=== PATIENT | female | born 1980 | race Caucasian/White ===

== ENCOUNTER 2020-01-31 13:48 | Observation (INO) | payer SELFPAY ==
[2020-01-31] VITALS (15 sets, daily range): BP systolic 140–163; BP diastolic 76–107; PULSE 83–109; RESP 14–20; TEMP 36.3–37.1; O2SAT 92–100; BMI 43.2
--- NOTE | ~2020-01-31 | US_ITS ---
EXAMINATION: US OB <=14 wk fetus w TV EXAM DATE: 01/31/2020 15:02 INDICATION: Vaginal bleeding. Beta hCG 694. First trimester. TECHNIQUE: Pelvic obstetrical transabdominal and transvaginal sonogram was performed by a technologi . There are multiple grayscale and Doppler images available for interpretation. There are no guerrero ier studies of this gestation for comparison. FINDINGS: Uterus measures 11.3 x 7.2 x 5.8 cm, and is morphologically normal. There is thickened het erogeneous endometrium at 2.4 cm. No intrauterine gestation sac identified. There is no free pelvic fluid. Right adnexa: The ovary is not identified. There is no adnexal mass. Left adnexa: The ovary is not identified. There is no adnexal mass. IMPRESSION: Thickened heterogeneous endometrium without intrauterine identified. Please not e that gestation sac might not be detected with beta hCG this low. Follow up as indicated clinicall y. Reviewed, dictated and finalized at location B. IMPRESSION: Thickened heterogeneous endometrium without intrauterine identified. Please note that gestation sac might not be detected with beta hCG this low. Follow up as indicated clinically.
--- NOTE | 2020-01-31 14:10 | ED.PREGNANCY ---
HPI - General Chief complaint: OB/Uterine Contractions Stated complaint: Miscarrige Time Seen by Provider: 01/31/20 14:07 Source: patient and RN notes reviewed Mode of arrival: ambulatory Limitations: no limitations History of Present Illness HPI Narrative: Pt is a 39 y/o female who is currently and G5, P4, who presents to the ED with c/o vaginal bleeding and lower ABD pain starting 3 days ago. She notes that her LMP was in September of 2019, but states that due to her Hx of irregular periods, she wasn't concerned about possibly being . Pt notes that she suddenly developed lower ABD pain and vaginal bleeding 3 days ago. She states that she took a positive test later that day, which concerned her that she may be having a miscarriage. Pt notes that her bleeding has continued to worsen since it began, and states that she has went through 2 pads within the past 2 hours. She currently denies any nausea or vomiting. MD Complaint: abdominal pain and vaginal bleeding Onset (ago): day(s) (3) Location: abdomen (lower ABD) Associated symptoms: denies other symptoms Vaginal bleeding: heavy Related Data Allergies Allergy/AdvReac Type Severity Reaction Status Date / Time No Known Allergies Allergy Unknown Verified 01/31/20 13:54 Review of Systems Review of Systems: All systems reviewed & are unremarkable except as noted in HPI and below Constitutional: Constitutional: Reports fatigue Cardiovascular: Cardiovascular: Denies chest pain Respiratory: Respiratory: Reports dyspnea Gastrointestinal: Gastrointestinal: Reports abdominal pain (lower ABD pain), Denies nausea and Denies vomiting Genitourinary: Genitourinary: Reports abnormal vaginal bleeding FOR[facility]LY [facility], [facility] Past Medical History Medical History (Updated 01/31/20 @ 15:47 by Kya Mauricio MD) Anemia delivery delivered (~2010) Depression Diaphragmatic hernia without mention of obstruction or gangrene Esophageal reflux Gestational HTN Irregular menstrual cycle UTI (urinary tract infection), bacterial Surgical History Surgical History H/O abdominoplasty (~2014) Social History Social History Smoking status: Former smoker Tobacco type: cigarettes Second hand tobacco smoke exposure: No Alcohol intake: current Substance use type: marijuana Last use: July 2019 Gender identity (if verbalized by the patient): Female Spiritual care concerns: No Exam Narrative: Exam Narrative: GENERAL: Well-appearing, well-nourished, and in no acute distress. obese HEAD: Normocephalic, atraumatic EYES: PERRLA and EOMI, conjunctiva clear without discharge THROAT:Mucous membranes moist, NECK: Supple, without lymphadenopathy or mass RESPIRATORY: No respiratory distress, Airway patent, Respirations non-labored, Clear to auscultation without rales, rhonchi or wheeze HEART: Regular rate and rhythm. No murmur heard. Normal peripheral pulses. ABDOMEN: Soft, nontender, nondistended, normal active bowel sounds. No masses. No rebound or guarding, No organomegaly. EXTREMITIES: No edema, normal strength with full range of motion. SKIN: Warm, dry, pale NEURO: Alert and oriented x3. CN 2-12 grossly intact. No focal deficits. PSYCH: Normal mood and affect. : Speculum Exam - Vagina: vaginal bleeding (passing small clot and tissue from cervix, ) Other: open cervix Course Reevaluation(s) Reevaluation #1: I have discussed with patient plan to admit for blood transfusion and ultrasound results. Date: 01/31/20 Time: 15:46 Consultations Consultation #1: Discussed case with CHARGING BOARD OPERATOR, Dr. Rivas. Advised to admit her for observation and give her 1 unit of blood. Date: 01/31/20 Time: 15:39 Vital Signs Vital signs: Vital Signs Temperature 98.3 F 01/31/20 13:55 Pulse Rate 106 H 01/31/20 13:55 Respiratory Rate 17 01/31/20 13:55 Blood Pr
[2020-01-31 14:18] LABS: Basophils Absolute Auto 0.1 K/mm3 (0.0-0.1); Basophils Percent Auto 0.6 % (0.2-1.2); Eosinophils Absolute Auto 0.2 K/mm3 (0-0.3); Eosinophils Percent Auto 2.2 % (0-4.4); Hematocrit 25.6 % (37.0-47.0); Immature Granulocyte Absolute 0.05 K/mm3 (0.00-0.031); Immature Granulocyte Percent A 0.6 % (0-0.5); Lymphocytes Absolute Auto 3.53 K/mm3 (0.9-3.2); Lymphocytes Percent Auto 39.2 % (18.3-44.2); Mean Corpuscular HGB Conc 25.8 g/dl (32-36); Mean Corpuscular Hemoglobin 18.5 pg (26-34); Mean Corpuscular Volume 71.7 fl (80-100); Mean Platelet Volume 10.2 fl (7.4-10.4); Monocytes Absolute Auto 0.5 K/mm3 (0.1-0.6); Monocytes Percent Auto 5.8 % (2.6-8.5); Neutrophils Absolute Auto 4.7 K/mm3 (1.3-6.7); Neutrophils Percent Auto 51.6 % (45.5-73.1); Platelet Count Result 378 k/mm3 (150-375); Red Blood Count 3.57 M/mm3 (4.2-5.4); Red Cell Distribution Width 19.7 % (11.5-14.5)
[2020-01-31 14:25] LABS: Hemoglobin 6.6 g/dL (12.0-15.0)
[2020-01-31 14:27] LABS: Hypochromasia 2+ (NORMAL); Platelet Estimate Adequate (Adequate)
[2020-01-31 14:28] LABS: Ovalocytes 1+ (NORMAL); Stomatocytes 1+ (NORMAL)
[2020-01-31 16:19] LABS: Hematocrit 24.1 % (37.0-47.0)
[2020-01-31 16:21] LABS: Hemoglobin 6.4 g/dL (12.0-15.0)
--- NOTE | 2020-01-31 17:08 | PC.NURSE ---
This patient, Jackie Alford, was admitted to Medical Room 348-01. Patient/family oriented to hospital policies and general routines including ID bracelet, bed and alarms, visiting hours, pain management, procedures, bathroom and other care routines, personal items, smoking policy, room service/diet, and visiting hours. Valuables list has been completed. Information on how to activate the Rapid Response Team has been discussed. Patient/Family are encouraged to report perceived risks to care and to ask questions if they do not understand what they are told or what they should do.
[2020-01-31] MEDS: SODIUM CHLORIDE 0.9% IV 250 ML 30 ML IV CONT (18:30)
[2020-01-31 22:52] LABS: Hematocrit 26.6 % (37.0-47.0); Hemoglobin 7.1 g/dL (12.0-15.0)
[2020-02-01] VITALS (19 sets, daily range): BP systolic 124–162; BP diastolic 60–96; PULSE 71–96; RESP 10–18; TEMP 36.1–36.8; O2SAT 95–100
[2020-02-01] MEDS: SODIUM CHLORIDE 0.9% IV 250 ML 30 ML IV CONT (00:05)
[2020-02-01] MEDS: ACETAMINOPHEN 500 MG TABLET PO (04:12)
[2020-02-01] MEDS: ALPRAZOLAM 0.5 MG TABLET PO (04:12)
[2020-02-01 06:17] LABS: Hematocrit 26.8 % (37.0-47.0); Hemoglobin 7.6 g/dL (12.0-15.0); Mean Corpuscular HGB Conc 28.4 g/dl (32-36); Mean Corpuscular Hemoglobin 20.4 pg (26-34); Mean Platelet Volume 9.8 fl (7.4-10.4); Platelet Count Result 296 k/mm3 (150-375); Red Blood Count 3.72 M/mm3 (4.2-5.4); Red Cell Distribution Width 19.9 % (11.5-14.5); White Blood Count 6.8 K/mm3 (4.5-10.0)
--- NOTE | 2020-02-01 07:30 | PM.IMHP ---
H&P: HPI History of Present Illness Chief complaint: Miscarriage/anemia Narrative: Jackie Alford is a 39 year old female who was admitted through the ER with a hemoglobin of 6. She had a positive test with that was low but an ultrasound showed an abnormal . She has received blood and her hemoglobin is pending but she appears to be stable. She will undergo suction dilatation curettage. Risks and benefits were reviewed Review of Systems Review of Systems: All systems reviewed & are unremarkable except as noted in HPI and below PMFSH Past Medical History Medical History Anemia delivery delivered (~2010) Depression Diaphragmatic hernia without mention of obstruction or gangrene Esophageal reflux Gestational HTN Irregular menstrual cycle UTI (urinary tract infection), bacterial Surgical History Surgical History H/O abdominoplasty (~2014) Family History Family History Grandparent Acute myocardial infarction Father Diabetes mellitus Sibling Diabetes mellitus Grandparent Heart disease Mother Hypertension Father Hypertension Father Obesity Mother Obesity Social History Social History Smoking status: Former smoker Tobacco type: cigarettes Second hand tobacco smoke exposure: No Alcohol intake: current Drinks per week: 2 Substance use type: marijuana Last use: 6 months ago Gender identity (if verbalized by the patient): Female Spiritual care concerns: No Agree to blood products: Yes Meds Home Medications and Allergies Home Medications Medication Instructions Recorded Confirmed Type alprazolam 0.5 mg tablet 0.5 mg PO BID PRN #60 tablet 01/28/20 01/31/20 Rx diphenhydramine HCl [Benadryl] 50 mg PO HS PRN 01/31/20 01/31/20 History ibuprofen 400 mg PO Q6H PRN 01/31/20 01/31/20 History omeprazole 20 mg PO PRN 01/31/20 01/31/20 History ondansetron 4 mg PO Q6H PRN 01/31/20 01/31/20 History Allergies Allergy/AdvReac Type Severity Reaction Status Date / Time No Known Allergies Allergy Unknown Verified 01/31/20 13:54 Vital Signs Vital Signs - 24 hr 01/31/20 13:55 01/31/20 13:57 01/31/20 15:16 Temperature 98.3 F 98.8 F Pulse Rate 106 H 106 H 88 Respiratory Rate 17 20 Blood Pressure 151/76 H 151/95 H 146/102 H Pulse Oximetry 100 100 01/31/20 15:18 01/31/20 15:19 01/31/20 15:55 Temperature Pulse Rate 92 95 109 H Respiratory Rate 16 Blood Pressure 155/107 H 152/101 H 140/92 H Pulse Oximetry 92 01/31/20 16:50 01/31/20 17:10 01/31/20 17:29 Temperature 98.1 F 98.1 F Pulse Rate 83 92 92 Respiratory Rate 16 16 14 Blood Pressure 146/87 H 150/78 H 150/78 H Pulse Oximetry 100 100 100 01/31/20 17:45 01/31/20 18:45 01/31/20 19:45 Temperature 98.4 F 97.6 F 97.3 F L Pulse Rate 83 84 93 Respiratory Rate 16 16 16 Blood Pressure 141/81 H 142/82 H 163/82 H Pulse Oximetry 100 98 100 01/31/20 20:00 01/31/20 20:58 01/31/20 21:08 Temperature 97.5 F L 97.5 F L Pulse Rate 88 88 88 Respiratory Rate 16 16 16 Blood Pressure 147/93 H 147/93 H Pulse Oximetry 100 100 100 02/01/20 00:10 02/01/20 00:26 02/01/20 01:26 Temperature 97.5 F L 97.6 F 97.2 F L Pulse Rate 83 89 89 Respiratory Rate 16 16 16 Blood Pressure 150/76 H 146/76 H 146/76 H Pulse Oximetry 100 100 100 02/01/20 02:26 02/01/20 03:26 02/01/20 04:24 Temperature 97.4 F L 97 F L 97.1 F L Pulse Rate 90 85 76 Respiratory Rate 16 17 16 Blood Pressure 148/80 H 151/91 H 161/83 H Pulse Oximetry 99 97 100 02/01/20 06:29 Temperature 97 F L Pulse Rate 81 Respiratory Rate 16 Blood Pressure 133/60 Pulse Oximetry 99 Exam Const: General: no acute distress Eyes: General: appearance normal, both eyes and all related structures Nec
--- NOTE | 2020-02-01 07:55 | PC.NURSE ---
To OR via stretcher.
--- NOTE | 2020-02-01 08:08 | WPDANESEPPF ---
Anes - Initial Pre Proc Eval Procedure: Operation Date: 02/01/20 08:30 Proposed Procedures p Dilation and Curettage - Abdias Saha MD Date/Time: 02/01/20 08:08 Surgeon: Danial Rivas MD Pre Op Diagnosis: Miscarriage/anemia Patient Data Age: 39 Gender: F Height: 5 ft 10 in Weight: 136.6 kg Last Vital Signs Temp 36.1 C L 02/01/20 06:29 Pulse 81 02/01/20 06:29 Resp 16 02/01/20 06:29 BP 133/60 02/01/20 06:29 Pulse Ox 99 02/01/20 06:29 Allergies Allergy/AdvReac Type Severity Reaction Status Date / Time No Known Allergies Allergy Unknown Verified 01/31/20 13:54 Home Medications Medication Instructions Recorded Confirmed Type alprazolam 0.5 mg tablet 0.5 mg PO BID PRN #60 tablet 01/28/20 01/31/20 Rx diphenhydramine HCl [Benadryl] 50 mg PO HS PRN 01/31/20 01/31/20 History ibuprofen 400 mg PO Q6H PRN 01/31/20 01/31/20 History omeprazole 20 mg PO PRN 01/31/20 01/31/20 History ondansetron 4 mg PO Q6H PRN 01/31/20 01/31/20 History Laboratory Tests 01/31/20 01/31/20 01/31/20 14:06 14:09 14:09 WBC 9.0 K/mm3 K/mm3 (4.5-10.0) RBC 3.57 M/mm3 L M/mm3 (4.2-5.4) Hgb 6.6 g/dL L* g/dL (12.0-15.0) Hct 25.6 % L % (37.0-47.0) MCV 71.7 fl L fl (80-100) MCH 18.5 pg L pg (26-34) MCHC 25.8 g/dl L g/dl (32-36) RDW 19.7 % H % (11.5-14.5) Plt Count 378 k/mm3 H k/mm3 (150-375) MPV 10.2 fl fl (7.4-10.4) Immature Gran % (Auto) 0.6 % H % (0-0.5) Neut % (Auto) 51.6 % % (45.5-73.1) Lymph % (Auto) 39.2 % % (18.3-44.2) [place] % (Auto) 5.8 % % (2.6-8.5) Eos % (Auto) 2.2 % % (0-4.4) Baso % (Auto) 0.6 % % (0.2-1.2) Lymph # (Auto) 3.53 K/mm3 H K/mm3 (0.9-3.2) [place] # (Auto) 0.5 K/mm3 K/mm3 (0.1-0.6) Eos # (Auto) 0.2 K/mm3 K/mm3 (0-0.3) Baso # (Auto) 0.1 K/mm3 K/mm3 (0.0-0.1) Abs Immat Gran (auto) 0.05 K/mm3 H K/mm3 (0.00-0.031) Absolute Neuts (auto) 4.7 K/mm3 K/mm3 (1.3-6.7) Absolute Nucleated RBC 0.0 K/mm3 K/mm3 (0.0-0.012) Nucleated RBC % 0.0 % % (0.0-0.2) Platelet Estimate Adequate (Adequate) Hypochromasia 2+ (NORMAL) Ovalocytes 1+ (NORMAL) Stomatocytes 1+ (NORMAL) Beta HCG, Quant 694.17 mIU/ML mIU/ML Blood Type O Positive Antibody Screen Negative Crossmatch See Detail 01/31/20 01/31/20 01/31/20 14:09 16:14 22:47 WBC RBC Hgb 6.4 g/dL L* g/dL 7.1 g/dL L g/dL (12.0-15.0) (12.0-15.0) Hct 24.1 % L % 26.6 % L % (37.0-47.0) (37.0-47.0) MCV MCH MCHC RDW Plt Count MPV Immature Gran % (Auto) Neut % (Auto) Lymph % (Auto) [place] % (Auto) Eos % (Auto) Baso % (Auto) Lymph # (Auto) [place] # (Auto) Eos # (Auto) Baso # (Auto) Abs Immat Gran (auto) Absolute Neuts (auto) Absolute Nucleated RBC Nucleated RBC % Platelet Estimate Hypochromasia Ovalocytes Stomatocytes Beta HCG, Quant Blood Type O Positive Antibody Screen Crossmatch 02/01/20 06:08 WBC 6.8 K/mm3 K/mm3 (4.5-10.0) RBC 3.72 M/mm3 L M/mm3 (4.2-5.4) Hgb 7.6 g/dL L g/dL (12.0-15.0) Hct 26.8 % L % (37.0-47.0) MCV 72.0 fl L fl (80-100) MCH 20.4 pg L D pg (26-34) MCHC 28.4 g/dl L g/dl (32-36) RDW 19.9 % H % (11.5-14.5) Plt Count 296 k/mm3 k/mm3 (150-375) MPV 9.8 fl fl (7.4-10.4) Immature Gran % (Auto) Neut % (Auto) Lymph %
[2020-02-01] MEDS: LACTATED RINGERS 1,000 ML 30 ML IV CONT (08:33)
--- NOTE | 2020-02-01 08:36 | P.OP_ITS ---
Procedure Note - Detailed Date of procedure: 02/01/20 Pre-op diagnosis: Miscarriage/anemia Surgeon: Abdias Saha MD Postop diagnosis: 1st trimester AB/anemia Procedure: Suction dilatation curettage EBL: 25cc Anesthesia: IV sedation and local Findings: Tissue consistent with products of conception uterus that sounded to 10cm. Complications: None Description of procedure: Patient was prepped and draped in the normal sterile fashion placed in the dorsal lithotomy position. Under excellent IV sedation weighted speculum was placed in posterior fornix of vagina. Anterior lip of the cervix grasped with a single-tooth tenaculum. 2.5cc of 1% xylocaine anesthesia placed at 2, 4, 6, 8:00 a.m. of the cervix. The uterus sounded to 10cm. Serial dilatation with fragmented dilators performed followed by passage of the 10. Suction curette. The uterus was scraped over the entire 360? until a good gra ting sound was heard. When no further tissue could be removed, instruments removed. All sponge, needle, instrument counts were correct. There were no immediate complications. Patient went to recovery in satisfactory condition
--- NOTE | 2020-02-01 08:43 | PM.DS ---
DS: Diagnosis Admitting Diagnosis Admitting Diagnosis: sAB/anemia DS: Summary Time Spent with Patient Time attestation: Total time spent providing and/or coordinating discharge services: Exam Const: General: no acute distress Eyes: General: appearance normal, both eyes and all related structures Neck: Neck: supple and no JVD Thyroid: thyroid normal Resp: Effort & Inspection: normal respiratory effort Auscultation: clear to auscultation bilaterally Cardio: Rate: regular rate Rhythm: regular rhythm GI: Inspection: non-distended GI Palp: Yes Soft to palpation, No Tenderness to palpation present (GI) and No Guarding due to palpation present (GI) Auscultation: normal bowel sounds : General: Yes bladder normal to palpation External Female Exam: normal external appearance Speculum Exam - Vagina: normal vaginal discharge and No vaginal bleeding Speculum Exam - Cervix: nontender Bimanual exam- vagina & uterus: bladder normal to palpation and No Cervical tenderness present OB/external & speculum: No vaginal bleeding Skin: General skin exam: no rashes or lesions noted Extrem: General: normal to inspection and no edema Psych: Mental Status: mental status grossly normal Affect: normal affect DS: Data Data Completed and Pending Pending studies at discharge: Pending at discharge 01/31/20 17:09 Surgical [PTH] Routine 02/01/20 08:30 Surgical [PTH] Routine Labs on day of discharge: Labs from last 24 hours 02/01/20 01/31/20 01/31/20 06:08 22:47 16:14 WBC 6.8 RBC 3.72 L Hgb 7.6 L 7.1 L 6.4 L* Hct 26.8 L 26.6 L 24.1 L MCV 72.0 L MCH 20.4 L D MCHC 28.4 L RDW 19.9 H Plt Count 296 MPV 9.8 Immature Gran % (Auto) Neut % (Auto) Lymph % (Auto) [place] % (Auto) Eos % (Auto) Baso % (Auto) Lymph # (Auto) [place] # (Auto) Eos # (Auto) Baso # (Auto) Abs Immat Gran (auto) Absolute Neuts (auto) Absolute Nucleated RBC Nucleated RBC % Platelet Estimate Hypochromasia Ovalocytes Stomatocytes Beta HCG, Quant Blood Type Antibody Screen Crossmatch 04/06/20 04/06/20 04/06/20 14:09 14:09 14:09 WBC 9.0 RBC 3.57 L Hgb 6.6 L* Hct 25.6 L MCV 71.7 L MCH 18.5 L MCHC 25.8 L RDW 19.7 H Plt Count 378 H MPV 10.2 Immature Gran % (Auto) 0.6 H Neut % (Auto) 51.6 Lymph % (Auto) 39.2 [place] % (Auto) 5.8 Eos % (Auto) 2.2 Baso % (Auto) 0.6 Lymph # (Auto) 3.53 H [place] # (Auto) 0.5 Eos # (Auto) 0.2 Baso # (Auto) 0.1 Abs Immat Gran (auto) 0.05 H Absolute Neuts (auto) 4.7 Absolute Nucleated RBC 0.0 Nucleated RBC % 0.0 Platelet Estimate Adequate Hypochromasia 2+ Ovalocytes 1+ Stomatocytes 1+ Beta HCG, Quant 694.17 Blood Type O Positive Antibody Screen Crossmatch 01/31/20 14:06 WBC RBC Hgb Hct MCV MCH MCHC RDW Plt Count MPV Immature Gran % (Auto) Neut % (Auto) Lymph % (Auto) [place] % (Auto) Eos % (Auto) Baso % (Auto) Lymph # (Auto) [place] # (Auto) Eos # (Auto) Baso # (Auto) Abs Immat Gran (auto) Absolute Neuts (auto) Absolute Nucleated RBC Nucleated RBC % Platelet Estimate Hypochromasia Ovalocytes Stomatocytes Beta HCG, Quant Blood Type O Positive Antibody Screen Negative Crossmatch See Detail Discharge Plan Discharge Attending physician on discharge: Abdias Saha Discharging Clinician: Abdias Saha Patient Disposition: Home, Self-Care Activity: may shower, no straining, may drive after 2 weeks and pelvic rest Diet: heart healthy Wound Care Instructions: follow printed instructions Patient Instructions: Miscarriage (DC), Pain Management (DC), Pain Management (GEN), Antibiotic Form Stand Alone Forms: General Discharge Information Follow-up/Referrals: Abdias Saha MD [Physician] - Discharge Medications: Continued d
--- NOTE | 2020-02-01 09:45 | PC.NURSE ---
Returned from OR via stretcher.
[2020-02-01 10:18] LABS: Basophils Percent Auto 0.7 % (0.2-1.2); Eosinophils Absolute Auto 0.2 K/mm3 (0-0.3); Eosinophils Percent Auto 2.5 % (0-4.4); Hematocrit 28.8 % (37.0-47.0); Immature Granulocyte Absolute 0.01 K/mm3 (0.00-0.031); Immature Granulocyte Percent A 0.2 % (0-0.5); Lymphocytes Absolute Auto 2.38 K/mm3 (0.9-3.2); Lymphocytes Percent Auto 39.2 % (18.3-44.2); Mean Corpuscular HGB Conc 27.8 g/dl (32-36); Mean Corpuscular Hemoglobin 20.5 pg (26-34); Mean Corpuscular Volume 73.7 fl (80-100); Mean Platelet Volume 9.9 fl (7.4-10.4); Monocytes Absolute Auto 0.4 K/mm3 (0.1-0.6); Monocytes Percent Auto 7.1 % (2.6-8.5); Neutrophils Absolute Auto 3.1 K/mm3 (1.3-6.7); Neutrophils Percent Auto 50.3 % (45.5-73.1); Platelet Count Result 345 k/mm3 (150-375); Red Blood Count 3.91 M/mm3 (4.2-5.4); Red Cell Distribution Width 19.9 % (11.5-14.5); White Blood Count 6.1 K/mm3 (4.5-10.0)
[2020-02-01 10:32] LABS: Anisocytosis 1+ (NORMAL); Hypochromasia 1+ (NORMAL); Platelet Estimate Adequate (Adequate); Prothrombin Time 13.2 Seconds (11.1-14.7)
[2020-02-01 10:33] LABS: Partial Thromboplastin Time 25.1 SECONDS (22.3-36.8)
[2020-02-01] MEDS: ACETAMINOPHEN 325 MG TABLET 650 MG PO (10:33)
[2020-02-01 10:34] LABS: Fibrinogen 315 mg/dl (215-510)
[2020-02-01 16:56] LABS: Hemoglobin 7.7 g/dL (12.0-15.0)
[2020-02-01] MEDS: POLYSACCHARIDE IRON COMPLEX 150 MG CAPSULE PO (17:00)
[2020-02-02] VITALS (9 sets, daily range): BP systolic 128–154; BP diastolic 73–90; PULSE 72–90; RESP 12–18; TEMP 36.1–36.6; O2SAT 96–100
[2020-02-02] MEDS: ACETAMINOPHEN 325 MG TABLET 650 MG PO (00:12)
[2020-02-02] MEDS: ZOLPIDEM TARTRATE 5 MG TABLET PO (00:12)
[2020-02-02 05:40] LABS: Hematocrit 24.1 % (37.0-47.0)
[2020-02-02 05:58] LABS: Hemoglobin 6.7 g/dL (12.0-15.0)
[2020-02-02] MEDS: POLYSACCHARIDE IRON COMPLEX 150 MG CAPSULE PO ×2 (08:30→16:41)
[2020-02-02] MEDS: SODIUM CHLORIDE 0.9% IV 250 ML 30 ML IV CONT (08:32)
--- NOTE | 2020-02-02 09:47 | WPDANESPN ---
Anes - Prog Note Post-Op Date/Time: 02/02/20 09:47 Cardiovascular status: normal Respiratory status: normal Airway patency: baseline Mental status: baseline Post-Op hydration status: normal Vital Signs: Last Vital Signs Temp 36.1 C L 02/02/20 09:40 Pulse 80 02/02/20 09:40 Resp 16 02/02/20 09:40 BP 145/76 H 02/02/20 09:40 Pulse Ox 96 02/02/20 09:40 I/O: Intake & Output 02/01/20 02/02/20 02/02/20 23:59 07:59 15:59 Intake Total 600 450 0 Output Total 900 1300 Balance -300 -850 0 Laboratory Tests 02/02/20 05:13 01/31/20 02/01/20 02/01/20 14:06 10:11 10:11 WBC 6.1 RBC 3.91 L Hgb 8.0 L Hct 28.8 L MCV 73.7 L MCH 20.5 L MCHC 27.8 L RDW 19.9 H Plt Count 345 MPV 9.9 Immature Gran % (Auto) 0.2 Neut % (Auto) 50.3 Lymph % (Auto) 39.2 [place] % (Auto) 7.1 Eos % (Auto) 2.5 Baso % (Auto) 0.7 Lymph # (Auto) 2.38 [place] # (Auto) 0.4 Eos # (Auto) 0.2 Baso # (Auto) 0.0 Abs Immat Gran (auto) 0.01 Absolute Neuts (auto) 3.1 Absolute Nucleated RBC 0.0 Nucleated RBC % 0.0 Platelet Estimate Adequate Hypochromasia 1+ Anisocytosis 1+ PT 13.2 INR 1.0 APTT 25.1 Fibrinogen 315 D-Dimer 1.00 H Blood Type O Positive Antibody Screen Negative Crossmatch See Detail 02/01/20 02/02/20 16:14 05:13 WBC RBC Hgb 7.7 L 6.7 L* Hct 28.0 L 24.1 L MCV MCH MCHC RDW Plt Count MPV Immature Gran % (Auto) Neut % (Auto) Lymph % (Auto) [place] % (Auto) Eos % (Auto) Baso % (Auto) Lymph # (Auto) [place] # (Auto) Eos # (Auto) Baso # (Auto) Abs Immat Gran (auto) Absolute Neuts (auto) Absolute Nucleated RBC Nucleated RBC % Platelet Estimate Hypochromasia Anisocytosis PT INR APTT Fibrinogen D-Dimer Blood Type Antibody Screen Crossmatch Post-procedural complaints: none Patient Feedback: Patient satisfied with anesthetic care.
--- NOTE | 2020-02-02 12:27 | P.DS_ITS ---
DS: Summary Hospital Course Reason for hospitalization: * Hospital Course: 39 F who presented to the ED with heavy vaginal bleeding secondary to miscarriage. Pt was found to have a critical hbg requiring transfusion.She underwent suction D&C on hospital day #1. Her bleeding was well controlled after D&C. Hemoglobin was again found to be critical requiring another unit of RBC. Vital signs remained stable and patient asymptomatic on postop day 1. Status at Discharge Functional status at discharge: independent ambulation Overall status at discharge: patient is back to baseline Time Spent with Patient Time attestation: Total time spent providing and/or coordinating discharge services: Time spent: Less than 30 minutes Exam Const: General: no acute distress Resp: Auscultation: clear to auscultation bilaterally Cardio: Rate: regular rate Rhythm: regular rhythm GI: Inspection: non-distended GI Palp: Yes Soft to palpation and No Tenderness to palpation present (GI) Skin: General skin exam: normal color and no rashes or lesions noted Extrem: General: normal to inspection DS: Data Data Completed and Pending Completed studies during hospitalization: Pending at discharge 01/31/20 17:09 Surgical [PTH] Routine 02/01/20 08:30 Surgical [PTH] Routine Labs on day of discharge: Labs from last 24 hours 02/02/20 02/01/20 01/31/20 05:13 16:14 14:06 Hgb 6.7 L* 7.7 L Hct 24.1 L 28.0 L Blood Type O Positive Antibody Screen Negative Crossmatch See Detail Discharge Plan Discharge Attending physician on discharge: Abdias Saha Discharging Clinician: Abdias Saha Patient Disposition: Home, Self-Care Activity: may shower, no straining, may drive after 2 weeks and pelvic rest Diet: heart healthy Wound Care Instructions: follow printed instructions Patient Instructions: Antibiotic Form, Miscarriage (DC), Pain Management (DC), Pain Management (GEN) Stand Alone Forms: General Discharge Information Follow-up/Referrals: Abdias Saha MD [Physician] - Discharge Medications: New ferrous sulfate [Feosol] 325 mg (65 mg iron) tablet 325 mg PO BID Qty: 60 RF: 0 Continued diphenhydramine HCl [Benadryl] 25 mg Capsule 50 mg PO HS PRN (Reason: Sleep) RF: 0 ibuprofen 400 mg Tablet 400 mg PO Q6H PRN (Reason: Pain) RF: 0 ondansetron 4 mg Tablet,Disintegrating 4 mg PO Q6H PRN (Reason: Nausea) RF: 0 omeprazole 20 mg Tablet,Delayed Release (Dr/Ec) 20 mg PO PRN RF: 0 alprazolam 0.5 mg tablet 0.5 mg PO BID PRN (Reason: anxiety, sleep) Qty: 60 RF: 0 Date of admission: 01/31/20 15:49 Primary Care Provider: UNKNOWN,DOCTOR Admitting Provider: Danial Rivas Attending physician on admission: Danial Rivas Condition: Stable
[2020-02-02 16:30] LABS: Hematocrit 29.2 % (37.0-47.0); Hemoglobin 8.3 g/dL (12.0-15.0)
== END 2020-02-02 17:50 | disposition home or self-care (01) ==
LOC: ANHED 15:52 → ANH3MED 18:58
PROVIDERS: Admitting Provider Student in an Organized Health Care Education/Training Program; Emergency Provider General Practice; Visit Provider Obstetrics & Gynecology
PROC: (CPT 59812; principal; 2020-02-01 08:30)
DX: O03.9 Complete or unspecified spontaneous abortion without complication (principal); D64.9 Anemia, unspecified; Z79.899 Other long term (current) drug therapy; Z87.891 Personal history of nicotine dependence
CPT/HCPCS: 59812; 36415; 36430; 76801; 76817; 84702; 85014; 85018; 85025; 85027; 85380; 85384; 85610; 85730; 86850; 86900; 86901; 86923; 88305; 96360; 96361; 99285; A9270; G0378; G0379; J2250; J2704; J3010; J7050; J7120; P9016

== ENCOUNTER 2020-08-02 09:42 | Emergency (ER) | payer SELFPAY ==
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
--- NOTE | 2020-08-02 10:24 | PC.NURSE ---
Pt took off her own C collar.
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
[2020-08-02] MEDS: CYCLOBENZAPRINE HCL 10 MG TABLET PO (11:55)
[2020-08-02] MEDS: ACETAMINOPHEN 325 MG TABLET 650 MG (11:59)
--- NOTE | 2020-08-02 12:02 | PC.NURSE ---
this RN at bedside to medicate patient. states she cannot tolerate NSAIDS due to hx of multiple GIB. MD aware. tylenol given. flexeril given. all explained to patient and . MD is preparing discharge.
[2020-08-02 12:06] VITALS: BP 149/97; PULSE 71; RESP 15; O2SAT 98
[2020-08-02 12:35] VITALS: BP 123/79; PULSE 87; RESP 17; O2SAT 98
== END 2020-08-02 12:57 | disposition home or self-care (01) ==
PROVIDERS: Emergency Provider General Practice; PCP Family Medicine
DX: S40.012A Contusion of left shoulder, initial encounter (principal); S80.02XA Contusion of left knee, initial encounter; V47.5XXA Car driver injured in collision with fixed or stationary object in traffic accident, initial encounter; Z87.891 Personal history of nicotine dependence; K21.9 Gastro-esophageal reflux disease without esophagitis
CPT/HCPCS: 70450; 71046; 73030; 73564; 99284; A9270

== ENCOUNTER 2021-10-25 19:03 | Observation (INO) | payer BC, SELFPAY ==
[2021-10-25 20:15] VITALS: BP 128/75; PULSE 85; RESP 21; TEMP 37; O2SAT 99
--- NOTE | 2021-10-25 20:30 | PC.NURSE ---
patient placed in paper clothes, personal items removed and placed in secure area. pt at bedside. patient took patient's purse, wallet, credit cards, medication and nichols to his car.
[2021-10-25 20:34] LABS: Basophils Absolute Auto 0.02 K/mm3 (0.00-0.10); Basophils Percent Auto 0.4 % (0.0-1.0); Eosinophils Absolute Auto 0.12 K/mm3 (0.02-0.50); Eosinophils Percent Auto 2.2 % (1.0-6.0); Hematocrit 23.1 % (35.0-49.0); Immature Granulocyte Absolute 0.02 K/mm3 (0.00-0.00); Immature Granulocyte Percent A 0.4 % (0.0-0.0); Lymphocytes Absolute Auto 1.91 K/mm3 (1.10-4.50); Lymphocytes Percent Auto 35.6 % (18.0-42.0); Mean Corpuscular HGB Conc 25.1 g/dL (32.0-36.0); Mean Corpuscular Hemoglobin 18.6 pg (27.0-31.0); Mean Platelet Volume 9.8 fl (9.2-11.8); Monocytes Absolute Auto 0.39 K/mm3 (0.10-0.90); Monocytes Percent Auto 7.3 % (2.0-11.0); Neutrophils Absolute Auto 2.9 K/mm3 (1.7-7.2); Neutrophils Percent Auto 54.1 % (50.0-70.0); Platelet Count Result 342 K/mm3 (150-420); Red Blood Count 3.12 M/mm3 (4.20-5.40); Red Cell Distribution Width 19.3 % (11.6-14.4); White Blood Count 5.4 K/mm3 (4.8-10.8)
--- NOTE | 2021-10-25 20:35 | PC.NURSE ---
patient belongings release form signed by patient and witnessed by this staff member.
[2021-10-25 20:43] LABS: Hemoglobin 5.8 g/dL (12.0-15.0)
[2021-10-25 20:56] LABS: Add Urine Microscopic? YES; Appearance Urine Sl Cloudy (Clear); Bilirubin Urine Negative (Negative); Blood Urine 3+ (Negative); Color Urine Yellow (Yellow); Glucose Urine UA Negative (Negative); Ketones Urine Negative (Negative); Leukocyte Esterase Ur Negative (Negative); Nitrate Urine Negative (Negative); Protein Urine Negative (Negative); Specific Grav Ur 1.025 (1.010-1.020); Urobilinogen Urine 0.2 mg/dL (0.2-1.0)
[2021-10-25 21:00] LABS: Alanine Aminotransferase 12 U/L (14-59); Albumin Level 3.3 g/dL (3.4-5.0); Alkaline Phosphatase 60 U/L (46-116); Anion Gap 9 mmol/L (8-16); Aspartate Amino Transferase 10 U/L (15-37); Bilirubin,Total 0.1 mg/dL (0.00-1.00); Blood Urea Nitrogen 6 mg/dL (7-18); Calcium 8.4 mg/dL (8.5-10.1); Carbon Dioxide 28 mmol/L (21-32); Chloride 103 mmol/L (98-108); Estimated CRCL calculation 100 ml/min; Estimated Glomerular Filt Rate > 60; Glucose 95 mg/dL (70-99); Osmolality Calculated 287 mOsm/kg (285-295); Potassium 3.4 mmol/L (3.5-5.1); Salicylate 1.5 mg/dL (2.8-20.0); Sodium 140 mmol/L (136-145); Thyroid Stimulating Hormone 2.02 uIU/mL (0.36-3.74)
[2021-10-25 21:01] LABS: Bacteria Urine Trace /hpf; RBC Urine 51-75 /hpf (0-2); Squamous Epithelial Cell Urine Few /hpf (Few); WBC Urine 0-3 /hpf (0-3)
[2021-10-25 21:02] LABS: Amphetamine Screen Urine Negative (Negative); Barbiturate Screen Urine Negative (Negative); Benzodiazepines Screen Urine Positive (Negative); Cannabinoid Screen Urine Positive (Negative); Cocaine Screen Urine Negative (Negative); Methadone Screen Urine Negative (Negative); Opiate Screen Urine Positive (Negative); Phencyclidine Screen Urine Negative (Negative)
[2021-10-25 21:02] LABS: Acetaminophen < 2 ug/mL (10-30); Ethanol < 3 mg/dL (0-6)
[2021-10-25 21:04] LABS: Pregnancy On Board Control Positive; Urine Pregnancy Test Negative
[2021-10-25 21:13] LABS: SARS-CoV-2 RNA PCR Negative (Negative)
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
[2021-10-25] MEDS: SODIUM CHLORIDE 0.9% IV 250 ML 30 ML IV CONT (23:01)
[2021-10-25 23:10] VITALS: BP 130/70; PULSE 66; RESP 18; TEMP 36.7; O2SAT 100
[2021-10-25 23:28] VITALS: BP 128/95; PULSE 69; RESP 16; TEMP 36.8; O2SAT 100
[2021-10-25 23:51] VITALS: BP 128/95; PULSE 69; RESP 16; TEMP 36.8; O2SAT 100
[2021-10-26] VITALS (12 sets, daily range): BP systolic 123–146; BP diastolic 59–82; PULSE 64–79; RESP 18; TEMP 36.7–38; O2SAT 92–100; BMI 40.8
--- NOTE | 2021-10-26 | ADMGEN ---
This patient, Jackie Alford, was admitted to 2nd Floor Room 206-1. Patient/family oriented to hospital policies and general routines including ID bracelet, bed and alarms, visiting hours, pain management, procedures, bathroom and other care routines, personal items, smoking policy, room service/diet, and visiting hours. Information on how to activate the Rapid Response Team has been discussed. Patient/Family are encouraged to report perceived risks to care and to ask questions if they do not understand what they are told or what they should do.
[2021-10-26] MEDS: LORazepam (*CRX) 0.5 MG TABLET PO (01:11)
[2021-10-26] MEDS: traZODone HCL 50 MG TABLET 100 MG PO (01:11)
[2021-10-26 02:52] LABS: Hematocrit 24.1 % (35.0-49.0)
[2021-10-26 02:54] LABS: Hemoglobin 6.3 g/dL (12.0-15.0)
--- NOTE | 2021-10-26 02:56 | PC.NURSE ---
notified that patient's post infusion Hgb result was 6.3. stated to infuse the second unit.
--- NOTE | 2021-10-26 04:50 | PC.NURSE ---
Spoke to Dr. Singh regarding pt's temp of 100.4; New orders received and noted
[2021-10-26] MEDS: ACETAMINOPHEN 325 MG TABLET 650 MG PO (05:10)
[2021-10-26 07:17] LABS: Basophils Absolute Auto 0.03 K/mm3 (0.00-0.10); Basophils Percent Auto 0.6 % (0.0-1.0); Eosinophils Absolute Auto 0.08 K/mm3 (0.02-0.50); Eosinophils Percent Auto 1.5 % (1.0-6.0); Hematocrit 26.9 % (35.0-49.0); Hemoglobin 7.5 g/dL (12.0-15.0); Immature Granulocyte Absolute 0.01 K/mm3 (0.00-0.00); Immature Granulocyte Percent A 0.2 % (0.0-0.0); Lymphocytes Absolute Auto 1.85 K/mm3 (1.10-4.50); Lymphocytes Percent Auto 34.1 % (18.0-42.0); Mean Corpuscular HGB Conc 27.9 g/dL (32.0-36.0); Mean Corpuscular Hemoglobin 21.2 pg (27.0-31.0); Mean Platelet Volume 9.8 fl (9.2-11.8); Monocytes Absolute Auto 0.33 K/mm3 (0.10-0.90); Monocytes Percent Auto 6.1 % (2.0-11.0); Neutrophils Absolute Auto 3.1 K/mm3 (1.7-7.2); Neutrophils Percent Auto 57.5 % (50.0-70.0); Platelet Count Result 326 K/mm3 (150-420); Red Blood Count 3.54 M/mm3 (4.20-5.40); Red Cell Distribution Width 20.5 % (11.6-14.4); White Blood Count 5.4 K/mm3 (4.8-10.8)
[2021-10-26 07:33] LABS: Alanine Aminotransferase 13 U/L (14-59); Albumin Level 3.2 g/dL (3.4-5.0); Alkaline Phosphatase 61 U/L (46-116); Anion Gap 9 mmol/L (8-16); Aspartate Amino Transferase 11 U/L (15-37); Bilirubin,Total 0.3 mg/dL (0.00-1.00); Blood Urea Nitrogen 5 mg/dL (7-18); Calcium 8.2 mg/dL (8.5-10.1); Carbon Dioxide 27 mmol/L (21-32); Chloride 103 mmol/L (98-108); Estimated CRCL calculation 90 ml/min; Estimated Glomerular Filt Rate 58; Glucose 129 mg/dL (70-99); Osmolality Calculated 287 mOsm/kg (285-295); Potassium 3.8 mmol/L (3.5-5.1); Sodium 139 mmol/L (136-145); Total Protein 6.6 g/dL (6.4-8.2)
--- NOTE | 2021-10-26 09:02 | PC.NURSE ---
Ruth Ann kinsey contacted for evaluation of patient
[2021-10-26] MEDS: ESCITALOPRAM OXALATE 10 MG TABLET 20 MG PO (10:16)
--- NOTE | 2021-10-26 11:48 | PC.NURSE ---
singh kinsey here to evaluate patient
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
[2021-10-26] MEDS: HYDROcodone/acetaminophen (*CRX) 7.5-325 MG TABLET 1 TAB PO (12:59)
--- NOTE | 2021-10-26 13:20 | PC.NURSE ---
Patient being discharged home with follow up through [facility]. IV site discontinued, tip intact, dressing applied to site. All discharge instructions and education reviewed with patient, patient states understanding. Patient accompanied to front door, patient ambulatory. Left via private vehicle with .
== END 2021-10-26 13:20 | disposition home health service (06) ==
LOC: CHSED 22:57 → CHS2ND 22:59
PROVIDERS: Admitting Provider Emergency Medicine; Emergency Provider Emergency Medicine; PCP Family Medicine; Visit Provider Emergency Medicine
DX: R45.851 Suicidal ideations (principal); F43.21 Adjustment disorder with depressed mood; D64.9 Anemia, unspecified; K44.9 Diaphragmatic hernia without obstruction or gangrene; K21.9 Gastro-esophageal reflux disease without esophagitis; G47.00 Insomnia, unspecified; F32.A Depression, unspecified; F41.1 Generalized anxiety disorder; Z20.822 Contact with and (suspected) exposure to COVID-19; Z79.899 Other long term (current) drug therapy
CPT/HCPCS: 36415; 36430; 80053; 80307; 81001; 81025; 84443; 85014; 85018; 85025; 86850; 86900; 86901; 86920; 96360; 96361; 99285; A9270; C9803; G0378; J7050; P9016; U0003; U0005

== ENCOUNTER 2022-10-07 13:01 | Outpatient (CLI) | payer BC, SELFPAY | END 2022-10-07 13:02 | disposition home or self-care (01) | LOC: CHSLAB 13:04 | PROVIDERS: PCP Nurse Practitioner Family; Visit Provider Nurse Practitioner Family | DX: Z32.01 Encounter for pregnancy test, result positive (principal) | CPT/HCPCS: 36415; 84702 ==

== ENCOUNTER 2022-10-09 08:03 | Outpatient (CLI) | payer BC, SELFPAY ==
--- NOTE | ~2022-10-09 | US_ITS ---
Pelvic ultrasound. Clinical History: First trimester , pelvic pain Technique: Realtime transabdominal and transvaginal scanning of the pelvis was performed. Color flow Doppler and Doppler spectral analysis were performed. Findings: The uterus is anteverted. The endometrial stripe has a thickness of routine mm. There is a possible very early intrauterine gestational sac, with estimated gestational age of 5 weeks 0 days b ased on average sac diameter of 3 mm. No pole or yolk sac appreciated at this time. The right ovary measures 3.6 x 2.5 x 2.8 cm. No significant right ovarian or adnexal mass is seen. The left ovary measures 3.3 x 2.1 x 3.4 cm. No significant left ovarian or adnexal mass is seen. There is no evidence of free fluid in the cul de sac. Impression: Suspected very early intrauterine gestational sac, with the stated gestational age of 5 weeks 0 days based on average sac diameter. No visible pole or yolk sac, which would be commensurate with th e early gestational age. Pseudogestational sac and nonvisualized ectopic or spontaneous abo rtion are not completely excluded. Continued follow up with serial beta hCG, and repeat ultrasound as warranted, is advised. Reviewed, dictated and finalized at location [] [facility] Impression: Suspected very early intrauterine gestational sac, with the stated gestational age of 5 weeks 0 days based on average sac diameter. No visible pole or y olk sac, which would be commensurate with the early gestational age. Pseudogest ational sac and nonvisualized ectopic or spontaneous are not completely excluded. Continued follow up with serial beta hCG, and repeat ultr asound as warranted, is advised.
== END 2022-10-09 08:04 | disposition home or self-care (01) ==
PROVIDERS: PCP Nurse Practitioner Family; Visit Provider Nurse Practitioner Family
DX: R10.2 Pelvic and perineal pain (principal)
CPT/HCPCS: 76817

== ENCOUNTER 2022-10-10 08:26 | Outpatient (CLI) | payer BC, SELFPAY | END 2022-10-10 08:27 | disposition home or self-care (01) | LOC: CHSLAB 08:28 | PROVIDERS: PCP Nurse Practitioner Family; Visit Provider Student in an Organized Health Care Education/Training Program | DX: N94.89 Other specified conditions associated with female genital organs and menstrual cycle (principal) | CPT/HCPCS: 36415; 84702 ==

== ENCOUNTER 2022-11-17 07:05 | Emergency (ER) | payer OTHER, SELFPAY ==
[2022-11-17 07:22] VITALS: BP 159/90; PULSE 78; RESP 20; TEMP 37; O2SAT 100
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
[2022-11-17] MEDS: TETANUS,DIPHTHERIA,AC PERTUSSIS ADULT 0.5 ML (ADACEL) IM (07:45)
[2022-11-17 08:13] VITALS: BP 173/79; PULSE 76; RESP 20; TEMP 36.9; O2SAT 99
[2022-11-17 10:39] LABS: HIV 1 P24 AG Negative (Negative); HIV 1/2 AB Negative (Negative)
[2022-11-19 19:07] LABS: Hepatitis B Surface Antibody Nonreactive (Nonreactive); Hepatitis C Signal to Cutoff 0.01 ratio (<1.00); Hepatitis C Virus Antibody Nonreactive (Nonreactive)
== END 2022-11-17 08:18 | disposition home or self-care (01) ==
PROVIDERS: Emergency Provider Emergency Medicine; PCP Nurse Practitioner Family
DX: O26.891 Other specified pregnancy related conditions, first trimester (principal); S61.230A Puncture wound without foreign body of right index finger without damage to nail, initial encounter; O13.1 Gestational [pregnancy-induced] hypertension without significant proteinuria, first trimester; Z23 Encounter for immunization; Z3A.10 10 weeks gestation of pregnancy; Z87.891 Personal history of nicotine dependence; Y92.129 Unspecified place in nursing home as the place of occurrence of the external cause; Y99.0 Civilian activity done for income or pay; W46.0XXA Contact with hypodermic needle, initial encounter
CPT/HCPCS: 36415; 86703; 86706; 86803; 90471; 90715; 99283

== ENCOUNTER 2023-01-28 21:08 | Emergency (ER) | payer BC, SELFPAY ==
--- NOTE | ~2023-01-28 | XR_ITS ---
EXAMINATION: XR chest 2V Exam Date/Time: 01/28/2023 22:15 CDT HISTORY: CP, SOB X TODAY. Comparison: 08/02/2020, 09/01/2016, CT abdomen and pelvis 12/19/2014. RESULT: Lines, tubes, and devices: None. Lungs and pleura: Slightly low lung volumes. No focal consolidation, effusion, or pneumothorax. 1.3 cm stable left lower lung granuloma or hamartoma. Cardiomediastinal silhouette: Stable. Hiatal hernia. Other: No acute osseous or upper abdominal finding. IMPRESSION: No acute cardiopulmonary process. Reviewed, dictated and finalized at location K.
--- NOTE | ~2023-01-28 | US_ITS ---
EXAMINATION: US venous doppler [facility] DATE: 01/28/2023 23:14 INDICATION: Bilateral lower limb swelling TECHNIQUE: Martin scale images without and with compression and Doppler images of the bilateral lower e xtremity veins were obtained. COMPARISON: None FINDINGS: The right common femoral vein, profunda femoral vein, femoral vein, popliteal vein, peroneal trunk, p osterior tibial veins, and greater saphenous vein are patent. The left common femoral vein, profunda femoral vein, femoral vein, popliteal vein, peroneal trunk, po sterior tibial veins, and greater saphenous vein are patent. IMPRESSION: 1. Patent bilateral lower extremity veins. No evidence of deep venous thrombosis. Reviewed, dictated and finalized at location F. IMPRESSION: 1. Patent bilateral lower extremity veins. No evidence of deep venous thrombosi s.
--- NOTE | 2023-01-28 21:10 | ECG_ITS ---
Measurements Intervals [place] Rate: 101 P: 31 [place]: 117 QRS: 8 QRSD: 109 T: 31 QT: 362 QTc: 470 Interpretive Statements SINUS TACHYCARDIA WITH SHORT [place] INTERVAL NONSPECIFIC T-WAVE ABNORMALITY ABNORMAL ECG NO PREVIOUS ECG AVAILABLE FOR COMPARISON Electronically Signed On 01-29-2023 13:47:24 CDT by Souleymane Madera M.D.
[2023-01-28 21:14] VITALS: BP 187/83; PULSE 110; RESP 24; TEMP 37.1; O2SAT 98
[2023-01-28 21:17] VITALS: BP 167/91
[2023-01-28 21:46] LABS: Hematocrit 22.9 % (37.0-47.0); Mean Corpuscular HGB Conc 26.6 g/dl (32-36); Mean Corpuscular Hemoglobin 19.3 pg (26-34); Mean Corpuscular Volume 72.5 fl (80-100); Mean Platelet Volume 10.3 fl (7.4-10.4); Platelet Count Result 226 k/mm3 (150-375); Red Blood Count 3.16 M/mm3 (4.2-5.4); Red Cell Distribution Width 18.6 % (11.5-14.5); White Blood Count 11.9 K/mm3 (4.5-10.0)
--- NOTE | 2023-01-28 21:48 | ED.GENADULT ---
HPI - General Adult General Chief complaint: Chest Pain Stated complaint: Chest Pain SOB Time Seen by Provider: 01/28/23 21:21 History of Present Illness HPI narrative: This is a 42-year-old female at 20 weeks with a history of preeclampsia presenting with chest pain difficulty breathing and elevated blood pressures. Patient says at 7:00 p.m. while she was eating dinner she started having aching burning pain in her chest that is nonradiating, 6/10 intensity comes and goes. She has never experienced pain like this before. Patient is short of breath and is worse with laying down. pain is worse with movement. She denies fever chills productive cough, lower extremity edema history of blood clots or pulmonary embolism. Patient does have a history of preeclampsia that occurred when she was much younger. Patient has had care with Dr. Harrison for and has not had elevated blood pressures this . Related Data Home Medications Medication Instructions Recorded Confirmed citalopram 20 mg tablet (Celexa) 20 mg PO DAILY 12/20/22 01/17/23 Allergies Allergy/AdvReac Type Severity Reaction Status Date / Time NSAIDS (Non-Steroidal AdvReac Severe Ulcers Verified 01/28/23 21:09 Anti-Inflamma PMFSH Past Medical History Medical History Advanced maternal age (AMA) in Anemia delivery delivered (~2010) Depression Diaphragmatic hernia without mention of obstruction or gangrene Esophageal reflux Gestational HTN Irregular menstrual cycle Suppression of menses Traumatic subdural hematoma UTI (urinary tract infection), bacterial Surgical History Surgical History H/O abdominoplasty (~2014) Family History Family History Grandparent Acute myocardial infarction Father Diabetes mellitus Sibling Diabetes mellitus Grandparent Heart disease Mother Hypertension Father Hypertension Father Obesity Mother Obesity Social History Social History Smoking packs per day: 1.5 Smoking cigarettes per day: 30.0 Years smoked: 6 Smoking pack-years: 9.00 Smoking status: Former smoker Tobacco type: cigarettes Second hand tobacco smoke exposure: No Alcohol intake: unknown Substance use: current Substance use type: marijuana Last use: 6 months ago Lack of Transportation: No Lack of Food: Never True Current Housing: I Have Housing Concerned About Future Housing: No Difficulty Paying Gas/Electric Bills: No Difficulty Paying for Meds: No Currently Unemployed: No Education: Associate Degree Living arrangements: with family 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 Head: atraumatic. EYES: EOMI, NOSE: Atraumatic NECK: Trachea midline RESPIRATORY: Increased rate of breathing, 98% on room air, clear to auscultation CARDIOVASCULAR: RRR, no peripheral edema ABDOMINAL: no abdominal pain guarding or rebound MUSCULOSKELETAl: No obvious deformities NEURO: Alert. Moving 4/4 extremities SKIN:: Warm, dry. Normal color PSYCHIATRIC: Normal affect Course Vital Signs Vital signs: Vital Signs Temperature 98.7 F 01/28/23 21:14 Pulse Rate 110 H 01/28/23 21:14 Respiratory Rate 24 H 01/28/23 21:14 Blood Pressure 187/83 H 01/28/23 21:14 Pulse Oximetry 98 01/28/23 21:14 Oxygen Delivery Room Air 01/28/23 21:14 Temperature 98.7 F 01/28/23 21:14 Pulse Rate 80 01/28/23 22:31 Respiratory Rate 18 01/28/23 22:31 Bloo
[2023-01-28 21:58] LABS: Alanine Aminotransferase 13 U/L (6-35); Albumin Level 3.8 g/dL (3.5-5.1); Alkaline Phosphatase 85 U/L (38-126); Anion Gap 7 mmol/L (8-16); Aspartate Amino Transferase 16 U/L (14-36); Bilirubin,Total 0.4 mg/dL (0.2-1.3); Blood Urea Nitrogen 6 mg/dL (7-17); Calcium 8.6 mg/dL (8.4-10.2); Carbon Dioxide 22 mmol/L (22-30); Chloride 106 mmol/L (98-107); Estimated CRCL calculation 167 ml/min; Estimated Glomerular Filt Rate > 60; Glucose 139 mg/dL (65-110); Lipase 122 U/L (23-300); Magnesium 1.8 mg/dL (1.6-2.3); Potassium 3.5 mmol/L (3.4-5.0); Sodium 135 mmol/L (137-145); Uric Acid 4.8 mg/dL (2.5-7.5)
[2023-01-28 22:00] LABS: INR 1.1; Prothrombin Time 13.8 Seconds (11.1-14.7)
[2023-01-28 22:01] LABS: Partial Thromboplastin Time 23.3 SECONDS (22.3-36.8)
[2023-01-28 22:05] LABS: Lactate Dehydrogenase 133 U/L (120-246)
[2023-01-28] MEDS: LABETALOL HCL INJ 100 MG/20 ML VIAL 20 MG IV PUSH (22:05)
[2023-01-28] MEDS: ACETAMINOPHEN 500 MG TABLET 1000 MG PO (22:08)
[2023-01-28 22:09] VITALS: BP 168/88; PULSE 80; RESP 18; O2SAT 98
[2023-01-28 22:10] LABS: D Dimer 0.68 ug/mL (<0.48); Troponin I < 0.012 ng/mL (0.000-0.034)
[2023-01-28 22:14] LABS: Hemoglobin 6.1 g/dL (12.0-15.0)
[2023-01-28 22:23] LABS: NT Pro B Type Natriuretic Pept 31 pg/mL (19.9-100)
[2023-01-28 22:31] VITALS: BP 140/72; PULSE 80; RESP 18; O2SAT 100
[2023-01-28 22:32] LABS: Anisocytosis 3+ (NORMAL); Band Neutrophils Percent 4 % (0-6); Basophils Absolute Manual 0.11 K/mm3 (0.0-0.1); Basophils Percent Manual 1 % (0-1); Eosinophils Absolute Manual 0.11 K/mm3 (0.02-0.5); Eosinophils Percent Manual 1 % (0-4); Large Platelets Present; Macrocytosis 1+ (NORMAL); Microcytosis 3+ (NORMAL); Neutrophils Absolute Manual 9.75 K/mm3 (1.7-7.2); Neutrophils Percent Manual 78 % (46-73); Ovalocytes 1+ (NORMAL); Platelet Estimate Adequate (Adequate); Poikilocytosis 2+ (NORMAL); Schistocytes None Seen (NORMAL); Tear Drop Cells 1+ (NORMAL); Total Cells Counted 100
[2023-01-28 22:33] LABS: Hypochromasia 3+ (NORMAL); Smudge Cells PRESENT; Stomatocytes 1+ (NORMAL)
[2023-01-28 23:12] VITALS: BP 138/67; PULSE 90; RESP 18; O2SAT 97
[2023-01-29 00:29] LABS: Appearance Urine Clear (Clear); Bacteria Urine Rare /hpf; Bilirubin Urine Negative (Negative); Blood Urine Negative (Negative); Color Urine Yellow (Yellow); Glucose Urine UA Trace mg/dL (Negative); Ketones Urine Trace mg/dL (Negative); Leukocyte Esterase Ur 1+ LEU/UL (Negative); Nitrate Urine Negative (Negative); Non Pathogenic Casts 0-2; Protein Urine Trace mg/dL (Negative); RBC Urine 0-2 /hpf (0-2); Specific Grav Ur 1.026 (1.001-1.035); Squamous Epithelial Cell Urine Few /hpf (Few)
[2023-01-29 00:35] LABS: Add Urine Microscopic? YES
[2023-01-29 00:48] LABS: Troponin I < 0.012 ng/mL (0.000-0.034)
[2023-01-29 01:05] VITALS: BP 144/70; PULSE 83; RESP 18; O2SAT 98
[2023-01-29 01:56] VITALS: BP 157/69; PULSE 80; RESP 19; TEMP 36.7; O2SAT 100
[2023-01-29 02:16] VITALS: BP 150/72; PULSE 80; RESP 14; TEMP 36.7; O2SAT 100
[2023-01-29 02:58] VITALS: BP 153/81; PULSE 79; RESP 19; TEMP 36.7; O2SAT 100
[2023-01-29] MEDS: SODIUM CHLORIDE 0.9% IV 250 ML 30 ML IV CONT (03:03)
[2023-01-29 03:13] VITALS: BP 153/81; PULSE 80; RESP 18; TEMP 36.6; O2SAT 100
[2023-01-29 03:29] VITALS: BP 159/95; PULSE 79; RESP 17; O2SAT 100
== END 2023-01-29 03:53 | disposition short-term general hospital (02) ==
PROVIDERS: Emergency Provider Emergency Medicine; PCP Nurse Practitioner Family
DX: O14.92 Unspecified pre-eclampsia, second trimester (principal); O99.012 Anemia complicating pregnancy, second trimester; D64.9 Anemia, unspecified; O99.891 Other specified diseases and conditions complicating pregnancy; R07.9 Chest pain, unspecified; R79.1 Abnormal coagulation profile; O09.522 Supervision of elderly multigravida, second trimester; O99.342 Other mental disorders complicating pregnancy, second trimester; F32.A Depression, unspecified; Z3A.20 20 weeks gestation of pregnancy; Z87.440 Personal history of urinary (tract) infections
CPT/HCPCS: 36415; 36430; 71046; 80053; 81001; 83615; 83690; 83735; 83880; 84484; 84550; 85025; 85380; 85610; 85730; 86850; 86900; 86901; 86923; 87086; 87088; 93005; 93970; 96374; 99285; A9270; J7050; P9016

== ENCOUNTER 2023-02-26 12:14 | Outpatient (CLI) | payer BC, SELFPAY ==
[2023-02-26 12:34] LABS: Basophils Absolute Auto 0.03 K/mm3 (0.00-0.10); Basophils Percent Auto 0.4 % (0.0-1.0); Eosinophils Absolute Auto 0.12 K/mm3 (0.02-0.50); Eosinophils Percent Auto 1.4 % (1.0-6.0); Hemoglobin 9.5 g/dL (12.0-15.0); Immature Granulocyte Absolute 0.03 K/mm3 (0.00-0.00); Immature Granulocyte Percent A 0.4 % (0.0-0.0); Lymphocytes Percent Auto 14.4 % (18.0-42.0); Mean Corpuscular HGB Conc 30.6 g/dL (32.0-36.0); Mean Corpuscular Hemoglobin 25.5 pg (27.0-31.0); Mean Corpuscular Volume 83.1 fL (78.0-102.0); Mean Platelet Volume 10.9 fl (9.2-11.8); Monocytes Absolute Auto 0.41 K/mm3 (0.10-0.90); Monocytes Percent Auto 4.9 % (2.0-11.0); Neutrophils Absolute Auto 6.6 K/mm3 (1.7-7.2); Neutrophils Percent Auto 78.5 % (50.0-70.0); Platelet Count Result 157 K/mm3 (150-420); Red Blood Count 3.73 M/mm3 (4.20-5.40); Red Cell Distribution Width 25.5 % (11.6-14.4); White Blood Count 8.3 K/mm3 (4.8-10.8)
== END 2023-02-26 12:15 | disposition home or self-care (01) ==
LOC: CHSLAB 12:17
PROVIDERS: PCP Nurse Practitioner Family; Visit Provider Obstetrics & Gynecology
DX: D64.9 Anemia, unspecified (principal)
CPT/HCPCS: 36415; 85025

== ENCOUNTER 2023-03-19 18:48 | Observation (INO) | payer BC, SELFPAY ==
[2023-03-19 19:16] VITALS: BP 144/77; PULSE 82
[2023-03-19 19:31] VITALS: BP 150/81; PULSE 82
[2023-03-19 19:46] VITALS: BP 147/74; PULSE 72
[2023-03-19 20:14] VITALS: BMI 41.7
--- NOTE | 2023-03-19 20:14 | OBADM ---
This patient, Jackie Alford, admitted to the OB room [facility] for observation. Patient/family oriented to hospital policies and general routines including ID bracelet, bed and alarms, visiting hours, pain management, procedures, bathroom and other care routines, personal items, smoking policy, room service/diet, and visiting hours. Patient/Family are encouraged to report perceived risks to care and to ask questions if they do not understand what they are told or what they should do.
--- NOTE | 2023-03-20 07:24 | PM.OBTRLD ---
OB - Triage/Final Diagnosis Visit Information Date of evaluation: 03/19/23 Reason for evaluation: decreased movement Comments/Additional reasons for admission: I have assessed the risk for this patient, Jackie Alford, and determined that she would benefit from observation care. Evaluation Vital signs: Vital Signs - 24 hr 03/19/23 19:16 03/19/23 19:31 03/19/23 19:46 Pulse Rate 82 82 72 Blood Pressure 144/77 H 150/81 H 147/74 H
== END 2023-03-19 20:54 | disposition home or self-care (01) ==
PROVIDERS: Admitting Provider Obstetrics & Gynecology; PCP Nurse Practitioner Family; Visit Provider Obstetrics & Gynecology
DX: O36.8120 Decreased fetal movements, second trimester, not applicable or unspecified (principal); Z3A.27 27 weeks gestation of pregnancy
CPT/HCPCS: G0378; G0379

== ENCOUNTER 2023-04-07 06:59 | Outpatient (CLI) | payer BC, SELFPAY ==
[2023-04-07 07:13] LABS: Basophils Absolute Auto 0.04 K/mm3 (0.00-0.10); Basophils Percent Auto 0.3 % (0.0-1.0); Eosinophils Absolute Auto 0.07 K/mm3 (0.02-0.50); Eosinophils Percent Auto 0.6 % (1.0-6.0); Hematocrit 32.4 % (35.0-49.0); Hemoglobin 9.9 g/dL (12.0-15.0); Immature Granulocyte Absolute 0.05 K/mm3 (0.00-0.00); Immature Granulocyte Percent A 0.4 % (0.0-0.0); Lymphocytes Absolute Auto 2.27 K/mm3 (1.10-4.50); Lymphocytes Percent Auto 18.9 % (18.0-42.0); Mean Corpuscular HGB Conc 30.6 g/dL (32.0-36.0); Mean Corpuscular Hemoglobin 26.1 pg (27.0-31.0); Mean Corpuscular Volume 85.3 fL (78.0-102.0); Mean Platelet Volume 11.1 fl (9.2-11.8); Monocytes Absolute Auto 0.66 K/mm3 (0.10-0.90); Monocytes Percent Auto 5.5 % (2.0-11.0); Neutrophils Absolute Auto 8.9 K/mm3 (1.7-7.2); Neutrophils Percent Auto 74.3 % (50.0-70.0); Platelet Count Result 173 K/mm3 (150-420); Red Cell Distribution Width 17.2 % (11.6-14.4)
[2023-04-07 07:55] LABS: HIV 1 P24 AG Negative (Negative); HIV 1/2 AB Negative (Negative)
== END 2023-04-07 07:00 | disposition home or self-care (01) ==
LOC: CHSLAB 07:01
PROVIDERS: PCP Nurse Practitioner Family; Visit Provider Obstetrics & Gynecology
DX: Z34.90 Encounter for supervision of normal pregnancy, unspecified, unspecified trimester (principal)
CPT/HCPCS: 36415; 85025; 86703

== ENCOUNTER 2023-04-09 18:03 | Outpatient (CLI) | payer BC, SELFPAY ==
[2023-04-09 18:55] LABS: Creatinine Urine 275.58 mg/dL (40-278); Total Protein Urine Random 27.5 mg/dL (0.0-11.9)
[2023-04-09 18:57] LABS: Basophils Absolute Auto 0.02 K/mm3 (0.00-0.10); Basophils Percent Auto 0.2 % (0.0-1.0); Eosinophils Absolute Auto 0.09 K/mm3 (0.02-0.50); Eosinophils Percent Auto 0.8 % (1.0-6.0); Hematocrit 32.4 % (35.0-49.0); Hemoglobin 9.7 g/dL (12.0-15.0); Immature Granulocyte Absolute 0.03 K/mm3 (0.00-0.00); Immature Granulocyte Percent A 0.3 % (0.0-0.0); Immature Platelet Fraction Pct 8.9 % (1.0-7.0); Lymphocytes Absolute Auto 2.13 K/mm3 (1.10-4.50); Mean Corpuscular HGB Conc 29.9 g/dL (32.0-36.0); Mean Corpuscular Hemoglobin 25.1 pg (27.0-31.0); Mean Corpuscular Volume 83.9 fL (78.0-102.0); Mean Platelet Volume 12.4 fl (9.2-11.8); Monocytes Percent Auto 5.4 % (2.0-11.0); Neutrophils Absolute Auto 8.3 K/mm3 (1.7-7.2); Neutrophils Percent Auto 74.3 % (50.0-70.0); Platelet Count Result 160 K/mm3 (150-420); Red Blood Count 3.86 M/mm3 (4.20-5.40); White Blood Count 11.2 K/mm3 (4.8-10.8)
[2023-04-09 19:10] LABS: Alanine Aminotransferase 8 U/L (14-59); Albumin Level 2.4 g/dL (3.4-5.0); Alkaline Phosphatase 116 U/L (46-116); Anion Gap 12 mmol/L (8-16); Aspartate Amino Transferase < 10 U/L (15-37); Bilirubin,Total 0.2 mg/dL (0.00-1.00); Blood Urea Nitrogen 6 mg/dL (7-18); Calcium 8.5 mg/dL (8.5-10.1); Carbon Dioxide 24 mmol/L (21-32); Chloride 102 mmol/L (98-108); Estimated Glomerular Filt Rate > 60; Ferritin 6 ng/mL (8-252); Glucose 118 mg/dL (70-99); Iron 22 ug/dL (50-170); Osmolality Calculated 284 mOsm/kg (285-295); Potassium 3.7 mmol/L (3.5-5.1); Sodium 138 mmol/L (136-145); Thyroid Stimulating Hormone 2.19 uIU/mL (0.36-3.74); Total Protein 6.6 g/dL (6.4-8.2)
== END 2023-04-09 18:04 | disposition home or self-care (01) ==
LOC: CHSLAB 18:07
PROVIDERS: PCP Nurse Practitioner Family
DX: Z36.89 Encounter for other specified antenatal screening (principal); Z87.59 Personal history of other complications of pregnancy, childbirth and the puerperium; Z87.19 Personal history of other diseases of the digestive system; Z3A.30 30 weeks gestation of pregnancy
CPT/HCPCS: 36415; 80053; 82570; 82728; 83540; 84156; 84443; 84466; 85025; 85055

== ENCOUNTER 2023-05-13 13:12 | Emergency (ER) | payer BC, SELFPAY ==
[2023-05-13 13:13] VITALS: BP 155/92; PULSE 93; RESP 22; TEMP 36.3; O2SAT 99
[2023-05-13 13:26] VITALS: BP 159/111; PULSE 91; RESP 16; O2SAT 100
--- NOTE | 2023-05-13 13:44 | ED.BACK ---
HPI - Back Pain/Injury General Chief Complaint: Back Pain/Injury Stated Complaint: back pain, 35 weeks Time Seen by Provider: 05/13/23 13:18 History of Present Illness HPI Narrative: Patient is a 42-year-old female at 35 weeks gestation presenting with back pain. Patient states that for the last 2 days she has had right lower back pain that radiates into her right hip. States that the pain is exacerbated with walking and certain movements. States that she has had several episodes of shooting pain down her pelvis and leg. Denies numbness or weakness but states that her leg has buckled secondary to pain. No bladder or bowel incontinence. No groin anesthesia. No fevers. States that she is taken Tylenol with minimal relief. Denies further complaints. Patient is followed by MFM at [facility] due to high risk related to preeclampsia. Related Data Home Medications Medication Instructions Recorded Confirmed iron 150 mg-vit C 60 mg-folate 1 1 tablet PO DAILY 02/14/23 04/22/23 [id number] tablet (Niferex (Sumalate-Quatrefolic)) nifedipine 30 mg tablet,extended 60 mg PO DAILY 03/26/23 04/22/23 release 24 hr (Procardia XL) Allergies Allergy/AdvReac Type Severity Reaction Status Date / Time NSAIDS (Non-Steroidal AdvReac Severe Ulcers Verified 04/22/23 15:20 Anti-Inflamma Review of Systems Review of Systems: All systems reviewed & are unremarkable except as noted in HPI and below PMFSH Past Medical History Medical History Advanced maternal age (AMA) in Anemia delivery delivered (~2010) Depression Diaphragmatic hernia without mention of obstruction or gangrene Esophageal reflux Gestational HTN Iron deficiency (01/29/23) transfusion packed red blood Irregular menstrual cycle Suppression of menses Traumatic subdural hematoma UTI (urinary tract infection), bacterial Surgical History Surgical History H/O abdominoplasty (~2014) Family History Family History Grandparent Acute myocardial infarction Father Diabetes mellitus Sibling Diabetes mellitus Grandparent Heart disease Mother Hypertension Father Hypertension Father Obesity Mother Obesity Social History Social History Smoking packs per day: 1.5 Smoking cigarettes per day: 30.0 Years smoked: 6 Smoking pack-years: 9.00 Smoking status: Former smoker Tobacco type: cigarettes Second hand tobacco smoke exposure: No Alcohol intake: unknown Substance use: current Substance use type: marijuana Last use: 6 months ago Lack of Transportation: No Lack of Food: Never True Current Housing: I Have Housing Concerned About Future Housing: No Difficulty Paying Gas/Electric Bills: No Difficulty Paying for Meds: No Currently Unemployed: No Education: Associate Degree Difficulty w/ Childcare or Family Care: No Living arrangements: with family 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 EYES: PERRLA and EOMI. ENT: mucous membranes moist. NECK: Supple. CHEST: No respiratory distress. HEART: Regular rate and rhythm ABDOMEN: Soft, nontender, nondistended EXTREMITIES: Normal range of motion. No edema. BACK: right sided tenderness of lower lumbar spine extending into R buttock. SKIN: Warm, dry, no rash. NEURO: No focal deficits. Alert and orient
[2023-05-13 13:55] VITALS: BP 145/95
--- NOTE | 2023-05-13 13:57 | PC.NURSE ---
NST done on pt in ER. Reactive tracing with baseline of 150. Pt states that she felt 2 contractions that were seen on monitor, but they were not uncomfortable. BP 145/95. Pt complaining of constant back pain that worsens with standing and moving. ER doctor planning to [facility] to discuss plan of care.
[2023-05-13] MEDS: LIDOCAINE 5% PATCH 1 PATCH TRANSDERM (14:01)
[2023-05-13 14:04] VITALS: BP 149/90; PULSE 85; RESP 15; O2SAT 97
[2023-05-13] MEDS: predniSONE 20 MG TABLET PO (14:17)
[2023-05-13 14:40] VITALS: BP 148/90
[2023-05-13 15:34] VITALS: BP 144/88; PULSE 84; RESP 19; O2SAT 98
== END 2023-05-13 15:35 | disposition home or self-care (01) ==
PROVIDERS: Emergency Provider Emergency Medicine; PCP Family Medicine
DX: O99.891 Other specified diseases and conditions complicating pregnancy (principal); M54.16 Radiculopathy, lumbar region; O09.523 Supervision of elderly multigravida, third trimester; O99.013 Anemia complicating pregnancy, third trimester; D50.9 Iron deficiency anemia, unspecified; O99.613 Diseases of the digestive system complicating pregnancy, third trimester; K21.9 Gastro-esophageal reflux disease without esophagitis; Z87.440 Personal history of urinary (tract) infections; Z87.891 Personal history of nicotine dependence; Z3A.35 35 weeks gestation of pregnancy
CPT/HCPCS: 99283; A9270; J7512

== ENCOUNTER 2023-11-24 09:37 | Outpatient (CLI) | payer BC, SELFPAY ==
--- NOTE | ~2023-11-24 | MMUS_ITS ---
EXAMINATION: MM diagnostic dany BI w leonid, US breast LT limited HISTORY: Palpable left breast lump TECHNIQUE: Additional 3-D tomosynthesis images of the breasts were performed and synthetic 2-D images were generated. CAD analysis was submitted and interpreted. High resolution Limited left breast ultr asound was performed. COMPARISON: None BREAST PARENCHYMAL COMPOSITION: Breast composed of scattered areas of fibroglandular density FINDINGS: MAMMOGRAPHIC FINDINGS: The breasts are unremarkable without discrete mass, suspicious architectural distortion or cluster of abnormal calcifications. ULTRASOUND: Limited left breast ultrasound: Normal heterogeneous soft tissue in the left infraclavicular and axil luz regions without discrete mass. IMPRESSION: 1. No evidence for malignancy in either breast. 2. Routine yearly screening mammogram and regular clinical breast examination are recommended. BI-RADS Category 1: Negative Reviewed, dictated and finalized at location A. [employer] IMPRESSION: 1. No evidence for malignancy in either breast. 2. Routine yearly screening mammogram and regular clinical breast examination a re recommended. BI-RADS Category 1: Negative
[2023-11-24 09:56] LABS: Basophils Absolute Auto 0.04 K/mm3 (0.00-0.10); Basophils Percent Auto 0.5 % (0.0-1.0); Eosinophils Absolute Auto 0.13 K/mm3 (0.02-0.50); Eosinophils Percent Auto 1.7 % (1.0-6.0); Hematocrit 33.9 % (35.0-49.0); Hemoglobin 9.8 g/dL (12.0-15.0); Immature Granulocyte Absolute 0.02 K/mm3 (0.00-0.00); Immature Granulocyte Percent A 0.3 % (0.0-0.0); Lymphocytes Absolute Auto 2.19 K/mm3 (1.10-4.50); Lymphocytes Percent Auto 28.5 % (18.0-42.0); Mean Corpuscular HGB Conc 28.9 g/dL (32.0-36.0); Mean Corpuscular Hemoglobin 23.7 pg (27.0-31.0); Mean Corpuscular Volume 82.1 fL (78.0-102.0); Monocytes Absolute Auto 0.41 K/mm3 (0.10-0.90); Monocytes Percent Auto 5.3 % (2.0-11.0); Neutrophils Absolute Auto 4.9 K/mm3 (1.7-7.2); Neutrophils Percent Auto 63.7 % (50.0-70.0); Platelet Count Result 170 K/mm3 (150-420); Red Blood Count 4.13 M/mm3 (4.20-5.40); Red Cell Distribution Width 14.7 % (11.6-14.4); White Blood Count 7.7 K/mm3 (4.8-10.8)
[2023-11-24 10:31] LABS: Alanine Aminotransferase 23 U/L (14-59); Albumin Level 3.5 g/dL (3.4-5.0); Alkaline Phosphatase 92 U/L (46-116); Anion Gap 10 mmol/L (8-16); Aspartate Amino Transferase < 10 U/L (15-37); Bilirubin,Total 0.3 mg/dL (0.00-1.00); Blood Urea Nitrogen 9 mg/dL (7-18); Calcium 8.3 mg/dL (8.5-10.1); Carbon Dioxide 29 mmol/L (21-32); Chloride 102 mmol/L (98-108); Estimated Glomerular Filt Rate > 60; Ferritin 5 ng/mL (8-252); Glucose 145 mg/dL (70-99); Iron 56 ug/dL (50-170); Osmolality Calculated 293 mOsm/kg (285-295); Percent Iron Saturation 12 % (12-57); Potassium 3.5 mmol/L (3.5-5.1); Sodium 141 mmol/L (136-145); Total Protein 7.4 g/dL (6.4-8.2)
[2023-11-26 12:04] LABS: Vitamin D 25 Hydroxy 13 ng/mL (30-100)
== END 2023-11-24 09:38 | disposition home or self-care (01) ==
LOC: CHSIMG 09:38
PROVIDERS: PCP Nurse Practitioner Family; Visit Provider Nurse Practitioner Family
DX: D64.9 Anemia, unspecified (principal); Z79.899 Other long term (current) drug therapy; N63.21 Unspecified lump in the left breast, upper outer quadrant
CPT/HCPCS: 36415; 76642; 77062; 77066; 80053; 82306; 82728; 83540; 83550; 85025; G0279

== ENCOUNTER 2024-06-03 07:29 | Emergency (ER) | payer OTHER, SELFPAY ==
[2024-06-03 07:32] VITALS: BP 169/98; PULSE 101; RESP 20; TEMP 36.4; O2SAT 100
--- NOTE | 2024-06-03 07:40 | ED.GENADULT ---
HPI - General Adult General Chief complaint: Unspecified Stated complaint: needle stick at work History of Present Illness HPI narrative: Pt reached into drawer at work last night and was stuck in the right index finger with an insulin needle that was in the drawer. Pt does not know if it was used or not and does not know wha patient it was used on if any. 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 Pt said it bled a bit and then she cleaned it. Pt has no other complaints. Related Data Home Medications Medication Instructions Recorded Confirmed iron 150 mg-vit C 60 mg-folate 1 1 tablet PO DAILY 02/14/23 11/20/23 [id number] tablet (Niferex (Sumalate-Quatrefolic)) Allergies Allergy/AdvReac Type Severity Reaction Status Date / Time NSAIDS (Non-Steroidal AdvReac Severe Ulcers Verified 11/20/23 09:19 Anti-Inflamma Review of Systems Review of Systems: All systems reviewed & are unremarkable except as noted in HPI and below PMFSH Past Medical History Medical History Advanced maternal age (AMA) in Anemia delivery delivered (~2010) Depression Diaphragmatic hernia without mention of obstruction or gangrene Esophageal reflux Gestational HTN Iron deficiency (01/29/23) transfusion packed red blood Irregular menstrual cycle Suppression of menses Traumatic subdural hematoma UTI (urinary tract infection), bacterial Surgical History Surgical History H/O abdominoplasty (~2014) Family History Family History Grandparent Acute myocardial infarction Father Diabetes mellitus Sibling Diabetes mellitus Grandparent Heart disease Mother Hypertension Father Hypertension Father Obesity Mother Obesity Social History Social History Smoking packs per day: 1.5 Smoking cigarettes per day: 30.0 Years smoked: 6 Smoking pack-years: 9.00 Smoking status: Former smoker Tobacco type: cigarettes Second hand tobacco smoke exposure: No Alcohol intake: unknown Substance use: current Substance use type: marijuana Last use: 6 months ago Lack of Transportation: No Lack of Food: Never True Current Housing: I Have Housing Concerned About Future Housing: No Difficulty Paying Gas/Electric Bills: No Difficulty Paying for Meds: No Currently Unemployed: No Education: Associate Degree Difficulty w/ Childcare or Family Care: No Living arrangements: with family 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 Gender identity (if verbalized by the patient): Female Sexual Orientation (if Verbalized by the Patient): Straight or Heterosexual Spiritual care concerns: No Agree to blood products: Yes Exam Const: General: cooperative, healthy appearing and no acute distress Neck: Neck: normal visual inspection Resp: Effort & Inspection: normal respiratory effort and able to speak in complete sentences Auscultation: clear to auscultation bilaterally Cardio: Rate: regular rate Rhythm: regular rhythm Skin: General skin exam: normal color and no rashes or lesions noted Lesions: no lesions Rashes: no rashes Trauma: no lacerations or abrasions Neuro: General: patient oriented x3 Speech: normal speech Extrem: General: normal to inspection and full ROM Psych: Appearance: grossly normal Mental Status: mental status grossly normal Speech and movement: Normal speech and movement present Affect: normal affect Attitude: cooperative Thought process: Normal thought process present Thought content: Yes Normal thought content present Insight: Good insight present (Psych) Judgement: Good judgement present (Psych) Course Vital Signs Vital signs: Vital S
[2024-06-03 08:44] LABS: HIV 1 P24 AG Negative (Negative); HIV 1/2 AB Negative (Negative)
[2024-06-03 08:54] VITALS: BP 150/95; PULSE 92; RESP 20; TEMP 36.4; O2SAT 100
[2024-06-05 07:33] LABS: Hepatitis B Surface Antibody NON-REACTIVE (NON-REACTIVE)
[2024-06-05 08:03] LABS: Hepatitis C Virus Antibody NON-REACTIVE (NON-REACTIVE)
== END 2024-06-03 08:54 | disposition home or self-care (01) ==
PROVIDERS: Emergency Provider Emergency Medicine; PCP Nurse Practitioner Family
DX: S61.431A Puncture wound without foreign body of right hand, initial encounter (principal); Z87.891 Personal history of nicotine dependence; W46.0XXA Contact with hypodermic needle, initial encounter
CPT/HCPCS: 36415; 86706; 86803; 87806; 99283

== ENCOUNTER 2024-06-04 06:54 | Outpatient (CLI) | payer OTHER, SELFPAY ==
[2024-06-04 07:09] LABS: Basophils Absolute Auto 0.04 K/mm3 (0.00-0.10); Basophils Percent Auto 0.5 % (0.0-1.0); Eosinophils Percent Auto 1.1 % (1.0-6.0); Hematocrit 27.2 % (35.0-49.0); Hemoglobin 7.4 g/dL (12.0-15.0); Immature Granulocyte Absolute 0.02 K/mm3 (0.00-0.00); Immature Granulocyte Percent A 0.2 % (0.0-0.0); Lymphocytes Absolute Auto 2.35 K/mm3 (1.10-4.50); Lymphocytes Percent Auto 26.6 % (18.0-42.0); Mean Corpuscular HGB Conc 27.2 g/dL (32-36); Mean Corpuscular Hemoglobin 19.6 pg (27.0-31.0); Mean Corpuscular Volume 72.1 fL (78.0-102.0); Mean Platelet Volume 10.1 fl (9.2-11.8); Monocytes Percent Auto 5.7 % (2.0-11.0); Neutrophils Absolute Auto 5.81 K/mm3 (1.70-7.20); Neutrophils Percent Auto 65.9 % (50.0-70.0); Platelet Count Result 253 K/mm3 (150-420); Red Blood Count 3.77 M/mm3 (4.20-5.40); Red Cell Distribution Width 18.3 % (11.6-14.4); White Blood Count 8.8 K/mm3 (4.8-10.8)
[2024-06-04 08:04] LABS: Alanine Aminotransferase 17 U/L (14-59); Albumin Level 3.9 g/dL (3.4-5.0); Alkaline Phosphatase 94 U/L (46-116); Anion Gap 11 mmol/L (4-12); Aspartate Amino Transferase 12 U/L (15-37); Bilirubin,Total 0.4 mg/dL (0.00-1.00); Blood Urea Nitrogen 8 mg/dL (7-18); Calcium 8.8 mg/dL (8.5-10.1); Carbon Dioxide 27 mmol/L (21-32); Chloride 102 mmol/L (98-108); Estimated Glomerular Filt Rate > 60; Ferritin 3 ng/mL (8-252); Folic Acid 10.3 ng/mL (8.6->20); Glucose 106 mg/dL (70-99); Iron 17 ug/dL (50-170); Osmolality Calculated 288 mOsm/kg (285-295); Percent Iron Saturation 3 % (12-57); Potassium 4.1 mmol/L (3.5-5.1); Sodium 140 mmol/L (136-145); Total Protein 7.7 g/dL (6.4-8.2)
[2024-06-04 08:09] LABS: Thyroid Stimulating Hormone Reflex 2.87 u/IU/mL (0.36-3.74)
[2024-06-04 08:42] LABS: Vitamin B12 187 pg/mL (193-986)
== END 2024-06-04 06:55 | disposition home or self-care (01) ==
PROVIDERS: PCP Family Medicine; Visit Provider Family Medicine
DX: E53.8 Deficiency of other specified B group vitamins (principal); E03.9 Hypothyroidism, unspecified; D50.9 Iron deficiency anemia, unspecified
CPT/HCPCS: 36415; 80053; 82607; 82728; 82746; 83540; 83550; 84443; 85025

== ENCOUNTER 2024-07-05 16:38 | Outpatient (NON) | payer OTHER, SELFPAY | END 2024-07-05 16:39 | disposition home or self-care (01) | LOC: CHSLAB 16:39 | PROVIDERS: Visit Provider Family Medicine | DX: R21 Rash and other nonspecific skin eruption (principal) | CPT/HCPCS: 88321 ==

== ENCOUNTER 2024-07-11 06:42 | Emergency (ER) | payer OTHER, SELFPAY ==
--- NOTE | ~2024-07-11 | XR_ITS ---
EXAMINATION: XR forearm RT 2V, XR wrist RT min 3V DATE: 07/11/2024 07:14 INDICATION: Right wrist and forearm pain post fall TECHNIQUE: 1. Dorsal palmar, lateral and oblique views of the right wrist were obtained. 2. AP an lateral views of the right forearm were obtained. COMPARISON: none FINDINGS: Bone alignment is normal. No fracture. Mild osteoarthritis at the first carpometacarpal joint. Soft t issues are unremarkable. No right elbow joint effusion. IMPRESSION: 1. Mild osteoarthritis at the right first carpometacarpal joint. No acute osseous abnormality at the right wrist or forearm. Reviewed, dictated and finalized at location A. IMPRESSION: 1. Mild osteoarthritis at the right first carpometacarpal joint. No acute osseo us abnormality at the right wrist or forearm.
[2024-07-11 06:45] VITALS: BP 163/95; PULSE 76; RESP 18; TEMP 36; O2SAT 100
--- NOTE | 2024-07-11 07:01 | ED.GENADULT ---
HPI - General Adult General Chief complaint: Extremity Injury, Upper Stated complaint: upper extremity injury Time Seen by Provider: 07/11/24 07:01 Source: patient Mode of arrival: ambulatory Limitations: no limitations History of Present Illness HPI narrative: 43-year-old white female fell on the back of a pickup truck last night complains of pain and swelling in her right wrist and distal forearm associated with a 6/10 pain. Worse when she moves it. No previous injury. She also had a minor abrasion of the palm of the right hand and her right calf Without injury. Denies any other pain or loss of consciousness weakness paresthesias numbness nausea vomiting diarrhea. She has a history of gastric ulcer and had anemia a month ago and says she has been a little short of breath but not right now. Denies any other swelling lumps or bumps. She saw Dr. Canas for a rash on her left arm was treated for scabies which has improved. Denies any bleeding or bruising or any other complaints. Related Data Allergies Allergy/AdvReac Type Severity Reaction Status Date / Time NSAIDS (Non-Steroidal AdvReac Severe Ulcers Verified 07/11/24 06:47 Anti-Inflamma Review of Systems Review of Systems: All systems reviewed & are unremarkable except as noted in HPI and below PMFSH Past Medical History Medical History Advanced maternal age (AMA) in Anemia delivery delivered (~2010) Depression Diaphragmatic hernia without mention of obstruction or gangrene Esophageal reflux Gestational HTN Iron deficiency (01/29/23) transfusion packed red blood Irregular menstrual cycle Suppression of menses Traumatic subdural hematoma UTI (urinary tract infection), bacterial Surgical History Surgical History H/O abdominoplasty (~2014) Family History Family History Grandparent Acute myocardial infarction Father Diabetes mellitus Sibling Diabetes mellitus Grandparent Heart disease Mother Hypertension Father Hypertension Father Obesity Mother Obesity Social History Social History Smoking packs per day: 1.5 Smoking cigarettes per day: 30.0 Years smoked: 6 Smoking pack-years: 9.00 Smoking status: Former smoker Tobacco type: cigarettes Second hand tobacco smoke exposure: No Alcohol intake: unknown Substance use: current Substance use type: marijuana Last use: 6 months ago Lack of Transportation: No Lack of Food: Never True Current Housing: I Have Housing Concerned About Future Housing: No Difficulty Paying Gas/Electric Bills: No Difficulty Paying for Meds: No Currently Unemployed: No Education: Associate Degree Difficulty w/ Childcare or Family Care: No Living arrangements: with family 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 Head normocephalic, atraumatic.? Eyes conjunctiva pink sclera nonicteric.? Extraocular movements are intact.? Ears externally normal.? Oropharynx is clear with moist mucous membranes without exudates.? Neck is supple nontender no lymphadenopathy.? Back is nontender.? Lungs are clear.? Heart is regular rate and rhythm without murmurs gallops or rubs.? Chest wall nontender. Abdomen is soft and nontender .? Extremities no cyanosis clubbing.? Right distal forearm and wrist and hand mild swelling. With tenderness the right wrist on the ulnar side. No snuffbox tenderness. Wrist has full range of motion. Hand is mildly
--- NOTE | 2024-07-11 07:08 | PC.NURSE ---
ERP at bedside for inital assessment
[2024-07-11] MEDS: traMADol HCL (*CRX) 50 MG TABLET PO (07:09)
[2024-07-11 07:51] VITALS: BP 163/95; PULSE 76; RESP 18; TEMP 36; O2SAT 100
== END 2024-07-11 07:51 | disposition home or self-care (01) ==
PROVIDERS: Emergency Provider Emergency Medicine; PCP Family Medicine
DX: S63.501A Unspecified sprain of right wrist, initial encounter (principal); Z87.891 Personal history of nicotine dependence; W19.XXXA Unspecified fall, initial encounter
CPT/HCPCS: 29125; 73090; 73110; 99284; A9270

== ENCOUNTER 2024-07-29 15:37 | Outpatient (CLI) | payer OTHER, SELFPAY ==
[2024-07-29 15:49] LABS: Basophils Absolute Auto 0.03 K/mm3 (0.00-0.10); Basophils Percent Auto 0.4 % (0.0-1.0); Eosinophils Absolute Auto 0.13 K/mm3 (0.02-0.50); Eosinophils Percent Auto 1.7 % (1.0-6.0); Hematocrit 25.8 % (35.0-49.0); Immature Granulocyte Absolute 0.03 K/mm3 (0.00-0.00); Immature Granulocyte Percent A 0.4 % (0.0-0.0); Lymphocytes Absolute Auto 1.73 K/mm3 (1.10-4.50); Lymphocytes Percent Auto 23.1 % (18.0-42.0); Mean Corpuscular HGB Conc 26.4 g/dL (32-36); Mean Corpuscular Hemoglobin 19.1 pg (27.0-31.0); Mean Corpuscular Volume 72.5 fL (78.0-102.0); Mean Platelet Volume 9.6 fl (9.2-11.8); Monocytes Absolute Auto 0.43 K/mm3 (0.10-0.90); Monocytes Percent Auto 5.7 % (2.0-11.0); Neutrophils Absolute Auto 5.15 K/mm3 (1.70-7.20); Neutrophils Percent Auto 68.7 % (50.0-70.0); Platelet Count Result 196 K/mm3 (150-420); Red Blood Count 3.56 M/mm3 (4.20-5.40); Red Cell Distribution Width 18.4 % (11.6-14.4); White Blood Count 7.5 K/mm3 (4.8-10.8)
[2024-07-29 15:57] LABS: Hemoglobin 6.8 g/dL (12.0-15.0)
== END 2024-07-29 15:38 | disposition home or self-care (01) ==
LOC: CHSLAB 15:40
PROVIDERS: PCP Family Medicine; Visit Provider Nurse Practitioner Family
DX: R53.83 Other fatigue (principal)
CPT/HCPCS: 36415; 85025

== ENCOUNTER 2024-07-29 19:17 | Emergency (ER) | payer OTHER, SELFPAY ==
[2024-07-29 19:21] VITALS: BP 157/92; PULSE 124; RESP 24; TEMP 36.8; O2SAT 100
--- NOTE | 2024-07-29 19:45 | ED.RECABL ---
HPI - Recheck/Abnormal Lab/Rx General Chief Complaint: Recheck/Abnormal Lab/Rx Stated Complaint: abnormal lab values Time Seen by Provider: 07/29/24 19:27 Source: patient Mode of arrival: ambulatory Limitations: no limitations History of Present Illness HPI narrative: patient sent to hospital by primary with a decreased H&H and is being currently worked up by her primary in here today for a blood transfusion. Otherwise there is no chest pain mild shortness of breath there is no nausea vomiting no abdominal pain no rectal bleeding no vaginal bleeding no hematuria. Related Data Allergies Allergy/AdvReac Type Severity Reaction Status Date / Time NSAIDS (Non-Steroidal AdvReac Severe Ulcers Verified 07/29/24 19:24 Anti-Inflamma Review of Systems Review of Systems: All systems reviewed & are unremarkable except as noted in HPI and below PMFSH Past Medical History Medical History Advanced maternal age (AMA) in Anemia delivery delivered (~2010) Depression Diaphragmatic hernia without mention of obstruction or gangrene Esophageal reflux Gestational HTN Iron deficiency (01/29/23) transfusion packed red blood Irregular menstrual cycle Suppression of menses Traumatic subdural hematoma UTI (urinary tract infection), bacterial Surgical History Surgical History H/O abdominoplasty (~2014) Family History Family History Grandparent Acute myocardial infarction Father Diabetes mellitus Sibling Diabetes mellitus Grandparent Heart disease Mother Hypertension Father Hypertension Father Obesity Mother Obesity Social History Social History Smoking packs per day: 1.5 Smoking cigarettes per day: 30.0 Years smoked: 6 Smoking pack-years: 9.00 Smoking status: Former smoker Tobacco type: cigarettes Second hand tobacco smoke exposure: No Alcohol intake: unknown Substance use: current Substance use type: marijuana Last use: 6 months ago Lack of Transportation: No Lack of Food: Never True Current Housing: I Have Housing Concerned About Future Housing: No Difficulty Paying Gas/Electric Bills: No Difficulty Paying for Meds: No Currently Unemployed: No Education: Associate Degree Difficulty w/ Childcare or Family Care: No Living arrangements: with family 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 Gender identity (if verbalized by the patient): Female Sexual Orientation (if Verbalized by the Patient): Straight or Heterosexual Spiritual care concerns: No Agree to blood products: Yes Exam Const: General: healthy appearing, no acute distress and alert Nutritional Appearance: well nourished Orientation/consciousness: patient oriented x3 Limitations: no limitations Eyes: Conjunctivae: conjunctivae normal Neck: Neck: normal visual inspection Chest: Chest palpation & inspection: normal inspection of the chest Resp: Effort & Inspection: normal respiratory effort Auscultation: clear to auscultation bilaterally Cardio: Rate: regular rate Rhythm: regular rhythm Skin: General skin exam: normal color Rashes: no rashes Course Course Emergency Course: Here today with abnormal labs with decreased H&H and will type and cross and transfuse 2units. Patient is positive for antibody and packed red cells not available at this time and would have to be current he had to our facility for transfusion. The patient after reassessment vitals are stable feels more comfortable and would rather go home and have outpatient transfusion. Vital Signs Vital signs: Vital Signs Temperature 36.8 C 07/29/24 19:21 Pulse Rate 124 H 07/29/24 19:21 Respiratory Rate 24 H 07/29/24 19:21 B
--- NOTE | 2024-07-29 20:36 | PC.NURSE ---
Spoke with patient extensively about transfer for antibody testing for blood transfusion, signed consent form, is agreeable for transfer.
--- NOTE | 2024-07-29 21:30 | PC.NURSE ---
ERP and this RN spoke extensively with patient about other possible ways to get her the transfusion. Per ERP, patient is stable at this time and can follow up outpatient if she wishes to do so. Recommended to come back to ED if symptoms worsen. Patient agreeable and is understanding of information and education provided by RAPHAEL and this RN. Patient requesting to go home tonight and will follow up with transfusion outpatient. ERP aware, see orders.
[2024-07-29 21:37] VITALS: BP 150/74; PULSE 86; RESP 20; O2SAT 99
== END 2024-07-29 21:37 | disposition home or self-care (01) ==
PROVIDERS: Emergency Provider Emergency Medicine; PCP Family Medicine
DX: D64.9 Anemia, unspecified (principal); Z87.891 Personal history of nicotine dependence
CPT/HCPCS: 36415; 86850; 86870; 86880; 86900; 86901; 86902; 86905; 86906; 99281

== ENCOUNTER 2024-08-03 14:41 | Emergency (ER) | payer OTHER, SELFPAY ==
[2024-08-03] VITALS (59 sets, daily range): BP systolic 115–165; BP diastolic 63–100; PULSE 66–84; RESP 15–27; TEMP 36.4–36.7; O2SAT 99–100
[2024-08-03 15:02] LABS: Hematocrit 24.7 % (35.0-49.0)
[2024-08-03 15:04] LABS: Hemoglobin 6.6 g/dL (12.0-15.0)
[2024-08-03 15:12] LABS: Occult Blood Positive (Negative)
--- NOTE | 2024-08-03 15:20 | PC.NURSE ---
BLOOD CONSENT OBTAINED. PT REPORTS SHE USED TO SEE DR. CRUZ FOR GI, HOWEVER HER INSURANCE CHANGED AND SHE HAS NOT SEEN A GI SPECIALIST SINCE. PT REPORTS IF SHE NEEDS TRANSFER, SHE WOULD PREFER TO GO TO [facility]. WILL CONTINUE TO MONITOR.
--- NOTE | 2024-08-03 15:39 | ED.RECABL ---
HPI - Recheck/Abnormal Lab/Rx General Chief Complaint: Recheck/Abnormal Lab/Rx Stated Complaint: blood transfusion Time Seen by Provider: 08/03/24 14:45 Source: patient Mode of arrival: ambulatory Limitations: no limitations History of Present Illness HPI narrative: Patient is a 43-year-old female with a significant past medical history that presents today for anemia. Patient has recently seen here 4 days ago in the ER had hemoglobin of 6.8 was a needle blood. They did do the crossmatch but was extremely busy that night and she had at that time was asymptomatic and Sent to do that for that outpatient. apparently then her insurance would not pay the blood transfusion. She would like to have the chin she will be due now and decided to come in today. She is symptomatic in since she is lightheaded very pale and fatigued. She has come back to get lotion fusion now as well after rechecking H and H but he apparently do still have on file her cross match. she says she also has had black tarry stools and this was not there previously. Go to her occult stool was positive. So she will also need GI as well. complaint: abnormal lab Initial visit (ago): week(s) Returns today for: called because of abnormal lab/test and other Description of abnormal result: Abnormal hemoglobin at goal 6 times last check, now 6.6 today Symptoms since prior visit: no new symptoms Associated symptoms: shortness of breath Related Data Home Medications Medication Instructions Recorded Confirmed ferrous sulfate 325 mg (65 mg 325 mg PO DAILY 08/03/24 08/03/24 iron) tablet polysaccharide iron complex 150 mg 150 mg PO DAILY 08/03/24 08/03/24 iron capsule Allergies Allergy/AdvReac Type Severity Reaction Status Date / Time NSAIDS (Non-Steroidal AdvReac Severe Ulcers Verified 08/03/24 14:50 Anti-Inflamma Review of Systems Review of Systems: All systems reviewed & are unremarkable except as noted in HPI and below Constitutional: Constitutional: Reports as per HPI Eyes: Eyes: Reports as per HPI ENT: Reports system reviewed and no additional complaints, except as documented Cardiovascular: Cardiovascular: Reports as per HPI Respiratory: Respiratory: Reports as per HPI Gastrointestinal: Gastrointestinal: Reports as per HPI Genitourinary: Genitourinary: Reports no additional female genitourinary complaints Musculoskeletal: Musculoskeletal: Reports no additional musculoskeletal complaints Integumentary/Breasts: Skin/Breast: Reports system reviewed and no additional complaints, except as docu Neurologic: Reports as per HPI and Reports weakness Psychiatric: Psychiatric: Reports as per HPI Endocrine: Endocrine: Reports no additional endocrine complaints Hematologic/Lymphatic: Hematologic/Lymphatic: Reports no additional hematologic/lymphatic complaints Allergic/Immunologic: Allergic/Immunologic: Reports no additional allergic/immunologic complaints PMFSH Past Medical History Medical History Advanced maternal age (AMA) in Anemia delivery delivered (~2010) Depression Diaphragmatic hernia without mention of obstruction or gangrene Esophageal reflux Gestational HTN Iron deficiency (01/29/23) transfusion packed red blood Irregular menstrual cycle Suppression of menses Traumatic subdural hematoma UTI (urinary tract infection), bacterial Surgical History Surgical History H/O abdominoplasty (~2014) Family History Family History Grandparent Acute myocardial infarction Father Diabetes mellitus Sibling Diabetes mellitus Grandparent Heart disease Mother Hypertension Father Hypertension Father Obesity Mother Obesity Social History Social History Smoking packs per day:
[2024-08-03] MEDS: SODIUM CHLORIDE 0.9% IV 250 ML 30 ML IV CONT (15:42)
--- NOTE | 2024-08-03 16:10 | PC.NURSE ---
PT HAS 1ST UNIT OF BLOOD TRANSFUSING AT THIS TIME. NAD NOTED. PT VSS PER MONITOR. PT DENIES ANY NEEDS OR COMPLAINTS. CONTINUE TO AWAIT RETURN CALL FROM SEAMAN AT THIS TIME. WILL CONTINUE TO MONITOR.
--- NOTE | 2024-08-03 17:00 | PC.NURSE ---
PT IS TALKING WITH ON PHONE AT THIS TIME, VSS PER MONITOR. BLOOD CONTINUES TO TRANSFUSE WITHOUT DIFFICULTY. PT HAS BEEN ACCEPTED TO [facility], ROOM 343. TO AWAIT INITIATION OF 2ND UNIT OF BLOOD PRIOR TO TRANSFER, PT IS AWARE OF PLAN OF CARE. WILL CONTINUE TO MONITOR.
--- NOTE | 2024-08-03 18:04 | PC.NURSE ---
1st unit has completed infusing, is now at bedside. pt is awaiting lab redraw prior to 2nd unit beginning. pt denies any needs or complaints. will continue to monitor.
[2024-08-03 18:25] LABS: Hematocrit 27.8 % (35.0-49.0); Hemoglobin 7.6 g/dL (12.0-15.0)
--- NOTE | 2024-08-03 18:25 | PC.NURSE ---
pt is awaiting repeat cbc results at this time. will continue to monitor.
--- NOTE | 2024-08-03 18:44 | PC.NURSE ---
PT IS TALKING ON CELL PHONE WITHOUT DISTRESS. PT IS NO LONGER SOB WHEN TALKING, COLOR HAS IMPROVED. PT REPORTS SHE IS FEELING BETTER. 2ND UNIT OF BLOOD IS TRANSFUSING AT THIS TIME WITHOUT DISTRESS. WILL CONTINUE TO MONITOR.
--- NOTE | 2024-08-03 19:03 | PC.NURSE ---
EMS RETURNS CALL REPORTING APPROX 15 MIN ARRIVAL TIME.
== END 2024-08-03 20:55 | disposition short-term general hospital (02) ==
PROVIDERS: Nurse Practitioner Family; Emergency Provider Family Medicine; PCP Family Medicine
DX: D50.9 Iron deficiency anemia, unspecified (principal); R19.5 Other fecal abnormalities; K21.9 Gastro-esophageal reflux disease without esophagitis; Z87.891 Personal history of nicotine dependence; F12.90 Cannabis use, unspecified, uncomplicated
CPT/HCPCS: 36415; 36430; 82272; 85014; 85018; 86850; 86880; 86900; 86901; 86902; 86920; 96360; 96361; 99285; J7050; P9016

== ENCOUNTER 2024-08-03 21:51 | Observation (INO) | payer OTHER, SELFPAY ==
[2024-08-03 21:53] VITALS: BP 152/78; PULSE 76; RESP 20; TEMP 37; O2SAT 100
--- NOTE | 2024-08-03 21:55 | PM.IMHP ---
H&P: HPI History of Present Illness Date/Time: 08/03/24 21:55 Chief Complaint: Symptomatic anemia, melena. Narrative: This is a pleasant 43-year-old female with history of iron deficiency anemia, vitamin B12 deficiency, gastroesophageal reflux disease, and peptic ulcers attributed to NSAID use who is being directly admitted to the medical floor from the emergency department at the [facility] for further evaluation after she was found to have profound anemia and Hemoccult-positive stools. The patient provides the following history. She gives a several week history of increasing fatigue and dyspnea on exertion and was found to have a precipitous drop in her hemoglobin. She wished to avoid hospitalization and she is being followed closely by her primary care provider. Today she had an outpatient transfusion scheduled however her insurance would not pay for it and she was sent to the ED. She told the ER physician that she had dark stools today and her stool was Hemoccult positive on rectal examination. Her hemoglobin and hematocrit were 6.6 and 24.7% respectively and because of this she is being transferred to [place] for GI consultation. At the time my evaluation she feels better after receiving 2 units of packed red blood cells. She does report that she is starting to get a bit nauseated and has had some bloating and belching which is a new development today. She denies NSAID use. No significant alcohol or caffeine use. She also denies syncope, near syncope, sweats, hematemesis, and chest pain. Review of Systems Review of Systems: 12 systems were reviewed and are negative except for as per HPI. [facility] Past Medical History Medical History (Updated 08/03/24 @ 23:39 by Nikia Fang PA-C) Anemia Depression Diaphragmatic hernia without mention of obstruction or gangrene Esophageal reflux Gestational HTN Iron deficiency (01/29/23) transfusion packed red blood Peptic ulcer Traumatic subdural hematoma Surgical History Surgical History (Updated 08/03/24 @ 23:38 by Nikia Fang PA-C) History of abdominoplasty History of delivery Family History Family History Grandparent Acute myocardial infarction Father Diabetes mellitus Sibling Diabetes mellitus Grandparent Heart disease Mother Hypertension Father Hypertension Father Obesity Mother Obesity Social History Social History (Updated 08/03/24 @ 23:47 by Nikia Fang PA-C) Social History: Surrogate medical decision maker: Christopher Alford, spouse. Code status: Full code. Smoking packs per day: 1.5 Smoking cigarettes per day: 30.0 Years smoked: 6 Smoking pack-years: 9.00 Smoking status: Former smoker Tobacco type: cigarettes Second hand tobacco smoke exposure: No Alcohol intake: never Substance use: current Substance use type: marijuana Last use: 6 months ago Do You Feel Safe in your Home?: Yes Lack of Transportation: No Lack of Food: Never True Current Housing: I Have Housing Concerned About Future Housing: No Difficulty Paying Gas/Electric Bills: No Difficulty Paying for Meds: No Currently Unemployed: No Education: Associate Degree Difficulty w/ Childcare or Family Care: No Living arrangements: with family Additional living arrangements comments: Lives with spouse. She has 5 children. 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
--- NOTE | 2024-08-03 22:12 | ADMGEN ---
This patient, Jackie Alford, was admitted to Medical Room 343-01. Patient/family oriented to hospital policies and general routines including ID bracelet, bed and alarms, visiting hours, pain management, procedures, bathroom and other care routines, personal items, smoking policy, room service/diet, and visiting hours. Information on how to activate the Rapid Response Team has been discussed. Patient/Family are encouraged to report perceived risks to care and to ask questions if they do not understand what they are told or what they should do.
[2024-08-03 22:15] VITALS: BP 159/98; PULSE 76; RESP 20; TEMP 37; O2SAT 100
[2024-08-03 22:24] VITALS: BMI 42.7
[2024-08-03 22:47] LABS: Hemoglobin 8.9 g/dL (12.0-15.0); Mean Corpuscular HGB Conc 27.8 g/dl (32-36); Mean Corpuscular Hemoglobin 21.1 pg (26-34); Mean Corpuscular Volume 75.8 fl (80-100); Mean Platelet Volume 10.8 fl (7.4-10.4); Platelet Count Result 266 k/mm3 (150-375); Red Blood Count 4.22 M/mm3 (4.2-5.4); Red Cell Distribution Width 19.7 % (11.5-14.5); White Blood Count 10.7 K/mm3 (4.5-10.0)
[2024-08-03 22:59] LABS: Anion Gap 10 mmol/L (4-12); Blood Urea Nitrogen 10 mg/dL (7-17); Calcium 8.6 mg/dL (8.4-10.2); Carbon Dioxide 25 mmol/L (22-30); Chloride 102 mmol/L (98-107); Estimated CRCL calculation 117 ml/min; Estimated Glomerular Filt Rate > 60; Glucose 98 mg/dL (65-110); Potassium 3.8 mmol/L (3.4-5.0); Sodium 137 mmol/L (137-145)
[2024-08-03] MEDS: PANTOPRAZOLE SODIUM IV 40 MG VIAL IV PUSH (23:08)
[2024-08-03] MEDS: ONDANSETRON INJ 4 MG/2 ML VIAL IV PUSH (23:08)
[2024-08-03] MEDS: ACETAMINOPHEN 325 MG TABLET 650 MG PO (23:11)
[2024-08-03 23:32] LABS: Transferrin 399 mg/dL (206-381)
[2024-08-03 23:40] LABS: Iron 57 ug/dL (37-170)
[2024-08-03 23:49] LABS: Percent Iron Saturation 11 % (20-50)
[2024-08-04 00:16] LABS: Ferritin 4.48 ng/mL (6.24-137)
[2024-08-04 04:32] LABS: Folic Acid 3.3 ng/mL (2.76->20)
[2024-08-04 05:57] LABS: Hematocrit 30.5 % (37.0-47.0); Hemoglobin 8.5 g/dL (12.0-15.0); Mean Corpuscular HGB Conc 27.9 g/dl (32-36); Mean Corpuscular Hemoglobin 21.2 pg (26-34); Mean Corpuscular Volume 76.1 fl (80-100); Platelet Count Result 253 k/mm3 (150-375); Red Blood Count 4.01 M/mm3 (4.2-5.4); Red Cell Distribution Width 19.3 % (11.5-14.5); White Blood Count 10.6 K/mm3 (4.5-10.0)
[2024-08-04 06:00] VITALS: BP 171/95; PULSE 66; RESP 20; TEMP 36.8; O2SAT 100
[2024-08-04 06:11] LABS: Anion Gap 10 mmol/L (4-12); Blood Urea Nitrogen 9 mg/dL (7-17); Calcium 8.7 mg/dL (8.4-10.2); Carbon Dioxide 25 mmol/L (22-30); Chloride 101 mmol/L (98-107); Estimated CRCL calculation 117 ml/min; Estimated Glomerular Filt Rate > 60; Glucose 114 mg/dL (65-110); Magnesium 1.9 mg/dL (1.6-2.3); Potassium 3.9 mmol/L (3.4-5.0); Sodium 136 mmol/L (137-145)
[2024-08-04] MEDS: hydrALAZINE HCL 20 MG/ML VIAL 10 MG IV PUSH (06:19)
[2024-08-04] MEDS: PANTOPRAZOLE SODIUM IV 40 MG VIAL IV PUSH ×2 (08:37→20:11)
--- NOTE | 2024-08-04 11:07 | WPDGICN ---
Assessment and Plan Assessment and plan (1) Melena: Code(s): K92.1 - Melena Status: Acute (2) Iron deficiency anemia: Code(s): D50.9 - Iron deficiency anemia, unspecified Status: Acute (3) Fecal occult blood test positive: Code(s): R19.5 - Other fecal abnormalities Status: Inactive (4) Dysphagia: Code(s): R13.10 - Dysphagia, unspecified Status: Acute Plan PLAN: 1. Anemia/GI bleeding/Positive hemoccult/dysphagia: Patient has a history of recurrent anemia and recent episode of melena. Hemoglobin dropped to 6.6 g/dL from previous level 7.4 on 06/04/2024, improved to 8.5 g/dL after 2 units PRBC transfusion. Iron studies show severe iron deficiency with ferritin 4.48, iron sat 11%, TIBC of 539. Last EGD in 2014 showed gastric ulcer believed to 2/2 to Nsaid use. Never had colonoscopy. No further episodes of black stools today. Pulse of 66 and BP 171/95 this morning. - EGD to be performed tomorrow, She is reluctant to have colonoscopy, Discuss outpatient colonoscopy if not performed during this admission - clear liquid diet today, advance diet as tolerated - NPO after midnight for EGD tomorrow. - continue Pantoprazole 40 mg BID IV Push - monitor hgb/hct - Monitor for further episodes of melena or hematemesis - Consider hematology referral if anemia persists despite iron supplementation and B12 and addressing any GI sources of blood loss - Dysphagia: Patient reports occasional difficulty swallowing solid foods for the past few years. - Evaluate during EGD. This report may have been done utilizing a voice recognition system. Attempts have been made to correct errors. However, there may be uncorrected grammatical, spelling, and recognition errors present. GI Consult Note Consult date/time: 08/04/24 11:07 HPI: Jackie Alford is a 43 year old female with a past medical surgical history of iron deficiency anemia, vitamin B12 deficiency, gastroesophageal reflux disease, and peptic ulcers attributed to NSAID use. She presents to the office today for evaluation of symptomatic anemia and hemoccult positive stools. She was admitted to [facility] for profound anemia. Jackie has a longstanding history of anemia with hemoglobin/hematocrit ranging 7-9 g/dL. Over the past several weeks, she reports increasing fatigue and dyspnea on exertion. Her hemoglobin dropped from 7.4 g/dL on 06/04/2024 to 6.6 g/dL on 08/03/2024. She received 2 units of packed red blood cells, after which her hemoglobin increased to 8.5 g/dL. She reports a history of GI bleeding in 2014 following abdominoplasty, attributed to NSAID use, which caused a significant gastric ulcer. Since then, she has experienced intermittent episodes of dark stools and shortness of breath. During her a little over a year ago, she experienced another significant bleed, presenting with chest pain and tachycardia. Her hemoglobin at that time was 4.8 g/dL, requiring 3 units of blood transfusion and IV iron infusion. Over the past several weeks she reports history of increasing fatigue and dyspnea on exertion. Repeat hemoglobin on July 29, 2024 down to 6.6 , previously at 7.4 on 06/04/2024. Jackie noticed black, tarry stools yesterday, having two episodes before coming to the hospital. Prior to this, she hadn't noticed any black stools prior to this. She has been taking protonix 40 mg daily for the past couple of years with occasional breakthrough symptoms. she denies any significant nausea or vomiting. She reports occasional dysphagia with meat, bread, and sometimes rice getting stuck for the past few years. Once, she had to induce vomiting to dislodge stuck food. She reports 2-3 bowel movements most days that are sometimes loose but no diarrhea or constipation. She denies any bright red blood per rectum. She denies current use of NSAIDs or significant alcohol consumption. She has a medical marijuana card but uses gummies.
--- NOTE | 2024-08-04 12:17 | P.PNIM_ITS ---
Progress Note: A&P Assessment and Plan (1) Symptomatic anemia: Code(s): D64.9 - Anemia, unspecified Status: Acute Assessment and Plan: * Patient received 2 units of PRBC's on 08/03/24. * TodayHemoglobin 8.5 and Hematocrit 30.5. * Monitor stools and any emesis. * Monitor blood counts. (2) Melena: Code(s): K92.1 - Melena Status: Acute Assessment and Plan: * NPO after midnight for EGD. Patient is wanting to do colonoscopy as an outpatient. * Pantoprazole 40 mg IVPB BID. * GI following. (3) Fecal occult blood test positive: Code(s): R19.5 - Other fecal abnormalities Status: Inactive Assessment and Plan: * NPO after midnight for EGD. Patient is wanting to do colonoscopy as an outpatient. * Pantoprazole 40 mg IVPB BID. * GI following. (4) Iron deficiency anemia: Code(s): D50.9 - Iron deficiency anemia, unspecified Status: Acute Assessment and Plan: * 08/03/24: Iron 57, TIBC 539, % saturation 11, Transferrin 399, & Ferritin 4.48. * Venofer 200 mg IVPB x 1 * Iron polysaccharide 150 mg PO BID. Subjective Date/time seen: 08/04/24 12:17 Interval history: Patient reports that she has a headache that is a 2 , constant, and dull. Patient reports that she had nausea with vomiting yesterday, denies at present. Patient reports dyspnea on exertion. Review of Systems Review of Systems: All systems reviewed & are unremarkable except as noted in HPI and below Exam Const: General: comfortable and no acute distress Neck: Neck: supple Resp: Effort & Inspection: normal respiratory effort Auscultation: clear to auscultation bilaterally Cardio: Rate: regular rate Rhythm: regular rhythm GI: GI Palp: Yes Soft to palpation Auscultation: normal bowel sounds Skin: General skin exam: no rashes or lesions noted Neuro: Speech: normal speech Extrem: General: normal to inspection Psych: Mental Status: mental status grossly normal Affect: normal affect Objective Data Vital Signs Vital Signs: Vital Signs - 24 hr 08/03/24 21:53 08/03/24 22:15 08/04/24 01:02 Temperature 98.6 F 98.6 F Pulse Rate 76 76 Respiratory Rate 20 20 Blood Pressure 152/78 H 159/98 H Pulse Oximetry 100 100 Oxygen Delivery Room Air 08/04/24 06:00 Temperature 98.2 F Pulse Rate 66 Respiratory Rate 20 Blood Pressure 171/95 H Pulse Oximetry 100 Oxygen Delivery Intake/Output Intake/Output: Intake & Output 08/01/24 08/02/24 08/03/24 08/04/24 23:59 23:59 23:59 23:59 Intake Total 480 Balance 480 Meds/Results Medications: Active Medications Generic Name Dose Route Start Last Admin Trade Name Freq PRN Reason Stop Dose Admin Acetaminophen 650 mg 08/03/24 21:51 08/03/24 23:11 Acetaminophen 325 Mg Tablet PO 650 mg Q4H PRN Administration Mild Pain (1-3) or Fever Cyanocobalamin 1,000 mcg 08/04/24 09:00 Cyanocobalamin 1,000 Mcg Tablet PO DAILY [facility] Ferrous Sulfate 325 mg 08/04/24 09:00 Ferrous Sulfate [address] PO
--- NOTE | 2024-08-04 12:17 | PM.IMPN ---
Progress Note: A&P Assessment and Plan (1) Symptomatic anemia: Code(s): D64.9 - Anemia, unspecified Status: Acute Assessment and Plan: Patient received 2 units of PRBC's on 08/03/24. TodayHemoglobin 8.5 and Hematocrit 30.5. Monitor stools and any emesis. Monitor blood counts. (2) Melena: Code(s): K92.1 - Melena Status: Acute Assessment and Plan: NPO after midnight for EGD. Patient is wanting to do colonoscopy as an outpatient. Pantoprazole 40 mg IVPB BID. GI following. (3) Fecal occult blood test positive: Code(s): R19.5 - Other fecal abnormalities Status: Inactive Assessment and Plan: NPO after midnight for EGD. Patient is wanting to do colonoscopy as an outpatient. Pantoprazole 40 mg IVPB BID. GI following. (4) Iron deficiency anemia: Code(s): D50.9 - Iron deficiency anemia, unspecified Status: Acute Assessment and Plan: 08/03/24: Iron 57, TIBC 539, % saturation 11, Transferrin 399, & Ferritin 4.48. Venofer 200 mg IVPB x 1 Iron polysaccharide 150 mg PO BID. Subjective Date/time seen: 08/04/24 12:17 Interval history: Patient reports that she has a headache that is a 2 , constant, and dull. Patient reports that she had nausea with vomiting yesterday, denies at present. Patient reports dyspnea on exertion. Review of Systems Review of Systems: All systems reviewed & are unremarkable except as noted in HPI and below Exam Const: General: comfortable and no acute distress Neck: Neck: supple Resp: Effort & Inspection: normal respiratory effort Auscultation: clear to auscultation bilaterally Cardio: Rate: regular rate Rhythm: regular rhythm GI: GI Palp: Yes Soft to palpation Auscultation: normal bowel sounds Skin: General skin exam: no rashes or lesions noted Neuro: Speech: normal speech Extrem: General: normal to inspection Psych: Mental Status: mental status grossly normal Affect: normal affect Objective Data Vital Signs Vital Signs: Vital Signs - 24 hr 08/03/24 21:53 08/03/24 22:15 08/04/24 01:02 Temperature 98.6 F 98.6 F Pulse Rate 76 76 Respiratory Rate 20 20 Blood Pressure 152/78 H 159/98 H Pulse Oximetry 100 100 Oxygen Delivery Room Air 08/04/24 06:00 Temperature 98.2 F Pulse Rate 66 Respiratory Rate 20 Blood Pressure 171/95 H Pulse Oximetry 100 Oxygen Delivery Intake/Output Intake/Output: Intake & Output 08/01/24 08/02/24 08/03/24 08/04/24 23:59 23:59 23:59 23:59 Intake Total 480 Balance 480 Meds/Results Medications: Active Medications Generic Name Dose Route Start Last Admin Trade Name Freq PRN Reason Stop Dose Admin Acetaminophen 650 mg 08/03/24 21:51 08/03/24 23:11 Acetaminophen 325 Mg Tablet PO 650 mg Q4H PRN Administration Mild Pain (1-3) or Fever Cyanocobalamin 1,000 mcg 08/04/24 09:00 Cyanocobalamin 1,000 Mcg Tablet PO DAILY [facility] Ferrous Sulfate 325 mg 08/04/24 09:00 Ferrous Sulfate [address] PO 09/03/24 08:59 DAILY [facility] Miscellaneous Information 0 each 08/03/24 00:01 Ferrous Sulfate Duplicate With Niferex 150 D/C One? XX 09/02/24 00:00 CLARIFY [facility] Ondansetron HCl 4 mg 08/03/24 22:50 08/03/24 23:08 Ondansetron Inj 4 Mg/2 Ml Vial IV PUSH 4 mg Q6H PRN Administration Nausea And Vomiting Pantoprazole Sodium 40 mg 08/03/24 22:00 08/04/24 08:37 Pantoprazole Sodium Iv 40 Mg Vial IV PUSH 40 mg Q12HR ASHLI Administration Polysaccharide Iron Complex 150 mg 08/04/24 09:00 Polysaccharide Iron Complex 150 Mg Capsule PO DAILY [facility] Labs Labs: Laboratory Results - last 24 hr 08/03/24 08/04/24 22:42 05:23 WBC 10.7 H 10.6 H RBC 4.22 4.01 L Hgb 8.9 L 8.5 L Hct 32.0 L 30.5 L MCV 75.8 L 76.1 L MCH 21.1 L 21.2 L MCHC 27.8 L 27.9 L RDW 19.7 H 19.3 H Plt Count 266 253 MPV 10.8 H 11.0 H Sodium 137 136 L Potassium
[2024-08-04] MEDS: CYANOCOBALAMIN 1,000 MCG TABLET 1000 MCG PO (13:33)
[2024-08-04] MEDS: POLYSACCHARIDE IRON COMPLEX 150 MG CAPSULE PO ×2 (13:33→16:37)
[2024-08-04 13:57] VITALS: BP 157/74; PULSE 83; RESP 19; TEMP 36.7; O2SAT 98
[2024-08-04] MEDS: IRON SUCROSE COMPLEX 200 MG in SODIUM CHLORIDE 0.9% IV 50 ML 220 MG IVPB (16:37)
[2024-08-04 21:12] VITALS: BP 145/72; PULSE 77; RESP 18; TEMP 36.9; O2SAT 99
[2024-08-05 05:56] LABS: Basophils Percent Auto 0.5 % (0.2-1.2); Eosinophils Absolute Auto 0.1 K/mm3 (0-0.3); Eosinophils Percent Auto 1.2 % (0-4.4); Hemoglobin 8.3 g/dL (12.0-15.0); Immature Granulocyte Absolute 0.03 K/mm3 (0.00-0.031); Immature Granulocyte Percent A 0.4 % (0-0.5); Immature Platelet Fraction Pct 7.4 % (0.9-11.2); Lymphocytes Absolute Auto 2.22 K/mm3 (0.9-3.2); Lymphocytes Percent Auto 26.4 % (18.3-44.2); Mean Corpuscular HGB Conc 27.7 g/dl (32-36); Mean Corpuscular Hemoglobin 21.2 pg (26-34); Mean Corpuscular Volume 76.7 fl (80-100); Mean Platelet Volume 11.6 fl (7.4-10.4); Monocytes Absolute Auto 0.6 K/mm3 (0.1-0.6); Monocytes Percent Auto 6.8 % (2.6-8.5); Neutrophils Absolute Auto 5.5 K/mm3 (1.3-6.7); Neutrophils Percent Auto 64.7 % (45.5-73.1); Platelet Count Result 218 k/mm3 (150-375); Red Blood Count 3.91 M/mm3 (4.2-5.4); Red Cell Distribution Width 20.1 % (11.5-14.5); White Blood Count 8.4 K/mm3 (4.5-10.0)
[2024-08-05 05:59] VITALS: BP 139/73; PULSE 66; RESP 20; TEMP 36.8; O2SAT 97
[2024-08-05 06:06] LABS: Alanine Aminotransferase 10 U/L (6-35); Albumin Level 3.7 g/dL (3.5-5.1); Alkaline Phosphatase 72 U/L (38-126); Anion Gap 5 mmol/L (4-12); Aspartate Amino Transferase 17 U/L (14-36); Bilirubin,Total 0.5 mg/dL (0.2-1.3); Blood Urea Nitrogen 6 mg/dL (7-17); Calcium 8.6 mg/dL (8.4-10.2); Carbon Dioxide 28 mmol/L (22-30); Chloride 104 mmol/L (98-107); Estimated CRCL calculation 132 ml/min; Estimated Glomerular Filt Rate > 60; Glucose 118 mg/dL (65-110); Potassium 4.1 mmol/L (3.4-5.0); Sodium 137 mmol/L (137-145)
[2024-08-05 06:57] LABS: Anisocytosis 1+; Hypochromasia 1+; Platelet Estimate Adequate (Adequate); Schistocytes None Seen
[2024-08-05 06:58] LABS: Ovalocytes 1+
[2024-08-05] MEDS: PANTOPRAZOLE SODIUM IV 40 MG VIAL IV PUSH (09:48)
--- NOTE | 2024-08-05 10:20 | PC.NURSE ---
Patient off of unit to GI lab
[2024-08-05 10:30] VITALS: BP 152/80; PULSE 68; RESP 18; TEMP 36.1; O2SAT 97
[2024-08-05 10:31] VITALS: BMI 41.2
[2024-08-05] MEDS: LACTATED RINGERS 1,000 ML 150 ML IV CONT (10:36)
--- NOTE | 2024-08-05 11:08 | WPDANESEPPF ---
Anes - Initial Pre Proc Eval Procedure: Operation Date: 08/05/24 10:30 Proposed Procedures p Esophagogastroduodenoscopy - Vamsi Orta MD Date/Time: 08/05/24 11:08 Surgeon: Dave Grigsby MD Pre Op Diagnosis: Anemia, hemoccult positive stool Patient Data Age: 43 Gender: F Height: 1.78 m Weight: 130.4 kg Last Vital Signs Temp 97.0 F L 08/05/24 10:30 Pulse 68 08/05/24 10:30 Resp 18 08/05/24 10:30 BP 152/80 H 08/05/24 10:30 Pulse Ox 97 08/05/24 10:30 O2 Del Method Room Air 08/05/24 10:30 Allergies Allergy/AdvReac Type Severity Reaction Status Date / Time NSAIDS (Non-Steroidal AdvReac Severe Ulcers Verified 08/05/24 10:26 Anti-Inflamma Home Medications Medication Instructions Recorded Confirmed Type cholecalciferol (vitamin D3) 1,250 1,250 mcg PO WEEKLY #12 caps 11/27/23 08/05/24 Rx mcg (50,000 unit) capsule cyanocobalamin (vitamin B-12) 1,000 mcg PO DAILY #90 tabs 06/08/24 08/05/24 Rx 1,000 mcg tablet ferrous sulfate 325 mg (65 mg 325 mg PO DAILY 08/03/24 08/05/24 History iron) tablet pantoprazole 20 mg tablet,delayed 40 mg PO DAILY 08/03/24 08/05/24 History release polysaccharide iron complex 150 mg 150 mg PO DAILY 08/03/24 08/05/24 History iron capsule Laboratory Tests 08/05/24 05:28 WBC 8.4 K/mm3 (4.5-10.0) RBC 3.91 L M/mm3 (4.2-5.4) Hgb 8.3 L g/dL (12.0-15.0) Hct 30.0 L % (37.0-47.0) MCV 76.7 L fl (80-100) MCH 21.2 L pg (26-34) MCHC 27.7 L g/dl (32-36) RDW 20.1 H % (11.5-14.5) Plt Count 218 k/mm3 (150-375) MPV 11.6 H fl (7.4-10.4) Immature Gran % (Auto) 0.4 % (0-0.5) Neut % (Auto) 64.7 % (45.5-73.1) Lymph % (Auto) 26.4 % (18.3-44.2) Sully % (Auto) 6.8 % (2.6-8.5) Eos % (Auto) 1.2 % (0-4.4) Baso % (Auto) 0.5 % (0.2-1.2) Lymph # (Auto) 2.22 K/mm3 (0.9-3.2) Sully # (Auto) 0.6 K/mm3 (0.1-0.6) Eos # (Auto) 0.1 K/mm3 (0-0.3) Baso # (Auto) 0.0 K/mm3 (0.0-0.1) Abs Immat Gran (auto) 0.03 K/mm3 (0.00-0.031) Absolute Neuts (auto) 5.5 K/mm3 (1.3-6.7) Absolute Nucleated RBC 0.000 K/mm3 (0.0-0.012) Nucleated RBC % 0.0 % (0.0-0.2) Platelet Estimate Adequate (Adequate) % Immature Plt Fraction 7.4 % (0.9-11.2) Hypochromasia 1+ Anisocytosis 1+ Ovalocytes 1+ Schistocytes None seen Sodium 137 mmol/L (137-145) Potassium 4.1 mmol/L (3.4-5.0) Chloride 104 mmol/L (98-107) Carbon Dioxide 28 mmol/L (22-30) Anion Gap 5 mmol/L (4-12) BUN 6 L mg/dL (7-17) Creatinine 0.70 mg/dL (0.7-1.0) Estim Creat Clear Calc 132 ml/min Estimated GFR > 60 (59 - ) Glucose 118 H mg/dL (65-110) Calcium 8.6 mg/dL (8.4-10.2) Total Bilirubin 0.5 mg/dL (0.2-1.3) AST 17 U/L (14-36) ALT 10 U/L (6-35) Alkaline Phosphatase 72 U/L (38-126) Total Protein 7.0 g/dL (6.3-8.2) Albumin 3.7 g/dL (3.5-5.1) Patient hx anesthesia problems: none Family hx anesthesia problems: none Results Review: All pre-operative results and documents have been reviewed as part of the pre-operative evaluation. [facility], [facility] Past Medical History Medical History (Updated 08/04/24 @ 11:10 by MARTINA Perez) Anemia Depression Diaphragmatic hernia without mention of obstruction or gangrene Dysphagia Esophageal reflux Gestational HTN Iron deficiency (01/29/23) transfusion packed red blood Iron deficiency anemia Peptic ulcer Traumatic subdural hematoma Surgical History Surgical History (Updated 08/03/24 @ 23:38 by Nikia Fang PA-C) History of abdominoplasty History of delivery Family History Family History Grandparent Acute myocardial infarction Father Diabetes mellitus Sibling Diabetes mellitus Grandparent Heart disease Mother Hy
[2024-08-05] MEDS: SIMETHICONE ORAL SUSPENSION 20 MG/0.3 ML 30 ML BOTTLE 0.6 ML PO (11:51)
[2024-08-05 12:00] VITALS: BP 129/75; PULSE 76; RESP 23; O2SAT 99
[2024-08-05 12:10] VITALS: BP 127/77; PULSE 75; RESP 19; O2SAT 99
[2024-08-05 12:20] VITALS: BP 129/79; PULSE 68; RESP 16; O2SAT 99
--- NOTE | 2024-08-05 12:51 | SUR.PHASEII ---
Per Dr. Otra, ok for pt to have colonoscopy as outpatient if unable to do it as inpatient because of lack of childcare.
--- NOTE | 2024-08-05 13:01 | PM.DS ---
DS: Admitting Diagnosis Discharge Date 08/05/24 Admitting Diagnosis Came for a blood transfusion. Lightheaded and fatigued. DS: Discharge Diagnosis Discharge Diagnosis (1) Symptomatic anemia: Code(s): D64.9 - Anemia, unspecified Status: Acute (2) Melena: Code(s): K92.1 - Melena Status: Acute (3) Hiatal hernia: Code(s): K44.9 - Diaphragmatic hernia without obstruction or gangrene Status: Acute (4) Gastritis: Code(s): K29.70 - Gastritis, unspecified, without bleeding Status: Acute (5) Iron deficiency anemia: Code(s): D50.9 - Iron deficiency anemia, unspecified Status: Acute DS: Summary Hospital Course Hospital Course: Patient received 2 units of PRBC's on 08/03/24. Hemoglobin 8.3 and Hematocrit 30.0 today. EGD today showed hiatal hernia and gastritis. Patient to schedule an outpatient Colonoscopy for next week. 08/03/24: Iron 57, TIBC 539, % saturation 11, Transferrin 399, & Ferritin 4.48. Venofer 200 mg IVPB x 1 given yesterday Iron polysaccharide 150 mg PO BID. Status at Discharge Functional status at discharge: independent ambulation Overall status at discharge: patient is progressing back to baseline Time Spent with Patient Time attestation: Total time spent providing and/or coordinating discharge services: Time spent: Greater than 30 minutes Exam Const: General: comfortable and no acute distress Neck: Neck: supple Resp: Effort & Inspection: normal respiratory effort Auscultation: clear to auscultation bilaterally Cardio: Rate: regular rate Rhythm: regular rhythm GI: GI Palp: Yes Soft to palpation Auscultation: normal bowel sounds Skin: General skin exam: no rashes or lesions noted Extrem: General: normal to inspection Psych: Affect: normal affect DS: Data Data Completed and Pending Pending studies at discharge: Pending at discharge 08/05/24 11:56 Surgical [PTH] Routine Labs on day of discharge: Labs from last 24 hours 08/05/24 05:28 WBC 8.4 RBC 3.91 L Hgb 8.3 L Hct 30.0 L MCV 76.7 L MCH 21.2 L MCHC 27.7 L RDW 20.1 H Plt Count 218 MPV 11.6 H Immature Gran % (Auto) 0.4 Neut % (Auto) 64.7 Lymph % (Auto) 26.4 [place] % (Auto) 6.8 Eos % (Auto) 1.2 Baso % (Auto) 0.5 Lymph # (Auto) 2.22 [place] # (Auto) 0.6 Eos # (Auto) 0.1 Baso # (Auto) 0.0 Abs Immat Gran (auto) 0.03 Absolute Neuts (auto) 5.5 Absolute Nucleated RBC 0.000 Nucleated RBC % 0.0 Platelet Estimate Adequate % Immature Plt Fraction 7.4 Hypochromasia 1+ Anisocytosis 1+ Ovalocytes 1+ Schistocytes None seen Sodium 137 Potassium 4.1 Chloride 104 Carbon Dioxide 28 Anion Gap 5 BUN 6 L Creatinine 0.70 Estim Creat Clear Calc 132 Estimated GFR > 60 Glucose 118 H Calcium 8.6 Total Bilirubin 0.5 AST 17 ALT 10 Alkaline Phosphatase 72 Total Protein 7.0 Albumin 3.7 Discharge Plan Discharge Attending physician on discharge: Dave Grigsby Consulting providers: Kenroy Johnson; Vamsi Orta Discharging Clinician: Rachana Hernandez Anticipated Discharge Date/Time: 08/05/24 14:00 Patient Disposition: Home, Self-Care Activity: may shower Diet: regular Discharge Instructions: - AVOID CAFFEINE, SPICY FOODS, CHOCOLATE, MINTS, ALCOHOL, NICOTINE, RICH FOODS AND RED SAUCES AT THESE INCREASE ACID REFLUX. DO NOT EAT OR DRINK ANYTHING FOR 2 HOURS PRIOR TO RECLINING. -Schedule Colonoscopy Patient Instructions: Antibiotic Form, Hiatal Hernia (DC), Gastritis (DC), Anemia (DC), Upper Endoscopy (DC), Melena (GEN) Stand Alone Forms: General Discharge Information Follow-up/Referrals: Phil Canas DO [Primary Care Provider] - 1 Week Vamsi Orta MD [Physician] - 1 Week Discharge Medications: New Niferex (Sumalate-Quatrefolic) 150 mg iron- 60 mg-1 mg tablet 1 tablet PO BID Qty: 60 0RF Continued pantoprazole 20 mg tablet,delayed release (
--- NOTE | 2024-08-05 13:27 | PC.NURSE ---
RN spoke with GEORGE Chaidez who spoke with Dr Orta. Patient will have colonoscopy outpatient.
== END 2024-08-05 14:50 | disposition home or self-care (01) ==
PROVIDERS: Internal Medicine Gastroenterology; Nurse Practitioner Family; Physician Assistant; Admitting Provider General Practice; PCP Family Medicine; Visit Provider General Practice
PROC: 0DJ08ZZ Inspection of Upper Intestinal Tract, Via Natural or Artificial Opening Endoscopic (ICD-10-PCS; CPT 43235; principal; 2024-08-05 10:30)
DX: D50.9 Iron deficiency anemia, unspecified (principal); K29.30 Chronic superficial gastritis without bleeding; K44.9 Diaphragmatic hernia without obstruction or gangrene; K92.1 Melena; K21.9 Gastro-esophageal reflux disease without esophagitis; R13.10 Dysphagia, unspecified; E53.8 Deficiency of other specified B group vitamins; E66.01 Morbid (severe) obesity due to excess calories; Z68.41 Body mass index [BMI] 40.0-44.9, adult; Z87.11 Personal history of peptic ulcer disease; Z87.891 Personal history of nicotine dependence; F12.90 Cannabis use, unspecified, uncomplicated
CPT/HCPCS: 43239; 36415; 80048; 80053; 82607; 82728; 82746; 83540; 83550; 83735; 84466; 85025; 85027; 85055; 88305; A9270; G0378; G0379; J0360; J1756; J2003; J2405; J2470; J2704; J7120

== ENCOUNTER 2024-11-13 09:06 | Emergency (ER) | payer OTHER, SELFPAY ==
[2024-11-13] VITALS (15 sets, daily range): BP systolic 97–178; BP diastolic 58–101; PULSE 72–110; RESP 14–26; TEMP 36.6; O2SAT 96–100
--- NOTE | ~2024-11-13 | XR_ITS ---
EXAMINATION: XR chest 2V DATE: 11/13/2024 09:22 INDICATION: Chest pain. Shortness of breath. TECHNIQUE: Frontal and lateral views of the chest were obtained. COMPARISON: Chest 2 views 01/28/2023, CT abdomen and pelvis 12/19/2014 FINDINGS: A calcified nodule in left lower lung zone is consistent with old granulomatous disease. No pleural effusion or pneumothorax. The heart size is normal. There is a moderate-sized hiatal hernia. IMPRESSION: 1. Moderate-sized hiatal hernia. Reviewed, dictated and finalized at location A. 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
--- NOTE | 2024-11-13 09:09 | ECG_ITS ---
Test Date: 2024-11-13 09:12:28 Measurements Intervals [place] Rate: 97 P: 54 VT: 123 QRS: 16 QRSD: 104 T: 44 QT: 378 QTc: 481 Interpretive Statements SINUS RHYTHM NONSPECIFIC ST & T-WAVE ABNORMALITY No previous ECG available for comparison Electronically Signed On 11-13-2024 10:48:03 MACHINE STAKER by Mark Rodríguez M.D.
[2024-11-13 10:01] LABS: Basophils Absolute Auto 0.1 K/mm3 (0.0-0.1); Basophils Percent Auto 0.7 % (0.2-1.2); Eosinophils Absolute Auto 0.2 K/mm3 (0-0.3); Eosinophils Percent Auto 1.7 % (0-4.4); Hematocrit 26.4 % (37.0-47.0); Immature Granulocyte Absolute 0.03 K/mm3 (0.00-0.031); Immature Granulocyte Percent A 0.3 % (0-0.5); Lymphocytes Absolute Auto 2.12 K/mm3 (0.9-3.2); Lymphocytes Percent Auto 23.5 % (18.3-44.2); Mean Corpuscular HGB Conc 26.5 g/dl (32-36); Mean Corpuscular Hemoglobin 19.8 pg (26-34); Mean Corpuscular Volume 74.8 fl (80-100); Monocytes Absolute Auto 0.5 K/mm3 (0.1-0.6); Monocytes Percent Auto 5.1 % (2.6-8.5); Neutrophils Absolute Auto 6.2 K/mm3 (1.3-6.7); Neutrophils Percent Auto 68.7 % (45.5-73.1); Platelet Count Result 272 k/mm3 (150-375); Red Blood Count 3.53 M/mm3 (4.2-5.4); Red Cell Distribution Width 17.6 % (11.5-14.5)
[2024-11-13 10:14] LABS: Alanine Aminotransferase 12 U/L (6-35); Albumin Level 4.4 g/dL (3.5-5.1); Alkaline Phosphatase 73 U/L (38-126); Anion Gap 11 mmol/L (4-12); Aspartate Amino Transferase 21 U/L (14-36); Bilirubin,Total 0.5 mg/dL (0.2-1.3); Blood Urea Nitrogen 9 mg/dL (7-17); Calcium 8.8 mg/dL (8.4-10.2); Carbon Dioxide 22 mmol/L (22-30); Chloride 104 mmol/L (98-107); Estimated CRCL calculation 137 ml/min; Estimated Glomerular Filt Rate > 60; Glucose 143 mg/dL (65-110); Lipase 141 U/L (23-300); Potassium 3.9 mmol/L (3.4-5.0); Sodium 137 mmol/L (137-145)
[2024-11-13] MEDS: PANTOPRAZOLE SODIUM IV 40 MG VIAL 80 MG IV PUSH (10:14)
[2024-11-13 10:17] LABS: Prothrombin Time 13.8 Seconds (11.1-14.7)
[2024-11-13 10:18] LABS: Partial Thromboplastin Time 23.7 Seconds (22.3-36.8)
[2024-11-13 10:25] LABS: Anisocytosis 1+; Hypochromasia 1+; Microcytosis 1+ (NORMAL); Ovalocytes 1+; Platelet Estimate Adequate (Adequate); Schistocytes None Seen
[2024-11-13 10:31] LABS: D Dimer 0.31 ug/mL (<0.48)
[2024-11-13 10:33] LABS: Troponin I < 0.012 ng/mL (0.000-0.034)
--- NOTE | 2024-11-13 12:10 | ECG_ITS ---
Test Date: 2024-11-13 12:31:16 Measurements Intervals [place] Rate: 87 P: 8 MS: 125 QRS: 3 QRSD: 100 T: 30 QT: 379 QTc: 458 Interpretive Statements SINUS RHYTHM NONSPECIFIC T-WAVE ABNORMALITY Compared to ECG 11/13/2024 09:12:28 No significant changes Electronically Signed On 11-14-2024 09:56:44 STAFF PHYSICAL THERAPY ASSISTANT by Mark Rodríguez M.D.
[2024-11-13 12:51] LABS: Troponin I < 0.012 ng/mL (0.000-0.034)
--- NOTE | 2024-11-13 18:49 | PC.NURSE ---
pt requesting to be discharged stating she will get the blood transfusion OP due to wait time.
--- NOTE | 2024-11-13 18:54 | ED_ITS ---
HPI - SOB/Dyspnea General Chief Complaint: Shortness of Breath/Dyspnea Stated Complaint: SOB, chest pain, dark stools Time Seen by Provider: 11/13/24 09:53 Source: patient Mode of arrival: ambulatory Limitations: no limitations History of Present Illness HPI Narrative: This is a 43F with history of gastric ulcer followed by GI with a scheduled EGD in 4 days who presents to the emergency department complaining of GI bleed, now resolved, fatigue dyspnea on exertion and chest pain. She states in the past 3 days she has had melanotic stools without steven blood. Her last abnormal stool was yesterday. They have not recurred and she denies bleeding elsewhere. She denies use of blood thinners and has no other complaints at this time. Related Data Home Medications ?Medication ?Instructions ?Recorded ?Confirmed ?Last Taken ?Type pantoprazole 20 mg tablet,delayed 40 mg PO DAILY 08/03/24 11/04/24 08/05/24 History release Allergies Allergy/AdvReac Type Severity Reaction Status Date / Time NSAIDS (Non-Steroidal AdvReac Severe Ulcers Verified 11/13/24 09:59 Anti-Inflamma Review of Systems 2 Review of Systems: All systems reviewed & are unremarkable except as noted in HPI and below PMFSH Past Medical History Medical History Dysphagia Iron deficiency anemia Peptic ulcer Iron deficiency (01/29/23) transfusion packed red blood Traumatic subdural hematoma Anemia Depression Gestational HTN Diaphragmatic hernia without mention of obstruction or gangrene Esophageal reflux Surgical History Surgical History History of abdominoplasty History of delivery Family History Family History Grandparent Acute myocardial infarction Father Diabetes mellitus Sibling Diabetes mellitus Grandparent Heart disease Mother Hypertension Father Hypertension Father Obesity Mother Obesity Social History Social History Social History: Surrogate medical decision maker: Christopher Alford, spouse. Code status: Full code. Smoking packs per day: 1.5 Smoking cigarettes per day: 30.0 Years smoked: 6 Smoking pack-years: 9.00 Smoking status: Never smoker Tobacco type: cigarettes Second hand tobacco smoke exposure: No Alcohol intake: never Substance use: current Substance use type: marijuana Other substance usage details: edibles Last use: 6 months ago Do You Feel Safe in your Home?: Yes Lack of Transportation: No Lack of Food: Never True Current Housing: I Have Housing Concerned About Future Housing: No Difficulty Paying Gas/Electric Bills: No Difficulty Paying for Meds: No Currently Unemployed: No Education: Associate Degree Difficulty w/ Childcare or Family Care: No Living arrangements: with family Additional living arrangements comments: Lives with spouse. She has 5 children. 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 HEAD: Normocephalic, atraumatic. EYES: PERRLA and EOMI. Pale conjunctiva CHEST: Clear to auscultation. No respiratory distress. No wheezes rales or rhonchi HEART: Regular rate and rhythm. No murmur heard. Normal peripheral pulses. ABDOMEN: Soft, nontender, nondistended, normal active bowel sounds. EXTREMITIES: Normal range of motion. No edema. SKIN: Warm, dry, no rash. NEURO: Alert and oriented x3. No focal deficit. Moving all 4 limbs spontaneously PSYCH: Normal mood and affect. Course Course Emergency Course: 10:22 - Hgb 7, down from 8.3 in July 2024. Chemistries within normal limits, including a normal lipase. Troponin within normal limits. Chest xray demonstrates a Moderate-sized hiatal hernia. I suspect the patient's symptoms are due to symptomatic anemia. Will transfuse and repeat H&H to confirm appropriate response. 18:57 - After a significant wait due to complexity of cross matching blood, the patient wishes to go. The absence of active GI bleed and a benign abdominal exam, discharge the patient. I advised her to follow up early next week to arrange transfusion. She voices understanding that this may delay her scheduled EGD next week. I discussed the findings and recommendations with the patient. Discussed return and emergency precautions including signs/symptoms of acute abdomen and GI bleed. The patient voiced understanding and agreement with the plan. All questions answered to her satisfaction. Vital Signs Vital signs: Vital Signs Temperature 97.9 F 11/13/24 09:12 Pulse Rate 96 11/13/24 09:12 Respiratory Rate 26 H 11/13/24 09:12 Blood Pressure 178/100 H 11/13/24 09:12 Pulse Oximetry 100 11/13/24 09:12 Oxygen Delivery Room Air 11/13/24 09:12 Temperature 97.9 F 11/13/24 09:12 Pulse Rate 72 11/13/24 16:31 Respiratory Rate 14 11/13/24 16:31 Blood Pressure 132/94 H 11/13/24 16:31 Pulse Oximetry 100 11/13/24 16:31 Oxygen Delivery Room Air 11/13/24 09:56 MDM - SOB/Dyspnea MDM Narrative Medical decision making narrative: Plan: labs, EKG, troponin, dimer, imaging, reassess Differential Diagnosis Differential diagnosis: Likely congestive heart failure, community acquired pneumonia, pulmonary embolism and other (ACS, symptomatic anemia, metabolic abnormality, other) Lab Data 11/13/24 09:55 11/13/24 09:55 Labs: Lab Results 11/13/24 11/13/24 11/13/24 Range/Units 09:55 09:59 12:20 WBC 9.0 (4.5-10.0) K/mm3 RBC 3.53 L (4.2-5.4) M/mm3 Hgb 7.0 L (12.0-15.0) g/dL Hct 26.4 L (37.0-47.0) % MCV 74.8 L (80-100) fl MCH 19.8 L (26-34) pg MCHC 26.5 L (32-36) g/dl RDW 17.6 H (11.5-14.5) % Plt Count 272 (150-375) k/mm3 MPV 11.0 H (7.4-10.4) fl Immature Gran % (Auto) 0.3 (0-0.5) % Neut % (Auto) 68.7 (45.5-73.1) % Lymph % (Auto) 23.5 (18.3-44.2) % [place] % (Auto) 5.1 (2.6-8.5) % Eos % (Auto) 1.7 (0-4.4) % Baso % (Auto) 0.7 (0.2-1.2) % Lymph # (Auto) 2.12 (0.9-3.2) K/mm3 [place] # (Auto) 0.5 (0.1-0.6) K/mm3 Eos # (Auto) 0.2 (0-0.3) K/mm3 Baso # (Auto) 0.1 (0.0-0.1) K/mm3 Abs Immat Gran (auto) 0.03 (0.00-0.031) K/mm3 Absolute Neuts (auto) 6.2 (1.3-6.7) K/mm3 Absolute Nucleated RBC 0.000 (0.0-0.012) K/mm3 Nucleated RBC % 0.0 (0.0-0.2) % Platelet Estimate Adequate (Adequate) Hypochromasia 1+ Anisocytosis 1+ Microcytosis 1+ (NORMAL) Ovalocytes 1+ Schistocytes None seen PT 13.8 (11.1-14.7) Seconds INR 1.0 APTT 23.7 (22.3-36.8) Seconds D-Dimer 0.31 (<0.48) ug/mL Sodium 137 (137-145) mmol/L Potassium 3.9 (3.4-5.0) mmol/L Chloride 104 (98-107) mmol/L Carbon Dioxide 22 (22-30) mmol/L Anion Gap 11 (4-12) mmol/L BUN 9 (7-17) mg/dL Creatinine 0.64 L (0.7-1.0) mg/dL Estim Creat Clear Calc 137 ml/min Estimated GFR > 60 (59 - ) Glucose 143 H (65-110) mg/dL Calcium 8.8 (8.4-10.2) mg/dL Total Bilirubin 0.5 (0.2-1.3) mg/dL AST 21 (14-36) U/L ALT 12 (6-35) U/L Alkaline Phosphatase 73 (38-126) U/L Troponin I < 0.012 < 0.012 (0.000-0.034) ng/mL Total Protein 8.0 (6.3-8.2) g/dL Albumin 4.4 (3.5-5.1) g/dL Lipase 141 (23-300) U/L Blood Type O Positive Antibody Screen Positive Antibody Identification Anti-[place] Antigen Identification [place] Antigen - NEGATIVE MARK, IgG Interpret Negative MARK, Poly Interpret TNP MARK, Complement Interp Negative Enhanced Crossmatch See Detail ECG Data EKG #1: Attestation: I personally reviewed and interpreted this ECG as follows: ECG completion date: 11/13/24 ECG completion time: 09:12 Prior ECG tracings: not available for review Interpretation: Sinus rhythm, rate 97, no ST segment elevations or T-wave inversions concerning for ischemia, normal intervals with QTc of 481. EKG #2: Attestation: I personally reviewed and interpreted this ECG as follows: ECG completion date: 11/13/24 ECG completion time: 12:31 Prior ECG tracings: available for review Interpretation: Sinus rhythm, rate , no ST segment elevations or T-wave inversions concerning for ischemia, normal intervals with QTc of 458. Discharge Plan Discharge Clinical Impression: Symptomatic anemia, GI bleed, Gastric ulcer Patient Disposition: Home, Self-Care Condition: Stable Instructions: Antibiotic Form, Peptic Ulcer (ED), Anemia (ED) Additional Instructions: You were seen in the emergency department. Your hemoglobin is decreased to 7. I suspect this is the cause of your symptoms. Your labs are otherwise normal. I recommend blood transfusion and follow-up with your GI doctor as scheduled. If you develop chest pain, loss of consciousness, recurrent bleeding, or if you have other emergent concerns for life, limb, or eyesight, return to the emergency department. Patient Language: Filipino Prescriptions: No Action pantoprazole 20 mg tablet,delayed release (DR/EC) 40 mg PO DAILY Niferex (Sumalate-Quatrefolic) 150 mg iron- 60 mg-1 mg tablet 1 tablet PO BID Qty: 60 0RF cholecalciferol (vitamin D3) 1,250 mcg (50,000 unit) capsule 1,250 mcg PO WEEKLY Qty: 12 0RF Rx Instructions: takes on Wed cyanocobalamin (vitamin B-12) 1,000 mcg tablet 1,000 mcg PO DAILY Qty: 90 0RF Follow-up/Referrals: Phil Canas DO [Primary Care Provider] - 3 Days Patrick,MD Brent [Non-Staff] - 11/17/24 Time of Disposition: 18:56
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
--- OUTSIDE RECORDS SUMMARY | 2024-11-18 08:41 | XMS_ITS | Clinical Summary ---
Author Organization [facility] [employer] Address [address] [place] [address] Care Team Providers Care Punch Machine Hand Name Role Phone Phil Canas DO Primary Care Provider [phone] [facility] [employer],non-owned Affiliates and Associated Physician Practices is amultiple site organization consisting of ambulatory clinics and hospital sitesin [place], [place], [place] and [place]. This disclosure is being madepursuant to the Care Everywhere program and may not contain all information available regarding this patient. Last updated 18.[facility] [employer] Allergies Active Allergy Reactions Criticality Noted Date [...] Date Recorded PHQ2 TOTAL SCORE 0 05/16/2023 [facility] Occupat ional [facility] - Occupational Stress Questionnaire Answer Date Recorded [...] place to sleep or slept in a skilled nursing (including now)? No 05/16/2023 Margie Depression Scale Answer Date Recorded Margie Depression Scale Total 10 05/27/2023 The thought [...] Mass Index 45.32 05/18/2023 10:45 AM CDT Plan of Treatment Health Maintenance Due Date Last Done Comments LIPID TESTING 1979 MAMMOGRAM 1979 HIV SCREENING 1994 HEPATITIS C SCREENING 12/17/1997 DTAP/TDAP/TD VACCINES (1 - Tdap) 1998 HEPATITIS B VACCINE (1 of 3 - 19+ 3-dose series) 1998 COVID-19 VACCINE ( season) 2024 06/20/2021, 05/22/2021 INFLUENZA VACCINE (#1) 2024 DEPRESSION SCREENING 10/27/2024 05/26/2023, 05/26/2023, 05/16/2023, Additional history exists SCREENING FOR DIABETES 05/16/2026 , 01/30/2023, 01/29/2023 PAP with HPV 05/08/2028 05/08/2023 ZOSTER VACCINE (1 of 2) 2029 HIB VACCINE Aged Out No longer eligi ble based on patient's age to complete this topic HPV VACCINE Aged Out No longer eligi ble based on patient's age to complete this topic MENINGOCOCCAL (Group B) VACCINE Aged Out No longer eligible based on patient's age to complete this topic MENINGOCOCCAL VACCINE Aged Out No vannessa kelly eligible based on patient's age to complete this topic PNEUMOCOCCAL VACCINE Aged Out No long er eligible based on patient's age to complete this topic Procedures Procedure Name Priority Date/Time Associated Diagnosis Comments COMPREHENSIVE METABOLIC PANEL STAT 05/16/2023 4:09 PM CDT Elevated blood pressure reading without diagnosis of hypertension PAP IG LB+HPV APTIMA Routine 05/08/2023 10:19 AM CDT History of abnormal cervical Pap smear from Last 3 Months or Most Recently Relevant to Health Maintenance Results * (ABNORMAL) COMPREHENSIVE METABOLIC PANEL (05/16/2023 4:09 PM CDT) Glucose 77 70 - 105 mg/dL 05/16/2023 4:36 PM CDT [facility] Sodium 135(L) 136 - 145 mmol/L 05/16/2023 4:36 PM CDT [facility] Potassium 3.9 3.5 - 5.1 mmol/L 05/16/2023 4:36 PM CDT [facility] Chloride 105 98 - 107 mmol/L 05/16/2023 4:36 PM CDT [facility] CO2 22 22 - 29 mmol/L 05/16/2023 4:36 PM CDT [facility] Calcium 9.0 8.4 - 10.4 mg/dL 05/16/2023 4:36 PM CDT [facility] Anion Gap 8 6 - 16 mmol/L 05/16/2023 4:36 PM CDT [facility] BUN 8 5.3 - 18.7 mg/dL 05/16/2023 4:36 PM CDT [facility] Creatinine 0.73 0.57 - 1.11 mg/dL 05/16/2023 4:36 PM CDT [facility] Alkaline Phosphatase 126 40 - 150 U/L 05/16/2023 4:36 PM CDT [facility] ALT <6 0 - 55 U/L 05/16/2023 4:36 PM CDT [facility] AST 8 5 - 34 U/L 05/16/2023 4:36 PM CDT [facility] Protein Total 6.7 6.4 - 8.3 gm/dL 05/16/2023 4:36 PM CDT [facility] Albumin 2.2(L) 3.4 - 5.0 gm/dL 05/16/2023 4:36 PM CDT [facility] Bilirubin Total 0.2 0.2 - 1.2 mg/dL 05/16/2023 4:36 PM CDT [facility] eGFR by CKD-EPI >90 >=90 mL/min/1.7 3 m2 05/16/2023 4:36 PM CDT [facility] Blood BLOOD SPECIMEN / Unknown Venipuncture / Unknown 05/16/2023 4:09 PM CDT 05/16/2023 4:14 PM CDT Malik Maria MD LAB - CHEMISTRY DARLENE GONZALEZ [facility] [address] [place] [address] * PAP IG LB+HPV APTIMA (05/08/2023 10:19 AM CDT) Diagnosis Comment 05/11/2023 3:07 PM CDT [facility] ([facility]) Comment:NEGATIVE FOR INTRAEP ITHELIAL LESION OR MALIGNANCY. Specimen Adequacy Comment 023 3:07 PM CDT [facility] ([facility]) Comment: Satisfactory for evaluation. ??Endocervical and/or squamous metaplastic cells (endocervical component) are present. Areas of partially obscuring blood are present. Performed by Comment 05/11/2023 3:07 PM CDT [facility] ([facility]) Comment:Ashley Ochoa Cytot echnologist (ASCP) Comment . 05/11/2023 3:07 PM CDT [facility] ([facility]) Note Comment 05/11/2023 3:07 PM CDT [facility] ([facility]) Comment: The Pap smear is a screening test designed to aid in the detection of premalignant and malignant conditions of the uterine cervix. ??It is not a diagnostic procedure and should not be used as the sole means of detecting cervical cancer. ??Both false-positive and false-negative reports do occur. IGLBP CPT Code Automation Comment 05/11/2023 3:07 PM CDT [facility] ([facility]) Comment: This liquid based ThinPrep(R) pap test was screened with the use of an image guided system. Human papillomavirus Aptima Negative Negative 05/11/2023 3:07 PM CDT [facility] ([facility]) Comment: This nucleic acid amplification test detects fourteen high-risk HPV types (16,18,31,33,35,39,45,51,52,56,58,59,66,68) without differentiation. Pathology/Cytolo gy PART OF UTERINE CERVIX / Unknown Collection / Unknown 05/08/2023 10:19 AM CDT 05/08/2023 11:29 AM CDT Narrative [facility] ([facility]) - 05/11/2023 3:07 PM CDT Performed at: ??01 - [facility] ??[id number] Farmhand: Marguerite Yap MD, Phone: ??[phone] Performed at: ??02 - [facility] [address] ??[id number] [employer]: Marguerite Yap MD, Phone: ??[phone] Specimen Comment: No. of containers..01 ThinPrep Vial Belle Jeffery MD LAB - PATHOLOG Y/CYTOLOGY ORDERABLES Performing Organization Address City/State/[facility] Co de Phone Number [facility] ([facility]) [address] [place] [address] from Last 3 Months or Most Recently Relevant to Health Maintenance Advance Directives * Full Code (Latest Code Status on File) Date Activated Date Inactivated Comments 05/19/2023 9:54 PM 05/24/2023 1:45 PM * Full Code Date Activated Date Inactivated Comments 05/16/2023 5:26 PM 05/19/2023 9:54 PM * Full Code Date Activated Date Inactivated Comments 01/29/2023 4:35 AM 01/30/2023 5:01 PM Care Teams Punch Machine Hand Relationship Specialty Start Date End Date Phil Canas DO [address] [place] [id number] PCP - General Family Medicine 04/28/23
--- OUTSIDE RECORDS SUMMARY | 2024-11-18 08:41 | XMS_ITS | Patient Health Summary ---
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 This disclosure is being madepursuant to the Care Everywhere program and may not contain all information available regarding this patient. Last updated 18.[facility] Allergies * Nsaids(Other) -High Criticality Medications * Be aware that medications may not be up to date on this document. Alwaysverify current medications with the patient. * citalopram (CeleXA) 20 MG tablet Take 1 (one) tablet by mouth once daily * traZODone (Desyrel) 100 MG tablet Take 2 (two) tablets by mouth at bedtime * LORazepam (Ativan) 0.5 MG tablet Take 1 (one) tablet by mouth every 8 hours as needed for Anxiety * ondansetron (Zofran) 8 MG tablet Take 1 (one) tablet by mouth every 6 hours as needed for Nausea/Vomiting * pantoprazole (Protonix) 40 MG packet Take 1 (one) packet by mouth once daily * Vit-Fe Fumarate-FA ( vitamin) 28-0.8 MG tablet Take 1 (one) tablet by mouth once daily * acetaminophen (Tylenol) 500 MG tablet Take 1 (one) tablet by mouth every 4 hours as needed for Fever or Pain Maximum allowable Acetaminophen amount = 4 Grams (4000 mg) / 24 hours. * magnesium oxide (Mag-Ox) 400 MG tablet Take 1 (one) tablet by mouth once daily * calcium carbonate-vitamin D 600-400 MG-UNIT tablet Take by mouth 2 times daily with morning and evening meal * iron polysaccharides (Niferex 150) 150 MG capsule(Started 01/30/2023) Take 1 (one) capsule by mouth once daily 2 refills by 01/30/2024 * ferrous sulfate 325 (65 FE) MG tablet Take 1 (one) tablet by mouth once daily Reasons: Iron Deficiency * cyclobenzaprine (Flexeril) 10 MG tablet(Started 05/13/2023) Take 1 (one) tablet by mouth as needed * predniSONE (Deltasone) 20 MG tablet(Started 05/13/2023) Take 1 (one) tablet by mouth once daily for 4 days * NIFEdipine CR osmotic 24hr (Procardia-XL) 90 MG tablet(Started 05/23/2023) Take 1 (one) tablet by mouth once daily Reasons: High Blood Pressure Disorder 1 refill by 05/22/2024 * labetalol (Normodyne; Trandate) 200 MG tablet(Started 05/24/2023) Take 2 (two) tablets by mouth every 8 hours Active Problems Problem Noted Date Diagnosed Date Previous delivery, antepartum condition or complication 05/08/2023 Depression affecting 05/08/2023 Grief at loss of child 05/08/2023 Advanced maternal age in multigravida 05/08/2023 Chronic hypertension affecting 023 Anemia affecting in third trimester Elevated blood pressure read ing without diagnosis of hypertension 01/29/2023 History of pre-eclampsia 01/29/2023 History of GI bleed 01/29/2023 History of abnormal cervical Pap smear 3 Social History Tobacco Use Types Packs/Day Years [...] Date Recorded PHQ2 TOTAL SCORE 0 05/16/2023 [facility] [place] of Occupat ional Health - Occupational Stress Questionnaire Answer Date Recorded [...] place to sleep or slept in a chcf (including now)? No 05/16/2023 [place] Depression Scale Answer Date Recorded [place] Depression Scale Total 10 05/27/2023 The thought [...] Mass Index 45.32 05/18/2023 10:45 AM CDT Procedures * CBC W/O DIFFERENTIAL(Performed 05/24/2023) * PREPARE RBC LEUKOREDUCED UNIT(Performed 05/23/2023) * CBC W AUTO DIFFERENTIAL(Performed 05/22/2023) * PATHOLOGY TISSUE EXAM (STL)(Performed 05/21/2023) Performed for History of pre-eclampsia * BLOOD GASES CORD OTTO (ISTAT)(Performed 05/21/2023) * BLOOD GASES CORD ART (ISTAT)(Performed 05/21/2023) * NEURAXIAL BLOCK(Performed 05/20/2023) * TYPE + SCREEN PANEL(Performed 05/19/2023) * CBC W AUTO DIFFERENTIAL(Performed 05/19/2023) * NONSTRESS TEST(Performed 05/19/2023) Performed for Elevated blood pressure reading without diagnosis of hypertension * CULTURE STREP B(Performed 05/19/2023) * NONSTRESS TEST(Performed 05/18/2023) Performed for Elevated blood pressure reading without diagnosis of hypertension * NONSTRESS TEST(Performed 05/18/2023) Performed for Elevated blood pressure reading without diagnosis of hypertension * CREATININE BLOOD(Performed 05/17/2023) * NONSTRESS TEST(Performed 05/17/2023) Performed for Elevated blood pressure reading without diagnosis of hypertension * CREATININE CLEARANCE URINE TIMED + BLOOD(Performed 05/17/2023) Performed for Chronic hypertension affecting (HCC) * PROTEIN CREATININE RATIO URINE TIMED PNL(Performed 05/17/2023) Performed for Chronic hypertension affecting (HCC) * PROTEIN URINE TIMED QUANTITATIVE(Performed 05/17/2023) Performed for Elevated blood pressure reading without diagnosis of hypertension * TYPE + SCREEN PANEL(Performed 05/16/2023) Performed for Elevated blood pressure reading without diagnosis of hypertension * SYPHILIS ANTIBODY CASCADING REFLEX(Performed 05/16/2023) Performed for Chronic hypertension affecting (HCC) * RUBELLA ANTIBODY IGG(Performed 05/16/2023) Performed for Chronic hypertension affecting (HCC) * HOLTER MONITOR(Performed 05/16/2023) Performed for Tachycardia * PROTEIN CREATININE RATIO URINE RANDOM PNL(Performed 05/16/2023) Performed for Elevated blood pressure reading without diagnosis of hypertension * COMPREHENSIVE METABOLIC PANEL(Performed 05/16/2023) Performed for Elevated blood pressure reading without diagnosis of hypertension * CBC W AUTO DIFFERENTIAL(Performed 05/16/2023) Performed for Elevated blood pressure reading without diagnosis of hypertension * BIOPHYSICAL PROFILE W NST(Performed 05/16/2023) Performed for Elevated blood pressure reading without diagnosis of hypertension, History of pre-eclampsia, Encounter for ultrasound to assess growth (HCC), History of , Obesity affecting in third trimester (HCC), BMI 40.0- 44.9, adult (HCC), Antepartum multigravida of advanced maternal age (HCC), History of delivery affecting (HCC), History of abnormal cervical Pap smear * PAP IG LB+HPV APTIMA(Performed 05/08/2023) Performed for History of abnormal cervical Pap smear * URINALYSIS - POCT (IP) BEAKER INTERFACE(Performed 05/08/2023) * BIOPHYSICAL PROFILE W NST(Performed 05/08/2023) Performed for Elevated blood pressure reading without diagnosis of hypertension, History of pre-eclampsia, Encounter for ultrasound to assess growth (HCC), History of , Obesity affecting in third trimester (HCC), BMI 40.0- 44.9, adult (HCC), Antepartum multigravida of advanced maternal age (HCC), History of delivery affecting (HCC), History of abnormal cervical Pap smear * BIOPHYSICAL PROFILE W NST(Performed 05/02/2023) Performed for Elevated blood pressure reading without diagnosis of hypertension, History of pre-eclampsia, Encounter for ultrasound to assess growth (HCC), History of , Obesity affecting in third trimester (HCC), BMI 40.0- 44.9, adult (HCC), Antepartum multigravida of advanced maternal age (HCC), History of delivery affecting (HCC), History of abnormal cervical Pap smear * ECHO COMPLETE(Performed 04/28/2023) Performed for Chronic hypertension, Intermittent palpitations, Tachycardia * EKG 12-LEAD(Performed 04/24/2023) Performed for Intermittent palpitations * BIOPHYSICAL PROFILE W NST(Performed 04/23/2023) Performed for Elevated blood pressure reading without diagnosis of hypertension, History of pre-eclampsia, Encounter for ultrasound to assess growth (HCC), History of , Obesity affecting in third trimester ([facility]), BMI 40.0- 44.9, adult ([facility]), Antepartum multigravida of advanced maternal age (HCC), History of delivery affecting ([facility]), History of abnormal cervical Pap smear * SONOGRAM - COMPLETE(Performed 04/09/2023) Performed for Encounter for anatomic survey ([facility]), 30 weeks gestation of ([facility]), Elevated blood pressure reading without diagnosis of hypertension, History of pre-eclampsia * SONOGRAM - COMPLETE(Performed 03/12/2023) Performed for History of , Anemia, unspecified type, Chronic hypertension affecting ([facility]), Antepartum multigravida of advanced maternal age ([facility]), Encounter for follow-up ultrasound of anatomy ([facility]), Encounter for ultrasound to assess growth ([facility]) * SONOGRAM - COMPLETE(Performed 02/07/2023) Performed for Encounter for anatomic survey ([facility]), Class 3 obesity ([facility]), Encounter for screening for cervical length ([facility]), AMA (advanced maternal age) multigravida 35+, second trimester ([facility]) * FERRITIN(Performed 01/30/2023) Performed for History of GI bleed * CBC W/O DIFFERENTIAL(Performed 01/30/2023) Performed for History of GI bleed * PROTEIN URINE TIMED QUANTITATIVE(Performed 01/30/2023) Performed for Elevated blood pressure reading without diagnosis of hypertension * RUBELLA ANTIBODY IGG(Performed 01/30/2023) Performed for Elevated blood pressure reading without diagnosis of hypertension * SYPHILIS ANTIBODY CASCADING REFLEX(Performed 01/30/2023) Performed for Elevated blood pressure reading without diagnosis of hypertension * CBC W AUTO DIFFERENTIAL(Performed 01/30/2023) Performed for Antepartum anemia ([facility]) * COMPREHENSIVE METABOLIC PANEL(Performed 01/30/2023) Performed for Antepartum anemia ([facility]) * PREPARE RBC LEUKOREDUCED UNIT(Performed 01/29/2023) * CBC W AUTO DIFFERENTIAL(Performed 01/29/2023) Performed for Elevated blood pressure reading without diagnosis of hypertension * OCCULT BLOOD FECES(Performed 01/29/2023) Performed for History of GI bleed * SONOGRAM - COMPLETE(Performed 01/29/2023) * BLOOD TYPE VERIFICATION(Performed 01/29/2023) * PROTEIN CREATININE RATIO URINE RANDOM PNL(Performed 01/29/2023) Performed for Elevated blood pressure reading without diagnosis of hypertension * URINALYSIS REFLEX MICROSCOPIC REFLEX CULTURE(Performed 01/29/2023) Performed for Elevated blood pressure reading without diagnosis of hypertension * TYPE + SCREEN PANEL(Performed 01/29/2023) * COMPREHENSIVE METABOLIC PANEL(Performed 01/29/2023) Performed for Elevated blood pressure reading without diagnosis of hypertension * CBC W AUTO DIFFERENTIAL(Performed 01/29/2023) Performed for Elevated blood pressure reading without diagnosis of hypertension * SONOGRAM - COMPLETE(Performed 01/08/2023) Performed for Antepartum multigravida of advanced maternal age ([facility]), Class 3 obesity ([facility]) * SONOGRAM - COMPLETE(Performed 12/11/2022) Performed for Antepartum multigravida of advanced maternal age ([facility]), BMI 40.0- 44.9, adult ([facility]), History of gestational hypertension, History of delivery affecting ([facility]), 13 weeksgestation of ([facility]) Results * (ABNORMAL) CBC W/O DIFFERENTIAL (05/24/2023 10:30 AM CDT) Only the most recent of2 resultswithin the time period is included. [facility] WBC 9.7 4.4 - 10.7 x10E9/L 05/24/2023 10:58 AM CDT [facility] RBC 3.48(L) 3.80 - 5.20 x10E12/L 05/24/2023 10:58 AM CDT [facility] Hemoglobin 8.4(L) 12.0 - 15.6 gm/dL 05/24/2023 10:58 AM CDT [facility] Hematocrit 29.7(L) 35.9 - 45.5 % 05/24/2023 10:58 AM CDT [facility] MCV 85.3 80.7 - 98.3 fl 05/24/2023 10:58 AM CDT [facility] MCH 24.1(L) 26.7 - 34.0 pg 05/24/2023 10:58 AM CDT [facility] MCHC 28.3(L) 30.8 - 35.9 gm/dL 05/24/2023 10:58 AM CDT [facility] Platelet Count 147(L) 153 - 416 x10E9/L 05/24/2023 10:58 AM CDT [facility] RDW-CV 20.6(H) 12.1 - 14.9 % 05/24/2023 10:58 AM CDT [facility] MPV 10.4 9.4 - 12.9 fl 05/24/2023 10:58 AM CDT [facility] Blood BLOOD SPECIMEN / Unknown Lab Venipuncture / Unknown 05/24/2023 10:30 AM CDT 05/24/2023 10:50 AM CDT Malik Maria MD LAB - HEMATOLOGY ORD ERABLES Performing Organization Address City/[facility] Co de Phone Number [facility] [address] [place], [place] [id number] * PREPARE (CROSSMATCH) RBC UNIT(S), 2 Units (05/23/2023 1:41 AM CDT) Only the most recent of2 resultswithin the time period is included. Unit Description AS1 LR PRBC [facility] Unit ABO O [facility] Unit Rh POS [facility] Product Number R43 [facility] Unit Donor # [id number] [facility] BLO[facility] Unit Status released [facility] OD BANK LAB Product Code [id number] [facility] Blood Type Barcode 5100 [facility] Expiration Date [id number] [facility] Unit Description AS1 LR PRBC [facility] Unit ABO O [facility] Unit Rh POS [facility] Product Number R02 [facility] Unit Donor # [id number] [facility] BLOOD [facility] Unit Status released [facility] OD [facility]ANK [facility] Product Code [id number] [facility] Blood Type Barcode 5100 [facility] Expiration Date [id number] [facility] Blood Bank BLOOD SPECIMEN / Unknown 05/19/2023 11:02 AM CDT Malik Maria MD LAB - BLOOD BANK ORD ERABLES [facility] [address] [place] [address], [facility] [phone] * (ABNORMAL) CBC W AUTO DIFFERENTIAL (05/22/2023 6:07 AM CDT) Only the most recent of6 resultswithin the time period is included. WBC 11.8(H) 4.4 - 10.7 x10E9/L 05/22/2023 6:39 AM CDT [facility] WBC Corrected 05/22/2023 6:39 AM CDT [facility] RBC 3.15(L) 3.80 - 5.20 x10E12/L 05/22/2023 6:39 AM CDT [facility] Hemoglobin 7.6(L) 12.0 - 15.6 gm/dL 05/22/2023 6:39 AM CDT [facility] Hematocrit 26.6(L) 35.9 - 45.5 % 05/22/2023 6:39 AM CDT [facility] MCV 84.4 80.7 - 98.3 fl 05/22/2023 6:39 AM CDT [facility] MCH 24.1(L) 26.7 - 34.0 pg 05/22/2023 6:39 AM CDT [facility] MCHC 28.6(L) 30.8 - 35.9 gm/dL 05/22/2023 6:39 AM CDT [facility] Platelet Count 110(L) 153 - 416 x10E9/L 05/22/2023 6:39 AM CDT [facility] RDW-CV 18.7(H) 12.1 - 14.9 % 05/22/2023 6:39 AM CDT [facility] MPV 10.4 9.4 - 12.9 fl 05/22/2023 6:39 AM CDT [facility] Neutrophils % 75.2(H) 44.0 - 73.0 % 05/22/2023 6:39 AM CDT [facility] Lymphocytes % 18.0(L) 20.0 - 43.0 % 05/22/2023 6:39 AM CDT [facility] Monocytes % 5.8 5.0 - 13.0 % 05/22/2023 6:39 AM CDT [facility] Eosinophils % 0.4 0.0 - 6.0 % 05/22/2023 6:39 AM CDT [facility] Basophils % 0.3 0.0 - 2.0 % 05/22/2023 6:39 AM CDT [facility] Immature Granulocytes 0.3 0 - 1 % 05/22/2023 6:39 AM CDT [facility] Neutrophil Absolute 8.88(H) 2.01 - 7.14 x10E9/L 05/22/2023 6:39 AM CDT [facility] Lymphocytes Absolute 2.13 1.07 - 3.94 x10E9/L 05/22/2023 6:39 AM CDT [facility] Monocytes Absolute 0.69 0.26 - 1.07 x10E9/L 05/22/2023 6:39 AM CDT [facility] Eosinophils Absolute 0.05 0 - 0.47 x10E9/L 05/22/2023 6:39 AM CDT [facility] Basophils Absolute 0.03 0 - 0.08 x10E9/L 05/22/2023 6:39 AM CDT [facility] Immature Granulocytes Absolute 0.04 0.00 - 0.06 x10E9/L 05/22/2023 6:39 AM CDT [facility] nRBC Auto 0 /100 WBC 05/22/2023 6:39 AM CDT [facility] Blood BLOOD SPECIMEN / Unknown Lab Venipuncture / Unknown 05/22/2023 6:07 AM CDT 05/22/2023 6:30 AM CDT Malik Maria MD LAB - HEMATOLOGY ORD ERABLES Performing Organization Address City/State/[facility] Co de Phone Number [facility] [address] [place], [place] [phone] * PATHOLOGY TISSUE EXAM (STL) (05/21/2023 5:07 PM CDT) Case Report Surgical Pathology Report ? Case: [id number] ? Authorizing Provider: ??Amalia Shearer MD ? Collected: ? 05/21/2023 05:07 PM ? Ordering Location: ? [facility] LDR ? Received: ?05/22/2023 08:05 AM ? Pathologist: ? Bette Garcia MD ? Specimen: ?Placenta 3rd Trimester ? 05/23/2023 10:19 AM [facility] Final Diagnosis Placenta, vaginal delivery - Slightly immature placenta with accelerated villous maturation and mild villous dysmorphology - Minimal acute subchorionitis (maternal inflammatory response stage 1, grade 1) - Occasional circulating nucleated red blood cells - membranes with no histopathologic abnormality - Three-vessel umbilical cord with no histopathologic abnormality 05/23/2023 10:19 AM [facility] Clinical History The patient is a 42-year-old woman at 36 weeks, 1 day gestation. Procedure: vaginal delivery. 05/23/2023 10:19 AM [facility] Gross Description The requisition and specimen(s) are identified with patient's name, Jackie Sousa. Received in formalin, specimen A, placenta , is a placental disc with attached umbilical cord. The umbilical cord inserts 3.0 cm from margin, measuring 21 cm in length and 0.8 to 1.2 cm in diameter. The umbilical cord is white-alaniz, normal coiling and trivascular. The membrane is inserted marginally, alaniz to brown-alaniz, and moderate opaque with patchy calcification. After trimming, the placental disc weights 437 grams, and measuring 15 x 15 cm and up to 2.2 cm in thickness. The surface is blue to alaniz with normal vasculature. The maternal surface is brown-alaniz with intact cotyledons. Sectioning shows beefy red, spongy parenchyma without discrete lesions. Import/Export Clerk sections submitted as follows: A1 - umbilical cord and membranes, A2-4 placenta. WM 05/23/2023 10:19 AM T [facility] Microscopic Description Microscopic examination substantiates the above diagnosis. 05/23/2023 10:19 AM T [facility] Pathologist Location at [facility] 05/23/2023 10:19 AM T [facility] Disclaimer All histochemical and/or immunohistochemical results are interpreted with controls that demonstrate appropriate staining reactions before reporting results. Note on use of immunocytochemistry reagents: This test was developed and its performance characteristic determined by [facility], Department of Laboratory Medicine. It has not been cleared or approved by the U.S. Food and Drug Administration (FDA). The FDA has determined that such clearance or approval is not necessary. The test is used for clinical purpose. It should not be regarded as investigational or for research. This laboratory is certified to perform high complexity testing. The performance characteristics of the IHC/FLO assays have been validated on formalin-fixed paraffin embedded tissues only. The assays have not been validated on decalcified tissues. Results should be interpreted with caution. 05/23/2023 10:19 AM CDT [facility] Embedded Images 05/23/2023 10:19 AM CDT [facility] Pathology/Cytolo gy ENTIRE PLACENTA / Unknown Collection / Unknown 05/21/2023 5:07 PM CDT 05/22/2023 8:05 AM CDT Amalia Shearer MD LAB - PATHOLOGY/CYTO LOGY ORDERABLES [facility] [address] [place] [address] * (ABNORMAL) BLOOD GASES CORD OTTO (ISTAT) (05/21/2023 5:00 PM CDT) pH Cord Venous POCT 7.26(L) 7.28 - 7.40 pH 05/21/2023 5:42 PM CDT [facility] pCO2 Cord Venous POCT 54.1(H) 35 - 45 mm hg 05/21/2023 5:42 PM CDT [facility] pO2 Cord Venous POCT 22 22 - 33 mm hg 05/21/2023 5:42 PM CDT [facility] HCO3 Cord Arterial POCT 24.5(H) 22 - 24 mmol/L 05/21/2023 5:42 PM CDT [facility] BE Cord Venous POCT Calc -4 -6.4 - 1.6 mmol/L 05/21/2023 5:42 PM CDT [facility] TCO2 Cord Venous POCT 26 22 - 30 mmol/L 05/21/2023 5:42 PM CDT [facility] O2 Saturation % Cord Venous Calc POCT 28 % 05/21/2023 5:42 PM CDT [facility] Site CORD ART 05/21/2023 5:42 PM CDT [facility] Sample iSTAT CORD OTTO 05/21/2023 5:42 PM CDT [facility] Blood CORD BLOOD SPECIMEN / Unknown 05/21/2023 5:00 PM CDT 05/21/2023 5:42 PM CDT Malik Maria MD LAB - POINT OF CARE ORDERABLES Performing Organization Address City/State/[facility] Co de Phone Number [facility] [address] [place], [place] [id number] * (ABNORMAL) BLOOD GASES CORD ART (ISTAT) (05/21/2023 4:55 PM CDT) pH Cord Arterial POCT 7.19(L) 7.20 - 7.34 pH 05/21/2023 5:42 PM CDT [facility] pCO2 Cord Arterial POCT 74.1(HH) 45 - 55 mm hg 05/21/2023 5:42 PM CDT [facility] pO2 Cord Arterial POCT 16 12 - 25 mm hg 05/21/2023 5:42 PM CDT [facility] HCO3 Cord Arterial POCT 28.0(H) 22 - 24 mmol/L 05/21/2023 5:42 PM CDT [facility] BE Cord Arterial POCT -3(L) -2.9 - 8.3 mmol/L 05/21/2023 5:42 PM CDT [facility] TCO2 Cord Arterial POCT 30 mmol/L 05/21/2023 5:42 PM CDT [facility] O2 Saturation Cord Art % Calc POCT 15 % 05/21/2023 5:42 PM CDT [facility] Site CORD ART 05/21/2023 5:42 PM CDT [facility] Sample iSTAT CORD ART 05/21/2023 5:42 PM CDT [facility] Blood CORD BLOOD SPECIMEN / Unknown 05/21/2023 4:55 PM CDT 05/21/2023 5:42 PM CDT Malik Maria MD LAB - POINT OF CARE ORDERABLES Performing Organization Address City/State/[facility] Co de Phone Number [facility] [address] [place] [address] * EPIDURAL BLOCK PERF (05/20/2023 9:04 AM CDT) Narrative Dominique Huston APRN-CRNA - 05/20/2023 9:04 AM CDT Dominique Huston APRN-CRNA ? 05/20/2023 ??9:16 AM Neuraxial Block Note ?? Pre-Procedure: ?? Procedure Name: ??Neuraxial Block Patient Location: ??OB Indications: ??labor analgesia Pre-Anesthetic Checklist: ??Patient identified, IV Checked, Risks and benefits discussed, Surgical consent verified, Monitors and equipment, Site examined, Pre-op evaluation done, Time-out performed, Informed consent obtained, Questions answered/anesthesia questions answered and Allergies reviewed Anticoagulation/ Anti-thrombosis status confirmed? ??Yes Monitors: ??BP and continuous pluse ox Patient Condition: ??awake Patient Sedated? ??No Procedure: ?? Block Type: ??Epidural Prep: ??Betadine Sterile Field: ??mask, cap/hat, sterile established and sterile gloves Approach: ??midline Skin was localized? ??Yes Skin localized with: lidocaine (XYLOCAINE MPF) 1 % injection - Infiltration 3 mL - 05/20/2023 9:04:00 AM Epidural Block: ?? Is this procedure for postop pain? ??No Needle Type: ??Tuohy Needle gauge: ??18 G Needle length: ??90 mm Placement Site: ??L3-L4 Number of Attempts: ??1 Loss of Resistance: ??9 ?? air Catheter length at skin (cm): ??14 CSF Aspirated from catheter: ??No Blood Aspirated: ??No Test Dose: ??lidocaine 1.5% with 1-200,000 epinephrine ?? 5 ??mL at ?? 05/20/2023 9:07 AM Test Dose Response: ??No Epidural Infusion Medications: ? Ropivacaine: ??0.2% with Fentanyl 2mcg/mL in NS , ??at 14 mL/hr Degree of difficulty: ??moderate Procedure Tolerance: ??tolerated well Sensory Level: ??T7 Motor Blockade: ??Yes Position post procedure: ??left uterine displacement Vital Signs: ??Vital signs moniitored and stable throughout. ??See nursing vitals flowsheet for details. Start Time: ??05/20/2023 9:04 AM End Time: ??05/20/2023 9:07 AM Total Time: ??3 Staff: ?? Anesthesia Provider: ??Dominique Huston APRN-LICENSED INVESTMENT SALES ASSISTANT ?? - ?? performed the procedure Fernando Mcmahon MD GENERAL ANESTHESIA O RDERABLES * TYPE + SCREEN PANEL (05/19/2023 10:47 AM CDT) Only the most recent of3 resultswithin the time period is included. ABO Rh O POS 05/19/2023 12:01 PM CDT [facility] Comment:History checked. Antibody Screen NEG 12:01 PM CDT [facility] Blood Bank BLOOD SPECIMEN / Unknown Venipuncture / Unknown 05/19/2023 10:47 AM CDT 05/19/2023 11:02 AM CDT Malik Maria MD LAB - BLOOD BANK ORD ERABLES [facility] [address] [place], [place] [id number] [place] [address] * NONSTRESS TEST (05/19/2023 10:23 AM CDT) Narrative Amalia Shearer MD - 05/19/2023 10:23 AM CDT Prachi Norman MD ? 05/19/2023 ??1:47 PM Name: ??Jackie Sousa Date of : ??1980 Today's Date: ??05/19/2023 35w6d Start 0945 Stop 1023 ?NST RESULTS (VILLAREAL) OBJECTIVE FINDINGS Temp: 98 ??F (36.7 ??C), Pulse: 69, Resp: 20, BP: 145/86 NST Indication(s): Chronic hypertension, Pre-eclampsia Uterine Irritability: No Contractions: Not present OBJECTIVE FINDINGS Movement: Present Monitoring Mode: External Baseline: 145 BPM Variability: Moderate Decelerations: Variable Accelerations: Yes OTHER INFORMATION Jasmin Templeton RN Non-Stress Test [facility] Patient Name: Jackie Sousa LMP: Patient's last menstrual period was 09/09/2022. Gestational Age: 35w6d as of 05/19/2023 Estimated Date of Delivery: 06/17/23 Indications: Hypertension in NST date: 05/19/2023 NST duration: >20 mins Interpretation: Baseline: ??145 beats/minute moderate variability Reactive Contractions: ??none Decelerations: ??Variable Impression and Plan: FWB reassuring, continue monitoring as scheduled. Prachi Norman MD 05/19/2023 1:47 PM Malik Maria MD OB GYNE ORDERABLES * (ABNORMAL) CULTURE STREP B (05/19/2023 9:48 AM CDT) Culture Strep B Growth of Streptococcus agalactiae (Group B)(AA) MT 05/23/2023 2:[address] [facility] Microbiology MISCELLANEOUS SAMPLES / Unknown Collection / Unknown 05/19/2023 9:48 AM CDT 05/19/2023 9:[address] [facility] - 05/23/2023 2:01 PM CDT Susceptibility testing of penicillin, other beta-lactam antibiotics, and vancomycin is not necessary for beta-hemolytic streptococci groups A,B,C and G because resistant strains have not been recognized. Malik Maria MD LAB - MICROBIOLOGY O RDERABLES [facility] [address] [place] [address], [facility] [phone] * NONSTRESS TEST (05/18/2023 6:28 PM CDT) Narrative Malik Maria MD - 05/18/2023 6:28 PM CDT Prachi Norman MD ? 05/19/2023 ??1:47 PM Name: ??Jackie Sousa Date of : ??1980 Today's Date: ??05/18/2023 Start: 1734 Stop: 182 35w5d ?NST RESULTS (VILLAREAL) OBJECTIVE FINDINGS Temp: 98.8 ??F (37.1 ??C), ??, Resp: 20, BP: 154/88 NST Indication(s): Chronic hypertension, Pre-eclampsia, Other (Comment) Uterine Irritability: No Contractions: Not present OBJECTIVE FINDINGS Movement: Present Monitoring Mode: External Baseline: 155 BPM Variability: Moderate Decelerations: None Accelerations: Yes OTHER INFORMATION Inpatient Interventions: None Allyson Terrazas RN Non-Stress Test [facility] Patient Name: Jackie Sousa LMP: Patient's last menstrual period was 09/09/2022. Gestational Age: 35w6d as of 05/19/2023 Estimated Date of Delivery: 06/17/23 Indications: Hypertension in NST date: 05/19/2023 NST duration: >20 mins Interpretation: Baseline: ??155 beats/minute moderate variability Reactive Contractions: ??none Decelerations: ??none Impression and Plan: FWB reassuring, continue monitoring as scheduled. Prachi Norman MD 05/19/2023 1:46 PM Malik Maria MD OB GYNE ORDERABLES * NONSTRESS TEST (05/18/2023 9:47 AM CDT) Narrative Malik Maria MD - 05/18/2023 9:47 AM CDT Prachi Norman MD ? 05/19/2023 ??1:46 PM Name: ??Jackie Sousa Date of : ??1980 Today's Date: ??05/18/2023 Start: 0900 Stop: 0940 35w5d ?NST RESULTS (VILLAREAL) OBJECTIVE FINDINGS Temp: 98 ??F (36.7 ??C), ??, Resp: 18, BP: 155/94 NST Indication(s): Chronic hypertension, Pre-eclampsia, Other (Comment) ( tachycardia) Uterine Irritability: No Contractions: Not present OBJECTIVE FINDINGS Movement: Present Monitoring Mode: External Baseline: 160 BPM Variability: Moderate Decelerations: None Accelerations: Yes OTHER INFORMATION Inpatient Interventions: None Allyson Terrazas RN Non-Stress Test [facility] Patient Name: Jackie Sousa LMP: Patient's last menstrual period was 09/09/2022. Gestational Age: 35w6d as of 05/19/2023 Estimated Date of Delivery: 06/17/23 Indications: Hypertension in NST date: 05/19/2023 NST duration: >20 mins Interpretation: Baseline: ??160 beats/minute moderate variability Reactive Contractions: ??none Decelerations: ??none Impression and Plan: FWB reassuring, continue monitoring as scheduled. Prachi Norman MD 05/19/2023 1:46 PM Malik Maria MD OB GYNE ORDERABLES * CREATININE BLOOD (05/17/2023 7:49 PM CDT) Creatinine 0.79 0.57 - 1.11 mg/dL 05/17/2023 8:13 PM CDT [facility] eGFR by CKD-EPI >90 >=90 mL/min/1.7 3 m2 05/17/2023 8:13 PM CDT [facility] Blood BLOOD SPECIMEN / Unknown Lab Venipuncture / Unknown 05/17/2023 7:49 PM CDT 05/17/2023 7:57 PM CDT Malik Maria MD LAB - CHEMISTRY DARLENE GONZALEZ [facility] [address] [place] [address] * NONSTRESS TEST (05/17/2023 6:55 PM CDT) Narrative Malik Maria MD - 05/17/2023 6:55 PM CDT Prachi Norman MD ? 05/19/2023 ??1:45 PM Name: ??Jackie Sousa Date of : ??1980 Today's Date: ??05/17/2023 Start: 1820 Stop: 1851 35w4d ?NST RESULTS (VILLAREAL) OBJECTIVE FINDINGS Temp: 97.6 ??F (36.4 ??C), ??, Resp: 20, BP: 155/94 NST Indication(s): Chronic hypertension Uterine Irritability: Yes Contractions: Not present OBJECTIVE FINDINGS Movement: Present Monitoring Mode: External Baseline: 155 BPM Variability: Moderate Decelerations: None Accelerations: Yes OTHER INFORMATION Inpatient Interventions: None Allyson Terrazas RN Non-Stress Test [facility] Patient Name: Jackie Sousa LMP: Patient's last menstrual period was 09/09/2022. Gestational Age: 35w6d as of 05/19/2023 Estimated Date of Delivery: 06/17/23 Indications: Hypertension in NST date: 05/19/2023 NST duration: >20 mins Interpretation: Baseline: ??155 beats/minute moderate variability Reactive Contractions: ??none Decelerations: ??none Impression and Plan: FWB reassuring, continue monitoring as scheduled. Prachi Norman MD 05/19/2023 1:45 PM Malik Maria MD OB GYNE ORDERABLES * (ABNORMAL) PROTEIN CREATININE RATIO URINE TIMED PNL (05/17/2023 6:19 PM CDT) Volume 24 Hour Urine 2,200 mL 05/17/2023 7:29 PM CDT [facility] Collection Time Hours 24 hrs 05/17/2023 7:29 PM CDT [facility] Protein Urine 16.5(H) <11.9 mg/dL 05/17/2023 7:29 PM CDT [facility] Creatinine Urine 77.29 mg/dL 05/17/2023 7:29 PM CDT [facility] Protein/Creatin ine Ratio Urine 0.21 05/17/2023 7:29 PM CDT [facility] Urine TIMED URINE SPECIMEN / Unknown Timed Urine Volume Measurement / Unknown 05/17/2023 6:19 PM CDT 05/17/2023 6:59 PM CDT Malik Maria MD LAB - URINE CHEMISTR Y ORDERABLES Performing Organization Address [facility] Co de Phone Number [facility] [address] [place] [address] * (ABNORMAL) PROTEIN URINE TIMED QUANTITATIVE (05/17/2023 6:19 PM CDT) Only the most recent of2 resultswithin the time period is included. Volume 24 Hour Urine 2,200 mL 05/17/2023 7:29 PM CDT [facility] Collection Time Hours 24 hrs 05/17/2023 7:29 PM CDT [facility] Protein 24 Hour Urine 363(H) <300 mg/24hr 05/17/2023 7:29 PM CDT [facility] Protein Urine 16.5(H) <11.9 mg/dL 05/17/2023 7:29 PM CDT [facility] Urine TIMED URINE SPECIMEN / Unknown Timed Urine Volume Measurement / Unknown 05/17/2023 6:19 PM CDT 05/17/2023 6:59 PM CDT Malik Maria MD LAB - URINE CHEMISTR Y ORDERABLES Performing Organization Address [facility] Co de Phone Number [facility] [address] [place] [address] * (ABNORMAL) CREATININE CLEARANCE URINE TIMED + BLOOD (05/17/2023 6:19 PM CDT) Volume 24 Hour Urine 2,200 mL 05/17/2023 8:33 PM CDT [facility] Collection Time Hours 24 hrs 05/17/2023 8:33 PM CDT [facility] Height Inches 69 inches 05/17/2023 8:33 PM CDT [facility] Weight in Pounds 300 pounds 05/17/2023 8:33 PM CDT [facility] Surface Area 2.46 05/17/2023 8:33 PM CDT [facility] Creatinine 0.79 0.57 - 1.11 mg/dL 05/17/2023 8:33 PM CDT [facility] Creatinine Urine 77.29 mg/dL 05/17/2023 8:33 PM CDT [facility] Creatinine 24 Hour Urine 1,700(H) 710 - 1,650 mg/24hr 05/17/2023 8:33 PM CDT [facility] Creatinine Clearance 105 66 - 165 mL/min/1.7 3m2 05/17/2023 8:33 PM CDT [facility] Comment: Urine TIMED URINE SPECIMEN / Unknown Timed Urine Volume Measurement / Unknown 05/17/2023 6:19 PM CDT 05/17/2023 6:59 PM CDT Malik Maria MD LAB - URINE CHEMISTR Y ORDERABLES Performing Organization Address [facility] de Phone Number [facility] [address] [place] [phone] * SYPHILIS ANTIBODY CASCADING REFLEX (05/16/2023 5:48 PM CDT) Only the most recent of2 resultswithin the time period is included. Treponema pallidum Antibody Non Reactive Non Reactive 05/16/2023 6:44 PM CDT [facility] Comment: No Laboratory evidence of syphilis infection. ?? Note: ??Circulating antibodies may be low or undetectable in early infection. ??If recent exposure is suspected, re-draw sample in 2-4 weeks and repeat testing. Blood BLOOD SPECIMEN / Unknown Venipuncture / Unknown 05/16/2023 5:48 PM CDT 05/16/2023 6:07 PM CDT Malik Maria MD LAB - SEROLOGY ORDER BONNIE Performing Organization Address [facility] de Phone Number [facility] [address] [place] [phone] * RUBELLA ANTIBODY IGG (05/16/2023 5:48 PM CDT) Only the most recent of2 resultswithin the time period is included. Rubella Antibody 1.86 Immune >0.99 index 05/20/2023 9:22 AM CDT [facility] ([facility]) Comment: ?Non-immune ? <0.90 ?Equivocal ??0.90 - 0.99 ?Immune ? >0.99 Blood BLOOD SPECIMEN / Unknown Venipuncture / Unknown 05/16/2023 5:48 PM CDT 05/16/2023 6:07 PM CDT Narrative [facility] ([facility]) - 05/20/2023 9:22 AM CDT Performed at: ??01 - [facility] [address] [place], [place] ??[id number] Technical Operations Manager: Hema Enamorado PhD, Phone: ??[phone] Malik Maria MD LAB - SEROLOGY ORDER BONNIE Performing Organization Address City/State/[facility] Co de Phone Number [facility] ([facility]) [address] [place] [address] * MONITOR - HOLTER (05/16/2023 4:24 PM CDT) Narrative Malik Maria MD - 05/16/2023 4:24 PM CDT Tawny Pérez MD ? 05/19/2023 ??1:24 PM Name: ??Jackie Sousa Date of : ??1980 Today's Date: ??05/16/2023 35w3d ?NST RESULTS (VILLAREAL) OBJECTIVE FINDINGS Temp: 98.2 ??F (36.8 ??C), ??, Resp: 20, BP: 148/79 NST Indication(s): ??([facility] visit`) Uterine Irritability: No Contractions: Not present OBJECTIVE FINDINGS Movement: Present Monitoring Mode: External Baseline: 135 BPM Variability: Moderate Decelerations: None Accelerations: Yes OTHER INFORMATION Inpatient Interventions: None Meggan Donnelly RN Non-Stress Test [facility] Patient Name: Jackie Sousa LMP: Patient's last menstrual period was 09/09/2022. Gestational Age: 35w6d as of 05/19/2023 Estimated Date of Delivery: 06/17/23 NST date: 05/16/2023 NST duration: >20 mins Interpretation: Baseline: ??130 beats/minute moderate variability Reactive Contractions: ??none Decelerations: ??none Impression and Plan: FWB reassuring, continue monitoring as scheduled. Tawny Pérez MD 05/19/2023 1:23 PM Gita Amanda DO CARDIAC SERVICES OR DERABLES * PROTEIN CREATININE RATIO URINE RANDOM PNL (05/16/2023 4:10 PM CDT) Only the most recent of2 resultswithin the time period is included. Protein Urine 10.2 <11.9 mg/dL 05/16/2023 4:32 PM CDT [facility] Creatinine Urine 37.86 mg/dL 05/16/2023 4:32 PM CDT [facility] Protein/Creatin ine Ratio Urine 0.27 05/16/2023 4:32 PM CDT [facility] Urine URINE SPECIMEN OBTAINED BY CLEAN CATCH PROCEDURE / Unknown Collection / Unknown 05/16/2023 4:10 PM CDT 05/16/2023 4:14 PM CDT Malik Maria MD LAB - URINE CHEMISTR Y ORDERABLES [facility] [address] [place] [address] * (ABNORMAL) COMPREHENSIVE METABOLIC PANEL (05/16/2023 4:09 PM CDT) Only the most recent of3 resultswithin the time period is included. Glucose 77 70 - 105 mg/dL 05/16/2023 4:36 PM CDT [facility] Sodium 135(L) 136 - 145 mmol/L 05/16/2023 4:36 PM CDT [facility] Potassium 3.9 3.5 - 5.1 mmol/L 05/16/2023 4:36 PM CDT [facility] Chloride 105 98 - 107 mmol/L 05/16/2023 4:36 PM CDT [facility] CO2 22 22 - 29 mmol/L 05/16/2023 4:36 PM CDT [facility] Calcium 9.0 8.4 - 10.4 mg/dL 05/16/2023 4:36 PM CDT [facility] Anion Gap 8 6 - 16 mmol/L 05/16/2023 4:36 PM CDT [facility] BUN 8 5.3 - 18.7 mg/dL 05/16/2023 4:36 PM CDT [facility] Creatinine 0.73 0.57 - 1.11 mg/dL 05/16/2023 4:36 PM CDT [facility] Alkaline Phosphatase 126 40 - 150 U/L 05/16/2023 4:36 PM CDT [facility] ALT <6 0 - 55 U/L 05/16/2023 4:36 PM CDT [facility] AST 8 5 - 34 U/L 05/16/2023 4:36 PM CDT [facility] Protein Total 6.7 6.4 - 8.3 gm/dL 05/16/2023 4:36 PM CDT [facility] Albumin 2.2(L) 3.4 - 5.0 gm/dL 05/16/2023 4:36 PM CDT [facility] Bilirubin Total 0.2 0.2 - 1.2 mg/dL 05/16/2023 4:36 PM CDT [facility] eGFR by CKD-EPI >90 >=90 mL/min/1.7 3 m2 05/16/2023 4:36 PM T [facility] Blood BLOOD SPECIMEN / Unknown Venipuncture / Unknown 05/16/2023 4:09 PM CDT 05/16/2023 4:14 PM CDT Malik Maria MD LAB - CHEMISTRY DARLENE GONZALEZ [facility] [address] [place] [address] * BIOPHYSICAL PROFILE W NST (05/16/2023 9:17 AM CDT) Only the most recent of4 resultswithin the time period is included. Anatomical Region Laterality Modality Other 05/16/2023 9:17 AM CDT Narrative 05/16/2023 11:30 AM CDT ? [facility] ?PHONE: ??FAX: Pat. Name: ?JACKIE SOUSA. No: ?[id number] Study Date: ?? 05/16/2023 ??9:17am , Age: ? 1980, 42 Pregnancies: ?? 6, Para 4013 Height: ? 69 in Weight: ? 267 lb LMP: ?09/08/2022 GA by LMP: ?35w5d GA by Base: ?? 35w3d ?? JAMEE: 06/17/2023 GA Selected: ??35w3d (From Baselin) JAMEE: ?06/17/2023 Referring MD: Danial Rivas MD Research Epidemiologist: ??Destini Hightower, ROD, LOVE CPT4: ? [id number] BMI: ?39.42 Hist/Ind: ? PUD & severe anemia requiring transfusion, CHTN on nifedipine, AMA 43 c reportedly low-risk cf-DNA, Prior C/S X1, Class III Obesity, Anxiety & depression Heart Rate: 157 bpm Amniotic Fluid Index: 17.6cm (07.8-24.9) Q1: 2.2cm ??Q2: 4.7cm ??Q3: 4.4cm ??Q4: 6.3cm ?? Biophysical Profile: 06/05 Breathin ?? Tone: 2 ?? NST: 0 Movement: ??2 ?? AFV: ??2 EVAL, PLACENTA Presentation: breech Placenta: anterior Heart Rate: 157 bpm Amniotic Fluid Volume: normal CLINICAL SUMMARY A single fetus is seen in breech presentation. ??The amniotic fluid volume is within normal limits. ?? cardiac activity and movements were demonstrated. The FHR baseline was initially 160-170 bpm then changed to 150 bpm during today's nonreactive NST. ??The FHR variability was moderate. ?? IMPRESSION: Single, live, intrauterine at 35w3d Fetus in breech presentation Amniotic fluid volume is within normal limits ?? Biophysical profile: 06/05 RECOMMEND: Patient was sent to [facility]/triage for prolonged monitoring. Thank you for allowing us the opportunity to care for your patient. ?? Rubina Colindres MD <Electronic Signature> ??05/16/2023 11:30am Ulices Coronado MD [facility] ORDERABLES * PAP IG LB+HPV APTIMA (05/08/2023 10:19 AM CDT) Diagnosis Comment 05/11/2023 3:07 PM CDT [facility] ([facility]) Comment:NEGATIVE FOR INTRAEP ITHELIAL LESION OR MALIGNANCY. Specimen Adequacy Comment 023 3:07 PM CDT [facility] ([facility]) Comment: Satisfactory for evaluation. ??Endocervical and/or squamous metaplastic cells (endocervical component) are present. Areas of partially obscuring blood are present. Performed by Comment 05/11/2023 3:07 PM CDT [facility] ([facility]) Comment:Ashley Ochoa, Cytot echnologist (ASCP) Comment . 05/11/2023 3:07 PM CDT [facility] ([facility]) Note Comment 05/11/2023 3:07 PM CDT [facility] ([facility]) Comment: The Pap smear is a screening test designed to aid in the detection of premalignant and malignant conditions of the uterine cervix. ??It is not a diagnostic procedure and should not be used as the sole means of detecting cervical cancer. ??Both false-positive and false-negative reports do occur. IGLBP CPT Code Automation Comment 05/11/2023 3:07 PM CDT [facility] ([facility]) Comment: This liquid based ThinPrep(R) pap test was screened with the use of an image guided system. Human papillomavirus Aptima Negative Negative 05/11/2023 3:07 PM CDT [facility] ([facility]) Comment: This nucleic acid amplification test detects fourteen high-risk HPV types (16,18,31,33,35,39,45,51,52,56,58,59,66,68) without differentiation. Pathology/Cytolo gy PART OF UTERINE CERVIX / Unknown Collection / Unknown 05/08/2023 10:19 AM CDT 05/08/2023 11:29 AM CDT Narrative [facility] ([facility]) - 05/11/2023 3:07 PM CDT Performed at: ??01 - [facility] [address] ??[id number] Technical Operations Manager: Marguerite Yap MD, Phone: ??[phone] Performed at: ??02 - [facility] [address] ??[id number] Technical Operations Manager: Marguerite Yap MD, Phone: ??[phone] Specimen Comment: No. of containers..01 ThinPrep Vial Belle Jeffery MD LAB - PATHOLOG Y/CYTOLOGY ORDERABLES [facility] ([facility]) [address] [place] [address] * (ABNORMAL) URINALYSIS - POCT (IP) BEAKER INTERFACE (05/08/2023 8:56 AM CDT) Color UA POCT Dark Yellow Straw, Yellow, Dark Yellow, Light Yellow 05/08/2023 8:58 AM CDT [facility] Clarity UA POCT Clear Clear 8:58 AM CDT [facility] Specific Amenia UA POCT 1.025 1.005 - 1.030 05/08/2023 8:58 AM CDT [facility] pH UA POCT 5.5 5.0 - 8.0 pH 05/08/2023 8:58 AM CDT [facility] Protein UA POCT Trace(A) Negative 8:58 AM CDT [facility] Blood UA POCT Negative Negative 05/08/2023 8:58 AM CDT [facility] Leukocyte UA POCT Negative Negative 05/08/2023 8:58 AM CDT [facility] Nitrite UA POCT Negative Negative 8:58 AM CDT [facility] Glucose UA POCT Negative Negative 8:58 AM CDT [facility] Ketone UA POCT Negative Negative 05/08/2023 8:58 AM CDT [facility] Bilirubin UA POCT Negative Negative 05/08/2023 8:58 AM CDT [facility] Urobilinogen UA POCT 0.2 0.1 - 1.0 EU/dL 05/08/2023 8:58 AM CDT [facility] Urine URINE / Unknown 05/08/2023 8 :56 AM CDT 05/08/2023 8:57 AM CDT Mau Letnz MD LAB - POINT OF CARE ORDERABLES Performing Organization Address City/State/[facility] Co de Phone Number [facility] [address] [place] [address] * ECHO COMPLETE (04/28/2023 2:59 PM CDT) BSA [id number] m2 SSM CV FUJ I PACS LVOT stroke vol 61.27 cm3 SSM CV FUJI PACS LV stroke vol 2D teich 64.023 ml SSM CV FUJI PACS LVIDd 4.68 3.8 - 5.2 cm SSM CV FUJI PACS LVIDs 3.08 2.2 - 3.5 cm SSM CV FUJI PACS IVSd 2D 1.31 0.6 - 0.9 cm SSM CV FUJI PACS LVPWd 1.30 cm SSM CV FUJ I PACS Fractional Shortening 2D 34 28 - 44 % SSM CV FUJI PACS LV ESV 2D 37.322 14 - 42 mL SSM CV FUJI PACS LV EDV 2D 101.345 46 - 106 mL SSM CV FUJI PACS LVOT diam 2.1 cm SSM CV FUJ I PACS LVOT area 3.46 cm2 SSM CV FUJ I PACS LV RWT 0.556 SSM CV FUJ I PACS MV E pk terrence 74.9 cm/s SSM CV F UJI PACS MV avg E/e' ratio 7.39 SS M CV FUJI PACS MV A pk terrence 84.8 cm/s SSM CV F UJI PACS MV E A ratio 0.88 SSM CV FUJI PACS MV E' lateral terrence 14 cm/s SS M CV FUJI PACS MV DT 144 ms SSM CV FUJ I PACS MV E' septal terrence 7.94 cm/s SSM CV FUJI PACS MV E/e' septal 9.433 SSM C V FUJI PACS MV E/e' lateral 5.35 SSM CV FUJI PACS LA vol BP 97.1 mL SSM CV FUJ I PACS LVOT pk terrence 1.15 m/s SSM CV F UJI PACS LVOT mn terrence 0.69 m/s SSM CV F UJI PACS LVOT mn grad 2.0 mmHg SSM CV FUJI PACS LA vol index 37.0 16 - 34 mL/m2 SSM CV FUJI PACS LA ESV A2C MOD Index 45 ml/m2 SSM CV FUJI PACS LA ESV A4C MOD Index 31 ml/m2 SSM CV FUJI PACS LA size 2.9 2.7 - 3.8 cm SSM CV FUJI PACS LA vol BP A-L 105.934 mL SSM CV FUJI PACS TV S' terrence 18.3 SSM CV FUJ I PACS TAPSE 3.15 1.7 cm SSM CV FUJ I PACS AV mn grad 6 mmHg SSM CV FU JI PACS AV pk grad 11 mmHg SSM CV FU JI PACS AV mn terrence 1.05 m/s SSM CV FUJ I PACS AV pk terrence 1.65 m/s SSM CV FUJ I PACS AV VTI 25.3 cm SSM CV FUJ I PACS LVOT pk grad 5 mmHg SSM CV FUJI PACS LVOT VTI 17.7 cm SSM CV FUJ I PACS AV area planimetry 2.42 cm2 SSM CV FUJI PACS AV area index 0.9 cm2/m2 SSM CV FUJI PACS AV area cont VTI 2.4 cm2 SSM CV FUJI PACS AV area pk terrence 2.4 cm2 SSM C V FUJI PACS AV Doppler terrence index pk terrence 0.70 SSM CV FUJI PACS Dimensionless Index 0.7 SSM CV FUJI PACS MV PHT 42 ms SSM CV FUJ I PACS MV area PHT 5.24 cm2 SSM CV F UJI PACS PV pk terrence 141 cm/s SSM CV FUJ I PACS PV pk grad 8 mmHg SSM CV FU JI PACS PV AT 148.0 ms SSM CV FUJ I PACS Sinus of Valsalva 3.10 cm SS M CV FUJI PACS LA AREA (2C) 30.7 SSM CV FUJI PACS LA AREA (4C) 25.9 SSM CV FUJI PACS LVIDs index 1.18 1.3 - 2.1 cm/m2 SSM CV FUJI PACS LV LVIDd index 1.80 2.3 - 3.1 cm/m2 SSM CV FUJI PACS LA ESV INDEX (BP) 40.1 ml/m2 SS M CV FUJI PACS LV est EF 60 % SSM CV FUJ I PACS Anatomical Region Laterality Modality Ultrasound Addenda Addendum by Martinez Rdz MD on 04/28/2023 3:35 PM CDT ?Very technically difficult study. ?Normal left ventricular systolic function with a visually estimated EF of 60 %. Grade I diastolic dysfunction with normal left atrial pressure. ?? Mild left ventricular concentric hypertrophy. ?Right ventricle size is normal. Normal systolic function. ?Unable to estimate the pulmonary artery systolic pressure due to lack of tricuspid regurgitation. ?No significant valvular abnormalities. Left Ventricle Left ventricle size is normal. Increased wall thickness. Mildly increased ventricular mass. Findings consistent with concentric hypertrophy. Normal systolic function with a visually estimated EF of 60 %. Normal wall motion. Grade I diastolic dysfunction with normal left atrial pressure. Right Ventricle Right ventricle size is normal. Normal systolic function. Left Atrium Left atrium is mildly dilated. Left atrium volume index is 37.0 mL/m2. Right Atrium Right atrium size is normal. IVC/SVC IVC diameter is less than or equal to 21 mm and decreases greater than 50% during inspiration; therefore the estimated right atrial pressure is normal (~3 mmHg). Mitral Valve Not well visualized. Valve structure is normal. No restricted motion. No regurgitation. No stenosis. Tricuspid Valve Not well visualized. Valve structure is normal. No restricted motion. No regurgitation. Unable to estimate the pulmonary artery systolic pressure due to lack of tricuspid regurgitation. No stenosis. Aortic Valve Not well visualized. Valve structure is trileaflet. No restricted motion. No regurgitation. No stenosis. Pulmonic Valve Not well visualized, but appears grossly normal. No restricted motion. No regurgitation. No stenosis. Main pulmonary artery size is normal. Ascending Aorta Normal sized sinus of Valsalva (aortic root) and ascending aorta. Pericardium No pericardial effusion. Study Details Study quality was poor. A complete 2D, color Doppler, spectral Doppler and M- mode echocardiogram was performed. The apical, parasternal, subcostal and suprasternal views were obtained. Technical difficulties due to poor acoustic windows. Prior Study No prior study available for comparison. Narrative Procedure Note Martinez Rdz MD - 04/28/2023 ? ? Very technically difficult study. ? ? Normal left ventricular systolic function with a visually estimated EFof 60 %. Normal diastolic function. ? ? Right ventricle size is normal. Normal systolic function. ? ? Unable to estimate the pulmonary artery systolic pressure due to lackof tricuspid regurgitation. ? ? No significant valvular abnormalities. Gita Amanda DO ECHO CUPID * EKG 12-LEAD (04/24/2023 11:02 AM CDT) Ventricular Rate 116 BPM [facility] Atrial Rate 116 BPM [facility] P-R Interval 128 ms [facility] QRS Duration ms 82 ms [facility] Q-T Interval ms 334 ms [facility] QTC Calculation (Bezet) 464 ms [facility] Calculated P [place] 41 degrees [facility] Calculated R [place] 24 degrees [facility] Calculated T [place] 126 degrees [facility] Interpretation EKG SINUS TACHYCARDIA NONSPECIFIC ST AND T WAVE ABNORMALITY ABNORMAL ECG Confirmed by DO AMANDA STEPHANIE ([id number]) on 04/25/2023 12:10:59 PM [facility] 04/24/2023 11:0 2 AM CDT 04/25/2023 12:10 PM CDT Gita Amanda DO ECG ORDERABLES [facility] * SONOGRAM - COMPLETE (04/09/2023 8:32 AM CDT) Only the most recent of6 resultswithin the time period is included. Anatomical Region Laterality Modality Other 04/09/2023 8:32 AM CDT Narrative 04/09/2023 9:59 AM CDT ? [facility] ? [facility] ?PHONE: ??FAX: Pat. Name: ?JACKIE SOUSA. No: ?[id number] Study Date: ?? 04/09/2023 ??8:32am , Age: ? 1980, 42 Pregnancies: ?? 6, Para 4013 Height: ? 69 in Weight: ? 267 lb LMP: ?Unknown GA by Base: ?? 30w1d ?? JAMEE: 06/17/2023 GA by US: ? 30w3d ?? JAMEE: 06/15/2023 GA Selected: ??30w1d (From [facility]) JAMEE: ?06/17/2023 Referring MD: Danial Rivas MD Research Epidemiologist: ??Alejandrina Grande RDMS CPT4: ? 83091 BMI: ?39.42 Hist/Ind: ? PUD & severe anemia requiring transfusion, CHTN on nifedipine, AMA 43 c reportedly low-risk cf-DNA, Prior C/S X1, Class III Obesity, Anxiety & depression MEASUREMENTS & AGE ? GROWTH EVALUATION Measurement ??GA ? Range ? Srce %for GA Ratios ----- ---- ------- BPD ??7.5 cm 29w6d (99w0n-64n5w) Hadl BPD 30% FL/BPD 0.74 (0.71 - 0.87) HC ??29.0 cm 32w0d (67r7o-42h4r) Hadl HC ??66% FL/AC ??0.20 (0.20 - 0.24) AC ??27.6 cm 31w5d (27u2g-68y1f) Hadl AC ??85% HC/AC ??1.05 (0.97 - 1.16) FL ?? 5.6 cm 29w2d (00i2x-89j0g) Hadl FL ??14% CI ? 0.70 (0.70 - 0.86* HL ?? 5.0 cm 29w3d (35o7x-10a4b) Nilay HL ??37% GA for sonogram 30w3d (98e2m-06f8f) ?? Weight Estimate: based on (HC,AC,FL) [place] ?Weight: 1670 gm (1423-1917gm) Had ? : 3lbs, 10oz ? Normal: 1586 gm (1190- 1983gm) Had ? Wt% ? 66% for 30w1d Heart Rate: 146 bpm Amniotic Fluid Index: 13.4cm (09.0-23.5) Q1: 5.0cm ??Q2: 4.3cm ??Q3: 0.0cm ??Q4: 4.1cm ?? EVAL, PLACENTA Presentation: cephalic Placenta: anterior Heart Rate: 146 bpm Amniotic Fluid Volume: normal CLINICAL SUMMARY A single fetus is seen in cephalic presentation. ??The measurements today are consistent with appropriate growth. ??The JAMEE is based on a prior ultrasound examination (confirmed). ??The amniotic fluid volume is within normal limits. ?? IMPRESSION: Single, live, intrauterine at 30w1d ?? Appropriate size and interval growth Amniotic fluid volume: within normal limits ?? No major malformations were seen within the limitations of ultrasound RECOMMEND: Begin weekly testing in 2 weeks (more frequent or sooner as indicated) Reassess growth in 4 weeks Thank you for allowing us the opportunity to care for your patient. ?? Shahzad Justice MD <Electronic Signature> ??04/09/2023 09:57am Ulices Coronado MD [facility] ORDERABLES * FERRITIN (01/30/2023 9:54 AM CDT) [facility] Ferritin 6 5 - 204 ng/mL 01/30/2023 11:06 AM CDT [facility] Blood BLOOD SPECIMEN / Unknown Venipuncture / Unknown 01/30/2023 9:54 AM CDT 01/30/2023 10:03 AM CDT Amalia Shearer MD LAB - CHEMISTRY DARLENE GONZALEZ Performing Organization Address [facility] Co de Phone Number [facility] [address] [place] [address] * TRANSFUSE RED BLOOD CELL LEUKOREDUCED UNIT(S) (01/29/2023 3:20 PM CDT) Amalia Shearer MD NURSING - BLOOD PROD TRANSFUSION * (ABNORMAL) OCCULT BLOOD FECES (01/29/2023 10:12 AM CDT) Occult Blood Positive(A ) Negative 01/29/2023 10:37 AM CDT [facility] Stool STOOL SPECIMEN / Unknown Collection / Unknown 01/29/2023 10:12 AM CDT 01/29/2023 10:27 AM CDT Amalia Shearer MD LAB - BODY FLUID ORD ELSYBLES Performing Organization Address [facility] Co de Phone Number [facility] [address] [place] [address] * BLOOD TYPE VERIFICATION (01/29/2023 6:39 AM CDT) ABO Rh O POS 01/29/2023 8:0 7 AM CDT [facility] Blood Bank BLOOD SPECIMEN / Unknown Lab Venipuncture / Unknown 01/29/2023 6:39 AM CDT 01/29/2023 7:25 AM CDT Amalia Shearer MD LAB - BLOOD BANK ORD ERABLES Performing Organization Address [facility] Co de Phone Number [facility] [address] [place] [id number] [place] [address] * URINALYSIS REFLEX MICROSCOPIC REFLEX CULTURE (01/29/2023 6:09 AM CDT) Color UA Yellow Straw, Yellow 01/29/2023 6:57 AM CDT [facility] Clarity UA Clear Clear 01/29/2023 6:57 AM CDT [facility] Glucose UA Negative Negative 01/29/2023 6:57 AM CDT [facility] Bilirubin UA Negative Negative 01/29/2023 6:57 AM CDT [facility] Ketone UA Negative Negative 01/29/2023 6:57 AM CDT [facility] Specific Amenia UA 1.023 1.005 - 1.030 01/29/2023 6:57 AM CDT [facility] Blood UA Negative Negative 01/29/2023 6:57 AM CDT [facility] pH UA 6.0 5.0 - 8.0 pH 01/29/2023 6:57 AM CDT [facility] Protein UA Negative Negative 01/29/2023 6:57 AM CDT [facility] Urobilinogen UA Negative Negative mg/dL 01/29/2023 6:57 AM CDT [facility] Nitrite UA Negative Negative 01/29/2023 6:57 AM CDT [facility] Leukocyte UA Negative Negative 01/29/2023 6:57 AM CDT [facility] Urine Microscopy Urine microscopy not indicated 01/29/2023 6:57 AM CDT [facility] Reflex Status Culture not indicated 01/29/2023 6:57 AM CDT [facility] Urine URINE SPECIMEN OBTAINED BY CLEAN CATCH PROCEDURE / Unknown Collection / Unknown 01/29/2023 6:09 AM CDT 01/29/2023 6:13 AM CDT Narrative [facility] - 01/29/2023 6:57 AM CDT Amalia Shearer MD LAB - URINALYSIS ORD ERABLES Performing Organization Address [facility] Co de Phone Number [facility] [address] [place] [address] Care Teams Taping Machine Operator Relationship Specialty Start Date End Date Phil Canas DO [address] [place] [id number] PCP - General Family Medicine 04/28/23
== END 2024-11-13 19:18 | disposition home or self-care (01) ==
PROVIDERS: Emergency Medicine; Emergency Provider Preventive Medicine Aerospace Medicine; PCP Family Medicine
DX: D64.9 Anemia, unspecified (principal); K25.9 Gastric ulcer, unspecified as acute or chronic, without hemorrhage or perforation; K92.2 Gastrointestinal hemorrhage, unspecified; D50.9 Iron deficiency anemia, unspecified; K21.9 Gastro-esophageal reflux disease without esophagitis; F17.210 Nicotine dependence, cigarettes, uncomplicated; K44.9 Diaphragmatic hernia without obstruction or gangrene
CPT/HCPCS: 36415; 71046; 80053; 83690; 84484; 85025; 85380; 85610; 85730; 86850; 86870; 86880; 86900; 86901; 86902; 86922; 86971; 93005; 96361; 96374; 99284; J2470

== ENCOUNTER 2024-11-16 08:22 | Inpatient (IN) | payer OTHER, SELFPAY ==
[2024-11-16] VITALS (12 sets, daily range): BP systolic 101–147; BP diastolic 45–87; PULSE 67–96; RESP 15–100; TEMP 36.4–36.7; O2SAT 95–100; BMI 42.3
--- NOTE | 2024-11-16 08:35 | ECG_ITS ---
Test Date: 2024-11-16 08:37:04 Measurements Intervals [place] Rate: 78 P: -7 ME: 122 QRS: 9 QRSD: 104 T: 31 QT: 367 QTc: 420 Interpretive Statements SINUS RHYTHM NONSPECIFIC T-WAVE ABNORMALITY Compared to ECG 11/13/2024 12:31:16 No significant changes Electronically Signed On 11-16-2024 10:49:07 BAIT TIER by Mark Álvarez M.D.
[2024-11-16 09:09] LABS: Basophils Percent Auto 0.6 % (0.2-1.2); Eosinophils Absolute Auto 0.1 K/mm3 (0-0.3); Eosinophils Percent Auto 1.5 % (0-4.4); Hematocrit 26.2 % (37.0-47.0); Immature Granulocyte Absolute 0.02 K/mm3 (0.00-0.031); Immature Granulocyte Percent A 0.3 % (0-0.5); Lymphocytes Absolute Auto 1.68 K/mm3 (0.9-3.2); Lymphocytes Percent Auto 25.9 % (18.3-44.2); Mean Corpuscular HGB Conc 26.7 g/dl (32-36); Mean Corpuscular Hemoglobin 20.1 pg (26-34); Mean Corpuscular Volume 75.3 fl (80-100); Mean Platelet Volume 11.1 fl (7.4-10.4); Monocytes Absolute Auto 0.3 K/mm3 (0.1-0.6); Monocytes Percent Auto 4.9 % (2.6-8.5); Neutrophils Absolute Auto 4.3 K/mm3 (1.3-6.7); Neutrophils Percent Auto 66.8 % (45.5-73.1); Platelet Count Result 285 k/mm3 (150-375); Red Blood Count 3.48 M/mm3 (4.2-5.4); Red Cell Distribution Width 17.6 % (11.5-14.5); White Blood Count 6.5 K/mm3 (4.5-10.0)
[2024-11-16] MEDS: FAMOTIDINE 20 MG/2 ML VIAL IV PUSH (09:16)
[2024-11-16] MEDS: PANTOPRAZOLE SODIUM IV 40 MG VIAL 80 MG IV PUSH (09:16)
[2024-11-16 09:24] LABS: Alanine Aminotransferase 13 U/L (6-35); Albumin Level 4.3 g/dL (3.5-5.1); Alkaline Phosphatase 71 U/L (38-126); Anion Gap 12 mmol/L (4-12); Aspartate Amino Transferase 17 U/L (14-36); Bilirubin,Total 0.6 mg/dL (0.2-1.3); Blood Urea Nitrogen 9 mg/dL (7-17); Carbon Dioxide 24 mmol/L (22-30); Chloride 101 mmol/L (98-107); Estimated CRCL calculation 137 ml/min; Estimated Glomerular Filt Rate > 60; Glucose 185 mg/dL (65-110); Potassium 4.1 mmol/L (3.4-5.0); Sodium 137 mmol/L (137-145)
[2024-11-16 09:25] LABS: Prothrombin Time 13.8 Seconds (11.1-14.7)
[2024-11-16 09:26] LABS: Partial Thromboplastin Time 22.7 Seconds (22.3-36.8)
[2024-11-16 09:29] LABS: Anisocytosis 1+; Hypochromasia 1+; Ovalocytes 1+; Platelet Estimate Adequate (Adequate); Schistocytes None Seen
--- NOTE | 2024-11-16 10:01 | ED.GENADULT ---
HPI - General Adult General Chief complaint: GI Bleed Stated complaint: I have a GI bleed and I'm SOB Time Seen by Provider: 11/16/24 08:27 History of Present Illness HPI narrative: 43 old female presents emergency department for evaluation for anemia and worsening black tarry stool. Patient does have a prior history of GI bleed. Patient was evaluated emergency department few days ago that had follow-up with primary care physician and had worsening anemia. Patient does follow-up with Dr. Nguyen. Related Data Home Medications ?Medication ?Instructions ?Recorded ?Confirmed ?Last Taken ?Type pantoprazole 20 mg tablet,delayed 40 mg PO DAILY 08/03/24 11/16/24 08/05/24 History release Allergies Allergy/AdvReac Type Severity Reaction Status Date / Time NSAIDS (Non-Steroidal AdvReac Severe Ulcers Verified 11/16/24 08:23 Anti-Inflamma Review of Systems Review of Systems: All systems reviewed & are unremarkable except as noted in HPI and below PMFSH Past Medical History Medical History Dysphagia Iron deficiency anemia Peptic ulcer Iron deficiency (01/29/23) transfusion packed red blood Traumatic subdural hematoma Anemia Depression Gestational HTN Diaphragmatic hernia without mention of obstruction or gangrene Esophageal reflux Surgical History Surgical History History of abdominoplasty History of delivery Family History Family History Grandparent Acute myocardial infarction Father Diabetes mellitus Sibling Diabetes mellitus Grandparent Heart disease Mother Hypertension Father Hypertension Father Obesity Mother Obesity Social History Social History Social History: Surrogate medical decision maker: Christopher Prashanth, spouse. Code status: Full code. Smoking packs per day: 1.5 Smoking cigarettes per day: 30.0 Years smoked: 6 Smoking pack-years: 9.00 Smoking status: Never smoker Tobacco type: cigarettes Second hand tobacco smoke exposure: No Alcohol intake: never Substance use: current Substance use type: marijuana Other substance usage details: edibles Last use: 6 months ago Do You Feel Safe in your Home?: Yes Lack of Transportation: No Lack of Food: Never True Current Housing: I Have Housing Concerned About Future Housing: No Difficulty Paying Gas/Electric Bills: No Difficulty Paying for Meds: No Currently Unemployed: No Education: Associate Degree Difficulty w/ Childcare or Family Care: No Living arrangements: with family Additional living arrangements comments: Lives with spouse. She has 5 children. 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 HEAD: normocephalic, atraumatic. EYES: PERRLA/EOMI, conjunctivae clear. NOSE: Normal no drainage EARS:TMS clear with good light reflex. THROAT: Pharynx clear, no exudate. NECK: Supple. No adenopathy, no masses. RESPIRATORY: Airway patent, respirations nonlabored. Clear to auscultation bilaterally, no rales, rhonchi, wheezing. CARDIOVASCULAR: Regular rate and rhythm without murmurs rubs or gallops. ABDOMINAL: Soft, nontender, nondistended, normal bowel sounds MUSCULOSKELETAL: Moves all extremities. Strength/ROM intact, No edema, No calf tenderness. NEURO: Alert. Cranial nerves II through XII intact. Good gait. Good coordination SKIN: Warm, dry. Normal Color Rectal exam: No stool on the digital rectal exam, Hemoccult negative Course Vital Signs Vital signs: Vital Signs Temperature 97.7 F 11/16/24 08:30 Pulse Rate 80 11/16/24 08:30 Respiratory Rate 19 11/16/24 08:30 Blood Pressure 144/87 H 11/16/24 08:30 Pulse Oximetry 100 11/16/24 08:30 Oxygen Delivery Room Air 11/16/24 08:30 Temperature 97.8 F 11/16/24 17:18 Pulse Rate 74 11/16/24 17:18 Respiratory Rate 16 11/16/24 17:18 Blood Pressure 104/54 L 11/16/24 17:18 Pulse Oximetry 96 11/16/24 17:18 Oxygen Delivery Room Air 11/16/24 08:30 Medical Decision Making [facility] Narrative Medical decision making narrative: 43 old female presents emergency department for evaluation for dark tarry stool he for the past few days including this morning. While patient was Hemoccult negative the did a rectal exam patient does have a significant anemia. Since patient is complaining of active bleeding and does have outpatient hemoglobin of 6.4 and a hemoglobin here of 7.0 was decided to order a single unit of packed red blood cells for the patient. Patient was started on Protonix and famotidine. I discussed the case with GI and patient was accepted for consult. Discussed case with hospitalist and patient was admitted. Patient was updated results of workup and plan for admission. All questions concerns were addressed. Differential Diagnosis Differential Diagnosis: Colitis, diverticulitis, upper GI bleed, hemorrhage, anemia Vital Signs Vital Signs: Vital Signs Temperature 97.7 F 11/16/24 08:30 Pulse Rate 80 11/16/24 08:30 Respiratory Rate 19 11/16/24 08:30 Blood Pressure 144/87 H 11/16/24 08:30 Pulse Oximetry 100 11/16/24 08:30 Oxygen Delivery Room Air 11/16/24 08:30 Temperature 97.8 F 11/16/24 17:18 Pulse Rate 74 11/16/24 17:18 Respiratory Rate 16 11/16/24 17:18 Blood Pressure 104/54 L 11/16/24 17:18 Pulse Oximetry 96 11/16/24 17:18 Oxygen Delivery Room Air 11/16/24 08:30 Lab Data Lab results reviewed: Yes I reviewed the patient's lab results. 11/16/24 08:54 11/16/24 08:54 Labs: Lab Results 11/16/24 Range/Units 08:54 WBC 6.5 (4.5-10.0) K/mm3 RBC 3.48 L (4.2-5.4) M/mm3 Hgb 7.0 L (12.0-15.0) g/dL Hct 26.2 L (37.0-47.0) % MCV 75.3 L (80-100) fl MCH 20.1 L (26-34) pg MCHC 26.7 L (32-36) g/dl RDW 17.6 H (11.5-14.5) % Plt Count 285 (150-375) k/mm3 MPV 11.1 H (7.4-10.4) fl Immature Gran % (Auto) 0.3 (0-0.5) % Neut % (Auto) 66.8 (45.5-73.1) % Lymph % (Auto) 25.9 (18.3-44.2) % [place] % (Auto) 4.9 (2.6-8.5) % Eos % (Auto) 1.5 (0-4.4) % Baso % (Auto) 0.6 (0.2-1.2) % Lymph # (Auto) 1.68 (0.9-3.2) K/mm3 [place] # (Auto) 0.3 (0.1-0.6) K/mm3 Eos # (Auto) 0.1 (0-0.3) K/mm3 Baso # (Auto) 0.0 (0.0-0.1) K/mm3 Abs Immat Gran (auto) 0.02 (0.00-0.031) K/mm3 Absolute Neuts (auto) 4.3 (1.3-6.7) K/mm3 Absolute Nucleated RBC 0.000 (0.0-0.012) K/mm3 Nucleated RBC % 0.0 (0.0-0.2) % Platelet Estimate Adequate (Adequate) Hypochromasia 1+ Anisocytosis 1+ Ovalocytes 1+ Schistocytes None seen Absolute Retic 0.10 (0.02-0.10) 10^6/uL Percent Retic 2.73 (0.7-4.3) % Immature Retic Fraction 29.4 H (3.0-15.9) % Retic Hgb Content 16.0 L (28.2-36.6) pg PT 13.8 (11.1-14.7) Seconds INR 1.0 APTT 22.7 (22.3-36.8) Seconds Sodium 137 (137-145) mmol/L Potassium 4.1 (3.4-5.0) mmol/L Chloride 101 (98-107) mmol/L Carbon Dioxide 24 (22-30) mmol/L Anion Gap 12 (4-12) mmol/L BUN 9 (7-17) mg/dL Creatinine 0.67 L (0.7-1.0) mg/dL Estim Creat Clear Calc 137 ml/min Estimated GFR > 60 (59 - ) Glucose 185 H (65-110) mg/dL Calcium 9.0 (8.4-10.2) mg/dL Iron 41 (37-170) ug/dL TIBC 504 H (261-462) ug/dL % Saturation 8 L (20-50) % Ferritin 3.83 L (6.24-137) ng/mL Total Bilirubin 0.6 (0.2-1.3) mg/dL AST 17 (14-36) U/L ALT 13 (6-35) U/L Alkaline Phosphatase 71 (38-126) U/L Total Protein 8.0 (6.3-8.2) g/dL Albumin 4.3 (3.5-5.1) g/dL Blood Type O Positive Antibody Screen Positive Antibody Identification Anti-[place] Antigen Identification Not Reportable MARK, IgG Interpret Neg MARK, Poly Interpret Not Performed MARK, Complement Interp Negative Enhanced Crossmatch See Detail Discharge Plan Discharge Clinical Impression: Acute upper GI bleed, Anemia Patient Disposition: Still a Patient Condition: Stable
--- NOTE | 2024-11-16 11:29 | P.HP_ITS ---
H&P: HPI History of Present Illness Date/Time: 11/16/24 11:29 Chief Complaint: Black stools Narrative: 43 old female with history of GI bleeding, a deficient anemia present ED with a chief complaint of black stool and anemia. Patient noticed black stools recently. Patient follow-up with PCP. And patient was found have anemia hemoglobin 6.4. Therefore patient was sent to ED for evaluation treatment. Upon arrival in the ED, patient was hemodynamically stable, afebrile, pulse ox 100% on room air, CBC showed anemia hemoglobin 7.0 chemistry unremarkable. In the ED, patient received 1 pack RBC. ER physician also consulted GI. We admit patient for further evaluation and management Review of Systems Review of Systems: ROS negative except above PMFSH Past Medical History Medical History Dysphagia Iron deficiency anemia Peptic ulcer Iron deficiency (01/29/23) transfusion packed red blood Traumatic subdural hematoma Anemia Depression Gestational HTN Diaphragmatic hernia without mention of obstruction or gangrene Esophageal reflux Surgical History Surgical History History of abdominoplasty History of delivery Family History Family History Grandparent Acute myocardial infarction Father Diabetes mellitus Sibling Diabetes mellitus Grandparent Heart disease Mother Hypertension Father Hypertension Father Obesity Mother Obesity Social History Social History Social History: Surrogate medical decision maker: Christopher Alford, spouse. Code status: Full code. Smoking packs per day: 1.5 Smoking cigarettes per day: 30.0 Years smoked: 6 Smoking pack-years: 9.00 Smoking status: Never smoker Tobacco type: cigarettes Second hand tobacco smoke exposure: No Alcohol intake: never Substance use: current Substance use type: marijuana Other substance usage details: edibles Last use: 6 months ago Do You Feel Safe in your Home?: Yes Lack of Transportation: No Lack of Food: Never True Current Housing: I Have Housing Concerned About Future Housing: No Difficulty Paying Gas/Electric Bills: No Difficulty Paying for Meds: No Currently Unemployed: No Education: Associate Degree Difficulty w/ Childcare or Family Care: No Living arrangements: with family Additional living arrangements comments: Lives with spouse. She has 5 children. 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: No Agree to blood products: Yes Meds Home Medications and Allergies Home Medications ?Medication ?Instructions ?Recorded ?Confirmed ?Type cholecalciferol (vitamin D3) 1,250 1,250 mcg PO WEEKLY #12 caps 11/27/23 11/04/24 Rx mcg (50,000 unit) capsule cyanocobalamin (vitamin B-12) 1,000 mcg PO DAILY #90 tabs 06/08/24 11/04/24 Rx 1,000 mcg tablet pantoprazole 20 mg tablet,delayed 40 mg PO DAILY 08/03/24 11/04/24 History release iron 150 mg-vit C 60 mg-folate 1 1 tablet PO BID #60 tabs 08/05/24 11/04/24 Rx [id number]-ezmozzh tablet (Niferex (Sumalate-Quatrefolic)) Allergies Allergy/AdvReac Type Severity Reaction Status Date / Time NSAIDS (Non-Steroidal AdvReac Severe Ulcers Verified 11/16/24 08:23 Anti-Inflamma Vital Signs Vital Signs - 24 hr 11/16/24 08:30 11/16/24 09:35 11/16/24 09:38 Temperature 97.7 F Pulse Rate 80 93 96 Respiratory Rate 19 17 17 Blood Pressure 144/87 H 145/82 H Pulse Oximetry 100 95 100 Oxygen Delivery Room Air 11/16/24 09:46 Temperature Pulse Rate 92 Respiratory Rate 16 Blood Pressure Pulse Oximetry 98 Oxygen Delivery Exam Narrative: GENERAL: Pleasant, in no acute distress. Well-nourished. - EYES: EOMI. Anicteric. Pale - HENT: Moist mucous membranes. - LUNGS: Clear to auscultation bilateral ly, no wheezing, rhonchi, or rales. - CARDIOVASCULAR: Regular rate and rhyth m. No murmur. No JVD. - ABDOMEN: Soft, non-tender and non-dist ended. No palpable masses. - EXTREMITIES: No edema. Peripheral puls es 2+. Non-tender. - NEUROLOGIC: No focal neurological defi cits. CN II-XII grossly intact. - PSYCHIATRIC: Awake, Alert and oriented x 3. Appropriate mood and affect. - SKIN: No rashes or lesions. Warm. - LYMPH: No cervical lymphadenopathy. H&P: Results Labs Labs: Short CBC 11/16/24 Range/Units 08:54 WBC 6.5 (4.5-10.0) K/mm3 Hgb 7.0 L (12.0-15.0) g/dL Hct 26.2 L (37.0-47.0) % Plt Count 285 (150-375) k/mm3 BMP 11/16/24 08:54 Sodium 137 Potassium 4.1 Chloride 101 Carbon Dioxide 24 BUN 9 Creatinine 0.67 L Glucose 185 H Calcium 9.0 Liver Function 11/16/24 Range/Units 08:54 Total Bilirubin 0.6 (0.2-1.3) mg/dL AST 17 (14-36) U/L ALT 13 (6-35) U/L Alkaline Phosphatase 71 (38-126) U/L Albumin 4.3 (3.5-5.1) g/dL Assessment and Plan Assessment and plan (1) Severe anemia: Code(s): D64.9 - Anemia, unspecified Status: Acute (2) Acute on chronic blood loss anemia: Code(s): D62 - Acute posthemorrhagic anemia Status: Acute (3) Acute GI bleeding: Code(s): K92.2 - Gastrointestinal hemorrhage, unspecified Status: Acute (4) PTSD (post-traumatic stress disorder): Code(s): F43.10 - Post-traumatic stress disorder, unspecified Status: Acute (5) Obesity, morbid, BMI 40.0-49.9: Code(s): E66.01 - Morbid (severe) obesity due to excess calories Status: Acute Plan Acute GI bleeding Patient has black stools recently Patient also has history of GB Patient is on Protonix 40 mg daily p.o. Will start Protonix 40 mg b.i.d. IV Keep patient NPO, start light Ringer IV Consult GI, Acute come blood-loss anemia Patient has history of iron deficient anemia, on iron p.o. Patient found have severe anemia, hemoglobin 6.4 today, 7.0 today Possible due to GI bleeding Received 1 pack RBC in the ED Follow-up ferritin, iron panel Follow-up hemoglobin and hematocrit q.6 hours, transfuse p.r.n. if hemoglobin drops below 7 Hold oral home medication during p.o. Patient may stay more than 2 midnights in the hospital Hospitalist MIPS Advance Care Plan I have confirmed that the patient's Advanced Care Plan is present, code status is documented, or surrogate decision maker is listed in patient medical record.: Yes Medication Reconciliation The patient is not eligible for med reconciliation; the patient is in a emergent medical situation where delaying treatment would jeopardize the patients health.: Yes
[2024-11-16 11:50] LABS: Immature Reticulocyte Fraction 29.4 % (3.0-15.9); Reticulocyte Percent 2.73 % (0.7-4.3)
[2024-11-16 12:54] LABS: Iron 41 ug/dL (37-170)
[2024-11-16 12:58] LABS: Percent Iron Saturation 8 % (20-50)
--- NOTE | 2024-11-16 12:59 | ADMGEN ---
This patient, Jackie Alford, was admitted to 3 [facility] Surg Room 324-01. Patient/family oriented to hospital policies and general routines including ID bracelet, bed and alarms, visiting hours, pain management, procedures, bathroom and other care routines, personal items, smoking policy, room service/diet, and visiting hours. Information on how to activate the Rapid Response Team has been discussed. Patient/Family are encouraged to report perceived risks to care and to ask questions if they do not understand what they are told or what they should do.
[2024-11-16 13:23] LABS: Ferritin 3.83 ng/mL (6.24-137)
[2024-11-16] MEDS: SODIUM CHLORIDE 0.9% IV 250 ML 30 ML IV CONT (13:53)
[2024-11-16] MEDS: TUBING, BLOOD PLUM PUMP TUBING 1 EACH XX (13:54)
--- NOTE | 2024-11-16 15:29 | P.CONGI_ITS ---
Assessment and Plan Assessment and plan (1) Hiatal hernia: Code(s): K44.9 - Diaphragmatic hernia without obstruction or gangrene Status: Acute (2) Acute GI bleeding: Code(s): K92.2 - Gastrointestinal hemorrhage, unspecified Status: Acute (3) Iron deficiency anemia: Code(s): D50.9 - Iron deficiency anemia, unspecified Status: Acute Assessment and Plan: The patient presents with iron-deficiency anemia, likely secondary to a large hiatal hernia with Luis ulcers. Although a recent EGD did not reveal active peptic ulcer disease, it remains a possible contributing factor. Given the patient's hemoglobin of 7.0 g/dL, a blood transfusion is indicated and will be administered. Intravenous pantoprazole will be continued. The scheduled colonoscopy will proceed as scheduled , with the addition of an EGD to further investigate the source of bleeding. Once the colonoscopy is completed, a surgical consultation will be obtained to discuss the surgical repair of the large hiatal hernia. This is strongly recommended, particularly given the presence of Luis ulcers as a potential source of acute and chronic bleeding. GI Consult Note Consult date/time: 11/16/24 15:29 HPI: Jackie Alford is a 43-year-old female admitted with a history of melena. The patient has a longstanding history of peptic ulcer disease, with her first bleeding episode occurring approximately 10 years ago. She reports experiencing continuous episodes of black, tarry stools four to five days prior to admission. These episodes were self-limiting, and the patient did not develop hemodynamic compromise or near syncope. Of note, the patient underwent an EGD on 08/05/[address] Nguyen, which revealed an 8 cm hiatal hernia with Luis ulcers. Due to microcytic anemia, the patient is scheduled for a colonoscopy tomorrow. A rectal examination performed by the Emergency Room physician revealed no stool in the rectal vault. PMF Past Medical History Medical History Dysphagia Iron deficiency anemia Peptic ulcer Iron deficiency (01/29/23) transfusion packed red blood Traumatic subdural hematoma Anemia Depression Gestational HTN Diaphragmatic hernia without mention of obstruction or gangrene Esophageal reflux Surgical History Surgical History History of abdominoplasty History of delivery Family History Family History Grandparent Acute myocardial infarction Father Diabetes mellitus Sibling Diabetes mellitus Grandparent Heart disease Mother Hypertension Father Hypertension Father Obesity Mother Obesity Social History Social History Social History: Surrogate medical decision maker: Christopher Alford, spouse. Code status: Full code. Smoking packs per day: 1.5 Smoking cigarettes per day: 30.0 Years smoked: 6 Smoking pack-years: 9.00 Smoking status: Never smoker Tobacco type: cigarettes Second hand tobacco smoke exposure: No Alcohol intake: never Substance use: current Substance use type: marijuana Other substance usage details: edibles Last use: 6 months ago Do You Feel Safe in your Home?: Yes Lack of Transportation: No Lack of Food: Never True Current Housing: I Have Housing Concerned About Future Housing: No Difficulty Paying Gas/Electric Bills: No Difficulty Paying for Meds: No Currently Unemployed: No Education: Associate Degree Difficulty w/ Childcare or Family Care: No Living arrangements: with family Additional living arrangements comments: Lives with spouse. She has 5 children. 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: No Agree to blood products: Yes Meds Home Medications and Allergies Home Medications ?Medication ?Instructions ?Recorded ?Confirmed ?Type cholecalciferol (vitamin D3) 1,250 1,250 mcg PO WEEKLY #12 caps 11/27/23 11/16/24 Rx mcg (50,000 unit) capsule cyanocobalamin (vitamin B-12) 1,000 mcg PO DAILY #90 tabs 06/08/24 11/16/24 Rx 1,000 mcg tablet pantoprazole 20 mg tablet,delayed 40 mg PO DAILY 08/03/24 11/16/24 History release iron 150 mg-vit C 60 mg-folate 1 1 tablet PO BID #60 tabs 08/05/24 11/16/24 Rx [id number]-duoityyg-xsadlie tablet (Niferex (Sumalate-Quatrefolic)) Allergies Allergy/AdvReac Type Severity Reaction Status Date / Time NSAIDS (Non-Steroidal AdvReac Severe Ulcers Verified 11/16/24 08:23 Anti-Inflamma Vital Signs Vital Signs - 24 hr 11/16/24 08:30 11/16/24 09:35 11/16/24 09:38 Temperature 97.7 F Pulse Rate 80 93 96 Respiratory Rate 19 17 17 Blood Pressure 144/87 H 145/82 H Pulse Oximetry 100 95 100 Oxygen Delivery Room Air 11/16/24 09:46 11/16/24 13:00 11/16/24 13:56 Temperature 97.5 F L 98.0 F Pulse Rate 92 90 73 Respiratory Rate 16 100 H 15 Blood Pressure 147/84 H 106/48 L Pulse Oximetry 98 100 100 Oxygen Delivery 11/16/24 14:00 11/16/24 14:18 Temperature 97.8 F 97.9 F Pulse Rate 78 67 Respiratory Rate 18 18 Blood Pressure 147/84 H 101/45 L Pulse Oximetry 100 95 Oxygen Delivery Exam 2 Narrative: GENERAL: Pleasant, in no acute distress. Well-nourished. - EYES: EOMI. Anicteric. Pale - HENT: Moist mucous membranes. - LUNGS: Clear to auscultation bilateral ly, no wheezing, rhonchi, or rales. - CARDIOVASCULAR: Regular rate and rhyth m. No murmur. No JVD. - ABDOMEN: Soft, non-tender and non-dist ended. No palpable masses. - EXTREMITIES: No edema. Peripheral puls es 2+. Non-tender. - NEUROLOGIC: No focal neurological defi cits. CN II-XII grossly intact. - PSYCHIATRIC: Awake, Alert and oriented x 3. Appropriate mood and affect. - SKIN: No rashes or lesions. Warm. - LYMPH: No cervical lymphadenopathy. Results Labs 11/16/24 08:54 11/16/24 08:54 Labs: Short CBC 11/16/24 Range/Units 08:54 WBC 6.5 (4.5-10.0) K/mm3 Hgb 7.0 L (12.0-15.0) g/dL Hct 26.2 L (37.0-47.0) % Plt Count 285 (150-375) k/mm3 BMP 11/16/24 08:54 Sodium 137 Potassium 4.1 Chloride 101 Carbon Dioxide 24 BUN 9 Creatinine 0.67 L Glucose 185 H Calcium 9.0 Liver Function 11/16/24 Range/Units 08:54 Total Bilirubin 0.6 (0.2-1.3) mg/dL AST 17 (14-36) U/L ALT 13 (6-35) U/L Alkaline Phosphatase 71 (38-126) U/L Albumin 4.3 (3.5-5.1) g/dL
[2024-11-16] MEDS: BISACODYL 5 MG TABLET EC 20 MG PO (17:51)
[2024-11-16] MEDS: PANTOPRAZOLE SODIUM IV 40 MG VIAL IV PUSH (17:51)
[2024-11-16] MEDS: SODIUM CHLORIDE 0.9% IV 1,000 ML 125 ML IV CONT (17:52)
[2024-11-16 18:37] LABS: Hematocrit 26.3 % (37.0-47.0); Hemoglobin 7.2 g/dL (12.0-15.0)
[2024-11-16] MEDS: polyethylene glycoL 3350 238 GM BOTTLE 119 GM PO (20:38)
[2024-11-17] VITALS (11 sets, daily range): BP systolic 75–125; BP diastolic 28–72; PULSE 57–80; RESP 12–19; TEMP 36.2–36.8; O2SAT 94–100
[2024-11-17 00:07] LABS: Hematocrit 25.5 % (37.0-47.0)
[2024-11-17] MEDS: SODIUM CHLORIDE 0.9% IV 1,000 ML 125 ML IV CONT (01:14)
[2024-11-17] MEDS: polyethylene glycoL 3350 238 GM BOTTLE 119 GM PO (01:14)
[2024-11-17 06:32] LABS: Hematocrit 27.3 % (37.0-47.0); Hemoglobin 7.3 g/dL (12.0-15.0)
[2024-11-17] MEDS: PANTOPRAZOLE SODIUM IV 40 MG VIAL IV PUSH (07:52)
--- NOTE | 2024-11-17 08:44 | WPDANESEPPF ---
Anes - Initial Pre Proc Eval Procedure: Operation Date: 11/17/24 15:00 Proposed Procedures p Esophagogastroduodenoscopy & Colonoscopy - Kenroy Johnson MD Date/Time: 11/17/24 08:44 Surgeon: Gustavo Cristina MD Pre Op Diagnosis: Upper GI Bleed Patient Data Age: 43 Gender: F Height: 1.78 m Weight: 133.7 kg Last Vital Signs Temp 36.7 C 11/17/24 05:40 Pulse 80 11/17/24 05:40 Resp 16 11/17/24 05:40 BP 121/72 11/17/24 05:40 Pulse Ox 94 11/17/24 08:00 O2 Del Method Room Air 11/17/24 08:00 Allergies Allergy/AdvReac Type Severity Reaction Status Date / Time NSAIDS (Non-Steroidal AdvReac Severe Ulcers Verified 11/17/24 08:44 Anti-Inflamma Home Medications ?Medication ?Instructions ?Recorded ?Confirmed ?Type cholecalciferol (vitamin D3) 1,250 1,250 mcg PO WEEKLY #12 caps 11/27/23 11/16/24 Rx mcg (50,000 unit) capsule cyanocobalamin (vitamin B-12) 1,000 mcg PO DAILY #90 tabs 06/08/24 11/16/24 Rx 1,000 mcg tablet pantoprazole 20 mg tablet,delayed 40 mg PO DAILY 08/03/24 11/16/24 History release iron 150 mg-vit C 60 mg-folate 1 1 tablet PO BID #60 tabs 08/05/24 11/16/24 Rx [id number]-csikfbbt-uqvsntt tablet (Niferex (Sumalate-Quatrefolic)) Laboratory Tests 11/16/24 11/16/24 11/16/24 08:54 18:31 23:51 WBC 6.5 K/mm3 (4.5-10.0) RBC 3.48 L M/mm3 (4.2-5.4) Hgb 7.0 L g/dL 7.2 L g/dL 7.0 L g/dL (12.0-15.0) (12.0-15.0) (12.0-15.0) Hct 26.2 L % 26.3 L % 25.5 L % (37.0-47.0) (37.0-47.0) (37.0-47.0) MCV 75.3 L fl (80-100) MCH 20.1 L pg (26-34) MCHC 26.7 L g/dl (32-36) RDW 17.6 H % (11.5-14.5) Plt Count 285 k/mm3 (150-375) MPV 11.1 H fl (7.4-10.4) Immature Gran % (Auto) 0.3 % (0-0.5) Neut % (Auto) 66.8 % (45.5-73.1) Lymph % (Auto) 25.9 % (18.3-44.2) [place] % (Auto) 4.9 % (2.6-8.5) Eos % (Auto) 1.5 % (0-4.4) Baso % (Auto) 0.6 % (0.2-1.2) Lymph # (Auto) 1.68 K/mm3 (0.9-3.2) [place] # (Auto) 0.3 K/mm3 (0.1-0.6) Eos # (Auto) 0.1 K/mm3 (0-0.3) Baso # (Auto) 0.0 K/mm3 (0.0-0.1) Abs Immat Gran (auto) 0.02 K/mm3 (0.00-0.031) Absolute Neuts (auto) 4.3 K/mm3 (1.3-6.7) Absolute Nucleated RBC 0.000 K/mm3 (0.0-0.012) Nucleated RBC % 0.0 % (0.0-0.2) Platelet Estimate Adequate (Adequate) Hypochromasia 1+ Anisocytosis 1+ Ovalocytes 1+ Schistocytes None seen Absolute Retic 0.10 10^6/uL (0.02-0.10) Percent Retic 2.73 % (0.7-4.3) Immature Retic Fraction 29.4 H % (3.0-15.9) Retic Hgb Content 16.0 L pg (28.2-36.6) PT 13.8 Seconds (11.1-14.7) INR 1.0 APTT 22.7 Seconds (22.3-36.8) Sodium 137 mmol/L (137-145) Potassium 4.1 mmol/L (3.4-5.0) Chloride 101 mmol/L (98-107) Carbon Dioxide 24 mmol/L (22-30) Anion Gap 12 mmol/L (4-12) BUN 9 mg/dL (7-17) Creatinine 0.67 L mg/dL (0.7-1.0) Estim Creat Clear Calc 137 ml/min Estimated GFR > 60 (59 - ) Glucose 185 H mg/dL (65-110) Calcium 9.0 mg/dL (8.4-10.2) Iron 41 ug/dL (37-170) TIBC 504 H ug/dL (261-462) % Saturation 8 L % (20-50) Ferritin 3.83 L ng/mL (6.24-137) Total Bilirubin 0.6 mg/dL (0.2-1.3) AST 17 U/L (14-36) ALT 13 U/L (6-35) Alkaline Phosphatase 71 U/L (38-126) Total Protein 8.0 g/dL (6.3-8.2) Albumin 4.3 g/dL (3.5-5.1) Blood Type O Positive Antibody Screen Positive Antibody Identification Anti-Julia Antigen Identification Not Reportable MARK, IgG Interpret Neg MARK, Poly Interpret Not Performed MARK, Complement Interp Negative Enhanced Crossmatch See Detail 11/17/24 06:11 WBC RBC Hgb 7.3 L g/dL (12.0-15.0) Hct 27.3 L % (37.0-47.0) MCV MCH MCHC RDW Plt Count MPV Immature Gran % (Auto) Neut % (Auto) Lymph % (Auto) [place] % (Auto) Eos % (Auto) Baso % (Auto) Lymph # (Auto) [place] # (Auto) Eos # (Auto) Baso # (Auto) Abs Immat Gran (auto) Absolute Neuts (auto) Absolute Nucleated RBC Nucleated RBC % Platelet Estimate Hypochromasia Anisocytosis Ovalocytes Schistocytes Absolute Retic Percent Retic Immature Retic Fraction Retic Hgb Content PT INR APTT Sodium Potassium Chloride Carbon Dioxide Anion Gap BUN Creatinine Estim Creat Clear Calc Estimated GFR Glucose Calcium Iron TIBC % Saturation Ferritin Total Bilirubin AST ALT Alkaline Phosphatase Total Protein Albumin Blood Type Antibody Screen Antibody Identification Antigen Identification MARK, IgG Interpret MARK, Poly Interpret MARK, Complement Interp Enhanced Crossmatch HCG: negative Patient hx anesthesia problems: none Family hx anesthesia problems: none Results Review: All pre-operative results and documents have been reviewed as part of the pre-operative evaluation. [facility] Past Medical History Medical History Dysphagia Iron deficiency anemia Peptic ulcer Iron deficiency (01/29/23) transfusion packed red blood Traumatic subdural hematoma Anemia Depression Gestational HTN Diaphragmatic hernia without mention of obstruction or gangrene Esophageal reflux Surgical History Surgical History History of abdominoplasty History of delivery Family History Family History Grandparent Acute myocardial infarction Father Diabetes mellitus Sibling Diabetes mellitus Grandparent Heart disease Mother Hypertension Father Hypertension Father Obesity Mother Obesity Social History Social History Social History: Surrogate medical decision maker: Christopher Alford, spouse. Code status: Full code. Smoking packs per day: 1.5 Smoking cigarettes per day: 30.0 Years smoked: 6 Smoking pack-years: 9.00 Smoking status: Never smoker Tobacco type: cigarettes Second hand tobacco smoke exposure: No Alcohol intake: never Substance use: current Substance use type: marijuana Other substance usage details: edibles Last use: 6 months ago Do You Feel Safe in your Home?: Yes Lack of Transportation: No Lack of Food: Never True Current Housing: I Have Housing Concerned About Future Housing: No Difficulty Paying Gas/Electric Bills: No Difficulty Paying for Meds: No Currently Unemployed: No Education: Associate Degree Difficulty w/ Childcare or Family Care: No Living arrangements: with family Additional living arrangements comments: Lives with spouse. She has 5 children. 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 Informed Consent: The patient's anesthetic plan and its attendant risks and benefits were discussed with the patient/family/POA. Questions were solicited and answers provided to the satisfaction of the patient/family/POA.
[2024-11-17 08:48] LABS: BEDSIDEPREGUCG Negative (Negative)
[2024-11-17] MEDS: LACTATED RINGERS 1,000 ML 150 ML IV CONT (08:55)
--- NOTE | 2024-11-17 09:06 | S_PTH ---
PATIENT: Jackie Alford LOC: [id number] U#:[id number] AGE/SX: 43/F ROOM: 324 RE11/17/[address]: Gustavo CristinaMD : 1980 BED: 01 DIS: 11/17/2024 SPEC #: [id number] RECD: 11/17/24 11:37 STATUS: ART REQ #: [id number] JAYDA: 11/17/24 09:[address]: Kenroy Johnson DEPT: [facility] Surgical RECD BY: Kiya Navarro ENTERED: 11/17/24 11:38 SP TYPE: Surgical OTHR DR: DO Vamsi Kelley MD Changqing ZhaoMD Tissues: A - Gastric Biopsy B - Small Bowel Bx Procedures: Hematoxylin and Eosin Stain Gross and Microscopic Level 4
--- NOTE | 2024-11-17 09:26 | SUR.OPER ---
EGD ended 858 colonoscopy stared 902
--- NOTE | 2024-11-17 10:12 | PM.IMPN ---
Progress Note: A&P Assessment and Plan (1) Severe anemia: Code(s): D64.9 - Anemia, unspecified Status: Acute (2) Acute on chronic blood loss anemia: Code(s): D62 - Acute posthemorrhagic anemia Status: Acute (3) Acute GI bleeding: Code(s): K92.2 - Gastrointestinal hemorrhage, unspecified Status: Acute (4) PTSD (post-traumatic stress disorder): Code(s): F43.10 - Post-traumatic stress disorder, unspecified Status: Acute (5) Obesity, morbid, BMI 40.0-49.9: Code(s): E66.01 - Morbid (severe) obesity due to excess calories Status: Acute Plan Acute GI bleeding Patient has black stools recently Patient also has history of GB Patient is on Protonix 40 mg daily p.o. Will start Protonix 40 mg b.i.d. IV Keep patient NPO, start light Ringer IV Consult GI Patient underwent EGD and colonoscopy , patient was found have hiatal hernia, no gastritis, small size internal hemorrhoid 11/17 Hiatal hernia Consult general surgeon for hiatal hernia repair Acute come blood-loss anemia Patient has history of iron deficient anemia, on iron p.o. Patient found have severe anemia, hemoglobin 6.4 today, 7.0 today Possible due to GI bleeding Received 1 pack RBC in the ED Follow-up ferritin, iron panel Follow-up hemoglobin and hematocrit q.6 hours, transfuse p.r.n. if hemoglobin drops below 7 Ferritin 3.83, iron 41, iron saturation 8, suggest iron deficient anemia Start Venofer IV 200 mg daily Hold oral home medication during p.o. Patient may stay more than 2 midnights in the hospital Subjective Date/time seen: 11/17/24 10:12 Interval history: Patient underwent EGD and colonoscopy today, patient was found have hiatal hernia, no gastritis, small size internal hemorrhoid Hemoglobin stable. Patient has iron deficient. Hemoglobin 7.1, blood pressure stable but on lower side Exam Narrative: GENERAL: Pleasant, in no acute distress. Well-nourished. - EYES: EOMI. Anicteric. Pale - HENT: Moist mucous membranes. - LUNGS: Clear to auscultation bilaterally, no wheezing, rhonchi, or rales. - CARDIOVASCULAR: Regular rate and rhythm. No murmur. No JVD. - ABDOMEN: Soft, non-tender and non-distended. No palpable masses. - EXTREMITIES: No edema. Peripheral pulses 2+. Non-tender. - NEUROLOGIC: No focal neurological deficits. CN II-XII grossly intact. - PSYCHIATRIC: Awake, Alert and oriented x 3. Appropriate mood and affect. - SKIN: No rashes or lesions. Warm. - LYMPH: No cervical lymphadenopathy. Objective Data Vital Signs Vital Signs: Vital Signs - 24 hr 11/16/24 12:30 11/16/24 13:00 11/16/24 13:56 Temperature 97.5 F L 98.0 F Pulse Rate 90 73 Respiratory Rate 100 H 15 Blood Pressure 147/84 H 106/48 L Pulse Oximetry 100 100 Oxygen Delivery Room Air 11/16/24 14:00 11/16/24 14:18 11/16/24 15:18 Temperature 97.8 F 97.9 F 97.9 F Pulse Rate 78 67 76 Respiratory Rate 18 18 20 Blood Pressure 147/84 H 101/45 L 102/78 Pulse Oximetry 100 95 100 Oxygen Delivery 11/16/24 16:18 11/16/24 17:18 11/16/24 20:00 Temperature 97.6 F 97.8 F Pulse Rate 72 74 Respiratory Rate 20 16 Blood Pressure 117/68 104/54 L Pulse Oximetry 99 96 Oxygen Delivery Room Air 11/16/24 20:44 11/17/24 05:40 11/17/24 08:00 Temperature 97.9 F 98.0 F Pulse Rate 72 80 Respiratory Rate 16 16 Blood Pressure 136/78 121/72 Pulse Oximetry 98 94 94 Oxygen Delivery Room Air 11/17/24 08:45 11/17/24 09:15 11/17/24 09:25 Temperature 97.1 F L Pulse Rate 69 57 L 57 L Respiratory Rate 19 14 16 Blood Pressure 125/63 78/28 L 75/30 L Pulse Oximetry 99 100 96 Oxygen Delivery Room Air Room Air Room Air 11/17/24 09:30 11/17/24 09:35 11/17/24 09:45 Temperature Pulse Rate 58 L 59 L 66 Respiratory Rate 15 12 19 Blood Pressure 105/53 L 89/39 L 106/40 L Pulse Oximetry 99 97 97 Oxygen Delivery Room Air Room Air Room Air 11/17/24 09:50 11/17/24 09:53 Temperature Pulse Rate 61 67 Respiratory Rate 14 15 Blood Pressure 92/39 L 107/55 L Pulse Oximetry 95 97 Oxygen Delivery Room Air Room Air Intake/Output Intake/Output: Intake & Output 11/14/24 11/15/24 11/16/24 11/17/24 23:59 23:59 23:59 23:59 Intake Total 350 1620.8 Balance 350 1620.8 Meds/Results Medications: Active Medications Generic Name Dose Route Start Last Admin Trade Name Freq PRN Reason Stop Dose Admin Sodium Chloride 1,000 mls @ 125 mls/hr 11/16/24 10:30 11/17/24 01:15 Normal Saline Iv IV CONT Not Given .Q8H ASHLI Lactated Ringer's 1,000 mls @ 150 mls/hr 11/17/24 08:45 11/17/24 09:56 Lr - Lactated Ringers Iv IV CONT Infused .Q6H40M ASHLI Infusion Ondansetron HCl 4 mg 11/16/24 10:26 Ondansetron Inj 4 Mg/2 Ml Vial IV PUSH Q4H PRN Nausea Pantoprazole Sodium 40 mg 11/17/24 21:00 Pantoprazole 40 Mg Tablet PO Q12HR [facility] Labs Labs: Laboratory Results - last 24 hr 11/16/24 11/16/24 11/16/24 08:54 18:31 23:51 Hgb 7.2 L 7.0 L Hct 26.3 L 25.5 L Absolute Retic 0.10 Percent Retic 2.73 Immature Retic Fraction 29.4 H Retic Hgb Content 16.0 L Iron 41 TIBC 504 H % Saturation 8 L Ferritin 3.83 L POC Urine HCG, Qual Blood Type O Positive Antibody Screen Positive Antibody Identification Anti-Julia Antigen Identification Not Reportable MARK, IgG Interpret Neg MARK, Poly Interpret Not Performed MARK, Complement Interp Negative Enhanced Crossmatch See Detail 11/17/24 11/17/24 06:11 08:45 Hgb 7.3 L Hct 27.3 L Absolute Retic Percent Retic Immature Retic Fraction Retic Hgb Content Iron TIBC % Saturation Ferritin POC Urine HCG, Qual Negative Blood Type Antibody Screen Antibody Identification Antigen Identification MARK, IgG Interpret MARK, Poly Interpret MARK, Complement Interp Enhanced Crossmatch
[2024-11-17 10:38] LABS: Anion Gap 9 mmol/L (4-12); Blood Urea Nitrogen 10 mg/dL (7-17); Calcium 8.5 mg/dL (8.4-10.2); Carbon Dioxide 27 mmol/L (22-30); Chloride 104 mmol/L (98-107); Estimated CRCL calculation 117 ml/min; Estimated Glomerular Filt Rate > 60; Glucose 122 mg/dL (65-110); Potassium 4.1 mmol/L (3.4-5.0); Sodium 140 mmol/L (137-145)
[2024-11-17] MEDS: IRON SUCROSE COMPLEX 200 MG in SODIUM CHLORIDE 0.9% IV 100 ML 220 MG IVPB (11:03)
[2024-11-17 12:02] LABS: Basophils Percent Auto 0.6 % (0.2-1.2); Eosinophils Absolute Auto 0.1 K/mm3 (0-0.3); Eosinophils Percent Auto 1.6 % (0-4.4); Hemoglobin 7.1 g/dL (12.0-15.0); Immature Granulocyte Absolute 0.01 K/mm3 (0.00-0.031); Immature Granulocyte Percent A 0.2 % (0-0.5); Lymphocytes Absolute Auto 1.84 K/mm3 (0.9-3.2); Lymphocytes Percent Auto 29.2 % (18.3-44.2); Mean Corpuscular HGB Conc 26.3 g/dl (32-36); Mean Corpuscular Hemoglobin 20.7 pg (26-34); Mean Corpuscular Volume 78.7 fl (80-100); Mean Platelet Volume 10.7 fl (7.4-10.4); Monocytes Absolute Auto 0.4 K/mm3 (0.1-0.6); Neutrophils Absolute Auto 3.9 K/mm3 (1.3-6.7); Neutrophils Percent Auto 62.4 % (45.5-73.1); Platelet Count Result 257 k/mm3 (150-375); Red Blood Count 3.43 M/mm3 (4.2-5.4); Red Cell Distribution Width 17.5 % (11.5-14.5); White Blood Count 6.3 K/mm3 (4.5-10.0)
[2024-11-17 12:34] LABS: Anisocytosis 1+; Hypochromasia 1+; Ovalocytes 1+; Platelet Estimate Adequate (Adequate); Schistocytes None Seen
--- NOTE | 2024-11-17 14:10 | P.CONGS_ITS ---
Assessment and Plan Assessment and plan (1) Hiatal hernia: Code(s): K44.9 - Diaphragmatic hernia without obstruction or gangrene Status: Acute Assessment and Plan: This is the reason for our consultation. She has known about her hiatal hernia for 26 years. This is chronic with no acute findings of a volvulus or indication for urgent surgical intervention. She reports symptoms of heartburn, reflux, and regurgitation for many years, and over the past 2-3 years she has also had issues with dysphagia. EGD today showed Luis lesions within a large hiatal hernia that was about 7 cm in size. No active bleeding. She is currently tolerating a diet and planning to be discharged today. There is not urgent, although surgical repair is something to consider and she can be seen as an outpatient. I gave her the information to our office for her to follow-up with Dr. Acuña or Dr. Adrian to discuss surgical options electively as they perform hiatal hernia repairs. Will sign off at this time. (2) Acute GI bleeding: Code(s): K92.2 - Gastrointestinal hemorrhage, unspecified Status: Acute Assessment and Plan: Resolved. EGD showed Luis lesions within a large hiatal hernia, no active bleeding. Colonoscopy showed diverticulosis and internal hemorrhoids without active bleeding. (3) Iron deficiency anemia: Code(s): D50.9 - Iron deficiency anemia, unspecified Status: Acute (4) Obesity, morbid, BMI 40.0-49.9: Code(s): E66.01 - Morbid (severe) obesity due to excess calories Status: Acute Assessment and Plan: BMI 43. Recommended dietary and lifestyle modifications to promote weight loss, especially if considering hiatal hernia repair. Plan I have discussed the patient's case and plan of care with Dr. Gomes. History of Present Illness Consult details Consult date: 11/17/24 Reason for consult: other (Hiatal hernia) Requesting physician: Gustavo Cristina MD Narrative: This is a 43-year-old woman who was admitted with melena and has a longstanding history of peptic ulcer disease, with her first episode being around 10 years ago. We have been asked to see the patient in surgical consultation for hiatal hernia. She has reportedly known of this hernia for about 26 years. She reports having symptoms of heartburn, reflux, and regurgitation for over 20 years. She has adapted her diet to minimize the symptoms. Over the past 2-3 years, she has additionally notice some dysphagia. She had an EGD in July due to anemia and was found to have Luis lesions with the hiatal hernia. She again presented to the ED over the weekend with complaints of GI bleeding, fatigue, dyspnea on exertion, and chest pain. Her hemoglobin was 7 and she was recommended to follow-up with GI. She had outpatient labs a few days later that showed hemoglobin of 6.4. She was admitted for blood transfusion and GI was consulted. They did an EGD and colonoscopy today. She had findings of Luis lesions within a large hiatal hernia, with the hernia measuring around 7 cm in size. No active bleeding. Colonoscopy showed internal hemorrhoids and diverticulosis without active bleeding. She has been treated with iron and transfused with 1 unit of packed red blood cells. Her hemoglobin has remained around 7-7.3. She is now seen on the medical floor. Review of Systems 2 Review of Systems: All systems reviewed & are unremarkable except as noted in HPI and below PMFSH Past Medical History Medical History (Updated 11/17/24 @ 09:19 by Kenroy Johnson MD) Chronic Luis lesion Dysphagia Iron deficiency anemia Peptic ulcer Iron deficiency (01/29/23) transfusion packed red blood Traumatic subdural hematoma Anemia Depression Gestational HTN Diaphragmatic hernia without mention of obstruction or gangrene Esophageal reflux Surgical History Surgical History History of abdominoplasty History of delivery Family History Family History Grandparent Acute myocardial infarction Father Diabetes mellitus Sibling Diabetes mellitus Grandparent Heart disease Mother Hypertension Father Hypertension Father Obesity Mother Obesity Social History Social History Social History: Surrogate medical decision maker: Christopher Prashanth, spouse. Code status: Full code. Smoking packs per day: 1.5 Smoking cigarettes per day: 30.0 Years smoked: 6 Smoking pack-years: 9.00 Smoking status: Never smoker Tobacco type: cigarettes Second hand tobacco smoke exposure: No Alcohol intake: never Substance use: current Substance use type: marijuana Other substance usage details: edibles Last use: 6 months ago Do You Feel Safe in your Home?: Yes Lack of Transportation: No Lack of Food: Never True Current Housing: I Have Housing Concerned About Future Housing: No Difficulty Paying Gas/Electric Bills: No Difficulty Paying for Meds: No Currently Unemployed: No Education: Associate Degree Difficulty w/ Childcare or Family Care: No Living arrangements: with family Additional living arrangements comments: Lives with spouse. She has 5 children. 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: No Agree to blood products: Yes Meds Home Medications and Allergies Home Medications ?Medication ?Instructions ?Recorded ?Confirmed ?Type cholecalciferol (vitamin D3) 1,250 1,250 mcg PO WEEKLY #12 caps 11/27/23 11/16/24 Rx mcg (50,000 unit) capsule cyanocobalamin (vitamin B-12) 1,000 mcg PO DAILY #90 tabs 06/08/24 11/16/24 Rx 1,000 mcg tablet iron 150 mg-vit C 60 mg-folate 1 1 tablet PO BID #60 tabs 08/05/24 11/16/24 Rx [id number] tablet (Niferex (Sumalate-Quatrefolic)) ferrous sulfate 325 mg (65 mg 325 mg PO DAILY #30 tabs 11/17/24 Rx iron) tablet pantoprazole 20 mg tablet,delayed 40 mg (2 x 20 mg) PO DAILY #30 tabs 11/17/24 11/16/24 Rx release Allergies Allergy/AdvReac Type Severity Reaction Status Date / Time NSAIDS (Non-Steroidal AdvReac Severe Ulcers Verified 11/17/24 08:44 Anti-Inflamma Vital Signs Vital Signs - 24 hr 11/16/24 14:18 11/16/24 15:18 11/16/24 16:18 Temperature 97.9 F 97.9 F 97.6 F Pulse Rate 67 76 72 Respiratory Rate 18 20 20 Blood Pressure 101/45 L 102/78 117/68 Pulse Oximetry 95 100 99 Oxygen Delivery 11/16/24 17:18 11/16/24 20:00 11/16/24 20:44 Temperature 97.8 F 97.9 F Pulse Rate 74 72 Respiratory Rate 16 16 Blood Pressure 104/54 L 136/78 Pulse Oximetry 96 98 Oxygen Delivery Room Air 11/17/24 05:40 11/17/24 08:00 11/17/24 08:45 Temperature 98.0 F 97.1 F L Pulse Rate 80 69 Respiratory Rate 16 19 Blood Pressure 121/72 125/63 Pulse Oximetry 94 94 99 Oxygen Delivery Room Air Room Air 11/17/24 09:15 11/17/24 09:25 11/17/24 09:30 Temperature Pulse Rate 57 L 57 L 58 L Respiratory Rate 14 16 15 Blood Pressure 78/28 L 75/30 L 105/53 L Pulse Oximetry 100 96 99 Oxygen Delivery Room Air Room Air Room Air 11/17/24 09:35 11/17/24 09:45 11/17/24 09:50 Temperature Pulse Rate 59 L 66 61 Respiratory Rate 12 19 14 Blood Pressure 89/39 L 106/40 L 92/39 L Pulse Oximetry 97 97 95 Oxygen Delivery Room Air Room Air Room Air 11/17/24 09:53 Temperature Pulse Rate 67 Respiratory Rate 15 Blood Pressure 107/55 L Pulse Oximetry 97 Oxygen Delivery Room Air Exam 2 Const: General: comfortable and no acute distress Nutritional Appearance: o bese Orientation/consciousness: patient oriented x3 HENMT: Head: normocephalic and atraumatic Ears: hearing grossly normal bilaterally Eyes: General: appearance normal, both eyes and all related structures P upils: Equal, round and reactive pupils present Neck: Neck: normal visual inspection and full ROM Resp: Effort & Inspection: no respiratory distress Auscultation: clear to auscultation bilaterally Cardio: Rate: regular rate Rhythm: regular rhythm Peripheral pulses: P eripheral pulses 2+ throughout GI: Inspection: non-distended and scar (circular periumbilical scar & horizontal lower abd scar from abdominoplasty) GI Palp: Yes Soft to palpation, No Tenderness to palpation present (GI), No Guarding due to palpation present (GI) and No Rebound tenderness present Auscultation: normal bowel sounds Skin: General skin exam: normal color Neuro: General: moves all extremities and no focal motor deficits Speech: n ormal speech Motor exam (neuro): 5/5 motor strength present throughout Extrem: General: normal to inspection and no edema Psych: Mental Status: mental status grossly normal Attitude: cooperative Insight: Good insight present (Psych) Judgement: Good judgement present (Psych) Results Labs 11/17/24 11:10 11/17/24 06:11 Labs: Abnormal lab results 11/16/24 11/16/24 11/16/24 Range/Units 08:54 18:31 23:51 RBC (4.2-5.4) M/mm3 Hgb 7.2 L 7.0 L (12.0-15.0) g/dL Hct 26.3 L 25.5 L (37.0-47.0) % MCV (80-100) fl MCH (26-34) pg MCHC (32-36) g/dl RDW (11.5-14.5) % MPV (7.4-10.4) fl Glucose (65-110) mg/dL Enhanced Crossmatch See Detail 11/17/24 11/17/24 Range/Units 06:11 11:10 RBC 3.43 L (4.2-5.4) M/mm3 Hgb 7.3 L 7.1 L (12.0-15.0) g/dL Hct 27.3 L 27.0 L (37.0-47.0) % MCV 78.7 L (80-100) fl MCH 20.7 L (26-34) pg MCHC 26.3 L (32-36) g/dl RDW 17.5 H (11.5-14.5) % MPV 10.7 H (7.4-10.4) fl Glucose 122 H (65-110) mg/dL Enhanced Crossmatch Diabetes panel 11/17/24 Range/Units 06:11 Sodium 140 (137-145) mmol/L Potassium 4.1 (3.4-5.0) mmol/L Chloride 104 (98-107) mmol/L Carbon Dioxide 27 (22-30) mmol/L BUN 10 (7-17) mg/dL Creatinine 0.80 (0.7-1.0) mg/dL Glucose 122 H (65-110) mg/dL Calcium 8.5 (8.4-10.2) mg/dL Calcium panel 11/17/24 Range/Units 06:11 Calcium 8.5 (8.4-10.2) mg/dL Pituitary panel 11/17/24 Range/Units 06:11 Sodium 140 (137-145) mmol/L Potassium 4.1 (3.4-5.0) mmol/L Chloride 104 (98-107) mmol/L Carbon Dioxide 27 (22-30) mmol/L BUN 10 (7-17) mg/dL Creatinine 0.80 (0.7-1.0) mg/dL Glucose 122 H (65-110) mg/dL Calcium 8.5 (8.4-10.2) mg/dL Adrenal panel 11/17/24 Range/Units 06:11 Sodium 140 (137-145) mmol/L Potassium 4.1 (3.4-5.0) mmol/L Chloride 104 (98-107) mmol/L Carbon Dioxide 27 (22-30) mmol/L BUN 10 (7-17) mg/dL Creatinine 0.80 (0.7-1.0) mg/dL Glucose 122 H (65-110) mg/dL Calcium 8.5 (8.4-10.2) mg/dL All other labs normal.
--- NOTE | 2024-11-17 14:39 | P.DS_ITS ---
DS: Admitting Diagnosis Discharge Date 11/17/24 Admitting Diagnosis (1) Severe anemia: Code(s): D64.9 - Anemia, unspecified Status: Acute (2) Acute on chronic blood loss anemia: Code(s): D62 - Acute posthemorrhagic anemia Status: Acute (3) Acute GI bleeding: Code(s): K92.2 - Gastrointestinal hemorrhage, unspecified Status: Acute (4) PTSD (post-traumatic stress disorder): Code(s): F43.10 - Post-traumatic stress disorder, unspecified Status: Acute (5) Obesity, morbid, BMI 40.0-49.9: Code(s): E66.01 - Morbid (severe) obesity due to excess calories Status: Acute DS: Discharge Diagnosis Discharge Diagnosis (1) Severe anemia: Code(s): D64.9 - Anemia, unspecified Status: Acute (2) Acute on chronic blood loss anemia: Code(s): D62 - Acute posthemorrhagic anemia Status: Acute (3) Acute GI bleeding: Code(s): K92.2 - Gastrointestinal hemorrhage, unspecified Status: Acute (4) PTSD (post-traumatic stress disorder): Code(s): F43.10 - Post-traumatic stress disorder, unspecified Status: Acute (5) Obesity, morbid, BMI 40.0-49.9: Code(s): E66.01 - Morbid (severe) obesity due to excess calories Status: Acute DS: Summary Hospital Course Hospital Course: 43 old female with history of GI bleeding, a deficient anemia present ED with a chief complaint of black stool and anemia. Patient noticed black stools recently. Patient follow-up with PCP. And patient was found have anemia hemoglobin 6.4. Therefore patient was sent to ED for evaluation treatment. Upon arrival in the ED, patient was hemodynamically stable, afebrile, pulse ox 100% on room air, CBC showed anemia hemoglobin 7.0 chemistry unremarkable. In the ED, patient received 1 pack RBC. ER physician also consulted GI. We admit patient for further evaluation and management Acute GI bleeding Patient has black stools recently Patient also has history of GB Patient is on Protonix 40 mg daily p.o. Will start Protonix 40 mg b.i.d. IV Keep patient NPO, start light Ringer IV Consult GI Patient underwent EGD and colonoscopy , patient was found have hiatal hernia, no gastritis, small size internal hemorrhoid 11/17 Hiatal hernia Consult general surgeon for hiatal hernia repair Appreciate general surgery consultation, general surgeon will follow up patient in the office Acute come blood-loss anemia Patient has history of iron deficient anemia, on iron p.o. Patient found have severe anemia, hemoglobin 6.4 today, 7.0 today Possible due to GI bleeding Received 1 pack RBC in the ED Follow-up ferritin, iron panel Follow-up hemoglobin and hematocrit q.6 hours, transfuse p.r.n. if hemoglobin drops below 7 Ferritin 3.83, iron 41, iron saturation 8, suggest iron deficient anemia Provided Venofer IV 200 mg daily Provide ferrous sulfate 325 mg daily p.o. GI and surgeon agree to discharge patient today Time Spent with Patient Time attestation: Total time spent providing and/or coordinating discharge services: Exam Narrative: GENERAL: Pleasant, in no acute distress. Well-nourished. - EYES: EOMI. Anicteric. Pale - HENT: Moist mucous membranes. - LUNGS: Clear to auscultation bilateral ly, no wheezing, rhonchi, or rales. - CARDIOVASCULAR: Regular rate and rhyth m. No murmur. No JVD. - ABDOMEN: Soft, non-tender and non-dist ended. No palpable masses. - EXTREMITIES: No edema. Peripheral puls es 2+. Non-tender. - NEUROLOGIC: No focal neurological defi cits. CN II-XII grossly intact. - PSYCHIATRIC: Awake, Alert and oriented x 3. Appropriate mood and affect. - SKIN: No rashes or lesions. Warm. - LYMPH: No cervical lymphadenopathy. DS: Data Data Completed and Pending Pending studies at discharge: Pending at discharge 11/17/24 09:06 Surgical [PTH] Routine Labs on day of discharge: Labs from last 24 hours 11/17/24 11/17/24 11/17/24 11:10 08:45 06:11 WBC 6.3 RBC 3.43 L Hgb 7.1 L 7.3 L Hct 27.0 L 27.3 L MCV 78.7 L MCH 20.7 L MCHC 26.3 L RDW 17.5 H Plt Count 257 MPV 10.7 H Immature Gran % (Auto) 0.2 Neut % (Auto) 62.4 Lymph % (Auto) 29.2 [place] % (Auto) 6.0 Eos % (Auto) 1.6 Baso % (Auto) 0.6 Lymph # (Auto) 1.84 [place] # (Auto) 0.4 Eos # (Auto) 0.1 Baso # (Auto) 0.0 Abs Immat Gran (auto) 0.01 Absolute Neuts (auto) 3.9 Absolute Nucleated RBC 0.000 Nucleated RBC % 0.0 Platelet Estimate Adequate Hypochromasia 1+ Anisocytosis 1+ Ovalocytes 1+ Schistocytes None seen Sodium 140 Potassium 4.1 Chloride 104 Carbon Dioxide 27 Anion Gap 9 BUN 10 Creatinine 0.80 Estim Creat Clear Calc 117 Estimated GFR > 60 Glucose 122 H Calcium 8.5 POC Urine HCG, Qual Negative Enhanced Crossmatch 11/16/24 11/16/24 11/16/24 23:51 18:31 08:54 WBC RBC Hgb 7.0 L 7.2 L Hct 25.5 L 26.3 L MCV MCH MCHC RDW Plt Count MPV Immature Gran % (Auto) Neut % (Auto) Lymph % (Auto) [place] % (Auto) Eos % (Auto) Baso % (Auto) Lymph # (Auto) [place] # (Auto) Eos # (Auto) Baso # (Auto) Abs Immat Gran (auto) Absolute Neuts (auto) Absolute Nucleated RBC Nucleated RBC % Platelet Estimate Hypochromasia Anisocytosis Ovalocytes Schistocytes Sodium Potassium Chloride Carbon Dioxide Anion Gap BUN Creatinine Estim Creat Clear Calc Estimated GFR Glucose Calcium POC Urine HCG, Qual Enhanced Crossmatch See Detail Discharge Plan Discharge Attending physician on discharge: Gustavo Cristina Consulting providers: Hunter Gomes Discharging Clinician: Gustavo Cristina Anticipated Discharge Date/Time: 11/17/24 14:39 Patient Disposition: Home, Self-Care Activity: as tolerated Diet: as tolerated and low fiber Patient Instructions: Antibiotic Form Patient Language: [place] Stand Alone Forms: General Discharge Information, Work/School Release IP Follow-up/Referrals: Phil Canas DO [Primary Care Provider] - (See PCP in 1 week) Vamsi Orta MD [Physician] - (See GI at scheduled appointment) Hunter Gomes MD [Physician] - (See general surgeon at scheduled appointment) Discharge Medications: New ferrous sulfate 325 mg (65 mg iron) tablet 325 mg PO DAILY Qty: 30 1RF Continued Niferex (Sumalate-Quatrefolic) 150 mg iron- 60 mg-1 mg tablet 1 tablet PO BID Qty: 60 0RF cholecalciferol (vitamin D3) 1,250 mcg (50,000 unit) capsule 1,250 mcg PO WEEKLY Qty: 12 0RF Rx Instructions: takes on Fri cyanocobalamin (vitamin B-12) 1,000 mcg tablet 1,000 mcg PO DAILY Qty: 90 0RF pantoprazole 20 mg tablet,delayed release (DR/EC) 40 mg PO DAILY Qty: 30 0RF Date of admission: 11/17/24 13:40 Primary Care Provider: Phil Canas Admitting Provider: Gustavo Cristina Attending physician on admission: Gustavo Cristina Condition: Stable
== END 2024-11-17 16:24 | disposition home or self-care (01) | DRG 812 ==
LOC: ANHED 08:49 → ANH3MEDSUR 11:34
PROVIDERS: Internal Medicine Gastroenterology; Nurse Anesthetist, Certified Registered; Admitting Provider Hospitalist; Emergency Provider Emergency Medicine; PCP Family Medicine; Visit Provider Hospitalist
PROC: 0DJ08ZZ Inspection of Upper Intestinal Tract, Via Natural or Artificial Opening Endoscopic (ICD-10-PCS; CPT 45378; principal; 2024-11-17 15:00)
DX: D50.9 Iron deficiency anemia, unspecified (principal); K92.2 Gastrointestinal hemorrhage, unspecified; D62 Acute posthemorrhagic anemia; K44.9 Diaphragmatic hernia without obstruction or gangrene; K31.89 Other diseases of stomach and duodenum; K64.8 Other hemorrhoids; F43.10 Post-traumatic stress disorder, unspecified; E66.01 Morbid (severe) obesity due to excess calories; Z87.11 Personal history of peptic ulcer disease
CPT/HCPCS: 36415; 36430; 80048; 80053; 82728; 83540; 83550; 85014; 85018; 85025; 85046; 85610; 85730; 86850; 86880; 86900; 86901; 86902; 86922; 88305; 93005; 96361; 96374; 96375; 96376; 99285; A9270; G0378; J1756; J2470; J7030; J7050; J7120; P9016

== ENCOUNTER 2024-12-19 17:25 | Emergency (ER) | payer OTHER, SELFPAY ==
--- NOTE | ~2024-12-19 | XR_ITS ---
HISTORY: KNEE BENT BACKWARDS/PAIN COMPARISON: None TECHNIQUE: 4 views of the right knee were performed. FINDINGS: No acute or subacute fracture. Medial tibiofemoral joint space narrowing is identified. Large, dense suprapatellar joint effusion is identified. The infrapatellar joint space is distended and irregular but clear. IMPRESSION: Large suprapatellar joint effusion without acute fracture. Reviewed, dictated and finalized at location A. N PROFESSIONAL
[2024-12-19 17:25] VITALS: BP 167/88; PULSE 89; RESP 20; TEMP 36.8; O2SAT 100
--- OUTSIDE RECORDS SUMMARY | 2024-12-19 17:26 | XMS_ITS | Clinical Summary ---
Author Organization [facility] Address [address] [place] [address] Care Team Providers Care Internal Control Specialist Name Role Phone Phil Canas DO Primary Care Provider [phone] Source Comments [facility],non-owned Affiliates and Associated Physician Practices is amultiple site organization consisting of ambulatory clinics and hospital sitesin [place], [place], [place] and [place]. This disclosure is being madepursuant to the Care Everywhere program and may not contain all information available regarding this patient. Last updated 18.[facility] Allergies Active Allergy Reactions Criticality Noted Date [...] Date Recorded PHQ2 TOTAL SCORE 0 05/16/2023 [facility] - Occupational Stress Questionnaire Answer Date Recorded [...] place to sleep or slept in a custodial (including now)? No 05/16/2023 [place] Depression Scale Answer Date Recorded [place] Depression Scale Total 10 05/27/2023 The thought [...] 81 05/26/2023 10:00 AM CDT Temperature 36.3 C (97.4 F) 05/24/2023 9:54 AM CDT Respiratory Rate 16 05/26/2023 10:0 0 AM [...] - 107 mmol/L 05/16/2023 4:36 PM CDT [facility] CO2 22 22 - 29 mmol/L 05/16/2023 4:36 PM CDT [facility] Calcium 9.0 8.4 - 10.4 mg/dL 05/16/2023 4:36 PM CDT [facility] Anion Gap 8 6 - 16 mmol/L 05/16/2023 4:36 PM CDT [facility] BUN 8 5.3 - 18.7 mg/dL 05/16/2023 4:36 PM CDT [facility] Creatinine 0.73 0.57 - 1.11 mg/dL 05/16/2023 4:36 PM CDT [facility] Alkaline Phosphatase 126 40 - 150 U/L 05/16/2023 4:36 PM CDT [facility] ALT <6 0 - 55 U/L 05/16/2023 4:36 PM CDT [facility] AST 8 5 - 34 U/L 05/16/2023 4:36 PM CDT [facility] Protein Total 6.7 6.4 - 8.3 gm/dL 05/16/2023 4:36 PM CDT [facility] Albumin 2.2(L) 3.4 - 5.0 gm/dL 05/16/2023 4:36 PM CDT [facility] Bilirubin Total 0.2 0.2 - 1.2 mg/dL 05/16/2023 4:36 PM CDT [facility] eGFR by CKD-EPI >90 >=90 mL/min/1.7 3 m2 05/16/2023 4:36 PM CDT [facility] Blood BLOOD SPECIMEN / Unknown Venipuncture / Unknown 05/16/2023 4:09 PM CDT 05/16/2023 4:14 PM CDT Malik Maria MD LAB - CHEMISTRY DARLENE GONZALEZ [facility] [address] [place], [place] [id number] * PAP IG LB+HPV APTIMA (05/08/2023 10:19 AM CDT) Diagnosis Comment 05/11/2023 3:07 PM CDT [facility] ([facility]) Comment:NEGATIVE FOR INTRAEP ITHELIAL LESION OR MALIGNANCY. Specimen Adequacy Comment 023 3:07 PM CDT [facility] ([facility]) Comment: Satisfactory for evaluation. Endocervical and/or squamous metaplastic cells (endocervical component) are present. Areas of partially obscuring blood are present. Performed by Comment 05/11/2023 3:07 PM CDT [facility] ([facility]) Comment:Ashley Ochoa, Cytot echnologist (ASCP) Comment . 05/11/2023 3:07 PM CDT [facility] ([facility]) Note Comment 05/11/2023 3:07 PM CDT [facility] ([facility]) Comment: The Pap smear is a screening test designed to aid in the detection of premalignant and malignant conditions of the uterine cervix. It is not a diagnostic procedure and should not be used as the sole means of detecting cervical cancer. Both false-positive and false-negative reports do occur. IGLBP CPT Code Automation Comment 05/11/2023 3:07 PM CDT [facility] ([facility]) Comment: This liquid based ThinPrep(R) pap test was screened with the use of an image guided system. Human papillomavirus Aptima Negative Negative 05/11/2023 3:07 PM CDT [facility] ([facility]) Comment: This nucleic acid amplification test detects fourteen high-risk HPV types (16,18,31,33,35,39,45,51,52,56,58,59,66,68) without differentiation. Pathology/Cytolo gy PART OF UTERINE CERVIX / Unknown Collection / Unknown 05/08/2023 10:19 AM CDT 05/08/2023 11:29 AM CDT Narrative [facility] ([facility]) - 05/11/2023 3:07 PM CDT Performed at: 01 - [address] [id number] [place] Drier: Marguerite Yap MD, Phone: [phone] Performed at: 02 - [address] [id number] [place] Drier: Marguerite Yap MD, Phone: [phone] Specimen Comment: No. of containers..01 ThinPrep Vial Belle Jeffery MD LAB - PATHOLOG Y/CYTOLOGY ORDERABLES [facility] ([facility]) [address] [place] [address] from Last 3 Months or Most Recently Relevant to Health Maintenance Advance Directives * Full Code (Latest Code Status on File) Date Activated Date Inactivated Comments 05/19/2023 9:54 PM 05/24/2023 1:45 PM * Full Code Date Activated Date Inactivated Comments 05/16/2023 5:26 PM 05/19/2023 9:54 PM * Full Code Date Activated Date Inactivated Comments 01/29/2023 4:35 AM 01/30/2023 5:01 PM Care Teams Internal Control Specialist Relationship Specialty Start Date End Date Phil Canas DO [address] [place] [id number] PCP - General Family Medicine 04/28/23
--- NOTE | 2024-12-19 17:27 | ED.LOWEXIN ---
HPI - Extremity Injury (Lower) General Chief Complaint: Extremity Injury, Lower Stated Complaint: knee injury Time Seen by Provider: 12/19/24 17:26 Source: patient Mode of arrival: ambulatory Limitations: no limitations History of Present Illness HPI Narrative: patient is a 43-year-old female with right knee injury after jumping on a trampoline and landing into a ball pit. She heard a cracking sound a few times. complaint: knee injury ( Right) Onset (ago): hour(s) ( 2) Injury: Right: knee Type of Injury: blunt ( jumping) Place: other ( park for trampoline) Severity: severe Severity scale (1-10): 8 Relieving factors: nothing Exacerbating factors: weight bearing, movement and palpation Context: fall and jumping Associated symptoms: snap/pop sensation and able to partially bear weight Other symptoms: none Treatments prior to arrival: cold therapy Related Data Allergies Allergy/AdvReac Type Severity Reaction Status Date / Time NSAIDS (Non-Steroidal AdvReac Severe Ulcers Verified 12/19/24 17:34 Anti-Inflamma Review of Systems Review of Systems: All systems reviewed & are unremarkable except as noted in HPI and below Constitutional: Constitutional: Reports no additional constitutional complaints Eyes: Eyes: Reports no additional eye complaints ENT: Reports system reviewed and no additional complaints, except as documented Cardiovascular: Cardiovascular: Reports no additional cardiovascular complaints Respiratory: Respiratory: Reports no additional respiratory complaints Gastrointestinal: Gastrointestinal: Reports no additional gastrointestinal complaints Genitourinary: Genitourinary: Reports no additional female genitourinary complaints Musculoskeletal: Musculoskeletal: Reports no additional musculoskeletal complaints Integumentary/Breasts: Skin/Breast: Reports system reviewed and no additional complaints, except as docu Neurologic: Reports system reviewed and no additional complaints, except as documented Psychiatric: Psychiatric: Reports no additional psychiatric complaints Endocrine: Endocrine: Reports no additional endocrine complaints Hematologic/Lymphatic: Hematologic/Lymphatic: Reports no additional hematologic/lymphatic complaints Allergic/Immunologic: Allergic/Immunologic: Reports no additional allergic/immunologic complaints [facility] Past Medical History Medical History Chronic Luis lesion Dysphagia Iron deficiency anemia Peptic ulcer Iron deficiency (01/29/23) transfusion packed red blood Traumatic subdural hematoma Anemia Depression Gestational HTN Diaphragmatic hernia without mention of obstruction or gangrene Esophageal reflux Surgical History Surgical History History of abdominoplasty History of delivery Family History Family History Grandparent Acute myocardial infarction Father Diabetes mellitus Sibling Diabetes mellitus Grandparent Heart disease Mother Hypertension Father Hypertension Father Obesity Mother Obesity Social History Social History Social History: Surrogate medical decision maker: Christopher Alford, spouse. Code status: Full code. Smoking packs per day: 1.5 Smoking cigarettes per day: 30.0 Years smoked: 6 Smoking pack-years: 9.00 Smoking status: Never smoker Tobacco type: cigarettes Second hand tobacco smoke exposure: No Alcohol intake: never Substance use: current Substance use type: marijuana Other substance usage details: edibles Last use: 6 months ago Do You Feel Safe in your Home?: Yes Lack of Transportation: No Lack of Food: Never True Current Housing: I Have Housing Concerned About Future Housing: No Difficulty Paying Gas/Electric Bills: No Difficulty Paying for Meds: No Currently Unemployed: No Education: Associate Degree Difficulty w/ Childcare or Family Care: No Living arrangements: with family Additional living arrangements comments: Lives with spouse. She has 5 children. 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: No Agree to blood products: Yes Exam Const: General: healthy appearing Nutritional Appearance: well nourished Orientation/consciousness: patient oriented x3 Limitations: no limitations HENMT: Head: normal to inspection Ears: external ears normal Face/Nose/Sinus: Normal external nose present Eyes: Conjunctivae: conjunctivae normal Pupils: Equal, round and reactive pupils present EOM: EOMs intact bilaterally Neck: Neck: normal visual inspection Chest: Chest palpation & inspection: normal inspection of the chest Resp: Effort & Inspection: normal respiratory effort and not labored Auscultation: clear to auscultation bilaterally and no crackles Cardio: Rate: regular rate Rhythm: regular rhythm Heart sounds: no murmurs GI: Inspection: non-distended GI Palp: Yes Soft to palpation and No Tenderness to palpation present (GI) Auscultation: normal bowel sounds : General: Yes bladder normal to palpation Back/Spine/Pelvis: Back: no CVA tenderness Skin: General skin exam: normal color Rashes: no rashes Wounds: no wounds Other: ecchymosis of the right knee laterally small area Neuro: General: patient oriented x3 Cranial nerves: Yes Nystagmus not present Speech: normal speech Gait exam (Neuro): gait abnormal Other: difficulty walking due to right knee pain Extrem: General: abnormal to inspection Other: right knee tender to range of motion and palpation; ecchymosis seen Psych: Mental Status: mental status grossly normal Affect: Anxious affect present ( due to pain) Attitude: cooperative Course Vital Signs Vital signs: Vital Signs Temperature 36.8 C 12/19/24 17:25 Pulse Rate 89 12/19/24 17:25 Respiratory Rate 20 12/19/24 17:25 Blood Pressure 167/88 H 12/19/24 17:25 Pulse Oximetry 100 12/19/24 17:25 Oxygen Delivery Room Air 12/19/24 17:25 Temperature 36.8 C 12/19/24 17:25 Pulse Rate 89 12/19/24 17:25 Respiratory Rate 20 12/19/24 17:25 Blood Pressure 167/88 H 12/19/24 17:25 Pulse Oximetry 100 12/19/24 17:25 Oxygen Delivery Room Air 12/19/24 17:25 MDM - Extremity Injury (Lower) MDM Narrative Medical decision making narrative: patient is a 43-year-old female with right knee injury and acute pain. We will do x-ray and pain control. Imaging Data Attestation: I personally reviewed and interpreted this imaging study as follows: Radiologist's impression: Right knee x-ray shows IMPRESSION: Large suprapatellar joint effusion without acute fracture Discharge Plan Discharge Clinical Impression: Acute internal derangement of right knee, Effusion of knee joint right Patient Disposition: Home, Self-Care Condition: Stable Instructions: Swollen Knee Joint (ED), Knee Pain (ED) Additional Instructions: please follow-up with the primary doctor in the next week. I suggest an MRI to be ordered by the outpatient physician in the next 1-2 weeks. You may also want to see an specialist employee labor relations in the next week. [facility]ut[facility] can be obtained at [facility]. Patient Language: Greek Prescriptions: New hydrocodone-acetaminophen 5-325 mg tablet 1 tablet PO Q8H PRN (Reason: pain) Qty: 20 0RF Rx Instructions: 1-2 tabs per dose methylprednisolone [Medrol (Roland)] 4 mg tablets,dose pack See Rx Instructions .ROUTE .COMPLEX Qty: 21 0RF Rx Instructions: orally per package directions No Action Niferex (Sumalate-Quatrefolic) 150 mg iron- 60 mg-1 mg tablet 1 tablet PO BID Qty: 60 0RF pantoprazole 20 mg tablet,delayed release (DR/EC) 40 mg PO DAILY Qty: 30 0RF ferrous sulfate 325 mg (65 mg iron) tablet 325 mg PO DAILY Qty: 30 1RF cholecalciferol (vitamin D3) 1,250 mcg (50,000 unit) capsule 1,250 mcg PO WEEKLY Qty: 12 0RF Rx Instructions: takes on Wed cyanocobalamin (vitamin B-12) 1,000 mcg tablet 1,000 mcg PO DAILY Qty: 90 0RF Follow-up/Referrals: Phil Canas DO [Primary Care Provider] - Time of Disposition: 18:40
--- OUTSIDE RECORDS SUMMARY | 2024-12-19 17:27 | XMS_ITS | Patient Health Summary ---
Author Organization [facility] Address [address] [place] [address] Care Team Providers Care Blockmason Name Role Phone Phil Canas DO Primary Care Provider [phone] Note from [facility],non-owned Affiliates and Associated Physician Practices is amultiple site organization consisting of ambulatory clinics and hospital sitesin [place], [place] and [place]. This disclosure is being madepursuant to the Care Everywhere program and may not contain all information available regarding this patient. Last updated 18.[facility] Allergies * Nsaids(Other) -High Criticality Medications * [...] Date Recorded PHQ2 TOTAL SCORE 0 05/16/2023 [facility] [place] [facility] - Occupational Stress [...] money to buy more. Never true 05/16/20 Within the past 12 months, t he [...] place to sleep or slept in a group home (including now)? No 05/16/2023 [place] Depression Scale Answer Date Recorded [place] Depression Scale Total 10 05/27/2023 The thought [...] of , Obesity affecting in third trimester ([facility]), BMI 40.0- 44.9, adult ([facility]), Antepartum multigravida of advanced maternal age (HCC), History of delivery affecting ([facility]), History of abnormal cervical Pap smear * SONOGRAM - COMPLETE(Performed 04/09/2023) Performed for Encounter for anatomic survey ([facility]), 30 weeks gestation of ([facility]), Elevated blood pressure reading without diagnosis of hypertension, History of pre-eclampsia * SONOGRAM - COMPLETE(Performed 03/12/2023) Performed for History of , Anemia, unspecified type, Chronic hypertension affecting ([facility]), Antepartum multigravida of advanced maternal age ([facility]), Encounter for follow-up ultrasound of anatomy ([facility]), Encounter for ultrasound to assess growth ([facility]) * SONOGRAM - COMPLETE(Performed 02/07/2023) Performed for Encounter for anatomic survey ([facility]), Class 3 obesity ([facility]), Encounter for screening for cervical length ([facility]), AMA (advanced maternal age) multigravida 35+, second trimester ([facility]) * FERRITIN(Performed 01/30/2023) Performed for History [...] AUTO DIFFERENTIAL(Performed 01/30/2023) Performed for Antepartum anemia ([facility]) * COMPREHENSIVE METABOLIC PANEL(Performed 01/30/2023) Performed for Antepartum anemia ([facility]) * PREPARE RBC LEUKOREDUCED UNIT(Performed 01/29/2023) [...] for Antepartum multigravida of advanced maternal age ([facility]), Class 3 obesity ([facility]) * SONOGRAM - COMPLETE(Performed 12/11/2022) Performed for Antepartum multigravida of advanced maternal age ([facility]), BMI 40.0- 44.9, adult ([facility]), History of gestational hypertension, History of delivery affecting ([facility]), 13 weeksgestation of ([facility]) Results * (ABNORMAL) CBC W/O DIFFERENTIAL (05/24/2023 10:30 AM CDT) Only the most recent of2 resultswithin the time period is included. [facility] WBC 9.7 4.4 - 10.7 x10E9/L 05/24/2023 10:58 AM CDT [facility] RBC 3.48(L) 3.80 - 5.20 x10E12/L 05/24/2023 10:58 AM CDT [facility] Hemoglobin 8.4(L) 12.0 - 15.6 gm/dL 05/24/2023 10:58 AM CDT [facility] Hematocrit 29.7(L) 35.9 - 45.5 % 05/24/2023 10:58 AM CDT [facility] MCV 85.3 80.7 - 98.3 fl 05/24/2023 10:58 AM CDT [facility] MCH 24.1(L) 26.7 - 34.0 pg 05/24/2023 10:58 AM CDT [facility] MCHC 28.3(L) 30.8 - 35.9 gm/dL 05/24/2023 10:58 AM CDT [facility] Platelet Count 147(L) 153 - 416 x10E9/L 05/24/2023 10:58 AM CDT [facility] RDW-CV 20.6(H) 12.1 - 14.9 % 05/24/2023 10:58 AM CDT [facility] MPV 10.4 9.4 - 12.9 fl 05/24/2023 10:58 AM CDT [facility] Blood BLOOD SPECIMEN / Unknown Lab Venipuncture / Unknown 05/24/2023 10:30 AM CDT 05/24/2023 10:50 AM CDT Malik Maria MD LAB - HEMATOLOGY ORD ERABLES Performing Organization Address City/[facility]/ZIP Co de Phone Number [facility] [address] [place] [id number] * PREPARE (CROSSMATCH) RBC UNIT(S), 2 Units (05/23/2023 1:41 AM CDT) Only the most recent of2 resultswithin the time period is included. Unit Description AS1 LR PRBC [facility] Unit ABO O [facility] Unit Rh POS [facility] Product Number R43 [facility] Unit Donor # [id number] [facility] Unit Status released [facility] Product Code [id number] [facility] Blood Type Barcode 5100 [facility] Expiration Date S [facility] Unit Description AS1 LR PRBC [facility] Unit ABO O [facility] Unit Rh POS [facility] Product Number R02 [facility] Unit Donor # [id number] [facility] Unit Status released [facility] Product Code [id number] [facility] Blood Type Barcode 5100 [facility] Expiration Date S [facility] Blood Bank BLOOD SPECIMEN / Unknown 05/19/2023 11:02 AM CDT Malik Maria MD LAB - BLOOD BANK ORD ERABLES [facility] [address] [place] [address] * (ABNORMAL) CBC W AUTO DIFFERENTIAL (05/22/2023 6:07 AM CDT) Only the most recent of6 resultswithin the time period is included. WBC 11.8(H) 4.4 - 10.7 x10E9/L 05/22/2023 6:39 AM CDT [facility] WBC Corrected 05/22/2023 6:39 AM CDT [facility] RBC 3.15(L) 3.80 - 5.20 x10E12/L 05/22/2023 6:39 AM CDT [facility] Hemoglobin 7.6(L) 12.0 - 15.6 gm/dL 05/22/2023 6:39 AM CDT [facility] Hematocrit 26.6(L) 35.9 - 45.5 % 05/22/2023 6:39 AM CDT [facility] MCV 84.4 80.7 - 98.3 fl 05/22/2023 6:39 AM CDT [facility] MCH 24.1(L) 26.7 - 34.0 pg 05/22/2023 6:39 AM CDT [facility] MCHC 28.6(L) 30.8 - 35.9 gm/dL 05/22/2023 6:39 AM CDT [facility] Platelet Count 110(L) 153 - 416 x10E9/L 05/22/2023 6:39 AM CDT [facility] RDW-CV 18.7(H) 12.1 - 14.9 % 05/22/2023 6:39 AM CDT [facility] MPV 10.4 9.4 - 12.9 fl 05/22/2023 6:39 AM CDT [facility] Neutrophils % 75.2(H) 44.0 - 73.0 % 05/22/2023 6:39 AM CDT [facility] Lymphocytes % 18.0(L) 20.0 - 43.0 % 05/22/2023 6:39 AM CDT [facility] Monocytes % 5.8 5.0 - 13.0 % 05/22/2023 6:39 AM CDT [facility] Eosinophils % 0.4 0.0 - 6.0 % 05/22/2023 6:39 AM CDT [facility] Basophils % 0.3 0.0 - 2.0 % 05/22/2023 6:39 AM CDT [facility] Immature Granulocytes 0.3 0 - 1 % 05/22/2023 6:39 AM CDT [facility] Neutrophil Absolute 8.88(H) 2.01 - 7.14 x10E9/L 05/22/2023 6:39 AM CDT [facility] Lymphocytes Absolute 2.13 1.07 - 3.94 x10E9/L 05/22/2023 6:39 AM CDT [facility] Monocytes Absolute 0.69 0.26 - 1.07 x10E9/L 05/22/2023 6:39 AM CDT [facility] Eosinophils Absolute 0.05 0 - 0.47 x10E9/L 05/22/2023 6:39 AM CDT [facility] Basophils Absolute 0.03 0 - 0.08 x10E9/L 05/22/2023 6:39 AM CDT [facility] Immature Granulocytes Absolute 0.04 0.00 - 0.06 x10E9/L 05/22/2023 6:39 AM CDT [facility] nRBC Auto 0 /100 WBC 05/22/2023 6:39 AM CDT [facility] Blood BLOOD SPECIMEN / Unknown Lab Venipuncture / Unknown 05/22/2023 6:07 AM CDT 05/22/2023 6:30 AM CDT Malik Maria MD LAB - HEMATOLOGY ORD ERABLES [facility] [address] [place] [address] * PATHOLOGY TISSUE EXAM (STL) (05/21/2023 5:07 PM CDT) Case Report Surgical Pathology Report Case: [id number] Authorizing Provider: Amalia Shearer MD Collected: 05/21/2023 05:07 PM Ordering Location: [facility] Received: 05/22/2023 08:05 AM Pathologist: Bette Garcia MD Specimen: Placenta 3rd Trimester 05/23/2023 10:[address] [facility] Final Diagnosis Placenta, vaginal delivery - Slightly immature placenta with accelerated villous maturation and mild villous dysmorphology - Minimal acute subchorionitis (maternal inflammatory response stage 1, grade 1) - Occasional circulating nucleated red blood cells - membranes with no histopathologic abnormality - Three-vessel umbilical cord with no histopathologic abnormality 05/23/2023 10:[address] [facility] Clinical History The patient is a 42-year-old woman at 36 weeks, 1 day gestation. Procedure: vaginal delivery. 05/23/2023 10:[address] [facility] Gross Description The requisition and specimen(s) [...] beefy red, spongy parenchyma without discrete lesions. Construction Superintendent sections submitted as follows: A1 - umbilical cord and membranes, A2-4 placenta. WM 05/23/2023 10:[address] [facility] Microscopic Description Microscopic examination substantiates the above diagnosis. 05/23/2023 10:[address] [facility] Pathologist Location at [facility] 05/23/2023 10:[address] [facility] Disclaimer All histochemical and/or immunohistochemical results are interpreted with controls that demonstrate appropriate staining reactions before reporting results. Note on use of immunocytochemistry reagents: This test was developed and its performance characteristic determined by [facility], Department of Laboratory Medicine. It has not [...] interpreted with caution. 05/23/2023 10:19 AM CDT [facility] Embedded Images 05/23/2023 10:19 AM CDT [facility] Pathology/Cytolo gy ENTIRE PLACENTA / Unknown Collection / Unknown 05/21/2023 5:07 PM CDT 05/22/2023 8:05 AM CDT Amalia Shearer MD LAB - PATHOLOGY/CYTO LOGY ORDERABLES Performing Organization Address City/State/[facility] Co de Phone Number [facility] [address] [place] [address] * (ABNORMAL) BLOOD GASES CORD OTTO (ISTAT) (05/21/2023 5:00 PM CDT) pH Cord Venous POCT 7.26(L) 7.28 - 7.40 pH 05/21/2023 5:42 PM CDT [facility] pCO2 Cord Venous POCT 54.1(H) 35 - 45 mm hg 05/21/2023 5:42 PM CDT [facility] pO2 Cord Venous POCT 22 22 - 33 mm hg 05/21/2023 5:42 PM CDT [facility] HCO3 Cord Arterial POCT 24.5(H) 22 - 24 mmol/L 05/21/2023 5:42 PM CDT [facility] BE Cord Venous POCT Calc -4 -6.4 - 1.6 mmol/L 05/21/2023 5:42 PM CDT [facility] TCO2 Cord Venous POCT 26 22 - 30 mmol/L 05/21/2023 5:42 PM CDT [facility] O2 Saturation % Cord Venous Calc POCT 28 % 05/21/2023 5:42 PM CDT [facility] Site CORD ART 05/21/2023 5:42 PM CDT [facility] Sample iSTAT CORD OTTO 05/21/2023 5:42 PM T [facility] Blood CORD BLOOD SPECIMEN / Unknown 05/21/2023 5:00 PM CDT 05/21/2023 5:42 PM CDT Malik Maria MD LAB - POINT OF CARE ORDERABLES [facility] [address] [place] [address] * (ABNORMAL) BLOOD GASES CORD ART (ISTAT) (05/21/2023 4:55 PM CDT) pH Cord Arterial POCT 7.19(L) 7.20 - 7.34 pH 05/21/2023 5:42 PM CDT [facility] pCO2 Cord Arterial POCT 74.1(HH) 45 - 55 mm hg 05/21/2023 5:42 PM CDT [facility] pO2 Cord Arterial POCT 16 12 - 25 mm hg 05/21/2023 5:42 PM CDT [facility] HCO3 Cord Arterial POCT 28.0(H) 22 - 24 mmol/L 05/21/2023 5:42 PM CDT [facility] BE Cord Arterial POCT -3(L) -2.9 - 8.3 mmol/L 05/21/2023 5:42 PM CDT [facility] TCO2 Cord Arterial POCT 30 mmol/L 05/21/2023 5:42 PM CDT [facility] O2 Saturation Cord Art % Calc POCT 15 % 05/21/2023 5:42 PM CDT [facility] Site CORD ART 05/21/2023 5:42 PM CDT [facility] Sample iSTAT CORD ART 05/21/2023 5:42 PM CDT [facility] Blood CORD BLOOD SPECIMEN / Unknown 05/21/2023 4:55 PM CDT 05/21/2023 5:42 PM CDT Malik Maria MD LAB - POINT OF CARE ORDERABLES Performing Organization Address [facility]/State/ZIP Co de Phone Number [facility] [address] [place] [address] * EPIDURAL BLOCK PERF (05/20/2023 9:04 AM CDT) Narrative Dominique Huston, [employer] - 05/20/2023 9:04 AM CDT Dominique Huston APRN-CRNA 05/20/2023 9:16 AM Neuraxial Block Note Pre-Procedure: Procedure Name: Neuraxial Block Patient Location: OB Indications: labor analgesia Pre-Anesthetic Checklist: Patient identified, IV Checked, Risks and benefits discussed, Surgical consent verified, Monitors and equipment, Site examined, Pre-op evaluation done, Time-out performed, Informed consent obtained, Questions answered/anesthesia questions answered and Allergies reviewed Anticoagulation/ Anti-thrombosis status confirmed? Yes Monitors: BP and continuous pluse ox Patient Condition: awake Patient Sedated? No Procedure: Block Type: Epidural Prep: Betadine Sterile Field: mask, cap/hat, sterile established and sterile gloves Approach: midline Skin was localized? Yes Skin localized with: lidocaine (XYLOCAINE MPF) 1 % injection - Infiltration 3 mL - 05/20/2023 9:04:00 AM Epidural Block: Is this procedure for postop pain? No Needle Type: Tuohy Needle gauge: 18 G Needle length: 90 mm Placement Site: L3-L4 Number of Attempts: 1 Loss of Resistance: 9 air Catheter length at skin (cm): 14 CSF Aspirated from catheter: No Blood Aspirated: No Test Dose: lidocaine 1.5% with 1-200,000 epinephrine 5 mL at 05/20/2023 9:07 AM Test Dose Response: No Epidural Infusion Medications: Ropivacaine: 0.2% with Fentanyl 2mcg/mL in NS , at 14 mL/hr Degree of difficulty: moderate Procedure Tolerance: tolerated well Sensory Level: T7 Motor Blockade: Yes Position post procedure: left uterine displacement Vital Signs: Vital signs moniitored and stable throughout. See nursing vitals flowsheet for details. Start Time: 05/20/2023 9:04 AM End Time: 05/20/2023 9:07 AM Total Time: 3 Staff: Anesthesia Provider: Dominique Huston APRN-CRNA - performed the procedure Fernando Mcmahon MD GENERAL ANESTHESIA O RDERABLES * TYPE + SCREEN PANEL (05/19/2023 10:47 AM CDT) Only the most recent of3 resultswithin the time period is included. ABO Rh O POS 05/19/2023 12:01 PM CDT [facility] Comment:History checked. Antibody Screen NEG 12:01 PM CDT [facility] Blood Bank BLOOD SPECIMEN / Unknown Venipuncture / Unknown 05/19/2023 10:47 AM CDT 05/19/2023 11:02 AM CDT Malik Maria MD LAB - BLOOD BANK ORD ERABLES [facility] [address] [phone] * NONSTRESS TEST (05/19/2023 10:23 AM CDT) Narrative Amalia Shearer MD - 05/19/2023 10:23 AM CDT Prachi Norman MD 05/19/2023 1:47 PM Name: Jackie Sousa Date of : 1980 Today's Date: 05/19/2023 35w6d Start 0945 Stop 1023 NST RESULTS (VILLAREAL) OBJECTIVE FINDINGS Temp: 98 F (36.7 C), Pulse: 69, Resp: 20, BP: 145/86 NST Indication(s): Chronic hypertension, Pre-eclampsia Uterine Irritability: No Contractions: Not present OBJECTIVE FINDINGS Movement: Present Monitoring Mode: External Baseline: 145 BPM Variability: Moderate Decelerations: Variable Accelerations: Yes OTHER INFORMATION Jasmin Templeton RN Non-Stress Test [facility] Patient Name: Jackie Sousa LMP: Patient's last menstrual period was 09/09/2022. Gestational Age: 35w6d as of 05/19/2023 Estimated Date of Delivery: 06/17/23 Indications: Hypertension in NST date: 05/19/2023 NST duration: >20 mins Interpretation: Baseline: 145 beats/minute moderate variability Reactive Contractions: none Decelerations: Variable Impression and Plan: FWB reassuring, continue monitoring as scheduled. Prachi Norman MD 05/19/2023 1:47 PM Malik Maria MD OB GYNE ORDERABLES * (ABNORMAL) CULTURE STREP B (05/19/2023 9:48 AM CDT) Culture Strep B Growth of Streptococcus agalactiae (Group B)(AA) MT 05/23/2023 2:01 PM CDT [facility] Microbiology MISCELLANEOUS SAMPLES / Unknown Collection / Unknown 05/19/2023 9:48 AM CDT 05/19/2023 9:56 AM CDT Narrative [facility] - 05/23/2023 2:01 PM CDT Susceptibility testing of penicillin, other beta-lactam antibiotics, and vancomycin is not necessary for beta-hemolytic streptococci groups A,B,C and G because resistant strains have not been recognized. Malik Maria MD LAB - MICROBIOLOGY O RDERABLES [facility] [address] [place] [address], [facility] [phone] * NONSTRESS TEST (05/18/2023 6:28 PM CDT) Narrative Malik Maria MD - 05/18/2023 6:28 PM CDT Prachi Norman MD 05/19/2023 1:47 PM Name: Jackie Sousa Date of : 1980 Today's Date: 05/18/2023 Start: 1733 Stop: 1820 35w5d NST RESULTS (VILLAREAL) OBJECTIVE FINDINGS Temp: 98.8 F (37.1 C), , Resp: 20, BP: 154/88 NST Indication(s): Chronic hypertension, Pre-eclampsia, Other (Comment) Uterine Irritability: No Contractions: Not present OBJECTIVE FINDINGS Movement: Present Monitoring Mode: External Baseline: 155 BPM Variability: Moderate Decelerations: None Accelerations: Yes OTHER INFORMATION Inpatient Interventions: None Allyson Terrazas RN Non-Stress Test [facility] Patient Name: Jackie Sousa LMP: Patient's last menstrual period was 09/09/2022. Gestational Age: 35w6d as of 05/19/2023 Estimated Date of Delivery: 06/17/23 Indications: Hypertension in NST date: 05/19/2023 NST duration: >20 mins Interpretation: Baseline: 155 beats/minute moderate variability Reactive Contractions: none Decelerations: none Impression and Plan: FWB reassuring, continue monitoring as scheduled. Prachi Norman MD 05/19/2023 1:46 PM Malik Maria MD OB GYNE ORDERABLES * NONSTRESS TEST (05/18/2023 9:47 AM CDT) Narrative Malik Maria MD - 05/18/2023 9:47 AM CDT Prachi Norman MD 05/19/2023 1:46 PM Name: Jackie Sousa Date of : 1980 Today's Date: 05/18/2023 Start: 0900 Stop: 939 35w5d NST RESULTS (VILLAREAL) OBJECTIVE FINDINGS Temp: 98 F (36.7 C), , Resp: 18, BP: 155/94 NST Indication(s): Chronic hypertension, Pre-eclampsia, Other (Comment) ( tachycardia) Uterine Irritability: No Contractions: Not present OBJECTIVE FINDINGS Movement: Present Monitoring Mode: External Baseline: 160 BPM Variability: Moderate Decelerations: None Accelerations: Yes OTHER INFORMATION Inpatient Interventions: None Allyson Terrazas RN Non-Stress Test [facility] Patient Name: Jackie Sousa LMP: Patient's last menstrual period was 09/09/2022. Gestational Age: 35w6d as of 05/19/2023 Estimated Date of Delivery: 06/17/23 Indications: Hypertension in NST date: 05/19/2023 NST duration: >20 mins Interpretation: Baseline: 160 beats/minute moderate variability Reactive Contractions: none Decelerations: none Impression and Plan: FWB reassuring, continue monitoring as scheduled. Prachi Norman MD 05/19/2023 1:46 PM Malik Maria MD OB GYNE ORDERABLES * CREATININE BLOOD (05/17/2023 7:49 PM CDT) Creatinine 0.79 0.57 - 1.11 mg/dL 05/17/2023 8:13 PM CDT [facility] eGFR by CKD-EPI >90 >=90 mL/min/1.7 3 m2 05/17/2023 8:13 PM CDT [facility] Blood BLOOD SPECIMEN / Unknown Lab Venipuncture / Unknown 05/17/2023 7:49 PM CDT 05/17/2023 7:57 PM CDT Malik aMria MD LAB - CHEMISTRY DARLENE GONZALEZ [facility] Organization Address City/State/ZIP Co de Phone Number [facility] [address] [place] [address] * NONSTRESS TEST (05/17/2023 6:55 PM CDT) Narrative Malik Maria MD - 05/17/2023 6:55 PM CDT Prachi Norman MD 05/19/2023 1:45 PM Name: Jackie Sousa Date of : 1980 Today's Date: 05/17/2023 Start: 1820 Stop: 1851 35w4d NST RESULTS (VILLAREAL) OBJECTIVE FINDINGS Temp: 97.6 F (36.4 C), , Resp: 20, BP: 155/94 NST Indication(s): Chronic hypertension Uterine Irritability: Yes Contractions: Not present OBJECTIVE FINDINGS Movement: Present Monitoring Mode: External Baseline: 155 BPM Variability: Moderate Decelerations: None Accelerations: Yes OTHER INFORMATION Inpatient Interventions: None Allyson Terrazas RN Non-Stress Test [facility] Patient Name: Jackie Sousa LMP: Patient's last menstrual period was 09/09/2022. Gestational Age: 35w6d as of 05/19/2023 Estimated Date of Delivery: 06/17/23 Indications: Hypertension in NST date: 05/19/2023 NST duration: >20 mins Interpretation: Baseline: 155 beats/minute moderate variability Reactive Contractions: none Decelerations: none Impression and Plan: FWB reassuring, continue monitoring as scheduled. Prachi Norman MD 05/19/2023 1:45 PM Malik Maria MD OB GYNE ORDERABLES * (ABNORMAL) PROTEIN CREATININE RATIO URINE TIMED PNL (05/17/2023 6:19 PM CDT) Volume 24 Hour Urine 2,200 mL 05/17/2023 7:29 PM CDT [facility] Collection Time Hours 24 hrs 05/17/2023 7:29 PM CDT [facility] Protein Urine 16.5(H) <11.9 mg/dL 05/17/2023 7:29 PM CDT [facility] Creatinine Urine 77.29 mg/dL 05/17/2023 7:29 PM CDT [facility] Protein/Creatin ine Ratio Urine 0.21 05/17/2023 7:29 PM CDT [facility] Urine TIMED URINE SPECIMEN / Unknown Timed Urine Volume Measurement / Unknown 05/17/2023 6:19 PM CDT 05/17/2023 6:59 PM CDT Malik Maria MD LAB - URINE CHEMISTR Y ORDERABLES Performing Organization Address City/[facility]/ZIP Co de Phone Number [facility] [address] [place] [address] * (ABNORMAL) PROTEIN URINE TIMED QUANTITATIVE (05/17/2023 6:19 PM CDT) Only the most recent of2 resultswithin the time period is included. Volume 24 Hour Urine 2,200 mL 05/17/2023 7:29 PM CDT [facility] Collection Time Hours 24 hrs 05/17/2023 7:29 PM CDT [facility] Protein 24 Hour Urine 363(H) <300 mg/24hr 05/17/2023 7:29 PM CDT [facility] Protein Urine 16.5(H) <11.9 mg/dL 05/17/2023 7:29 PM CDT [facility] Urine TIMED URINE SPECIMEN / Unknown Timed Urine Volume Measurement / Unknown 05/17/2023 6:19 PM CDT 05/17/2023 6:59 PM CDT Malik Maria MD LAB - URINE CHEMISTR Y ORDERABLES [facility] [address] [place] [address] * (ABNORMAL) CREATININE CLEARANCE URINE TIMED + BLOOD (05/17/2023 6:19 PM CDT) Volume 24 Hour Urine 2,200 mL 05/17/2023 8:33 PM CDT [facility] Collection Time Hours 24 hrs 05/17/2023 8:33 PM CDT [facility] Height Inches 69 inches 05/17/2023 8:33 PM CDT [facility] Weight in Pounds 300 pounds 05/17/2023 8:33 PM CDT [facility] Surface Area 2.46 05/17/2023 8:33 PM CDT [facility] Creatinine 0.79 0.57 - 1.11 mg/dL 05/17/2023 8:33 PM CDT [facility] Creatinine Urine 77.29 mg/dL 05/17/2023 8:33 PM CDT [facility] Creatinine 24 Hour Urine 1,700(H) 710 - 1,650 mg/24hr 05/17/2023 8:33 PM CDT [facility] Creatinine Clearance 105 66 - 165 mL/min/1.7 3m2 05/17/2023 8:33 PM CDT [facility] Comment: Urine TIMED URINE SPECIMEN / Unknown Timed Urine Volume Measurement / Unknown 05/17/2023 6:19 PM CDT 05/17/2023 6:59 PM CDT Malik Maria MD LAB - URINE CHEMISTR Y ORDERABLES Performing Organization Address [facility] Healthcare/[facility] de Phone Number [facility] [address] [place] [address] * SYPHILIS ANTIBODY CASCADING REFLEX (05/16/2023 5:48 PM CDT) Only the most recent of2 resultswithin the time period is included. Treponema pallidum Antibody Non Reactive Non Reactive 05/16/2023 6:44 PM CDT [facility] Comment: No Laboratory evidence of syphilis infection. Note: Circulating antibodies may be low or undetectable in early infection. If recent exposure is suspected, re-draw sample in 2-4 weeks and repeat testing. Blood BLOOD SPECIMEN / Unknown Venipuncture / Unknown 05/16/2023 5:48 PM CDT 05/16/2023 6:07 PM CDT Malik Maria MD LAB - SEROLOGY ORDER BONNIE Performing Organization Address [facility] de Phone Number [facility] [address] [place] [phone] * RUBELLA ANTIBODY IGG (05/16/2023 5:48 PM CDT) Only the most recent of2 resultswithin the time period is included. Rubella Antibody 1.86 Immune >0.99 index 05/20/2023 9:22 AM CDT [facility] ([facility]) Comment: Non-immune <0.90 Equivocal 0.90 - 0.99 Immune >0.99 Blood BLOOD SPECIMEN / Unknown Venipuncture / Unknown 05/16/2023 5:48 PM CDT 05/16/2023 6:07 PM CDT Narrative [facility] ([facility]) - 05/20/2023 9:22 AM CDT Performed at: - [facility] [id number] [address] Conductor: Hema Enamorado PhD, Phone: [phone] Malik Maria MD LAB - SEROLOGY ORDER BONNIE [facility] ([facility]) [address] [place] [address] * MONITOR - HOLTER (05/16/2023 4:24 PM CDT) Malik Ferrer MD - 05/16/2023 4:24 PM CDT Tawny Pérez MD 05/19/2023 1:24 PM Name: Jackie Sousa Date of : 1980 Today's Date: 05/16/2023 35w3d NST RESULTS (VILLAREAL) OBJECTIVE FINDINGS Temp: 98.2 F (36.8 C), , Resp: 20, BP: 148/79 NST Indication(s): (WEU visit`) Uterine Irritability: No Contractions: Not present OBJECTIVE FINDINGS Movement: Present Monitoring Mode: External Baseline: 135 BPM Variability: Moderate Decelerations: None Accelerations: Yes OTHER INFORMATION Inpatient Interventions: None Meggan Donnelly RN Non-Stress Test [facility] Patient Name: Jackie Sousa LMP: Patient's last menstrual period was 09/09/2022. Gestational Age: 35w6d as of 05/19/2023 Estimated Date of Delivery: 06/17/23 NST date: 05/16/2023 NST duration: >20 mins Interpretation: Baseline: 130 beats/minute moderate variability Reactive Contractions: none Decelerations: none Impression and Plan: FWB reassuring, continue monitoring as scheduled. Tawny Pérez MD 05/19/2023 1:23 PM Gita Amanda DO CARDIAC SERVICES OR DERABLES * PROTEIN CREATININE RATIO URINE RANDOM PNL (05/16/2023 4:10 PM CDT) Only the most recent of2 resultswithin the time period is included. Protein Urine 10.2 <11.9 mg/dL 05/16/2023 4:32 PM CDT [facility] Creatinine Urine 37.86 mg/dL 05/16/2023 4:32 PM CDT [facility] Protein/Creatin ine Ratio Urine 0.27 05/16/2023 4:32 PM CDT [facility] Urine URINE SPECIMEN OBTAINED BY CLEAN CATCH PROCEDURE / Unknown Collection / Unknown 05/16/2023 4:10 PM CDT 05/16/2023 4:14 PM CDT Malik Maria MD LAB - URINE CHEMISTR Y ORDERABLES Performing Organization Address City/State/[facility] Co de Phone Number [facility] [address] [place] [address] * (ABNORMAL) COMPREHENSIVE METABOLIC PANEL (05/16/2023 4:09 PM CDT) Only the most recent of3 resultswithin the time period is included. Glucose 77 70 - 105 mg/dL 05/16/2023 4:36 PM CDT [facility] Sodium 135(L) 136 - 145 mmol/L 05/16/2023 4:36 PM CDT [facility] Potassium 3.9 3.5 - 5.1 mmol/L 05/16/2023 4:36 PM CDT [facility] Chloride 105 98 - 107 mmol/L 05/16/2023 4:36 PM CDT [facility] CO2 22 22 - 29 mmol/L 05/16/2023 4:36 PM CDT [facility] Calcium 9.0 8.4 - 10.4 mg/dL 05/16/2023 4:36 PM CDT [facility] Anion Gap 8 6 - 16 mmol/L 05/16/2023 4:36 PM CDT [facility] BUN 8 5.3 - 18.7 mg/dL 05/16/2023 4:36 PM CDT [facility] Creatinine 0.73 0.57 - 1.11 mg/dL 05/16/2023 4:36 PM CDT [facility] Alkaline Phosphatase 126 40 - 150 U/L 05/16/2023 4:36 PM CDT [facility] ALT <6 0 - 55 U/L 05/16/2023 4:36 PM CDT [facility] AST 8 5 - 34 U/L 05/16/2023 4:36 PM CDT [facility] Protein Total 6.7 6.4 - 8.3 gm/dL 05/16/2023 4:36 PM CDT [facility] Albumin 2.2(L) 3.4 - 5.0 gm/dL 05/16/2023 4:36 PM CDT [facility] Bilirubin Total 0.2 0.2 - 1.2 mg/dL 05/16/2023 4:36 PM CDT [facility] eGFR by CKD-EPI >90 >=90 mL/min/1.7 3 m2 05/16/2023 4:36 PM CDT [facility] Blood BLOOD SPECIMEN / Unknown Venipuncture / Unknown 05/16/2023 4:09 PM CDT 05/16/2023 4:14 PM CDT Malik Maria MD LAB - CHEMISTRY DARLENE GONZALEZ [facility] Organization Address City/State/ZIP Co de Phone Number [facility] [address] [place] [address] * BIOPHYSICAL PROFILE W NST (05/16/2023 9:17 AM CDT) Only the most recent of4 resultswithin the time period is included. Anatomical Region Laterality Modality Other 05/16/2023 9:17 AM CDT Narrative 05/16/2023 11:30 AM CDT [facility] PHONE: FAX: Pat. Name: JACKIE SOUSA. No: [id number] Study Date: 05/16/2023 9:17am , Age: 02 1980, 42 Pregnancies: 6, Para 4013 Height: 69 in Weight: 267 lb LMP: 09/08/2022 GA by LMP: 35w5d GA by Base: 35w3d JAMEE: 06/17/2023 GA Selected: 35w3d (From [facility]) JAMEE: 06/17/2023 Referring MD: Danial Rivas MD Hospital Scientist: Destini Hightower, [facility], [facility] CPT4: 73839,88241 BMI: 39.42 Hist/Ind: PUD & severe anemia requiring transfusion, CHTN on nifedipine, AMA 43 c reportedly low-risk cf-DNA, Prior C/S X1, Class III Obesity, Anxiety & depression Heart Rate: 157 bpm Amniotic Fluid Index: 17.6cm (07.8-24.9) Q1: 2.2cm Q2: 4.7cm Q3: 4.4cm Q4: 6.3cm Biophysical Profile: 06/05 Breathin Tone: 2 NST: 0 Movement: 2 AFV: 2 EVAL, PLACENTA Presentation: breech Placenta: anterior Heart Rate: 157 bpm Amniotic Fluid Volume: normal CLINICAL SUMMARY A single fetus is seen in breech presentation. The amniotic fluid volume is within normal limits. cardiac activity and movements were demonstrated. The FHR baseline was initially 160-170 bpm then changed to 150 bpm during today's nonreactive NST. The FHR variability was moderate. IMPRESSION: Single, live, intrauterine at 35w3d Fetus in breech presentation Amniotic fluid volume is within normal limits Biophysical profile: 06/05 RECOMMEND: Patient was sent to [facility]/triage for prolonged monitoring. Thank you for allowing us the opportunity to care for your patient. Rubina Colindres MD <Electronic Signature> 05/16/2023 11:30am Ulices Coronado MD [employer] [employer] [facility] [employer] ORDERABLES * PAP IG LB+HPV APTIMA (05/08/2023 10:19 AM CDT) Diagnosis Comment 05/11/2023 3:07 PM CDT [facility] ([facility]) Comment:NEGATIVE FOR INTRAEP ITHELIAL LESION OR MALIGNANCY. Specimen Adequacy Comment 023 3:07 PM CDT [facility] ([facility]) Comment: Satisfactory for evaluation. Endocervical and/or squamous metaplastic cells (endocervical component) are present. Areas of partially obscuring blood are present. Performed by Comment 05/11/2023 3:07 PM CDT [facility] ([facility]) Comment:Ashley Ochoa Cytot echnologist ([facility]) Comment . 05/11/2023 3:07 PM CDT [facility] ([facility]) Note Comment 05/11/2023 3:07 PM CDT [facility] ([facility]) Comment: The Pap smear is a screening test designed to aid in the detection of premalignant and malignant conditions of the uterine cervix. It is not a diagnostic procedure and should not be used as the sole means of detecting cervical cancer. Both false-positive and false-negative reports do occur. IGLBP CPT Code Automation Comment 05/11/2023 3:07 PM CDT [facility] ([facility]) Comment: This liquid based ThinPrep(R) pap test was screened with the use of an image guided system. Human papillomavirus Aptima Negative Negative 05/11/2023 3:07 PM CDT [facility] ([facility]) Comment: This nucleic acid amplification test detects fourteen high-risk HPV types (16,18,31,33,35,39,45,51,52,56,58,59,66,68) without differentiation. Pathology/Cytolo gy PART OF UTERINE CERVIX / Unknown Collection / Unknown 05/08/2023 10:19 AM CDT 05/08/2023 11:29 AM CDT Narrative [facility] ([facility]) - 05/11/2023 3:07 PM CDT Performed at: 01 - [address] [id number] [address] Conductor: Marguerite Yap MD, Phone: [phone] Performed at: 02 - [address] [id number] [address] Conductor: Marguerite Yap MD, Phone: [phone] Specimen Comment: No. of containers..01 ThinPrep Vial Belle Jeffery MD LAB - PATHOLOG Y/CYTOLOGY ORDERABLES [facility] ([facility]) [address] [place] [address] * (ABNORMAL) URINALYSIS - POCT (IP) BEAKER INTERFACE (05/08/2023 8:56 AM CDT) Color UA POCT Dark Yellow Straw, Yellow, Dark Yellow, Light Yellow 05/08/2023 8:58 AM CDT [facility] Clarity UA POCT Clear Clear 8:58 AM CDT [facility] Specific Reader UA POCT 1.025 1.005 - 1.030 05/08/2023 8:58 AM CDT [facility] pH UA POCT 5.5 5.0 - 8.0 pH 05/08/2023 8:58 AM CDT [facility] Protein UA POCT Trace(A) Negative 8:58 AM CDT [facility] Blood UA POCT Negative Negative 05/08/2023 8:58 AM CDT [facility] Leukocyte UA POCT Negative Negative 05/08/2023 8:58 AM CDT [facility] Nitrite UA POCT Negative Negative 8:58 AM CDT [facility] Glucose UA POCT Negative Negative 8:58 AM CDT [facility] Ketone UA POCT Negative Negative 05/08/2023 8:58 AM CDT [facility] Bilirubin UA POCT Negative Negative 05/08/2023 8:58 AM CDT [facility] Urobilinogen UA POCT 0.2 0.1 - 1.0 EU/dL 05/08/2023 8:58 AM CDT [facility] Urine URINE / Unknown 05/08/2023 8 :56 AM CDT 05/08/2023 8:57 AM CDT Mau Lentz MD LAB - POINT OF CARE ORDERABLES Performing Organization Address City/State/[facility] Co de Phone Number [facility] [address] [place], [place] [id number] * ECHO COMPLETE (04/28/2023 2:59 PM CDT) BSA [id number] m2 [facility]SM CV FUJ I PACS LVOT [...] Rdz MD on 04/28/2023 3:35 PM CDT Very technically difficult study. Normal left ventricular systolic function with a visually estimated EF of 60 %. Grade I diastolic dysfunction with normal left atrial pressure. Mild left ventricular concentric hypertrophy. Right ventricle size is normal. Normal systolic function. Unable to estimate the pulmonary artery systolic pressure due to lack of tricuspid regurgitation. No significant valvular abnormalities. Left Ventricle Left ventricle [...] Procedure Note Martinez Rdz MD - 04/28/2023 Very technically difficult study. Normal left ventricular systolic function with a visually estimated EFof 60 %. Normal diastolic function. Right ventricle size is normal. Normal systolic function. Unable to estimate the pulmonary artery systolic pressure due to lackof tricuspid regurgitation. No significant valvular abnormalities. Gita Amanda DO ECHO CUPID * EKG 12-LEAD (04/24/2023 11:02 AM CDT) Ventricular Rate 116 BPM [facility] Atrial Rate 116 BPM [facility] P-R Interval 128 ms [facility] QRS Duration ms 82 ms [facility] Q-T Interval ms 334 ms [facility] QTC Calculation (Bezet) 464 ms [facility] Calculated P [place] 41 degrees [facility] Calculated R [place] 24 degrees [facility] Calculated T [place] 126 degrees [facility] Interpretation EKG SINUS TACHYCARDIA NONSPECIFIC ST AND T WAVE ABNORMALITY ABNORMAL ECG Confirmed by DO AMANDA STEPHANIE ([id number]) on 04/25/2023 12:10:59 PM [facility] 04/24/2023 11:0 2 AM CDT 04/25/2023 12:10 PM CDT Gita Amanda DO ECG ORDERABLES [facility] * SONOGRAM - COMPLETE (04/09/2023 8:32 AM CDT) Only the most recent of6 resultswithin the time period is included. Anatomical Region Laterality Modality Other 04/09/2023 8:32 AM CDT Narrative 04/09/2023 9:59 AM CDT [facility] PHONE: FAX: Pat. Name: JACKIE SOUSA Pat. No: [id number] Study Date: 04/09/2023 8:32am , Age: 02 1980, 42 Pregnancies: 6, Para 4013 Height: 69 in Weight: 267 lb LMP: Unknown GA by Base: 30w1d JAMEE: 06/17/2023 GA by US: 30w3d JAMEE: 06/15/2023 GA Selected: 30w1d (From [facility]) JAMEE: 06/17/2023 Referring MD: Danial Rivas MD Hospital Scientist: Alejandrina Grande RDMS CPT4: 08103 BMI: 39.42 Hist/Ind: PUD & severe anemia requiring transfusion, CHTN on nifedipine, AMA 43 c reportedly low-risk cf-DNA, Prior C/S X1, Class III Obesity, Anxiety & depression MEASUREMENTS & AGE GROWTH EVALUATION Measurement GA Range Srce %for GA Ratios ----- ---- ------- BPD 7.5 cm 29w6d (04k4f-82t0s) Hadl BPD 30% FL/BPD 0.74 (0.71 - 0.87) HC 29.0 cm 32w0d (69k2m-27b3j) Hadl HC 66% FL/AC 0.20 (0.20 - 0.24) AC 27.6 cm 31w5d (79d7a-14n8u) Hadl AC 85% HC/AC 1.05 (0.97 - 1.16) FL 5.6 cm 29w2d (45y8n-44s9j) Hadl FL 14% CI 0.70 (0.70 - 0.86* HL 5.0 cm 29w3d (97u4f-49v7w) Nilay HL 37% GA for sonogram 30w3d (63g4b-01a0r) Weight Estimate: based on (HC,AC,FL) Hadlock Weight: 1670 gm (1423-1917gm) Had : 3lbs, 10oz Normal: 1586 gm (1190-1983gm) Had Wt% 66% for 30w1d Heart Rate: 146 bpm Amniotic Fluid Index: 13.4cm (09.0-23.5) Q1: 5.0cm Q2: 4.3cm Q3: 0.0cm Q4: 4.1cm EVAL, PLACENTA Presentation: cephalic Placenta: anterior Heart Rate: 146 bpm Amniotic Fluid Volume: normal CLINICAL SUMMARY A single fetus is seen in cephalic presentation. The measurements today are consistent with appropriate growth. The JAMEE is based on a prior ultrasound examination (confirmed). The amniotic fluid volume is within normal limits. IMPRESSION: Single, live, intrauterine at 30w1d Appropriate size and interval growth Amniotic fluid volume: within normal limits No major malformations were seen within the limitations of ultrasound RECOMMEND: Begin weekly testing in 2 weeks (more frequent or sooner as indicated) Reassess growth in 4 weeks Thank you for allowing us the opportunity to care for your patient. Shahzad Justice MD <Electronic Signature> 04/09/2023 09:57am Ulices Coronado MD [employer] ORDERABLES * FERRITIN (01/30/2023 9:54 AM CDT) [facility] Ferritin 6 5 - 204 ng/mL 01/30/2023 11:06 AM CDT [facility] Blood BLOOD SPECIMEN / Unknown Venipuncture / Unknown 01/30/2023 9:54 AM CDT 01/30/2023 10:03 AM CDT Amalia Shearer MD LAB - CHEMISTRY DARLENE GONZALEZ [facility] Organization Address City/State/ZIP Co de Phone Number [facility] [address] [place] [address] * TRANSFUSE RED BLOOD CELL LEUKOREDUCED UNIT(S) (01/29/2023 3:20 PM CDT) Amalia Shearer MD NURSING - BLOOD PROD TRANSFUSION * (ABNORMAL) OCCULT BLOOD FECES (01/29/2023 10:12 AM CDT) [facility] Occult Blood Positive(A ) Negative 01/29/2023 10:37 AM CDT [facility] Stool STOOL SPECIMEN / Unknown Collection / Unknown 01/29/2023 10:12 AM CDT 01/29/2023 10:27 AM CDT Amalia Shearer MD LAB - BODY FLUID ORD ERABLES [facility] [address] [place] [address] * BLOOD TYPE VERIFICATION (01/29/2023 6:39 AM CDT) ABO Rh O POS 01/29/2023 8:0 7 AM CDT [facility] Blood Bank BLOOD SPECIMEN / Unknown Lab Venipuncture / Unknown 01/29/2023 6:39 AM CDT 01/29/2023 7:25 AM CDT Amalia Shearer MD LAB - BLOOD BANK ORD ERABLES Performing Organization Address [facility] Co de Phone Number [facility] [address] [place] [address] * URINALYSIS REFLEX MICROSCOPIC REFLEX CULTURE (01/29/2023 6:09 AM CDT) Color UA Yellow Straw, Yellow 01/29/2023 6:57 AM CDT [facility] Clarity UA Clear Clear 01/29/2023 6:57 AM CDT [facility] Glucose UA Negative Negative 01/29/2023 6:57 AM CDT [facility] Bilirubin UA Negative Negative 01/29/2023 6:57 AM CDT [facility] Ketone UA Negative Negative 01/29/2023 6:57 AM CDT [facility] Specific Reader UA 1.023 1.005 - 1.030 01/29/2023 6:57 AM CDT [facility] Blood UA Negative Negative 01/29/2023 6:57 AM CDT [facility] pH UA 6.0 5.0 - 8.0 pH 01/29/2023 6:57 AM CDT [facility] Protein UA Negative Negative 01/29/2023 6:57 AM CDT [facility] Urobilinogen UA Negative Negative mg/dL 01/29/2023 6:57 AM CDT [facility] Nitrite UA Negative Negative 01/29/2023 6:57 AM CDT [facility] Leukocyte UA Negative Negative 01/29/2023 6:57 AM CDT [facility] Urine Microscopy Urine microscopy not indicated 01/29/2023 6:57 AM CDT [facility] Reflex Status Culture not indicated 01/29/2023 6:57 AM CDT [facility] Urine URINE SPECIMEN OBTAINED BY CLEAN CATCH PROCEDURE / Unknown Collection / Unknown 01/29/2023 6:09 AM CDT 01/29/2023 6:13 AM CDT Narrative [facility] - 01/29/2023 6:57 AM CDT Amalia Shearer MD LAB - URINALYSIS ORD ERABLES [facility] [address] [place] [address] Care Teams Blockmason Relationship Specialty Start Date End Date Phil Canas DO [address] [place] [address] [id number] PCP - General Family Medicine 04/28/23
--- OUTSIDE RECORDS SUMMARY | 2024-12-19 17:27 | XMS_ITS | Referral Summary ---
Author Organization [facility] [facility] Address [address] [place] [address] Care Team Providers Care Cheese Cooker Name Role Phone Phil Canas DO Primary Care Provider [phone] Source Comments [facility],non-owned Affiliates and Associated Physician Practices is amultiple site organization consisting of ambulatory clinics and hospital sitesin [place], [place], [place] and [place]. This disclosure is being madepursuant to the Care Everywhere program and may not contain all information available regarding this patient. Last updated 18.[facility] [employer] [facility] Allergies Active Allergy Reactions Criticality Noted Date [...] Date Recorded PHQ2 TOTAL SCORE 0 05/16/2023 [facility] - Occupational Stress Questionnaire Answer Date [...] in a half-way (including now)? No 05/16/2023 Cullen Depression Scale Answer Date Recorded Cullen Depression Scale Total 10 05/27/2023 The thought [...] COMPREHENSIVE METABOLIC PANEL (05/16/2023 4:09 PM CDT) [facility] Glucose 77 70 - 105 mg/dL 05/16/2023 4:36 PM CDT [facility] Sodium 135(L) 136 - 145 mmol/L 05/16/2023 4:36 PM CDT [facility] Potassium 3.9 3.5 - 5.1 mmol/L 05/16/2023 4:36 PM CDT [facility] Chloride 105 98 - 107 mmol/L 05/16/2023 4:36 PM CDT [facility] CO2 22 22 - 29 mmol/L 05/16/2023 4:36 PM CDT [facility] Calcium 9.0 8.4 - 10.4 mg/dL 05/16/2023 4:36 PM CDT [facility] Anion Gap 8 6 - 16 mmol/L 05/16/2023 4:36 PM CDT [facility] BUN 8 5.3 - 18.7 mg/dL 05/16/2023 4:36 PM CDT [facility] Creatinine 0.73 0.57 - 1.11 mg/dL 05/16/2023 4:36 PM CDT [facility] Alkaline Phosphatase 126 40 - 150 U/L 05/16/2023 4:36 PM CDT [facility] ALT <6 0 - 55 U/L 05/16/2023 4:36 PM CDT [facility] AST 8 5 - 34 U/L 05/16/2023 4:36 PM CDT [facility] Protein Total 6.7 6.4 - 8.3 gm/dL 05/16/2023 4:36 PM CDT [facility] Albumin 2.2(L) 3.4 - 5.0 gm/dL 05/16/2023 4:36 PM CDT [facility] Bilirubin Total 0.2 0.2 - 1.2 mg/dL 05/16/2023 4:36 PM CDT [facility] eGFR by CKD-EPI >90 >=90 mL/min/1.7 3 m2 05/16/2023 4:36 PM CDT [facility] Blood BLOOD SPECIMEN / Unknown Venipuncture / Unknown 05/16/2023 4:09 PM CDT 05/16/2023 4:14 PM CDT Malik Maria MD LAB - CHEMISTRY ORDE RABLES [facility] [address] [place] [address] * PAP IG LB+HPV APTIMA (05/08/2023 10:19 AM CDT) Diagnosis Comment 05/11/2023 3:07 PM CDT [facility] ([facility]) Comment:NEGATIVE FOR INTRAEP ITHELIAL LESION OR MALIGNANCY. Specimen Adequacy Comment 023 3:07 PM CDT [facility] ([facility]) Comment: Satisfactory for evaluation. Endocervical and/or squamous metaplastic cells (endocervical component) are present. Areas of partially obscuring blood are present. Performed by Comment 05/11/2023 3:07 PM CDT [facility] ([facility]) Comment:Ashley Ochoa, Cytot echnologist (ASCP) Comment . 05/11/2023 3:07 PM CDT [facility] ([facility]) Note Comment 05/11/2023 3:07 PM CDT [facility] ([facility]) Comment: The Pap smear is a screening test designed to aid in the detection of premalignant and malignant conditions of the uterine cervix. It is not a diagnostic procedure and should not be used as the sole means of detecting cervical cancer. Both false-positive and false-negative reports do occur. IGLBP CPT Code Automation Comment 05/11/2023 3:07 PM CDT [facility] ([facility]) Comment: This liquid based ThinPrep(R) pap test was screened with the use of an image guided system. Human papillomavirus Aptima Negative Negative 05/11/2023 3:07 PM CDT [facility] ([facility]) Comment: This nucleic acid amplification test detects fourteen high-risk HPV types (16,18,31,33,35,39,45,51,52,56,58,59,66,68) without differentiation. Pathology/Cytolo gy PART OF UTERINE CERVIX / Unknown Collection / Unknown 05/08/2023 10:19 AM CDT 05/08/2023 11:29 AM CDT Narrative [facility] ([facility]) - 05/11/2023 3:07 PM CDT Performed at: 01 - [facility] [address] [place], [place] [id number] Teacher Education Instructor: Marguerite Yap MD, Phone: [phone] Performed at: 02 - [facility] [address] [place], [place] [id number] Teacher Education Instructor: Marguerite Yap MD, Phone: [phone] Specimen Comment: No. of containers..01 ThinPrep Vial Belle Jeffery MD LAB - PATHOLOG Y/CYTOLOGY ORDERABLES [facility] ([facility]) [address] [place] [address] from Last 3 Months or Most Recently Relevant to Health Maintenance Advance Directives * Full Code (Latest Code Status on File) Date Activated Date Inactivated Comments 05/19/2023 9:54 PM 05/24/2023 1:45 PM * Full Code Date Activated Date Inactivated Comments 05/16/2023 5:26 PM 05/19/2023 9:54 PM * Full Code Date Activated Date Inactivated Comments 01/29/2023 4:35 AM 01/30/2023 5:01 PM Care Teams Cheese Cooker Relationship Specialty Start Date End Date Phil Canas DO [address] [place] [address] PCP - General Family Medicine 04/28/23
[2024-12-19] MEDS: HYDROcodone/acetaminophen (*CRX) 5-325 MG TABLET 2 TAB PO (17:29)
--- OUTSIDE RECORDS SUMMARY | 2024-12-19 17:56 | XMS_ITS | Clinical Summary ---
Author Organization [facility] [email or web address] Address [address] [place] [address] Care Team Providers Care Lithographic Platemaker Name Role Phone Phil Canas DO Primary Care Provider [phone] Source Comments [facility] [employer],non-owned Affiliates and Associated Physician Practices is amultiple site organization consisting of ambulatory clinics and hospital sitesin [place], [place], [place] and [place]. This disclosure is being madepursuant to the Care Everywhere program and may not contain all information available regarding this patient. Last updated 18.[facility] [email or web address] Allergies Active Allergy Reactions Criticality Noted Date [...] Date Recorded PHQ2 TOTAL SCORE 0 05/16/2023 [facility] - Occupational Stress Questionnaire Answer [...] in a custodial (including now)? No 05/16/2023 Parker Depression Scale Answer Date Recorded Parker Depression Scale Total 10 05/27/2023 The thought [...] - 150 U/L 05/16/2023 4:36 PM CDT [facility] ALT <6 0 - 55 U/L 05/16/2023 4:36 PM CDT [facility] AST 8 5 - 34 U/L 05/16/2023 4:36 PM CDT [facility] Protein Total 6.7 6.4 - 8.3 gm/dL 05/16/2023 4:36 PM CDT [facility] Albumin 2.2(L) 3.4 - 5.0 gm/dL 05/16/2023 4:36 PM CDT [facility] Bilirubin Total 0.2 0.2 - 1.2 mg/dL 05/16/2023 4:36 PM CDT [facility] eGFR by CKD-EPI >90 >=90 mL/min/1.7 3 m2 05/16/2023 4:36 PM CDT [facility] Blood BLOOD SPECIMEN / Unknown Venipuncture / Unknown 05/16/2023 4:09 PM CDT 05/16/2023 4:14 PM CDT Malik Maria MD LAB - CHEMISTRY DARLENE GONZALEZ [facility] [address] [place], [place] [id number] * PAP IG LB+HPV APTIMA (05/08/2023 10:19 AM CDT) Diagnosis Comment 05/11/2023 3:07 PM CDT [facility] ([facility]) Comment:NEGATIVE FOR INTRAEP ITHELIAL LESION OR MALIGNANCY. Specimen Adequacy Comment 023 3:07 PM CDT [facility] ([facility]) Comment: Satisfactory for evaluation. Endocervical and/or squamous metaplastic cells (endocervical component) are present. Areas of partially obscuring blood are present. Performed by Comment 05/11/2023 3:07 PM CDT [facility] ([facility]) Comment:Ashley Ochoa, Cytot echnologist (ASCP) Comment . 05/11/2023 3:07 PM CDT [facility] ([facility]) Note Comment 05/11/2023 3:07 PM CDT [facility] ([facility]) Comment: The Pap smear is a screening test designed to aid in the detection of premalignant and malignant conditions of the uterine cervix. It is not a diagnostic procedure and should not be used as the sole means of detecting cervical cancer. Both false-positive and false-negative reports do occur. IGLBP CPT Code Automation Comment 05/11/2023 3:07 PM CDT [facility] ([facility]) Comment: This liquid based ThinPrep(R) pap test was screened with the use of an image guided system. Human papillomavirus Aptima Negative Negative 05/11/2023 3:07 PM CDT [facility] ([facility]) Comment: This nucleic acid amplification test detects fourteen high-risk HPV types (16,18,31,33,35,39,45,51,52,56,58,59,66,68) without differentiation. Pathology/Cytolo gy PART OF UTERINE CERVIX / Unknown Collection / Unknown 05/08/2023 10:19 AM CDT 05/08/2023 11:29 AM CDT Narrative [facility] ([facility]) - 05/11/2023 3:07 PM CDT Performed at: 01 - [facility] [id number] Engine Dynamometer Tester: Marguerite Yap MD, Phone: [phone] Performed at: 02 - [facility] [id number] Engine Dynamometer Tester: Marguerite Yap MD, Phone: [phone] Specimen Comment: No. of containers..01 ThinPrep Vial Belle Jeffery MD LAB - PATHOLOG Y/CYTOLOGY ORDERABLES [facility] ([facility]) [address] [place] [address] from Last 3 Months or Most Recently Relevant to Health Maintenance Advance Directives * Full Code (Latest Code Status on File) Date Activated Date Inactivated Comments 05/19/2023 9:54 PM 05/24/2023 1:45 PM * Full Code Date Activated Date Inactivated Comments 05/16/2023 5:26 PM 05/19/2023 9:54 PM * Full Code Date Activated Date Inactivated Comments 01/29/2023 4:35 AM 01/30/2023 5:01 PM Care Teams Lithographic Platemaker Relationship Specialty Start Date End Date Phil Canas DO [address] [place] [id number] PCP - General Family Medicine 04/28/23
--- OUTSIDE RECORDS SUMMARY | 2024-12-19 17:56 | XMS_ITS | Referral Summary ---
Author Organization [facility] Address [address] [place] [address] Care Team Providers Care Denial Management Representative Name Role Phone Phil Canas DO Primary Care Provider [phone] Source Comments [facility],non-owned Affiliates and Associated Physician Practices is amultiple site organization consisting of ambulatory clinics and hospital sitesin [place], [place], [place] and [place]. This disclosure is being madepursuant to the Care Everywhere program and may not contain all information available regarding this patient. Last updated 18.[facility] Allergies Active Allergy Reactions Criticality Noted Date [...] Date Recorded PHQ2 TOTAL SCORE 0 05/16/2023 [facility] - Occupational Stress Questionnaire Answer Date [...] place to sleep or slept in a halfway (including now)? No 05/16/2023 Lee Depression Scale Answer Date Recorded Lee Depression Scale Total 10 05/27/2023 The thought [...] COMPREHENSIVE METABOLIC PANEL (05/16/2023 4:09 PM CDT) [facility] Glucose 77 70 - 105 mg/dL 05/16/2023 4:36 PM CDT [facility] Sodium 135(L) 136 - 145 mmol/L 05/16/2023 4:36 PM CDT [facility] Potassium 3.9 3.5 - 5.1 mmol/L 05/16/2023 4:36 PM CDT [facility] Chloride 105 98 - 107 mmol/L 05/16/2023 4:36 PM CDT [facility] CO2 22 22 - 29 mmol/L 05/16/2023 4:36 PM CDT [facility] Calcium 9.0 8.4 - 10.4 mg/dL 05/16/2023 4:36 PM CDT [facility] Anion Gap 8 6 - 16 mmol/L 05/16/2023 4:36 PM CDT [facility] BUN 8 5.3 - 18.7 mg/dL 05/16/2023 4:36 PM CDT [facility] Creatinine 0.73 0.57 - 1.11 mg/dL 05/16/2023 4:36 PM CDT [facility] Alkaline Phosphatase 126 40 - 150 U/L 05/16/2023 4:36 PM CDT [facility] ALT <6 0 - 55 U/L 05/16/2023 4:36 PM CDT [facility] AST 8 5 - 34 U/L 05/16/2023 4:36 PM CDT [facility] Protein Total 6.7 6.4 - 8.3 gm/dL 05/16/2023 4:36 PM CDT [facility] Albumin 2.2(L) 3.4 - 5.0 gm/dL 05/16/2023 4:36 PM CDT [facility] Bilirubin Total 0.2 0.2 - 1.2 mg/dL 05/16/2023 4:36 PM CDT [facility] eGFR by CKD-EPI >90 >=90 mL/min/1.7 3 m2 05/16/2023 4:36 PM CDT [facility] Blood BLOOD SPECIMEN / Unknown Venipuncture / Unknown 05/16/2023 4:09 PM CDT 05/16/2023 4:14 PM CDT Malik Maria MD LAB - CHEMISTRY ORDE RABLES [facility] [address] [place] [address] * PAP IG LB+HPV APTIMA (05/08/2023 10:19 AM CDT) Diagnosis Comment 05/11/2023 3:07 PM CDT [facility] ([facility]) Comment:NEGATIVE FOR INTRAEP ITHELIAL LESION OR MALIGNANCY. Specimen Adequacy Comment 023 3:07 PM CDT [facility] ([facility]) Comment: Satisfactory for evaluation. Endocervical and/or squamous metaplastic cells (endocervical component) are present. Areas of partially obscuring blood are present. Performed by Comment 05/11/2023 3:07 PM CDT [facility] ([facility]) Comment:Ashley Ochoa, Cytot echnologist (ASCP) Comment . 05/11/2023 3:07 PM CDT [facility] ([facility]) Note Comment 05/11/2023 3:07 PM CDT [facility] ([facility]) Comment: The Pap smear is a screening test designed to aid in the detection of premalignant and malignant conditions of the uterine cervix. It is not a diagnostic procedure and should not be used as the sole means of detecting cervical cancer. Both false-positive and false-negative reports do occur. IGLBP CPT Code Automation Comment 05/11/2023 3:07 PM CDT [facility] ([facility]) Comment: This liquid based ThinPrep(R) pap test was screened with the use of an image guided system. Human papillomavirus Aptima Negative Negative 05/11/2023 3:07 PM CDT [facility] ([facility]) Comment: This nucleic acid amplification test detects fourteen high-risk HPV types (16,18,31,33,35,39,45,51,52,56,58,59,66,68) without differentiation. Pathology/Cytolo gy PART OF UTERINE CERVIX / Unknown Collection / Unknown 05/08/2023 10:19 AM CDT 05/08/2023 11:29 AM CDT Narrative [facility] ([facility]) - 05/11/2023 3:07 PM CDT Performed at: 01 - [facility] [address] [place], [place] [id number] Manager Search: Marguerite Yap MD, Phone: [phone] Performed at: 02 - [facility] [address] [place], [place] [id number] Manager Search: Marguerite Yap MD, Phone: [phone] Specimen Comment: No. of containers..01 ThinPrep Vial Belle Jeffery MD LAB - PATHOLOG Y/CYTOLOGY ORDERABLES [facility] ([facility]) [address] [place] [address] from Last 3 Months or Most Recently Relevant to Health Maintenance Advance Directives * Full Code (Latest Code Status on File) Date Activated Date Inactivated Comments 05/19/2023 9:54 PM 05/24/2023 1:45 PM * Full Code Date Activated Date Inactivated Comments 05/16/2023 5:26 PM 05/19/2023 9:54 PM * Full Code Date Activated Date Inactivated Comments 01/29/2023 4:35 AM 01/30/2023 5:01 PM Care Teams Denial Management Representative Relationship Specialty Start Date End Date Phil Canas DO [address] [place] [address] PCP - General Family Medicine 04/28/23
--- OUTSIDE RECORDS SUMMARY | 2024-12-19 17:57 | XMS_ITS | Patient Health Summary ---
Author Organization [facility] Address [address] [place] [address] Care Team Providers Care Business System Consultant Name Role Phone Phil Canas DO Primary Care Provider [phone] [facility],non-owned Affiliates and Associated Physician Practices is amultiple site organization consisting of ambulatory clinics and hospital sitesin [place], [place], [place] and [place]. This disclosure is being madepursuant to the Care Everywhere program and may not contain all information available regarding this patient. Last updated 18.[facility] Allergies * Nsaids(Other) -High Criticality Medications [...] Date Recorded PHQ2 TOTAL SCORE 0 05/16/2023 [facility] - Occupational Stress [...] place to sleep or slept in a fdc (including now)? No 05/16/2023 [place] Depression Scale Answer Date Recorded [place] Depression Scale Total 10 05/27/2023 The thought [...] of , Obesity affecting in third trimester ([facility]), BMI 40.0- 44.9, adult ([facility]), Antepartum multigravida of advanced maternal age (HCC), History of delivery affecting ([facility]), History of abnormal cervical Pap smear * SONOGRAM - COMPLETE(Performed 04/09/2023) Performed for Encounter for anatomic survey ([facility]), 30 weeks gestation of ([facility]), Elevated blood pressure reading without diagnosis of hypertension, History of pre-eclampsia * SONOGRAM - COMPLETE(Performed 03/12/2023) Performed for History of , Anemia, unspecified type, Chronic hypertension affecting ([facility]), Antepartum multigravida of advanced maternal age ([facility]), Encounter for follow-up ultrasound of anatomy ([facility]), Encounter for ultrasound to assess growth ([facility]) * SONOGRAM - COMPLETE(Performed 02/07/2023) Performed for Encounter for anatomic survey ([facility]), Class 3 obesity ([facility]), Encounter for screening for cervical length ([facility]), AMA (advanced maternal age) multigravida 35+, second trimester ([facility]) * FERRITIN(Performed 01/30/2023) Performed for History [...] AUTO DIFFERENTIAL(Performed 01/30/2023) Performed for Antepartum anemia ([facility]) * COMPREHENSIVE METABOLIC PANEL(Performed 01/30/2023) Performed for Antepartum anemia ([facility]) * PREPARE RBC LEUKOREDUCED UNIT(Performed 01/29/2023) [...] for Antepartum multigravida of advanced maternal age ([facility]), Class 3 obesity ([facility]) * SONOGRAM - COMPLETE(Performed 12/11/2022) Performed for Antepartum multigravida of advanced maternal age ([facility]), BMI 40.0- 44.9, adult ([facility]), History of gestational hypertension, History of delivery affecting ([facility]), 13 weeksgestation of ([facility]) Results * (ABNORMAL) CBC W/O DIFFERENTIAL (05/24/2023 10:30 AM CDT) Only the most recent of2 resultswithin the time period is included. [facility] WBC 9.7 4.4 - 10.7 x10E9/L 05/24/2023 [...] - 416 x10E9/L 05/24/2023 10:58 AM CDT [facility] RDW-CV 20.6(H) 12.1 - 14.9 % 05/24/2023 10:58 AM CDT [facility] MPV 10.4 9.4 - 12.9 fl 05/24/2023 10:58 AM CDT [facility] Blood BLOOD SPECIMEN / Unknown Lab Venipuncture / Unknown 05/24/2023 10:30 AM CDT 05/24/2023 10:50 AM CDT Malik Maria MD LAB - HEMATOLOGY ORD ERABLES Performing Organization Address City/[facility]/ZIP Co de Phone Number [facility] [address] [place] [phone] * PREPARE (CROSSMATCH) RBC UNIT(S), 2 Units (05/23/2023 1:41 AM CDT) Only the most recent of2 resultswithin the time period is included. Unit Description AS1 LR PRBC [facility] Unit ABO O [facility] Unit Rh POS [facility] Product Number R43 [facility] Unit Donor # [id number] [facility] Unit Status released [facility] Product Code [id number] [facility] Blood Type Barcode 5100 [facility] Expiration Date S [facility] Unit Description AS1 LR PRBC [facility] Unit ABO O [facility] Unit Rh POS [facility] Product Number R02 [facility] Unit Donor # [id number] [facility] Unit Status released [facility] Product Code [id number] [facility] Blood Type Barcode 5100 [facility] Expiration Date S [facility] Blood Bank BLOOD SPECIMEN / Unknown 05/19/2023 11:02 AM CDT Malik Maria MD LAB - BLOOD BANK ORD ERABLES [facility] [address] [place] [address] * (ABNORMAL) CBC W AUTO DIFFERENTIAL (05/22/2023 [...] - 416 x10E9/L 05/22/2023 6:39 AM CDT [facility] RDW-CV 18.7(H) 12.1 - 14.9 % 05/22/2023 6:39 AM CDT [facility] MPV 10.4 9.4 - 12.9 fl 05/22/2023 6:39 AM CDT [facility] Neutrophils % 75.2(H) 44.0 - 73.0 % 05/22/2023 6:39 AM CDT [facility] Lymphocytes % 18.0(L) 20.0 - 43.0 % 05/22/2023 6:39 AM CDT [facility] Monocytes % 5.8 5.0 - 13.0 % 05/22/2023 6:39 AM CDT [facility] Eosinophils % 0.4 0.0 - 6.0 % 05/22/2023 6:39 AM CDT [facility] Basophils % 0.3 0.0 - 2.0 % 05/22/2023 6:39 AM CDT [facility] Immature Granulocytes 0.3 0 - 1 % 05/22/2023 6:39 AM CDT [facility] Neutrophil Absolute 8.88(H) 2.01 - 7.14 x10E9/L 05/22/2023 6:39 AM CDT [facility] Lymphocytes Absolute 2.13 1.07 - 3.94 x10E9/L 05/22/2023 6:39 AM CDT [facility] Monocytes Absolute 0.69 0.26 - 1.07 x10E9/L 05/22/2023 6:39 AM CDT [facility] Eosinophils Absolute 0.05 0 - 0.47 x10E9/L 05/22/2023 6:39 AM CDT [facility] Basophils Absolute 0.03 0 - 0.08 x10E9/L 05/22/2023 6:39 AM CDT [facility] Immature Granulocytes Absolute 0.04 0.00 - 0.06 x10E9/L 05/22/2023 6:39 AM CDT [facility] nRBC Auto 0 /100 WBC 05/22/2023 6:39 AM CDT [facility] Blood BLOOD SPECIMEN / Unknown Lab Venipuncture / Unknown 05/22/2023 6:07 AM CDT 05/22/2023 6:30 AM CDT Malik Maria MD LAB - HEMATOLOGY ORD ERABLES [facility] [address] [place] [address] * PATHOLOGY TISSUE EXAM (STL) (05/21/2023 5:07 PM CDT) Case Report Surgical Pathology Report Case: [id number] Authorizing Provider: Amalia Shearer MD Collected: 05/21/2023 05:07 PM Ordering Location: [facility] LDR Received: 05/22/2023 08:05 AM Pathologist: Bette Garcia MD Specimen: Placenta 3rd Trimester 05/23/2023 10:19 AM [facility] Final Diagnosis Placenta, vaginal delivery - Slightly immature placenta with accelerated villous maturation and mild villous dysmorphology - Minimal acute subchorionitis (maternal inflammatory response stage 1, grade 1) - Occasional circulating nucleated red blood cells - membranes with no histopathologic abnormality - Three-vessel umbilical cord with no histopathologic abnormality 05/23/2023 10:19 AM [facility] Clinical History The patient is a 42-year-old woman at 36 weeks, 1 day gestation. Procedure: vaginal delivery. 05/23/2023 10:19 AM [facility] Gross Description The requisition and [...] beefy red, spongy parenchyma without discrete lesions. 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 WM 05/23/2023 10:19 AM [facility] Microscopic Description Microscopic examination substantiates the above diagnosis. 05/23/2023 10:19 AM [facility] Pathologist Location at [facility] 05/23/2023 10:19 AM [facility] Disclaimer All histochemical and/or immunohistochemical results are interpreted with controls that demonstrate appropriate staining reactions before reporting results. Note on use of immunocytochemistry reagents: This test was developed and its performance characteristic determined by [facility], Department of Laboratory Medicine. It has not [...] interpreted with caution. 05/23/2023 10:19 AM CDT [facility] Embedded Images 05/23/2023 10:19 AM CDT [facility] Pathology/Cytolo gy ENTIRE PLACENTA / Unknown Collection / Unknown 05/21/2023 5:07 PM CDT 05/22/2023 8:05 AM CDT Amalia Shearer MD LAB - PATHOLOGY/CYTO LOGY ORDERABLES Performing Organization Address City/State/[facility] Co de Phone Number [facility] [address] [place] [address] * (ABNORMAL) BLOOD GASES CORD OTTO (ISTAT) (05/21/2023 5:00 PM CDT) pH Cord Venous POCT 7.26(L) 7.28 - 7.40 pH 05/21/2023 5:42 PM CDT [facility] pCO2 Cord Venous POCT 54.1(H) 35 - 45 mm hg 05/21/2023 5:42 PM CDT [facility] pO2 Cord Venous POCT 22 22 - 33 mm hg 05/21/2023 5:42 PM CDT [facility] HCO3 Cord Arterial POCT 24.5(H) 22 - 24 mmol/L 05/21/2023 5:42 PM CDT [facility] BE Cord Venous POCT Calc -4 -6.4 - 1.6 mmol/L 05/21/2023 5:42 PM CDT [facility] TCO2 Cord Venous POCT 26 22 - 30 mmol/L 05/21/2023 5:42 PM CDT [facility] O2 Saturation % Cord Venous Calc POCT 28 % 05/21/2023 5:42 PM CDT [facility] Site CORD ART 05/21/2023 5:42 PM CDT [facility] Sample iSTAT CORD OTTO 05/21/2023 5:42 PM T [facility] Blood CORD BLOOD SPECIMEN / Unknown 05/21/2023 5:00 PM CDT 05/21/2023 5:42 PM CDT Malik Maria MD LAB - POINT OF CARE ORDERABLES [facility] [address] [place] [address] * (ABNORMAL) BLOOD GASES CORD ART (ISTAT) (05/21/2023 4:55 PM CDT) pH Cord Arterial POCT 7.19(L) 7.20 - 7.34 pH 05/21/2023 5:42 PM CDT [facility] pCO2 Cord Arterial POCT 74.1(HH) 45 - 55 mm hg 05/21/2023 5:42 PM CDT [facility] pO2 Cord Arterial POCT 16 12 - 25 mm hg 05/21/2023 5:42 PM CDT [facility] HCO3 Cord Arterial POCT 28.0(H) 22 - 24 mmol/L 05/21/2023 5:42 PM CDT [facility] BE Cord Arterial POCT -3(L) -2.9 - 8.3 mmol/L 05/21/2023 5:42 PM CDT [facility] TCO2 Cord Arterial POCT 30 mmol/L 05/21/2023 5:42 PM CDT [facility] O2 Saturation Cord Art % Calc POCT 15 % 05/21/2023 5:42 PM CDT [facility] Site CORD ART 05/21/2023 5:42 PM CDT [facility] Sample iSTAT CORD ART 05/21/2023 5:42 PM CDT [facility] Blood CORD BLOOD SPECIMEN / Unknown 05/21/2023 4:55 PM CDT 05/21/2023 5:42 PM CDT Malik Maria MD LAB - POINT OF CARE ORDERABLES Performing Organization Address [facility]/State/ZIP Co de Phone Number [facility] [address] [place] [address] * EPIDURAL BLOCK PERF (05/20/2023 9:04 AM CDT) Narrative Dominique Huston, FANTASMA-REPAIRER [employer] - 05/20/2023 9:04 AM CDT Dominique Huston [...] Rh O POS 05/19/2023 12:01 PM CDT [facility] Comment:History checked. Antibody Screen NEG 12:01 PM CDT [facility] Blood Bank BLOOD SPECIMEN / Unknown Venipuncture / Unknown 05/19/2023 10:47 AM CDT 05/19/2023 11:02 AM CDT Malik Maria MD LAB - BLOOD BANK ORD ERABLES [facility] [address] [phone] * NONSTRESS TEST (05/19/2023 10:23 AM CDT) [...] OTHER INFORMATION Jasmin Templeton RN Non-Stress Test [facility] Patient Name: Jackie Sousa LMP: Patient's last [...] B)(AA) MT 05/23/2023 2:[address] [facility] MICROBIOLOGY Microbiology MISCELLANEOUS SAMPLES / Unknown Collection / Unknown 05/19/2023 9:48 AM CDT 05/19/2023 9:[address] [facility] MICROBIOLOGY - 05/23/2023 2:01 PM CDT Susceptibility testing of penicillin, other beta-lactam antibiotics, and vancomycin is not necessary for beta-hemolytic streptococci groups A,B,C and G because resistant strains have not been recognized. Malik Maria MD LAB - MICROBIOLOGY O RDERABLES [facility] MICROBIOLOGY [address] [place] [address], [facility] [phone] * NONSTRESS TEST (05/18/2023 6:28 PM CDT) [...] Interventions: None Allyson Terrazas RN Non-Stress Test [facility] Patient Name: Jackie Sousa LMP: Patient's last [...] Interventions: None Allyson Terrazas RN Non-Stress Test [facility] Patient Name: Jackie Sousa LMP: Patient's last [...] - 1.11 mg/dL 05/17/2023 8:13 PM CDT [facility] eGFR by CKD-EPI >90 >=90 mL/min/1.7 3 m2 05/17/2023 8:13 PM CDT [facility] Blood BLOOD SPECIMEN / Unknown Lab Venipuncture / Unknown 05/17/2023 7:49 PM CDT 05/17/2023 7:57 PM CDT Malik Maria MD LAB - CHEMISTRY DARLENE GONZALEZ [facility] Organization Address City/State/ZIP Co de Phone Number [facility] [address] [place] [address] * NONSTRESS TEST (05/17/2023 6:55 PM CDT) [...] Interventions: None Allyson Terrazas RN Non-Stress Test [facility] Patient Name: Jackie Sousa LMP: Patient's last [...] Urine 2,200 mL 05/17/2023 7:29 PM CDT [facility] Collection Time Hours 24 hrs 05/17/2023 7:29 PM CDT [facility] Protein Urine 16.5(H) <11.9 mg/dL 05/17/2023 7:29 PM CDT [facility] Creatinine Urine 77.29 mg/dL 05/17/2023 7:29 PM CDT [facility] Protein/Creatin ine Ratio Urine 0.21 05/17/2023 7:29 PM CDT [facility] Urine TIMED URINE SPECIMEN / Unknown Timed Urine Volume Measurement / Unknown 05/17/2023 6:19 PM CDT 05/17/2023 6:59 PM CDT Malik Maria MD LAB - URINE CHEMISTR Y ORDERABLES Performing Organization Address City/[facility]/ZIP Co de Phone Number [facility] [address] [place] [address] * (ABNORMAL) PROTEIN URINE TIMED QUANTITATIVE (05/17/2023 6:19 PM CDT) Only the most recent of2 resultswithin the time period is included. Volume 24 Hour Urine 2,200 mL 05/17/2023 7:29 PM CDT [facility] Collection Time Hours 24 hrs 05/17/2023 7:29 PM CDT [facility] Protein 24 Hour Urine 363(H) <300 mg/24hr 05/17/2023 7:29 PM CDT [facility] Protein Urine 16.5(H) <11.9 mg/dL 05/17/2023 7:29 PM CDT [facility] Urine TIMED URINE SPECIMEN / Unknown Timed Urine Volume Measurement / Unknown 05/17/2023 6:19 PM CDT 05/17/2023 6:59 PM CDT Malik Maria MD LAB - URINE CHEMISTR Y ORDERABLES [facility] [address] [place] [address] * (ABNORMAL) CREATININE CLEARANCE URINE TIMED + BLOOD (05/17/2023 6:19 PM CDT) Volume 24 Hour Urine 2,200 mL 05/17/2023 8:33 PM CDT [facility] Collection Time Hours 24 hrs 05/17/2023 8:33 PM CDT [facility] Height Inches 69 inches 05/17/2023 8:33 PM CDT [facility] Weight in Pounds 300 pounds 05/17/2023 8:33 PM CDT [facility] Surface Area 2.46 05/17/2023 8:33 PM CDT [facility] Creatinine 0.79 0.57 - 1.11 mg/dL 05/17/2023 8:33 PM CDT [facility] Creatinine Urine 77.29 mg/dL 05/17/2023 8:33 PM CDT [facility] Creatinine 24 Hour Urine 1,700(H) 710 - 1,650 mg/24hr 05/17/2023 8:33 PM CDT [facility] Creatinine Clearance 105 66 - 165 mL/min/1.7 3m2 05/17/2023 8:33 PM CDT [facility] Comment: Urine TIMED URINE SPECIMEN / Unknown Timed Urine Volume Measurement / Unknown 05/17/2023 6:19 PM CDT 05/17/2023 6:59 PM CDT Malik Maria MD LAB - URINE CHEMISTR Y ORDERABLES Performing Organization Address [facility] de Phone Number [facility] [address] [place] [address] * SYPHILIS ANTIBODY CASCADING REFLEX (05/16/2023 5:48 PM CDT) Only the most recent of2 resultswithin the time period is included. Treponema pallidum Antibody Non Reactive Non Reactive 05/16/2023 6:44 PM CDT [facility] Comment: No Laboratory evidence of syphilis infection. Note: Circulating antibodies may be low or undetectable in early infection. If recent exposure is suspected, re-draw sample in 2-4 weeks and repeat testing. Blood BLOOD SPECIMEN / Unknown Venipuncture / Unknown 05/16/2023 5:48 PM CDT 05/16/2023 6:07 PM CDT Malik Maria MD LAB - SEROLOGY ORDER BONNIE Performing Organization Address [facility] de Phone Number [facility] [address] [place] [phone] * RUBELLA ANTIBODY IGG (05/16/2023 5:48 PM CDT) Only the most recent of2 resultswithin the time period is included. Rubella Antibody 1.86 Immune >0.99 index 05/20/2023 9:22 AM CDT [facility] ([facility]) Comment: Non-immune <0.90 Equivocal 0.90 - 0.99 Immune >0.99 Blood BLOOD SPECIMEN / Unknown Venipuncture / Unknown 05/16/2023 5:48 PM CDT 05/16/2023 6:07 PM CDT Narrative [facility] ([facility]) - 05/20/2023 9:22 AM CDT Performed at: - [facility] [id number] Hat Sizer: Hema Enamorado PhD, Phone: [phone] Malik Maria MD LAB - SEROLOGY ORDER BONNIE [facility] [address] [place] [address] * MONITOR - HOLTER (05/16/2023 4:24 PM [...] Interventions: None Meggan Donnelly RN Non-Stress Test [facility] Patient Name: Jackie Sousa LMP: Patient's last [...] 10.2 <11.9 mg/dL 05/16/2023 4:32 PM CDT [facility] Creatinine Urine 37.86 mg/dL 05/16/2023 4:32 PM CDT [facility] Protein/Creatin ine Ratio Urine 0.27 05/16/2023 4:32 PM CDT [facility] Urine URINE SPECIMEN OBTAINED BY CLEAN CATCH PROCEDURE / Unknown Collection / Unknown 05/16/2023 4:10 PM CDT 05/16/2023 4:14 PM CDT Malik Maria MD LAB - URINE CHEMISTR Y ORDERABLES Performing Organization Address City/State/[facility] Co de Phone Number [facility] [address] [place] [address] * (ABNORMAL) COMPREHENSIVE METABOLIC PANEL (05/16/2023 4:09 PM CDT) Only the most recent of3 resultswithin the time period is included. Glucose 77 70 - 105 mg/dL 05/16/2023 4:36 PM CDT [facility] Sodium 135(L) 136 - 145 mmol/L 05/16/2023 4:36 PM CDT [facility] Potassium 3.9 3.5 - 5.1 mmol/L 05/16/2023 4:36 PM CDT [facility] Chloride 105 98 - 107 mmol/L 05/16/2023 4:36 PM CDT [facility] CO2 22 22 - 29 mmol/L 05/16/2023 4:36 PM CDT [facility] Calcium 9.0 8.4 - 10.4 mg/dL 05/16/2023 4:36 PM CDT [facility] Anion Gap 8 6 - 16 mmol/L 05/16/2023 4:36 PM CDT [facility] BUN 8 5.3 - 18.7 mg/dL 05/16/2023 4:36 PM CDT [facility] Creatinine 0.73 0.57 - 1.11 mg/dL 05/16/2023 4:36 PM CDT [facility] Alkaline Phosphatase 126 40 - 150 U/L 05/16/2023 4:36 PM CDT [facility] ALT <6 0 - 55 U/L 05/16/2023 4:36 PM CDT [facility] AST 8 5 - 34 U/L 05/16/2023 4:36 PM CDT [facility] Protein Total 6.7 6.4 - 8.3 gm/dL 05/16/2023 4:36 PM CDT [facility] Albumin 2.2(L) 3.4 - 5.0 gm/dL 05/16/2023 4:36 PM CDT [facility] Bilirubin Total 0.2 0.2 - 1.2 mg/dL 05/16/2023 4:36 PM CDT [facility] eGFR by CKD-EPI >90 >=90 mL/min/1.7 3 m2 05/16/2023 4:36 PM CDT [facility] Blood BLOOD SPECIMEN / Unknown Venipuncture / Unknown 05/16/2023 4:09 PM CDT 05/16/2023 4:14 PM CDT Malik Maria MD LAB - CHEMISTRY DARLENE GONZALEZ [facility] Organization Address City/State/ZIP Co de Phone Number [facility] [address] [place] [address] * BIOPHYSICAL PROFILE W NST (05/16/2023 9:17 AM CDT) Only the most recent of4 resultswithin the time period is included. Anatomical Region Laterality Modality Other 05/16/2023 9:17 AM CDT Narrative 05/16/2023 11:30 AM CDT [facility] PHONE: FAX: Pat. Name: JACKIE SOUSA. No: [id number] Study Date: 05/16/2023 9:17am , Age: 02 1980, 42 Pregnancies: 6, Para 4013 Height: 69 in Weight: 267 lb LMP: 09/08/2022 GA by LMP: 35w5d GA by Base: 35w3d JAMEE: 06/17/2023 GA Selected: 35w3d (From [facility]) JAMEE: 06/17/2023 Referring MD: Danial Rivas MD Hairspring Inspector: Destini Hightower, [facility], [facility] CPT4: 90944,[id number] BMI: 39.42 Hist/Ind: PUD & severe anemia [...] <Electronic Signature> 05/16/2023 11:30am Ulices Coronado MD [facility] ORDERABLES * PAP IG LB+HPV APTIMA (05/08/2023 10:19 AM CDT) Diagnosis Comment 05/11/2023 3:07 PM CDT [facility] ([facility]) Comment:NEGATIVE FOR INTRAEP ITHELIAL LESION OR MALIGNANCY. Specimen Adequacy Comment 023 3:07 PM CDT [facility] ([facility]) Comment: Satisfactory for evaluation. Endocervical and/or squamous metaplastic cells (endocervical component) are present. Areas of partially obscuring blood are present. Performed by Comment 05/11/2023 3:07 PM CDT [facility] ([facility]) Comment:Ashley Ochoa Cytot echnologist ([facility]) Comment . 05/11/2023 3:07 PM CDT [facility] ([facility]) Note Comment 05/11/2023 3:07 PM CDT [facility] ([facility]) Comment: The Pap smear is a screening test designed to aid in the detection of premalignant and malignant conditions of the uterine cervix. It is not a diagnostic procedure and should not be used as the sole means of detecting cervical cancer. Both false-positive and false-negative reports do occur. IGLBP CPT Code Automation Comment 05/11/2023 3:07 PM CDT [facility] ([facility]) Comment: This liquid based ThinPrep(R) pap test was screened with the use of an image guided system. Human papillomavirus Aptima Negative Negative 05/11/2023 3:07 PM CDT [facility] ([facility]) Comment: This nucleic acid amplification test detects fourteen high-risk HPV types (16,18,31,33,35,39,45,51,52,56,58,59,66,68) without differentiation. Pathology/Cytolo gy PART OF UTERINE CERVIX / Unknown Collection / Unknown 05/08/2023 10:19 AM CDT 05/08/2023 11:29 AM CDT Narrative [facility] ([facility]) - 05/11/2023 3:07 PM CDT Performed at: 01 - [address] [id number] Hat Sizer: Marguerite Yap MD, Phone: [phone] Performed at: [address] - [address] [id number] Hat Sizer: Marguerite Yap MD, Phone: [phone] Specimen Comment: No. of containers..01 ThinPrep Vial Belle Jeffery MD LAB - PATHOLOG Y/CYTOLOGY ORDERABLES [facility] ([facility]) [address] [place] [address] * (ABNORMAL) URINALYSIS - POCT (IP) BEAKER INTERFACE (05/08/2023 8:56 AM CDT) Color UA POCT Dark Yellow Straw, Yellow, Dark Yellow, Light Yellow 05/08/2023 8:58 AM CDT [facility] Clarity UA POCT Clear Clear 8:58 AM CDT [facility] Specific [place] UA POCT 1.025 1.005 - 1.030 05/08/2023 8:58 AM CDT [facility] pH UA POCT 5.5 5.0 - 8.0 pH 05/08/2023 8:58 AM CDT [facility] Protein UA POCT Trace(A) Negative 8:58 AM CDT [facility] Blood UA POCT Negative Negative 05/08/2023 8:58 AM CDT [facility] Leukocyte UA POCT Negative Negative 05/08/2023 8:58 AM CDT [facility] Nitrite UA POCT Negative Negative 8:58 AM CDT [facility] Glucose UA POCT Negative Negative 8:58 AM CDT [facility] Ketone UA POCT Negative Negative 05/08/2023 8:58 AM CDT [facility] Bilirubin UA POCT Negative Negative 05/08/2023 8:58 AM CDT [facility] Urobilinogen UA POCT 0.2 0.1 - 1.0 EU/dL 05/08/2023 8:58 AM CDT [facility] Urine URINE / Unknown 05/08/2023 8 :56 AM CDT 05/08/2023 8:57 AM CDT Mau Lentz MD LAB - POINT OF CARE ORDERABLES Performing Organization Address City/State/[facility] Co de Phone Number [facility] [address] [place], [place] [id number] * ECHO COMPLETE (04/28/2023 2:59 PM CDT) BSA [id number] m2 [facility] CV FUJ I PACS LVOT [...] (Bezet) 464 ms [facility] MUSE Calculated P [place] 41 degrees [facility] MUSE Calculated R [place] 24 degrees [facility] MUSE Calculated T [place] 126 degrees [facility] Interpretation EKG SINUS TACHYCARDIA NONSPECIFIC ST AND T WAVE ABNORMALITY ABNORMAL ECG Confirmed by DO AMANDA STEPHANIE ([id number]) on 04/25/2023 12:10:59 PM [facility] MUSE 04/24/2023 [...] FAX: Pat. Name: JACKIE SOUSA Pat. No: [id number] Study Date: 04/09/2023 8:32am , Age: 02 1980, 42 Pregnancies: 6, Para 4013 Height: 69 in Weight: 267 lb LMP: Unknown GA by Base: 30w1d JAMEE: 06/17/2023 GA by US: 30w3d JAMEE: 06/15/2023 GA Selected: 30w1d (From [facility]) JAMEE: 06/17/2023 Referring MD: Danial Rivas MD Hairspring Inspector: Alejandrina Grande RDMS CPT4: 70267 BMI: 39.42 Hist/Ind: PUD & severe anemia requiring transfusion, CHTN on nifedipine, AMA 42 c reportedly low-risk cf-DNA, Prior C/S X1, Class III Obesity, Anxiety & depression MEASUREMENTS & AGE GROWTH EVALUATION Measurement GA Range Srce %for GA Ratios ----- ---- ------- BPD 7.5 cm 29w6d (81f0b-07t6w) Hadl BPD 30% FL/BPD 0.74 (0.71 - 0.87) HC 29.0 cm 32w0d (85i0s-27d6w) Hadl HC 66% FL/AC 0.20 (0.20 - 0.24) AC 27.6 cm 31w5d (70j9t-44c8j) Hadl AC 85% HC/AC 1.05 (0.97 - 1.16) FL 5.6 cm 29w2d (43x1a-02k8x) Hadl FL 14% CI 0.70 (0.70 - 0.86* HL 5.0 cm 29w3d (19s1g-10q8p) Nilay HL 37% GA for sonogram 30w3d (77v2g-04x2u) Weight Estimate: based on (HC,AC,FL) [place] Weight: [...] <Electronic Signature> 04/09/2023 09:57am Ulices Coronado MD [facility] ORDERABLES * FERRITIN (01/30/2023 9:54 AM CDT) [facility] Ferritin 6 5 - 204 ng/mL 01/30/2023 11:06 AM CDT [facility] Blood BLOOD SPECIMEN / Unknown Venipuncture / Unknown 01/30/2023 9:54 AM CDT 01/30/2023 10:03 AM CDT Amalia Shearer MD LAB - CHEMISTRY DARLENE GONZALEZ [facility] Organization Address City/State/ZIP Co de Phone Number [facility] [address] [place] [address] * TRANSFUSE RED BLOOD CELL LEUKOREDUCED UNIT(S) (01/29/2023 3:20 PM CDT) Amalia Shearer MD NURSING - BLOOD PROD TRANSFUSION * (ABNORMAL) OCCULT BLOOD FECES (01/29/2023 10:12 AM CDT) [facility] Occult Blood Positive(A ) Negative 01/29/2023 10:37 AM CDT [facility] Stool STOOL SPECIMEN / Unknown Collection / Unknown 01/29/2023 10:12 AM CDT 01/29/2023 10:27 AM CDT Amalia Shearer MD LAB - BODY FLUID ORD ERABLES [facility] [address] [place] [address] * BLOOD TYPE VERIFICATION (01/29/2023 6:39 AM CDT) ABO Rh O POS 01/29/2023 8:0 7 AM CDT [facility] Blood Bank BLOOD SPECIMEN / Unknown Lab Venipuncture / Unknown 01/29/2023 6:39 AM CDT 01/29/2023 7:25 AM CDT Amalia Shearer MD LAB - BLOOD BANK ORD ERABLES Performing Organization Address [facility] Co de Phone Number [facility] [address] [place] [address] * URINALYSIS REFLEX MICROSCOPIC REFLEX CULTURE (01/29/2023 6:09 AM CDT) Color UA Yellow Straw, Yellow 01/29/2023 6:57 AM CDT [facility] Clarity UA Clear Clear 01/29/2023 6:57 AM CDT [facility] Glucose UA Negative Negative 01/29/2023 6:57 AM CDT [facility] Bilirubin UA Negative Negative 01/29/2023 6:57 AM CDT [facility] Ketone UA Negative Negative 01/29/2023 6:57 AM CDT [facility] Specific [place] UA 1.023 1.005 - 1.030 01/29/2023 6:57 AM CDT [facility] Blood UA Negative Negative 01/29/2023 6:57 AM CDT [facility] pH UA 6.0 5.0 - 8.0 pH 01/29/2023 6:57 AM CDT [facility] Protein UA Negative Negative 01/29/2023 6:57 AM CDT [facility] Urobilinogen UA Negative Negative mg/dL 01/29/2023 6:57 AM CDT [facility] Nitrite UA Negative Negative 01/29/2023 6:57 AM CDT [facility] Leukocyte UA Negative Negative 01/29/2023 6:57 AM CDT [facility] Urine Microscopy Urine microscopy not indicated 01/29/2023 6:57 AM CDT [facility] Reflex Status Culture not indicated 01/29/2023 6:57 AM CDT [facility] Urine URINE SPECIMEN OBTAINED BY CLEAN CATCH PROCEDURE / Unknown Collection / Unknown 01/29/2023 6:09 AM CDT 01/29/2023 6:13 AM CDT Narrative [facility] - 01/29/2023 6:57 AM CDT Amalia Shearer MD LAB - URINALYSIS ORD ERABLES [facility] [address] [place] [address] Care Teams Business System Consultant Relationship Specialty Start Date End Date Phil Canas DO [address] [place] [phone] PCP - General Family Medicine 04/28/23
--- NOTE | 2024-12-19 18:55 | PC.NURSE ---
ASSUMED CARE. REPORT RECEIVED FROM SUE VAZQUEZ
[2024-12-19 18:58] VITALS: BP 127/76; PULSE 95; RESP 20; TEMP 37; O2SAT 96
[2024-12-19] MEDS: predniSONE 20 MG TABLET 40 MG PO (19:09)
[2024-12-19] MEDS: MORPHINE SULFATE (*CRX) 4 MG/ML INJ IM (19:10)
--- NOTE | 2024-12-19 19:17 | PC.NURSE ---
RESTING ON STRETCHER. RIGHT LEG ELEVATED ON STRETCHER. MEDICATED PER DEC. FAMILY AT HER SIDE
[2024-12-19 19:39] VITALS: BP 124/78; PULSE 88; RESP 18; O2SAT 99
== END 2024-12-19 19:39 | disposition home or self-care (01) ==
PROVIDERS: Emergency Provider Emergency Medicine; PCP Family Medicine
DX: M25.461 Effusion, right knee (principal); M23.91 Unspecified internal derangement of right knee; Z87.891 Personal history of nicotine dependence; X58.XXXA Exposure to other specified factors, initial encounter; Y93.44 Activity, trampolining
CPT/HCPCS: 73564; 96372; 99283; A9270; J2270; J7512

== ENCOUNTER 2024-12-23 06:59 | Outpatient (CLI) | payer OTHER, SELFPAY | END 2024-12-23 07:00 | disposition home or self-care (01) | LOC: CHSIMG 07:00 | PROVIDERS: PCP Nurse Practitioner Family; Visit Provider Nurse Practitioner Family | DX: M25.461 Effusion, right knee (principal); S82.111A Displaced fracture of right tibial spine, initial encounter for closed fracture; M22.2X1 Patellofemoral disorders, right knee; M25.061 Hemarthrosis, right knee | CPT/HCPCS: 73721 ==

== ENCOUNTER 2025-01-14 09:56 | Outpatient (RCR) | payer OTHER, SELFPAY ==
--- NOTE | 2025-01-14 11:05 | OPREHPOC ---
Outpatient Therapy Plan of Care This is a Multidisciplinary Plan of Care that may contain components documented by all disciplines (PT, OT, and ST.) PT Problem 1 PT Problem #1 Knowledge Deficit PT Goal 1 Goal / Goal Update 1. independent and compliant with HEP Target Visit 6 PT Problem 2 PT Problem #2 Pain PT Goal 1 Goal / Goal Update 1. decrease pain at worst to 2/10 or less in the R knee. Target Visit 12 PT Problem 3 PT Problem #3 Impaired Range of Motion PT Goal 1 Goal / Goal Update 1. 0-125 degrees or better active R knee mobility Target Visit 12 PT Problem 4 PT Problem #4 Impaired Strength PT Goal 1 Goal / Goal Update 1. 5/5 R hip flex 2. 5/5 R knee strength 3. 5/5 R ankle DF Target Visit 12 PT Problem 5 PT Problem #5 Impaired Functional Mobility PT Goal 1 Goal / Goal Update 1. LEFS to display 40% or less functional deficits 2. patient to return to normal ambulation mechanics without an AD 3. patient to stand for 2 hours without increased pain 4. patient to ambulate up and down steps with reciprocal mechanics
--- NOTE | 2025-01-14 11:05 | PTOPEVAL1 ---
Assessment and note entered by JT File, PT Evaluation Information Assessment Status Evaluation ICD-10 Condition Codes (PT) Pain in right knee M25.561 Onset 12/19/24 Subjective Information patient reports she fell off a trampoline at the trampoline park into a foam pit straight onto her R LE. she reports the R leg then bowed in as she fell the other way. she reports she got 2 fractures from the incident. she reports she was told about 3 weeks ago that she is to be non weight bearing on the R LE for 6 weeks. she reports she she was told surgery might still be on the table if it does not heal. she is using a walker currently. she reports she is off work currently. she was told she may need a brace, but was given no brace at this time. prior to injury, patient had no issues with the R LE. 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 Reported Pain Level Pain Score 4: Self Report Assessment PT Clinical Summary mrs. ruiz is a 44 yo woman who presents to skilled PT services for evaluation and treatment of R knee pain. she suffered 2 fracture in the R knee during an injury back in november. she currently displays WB restrictions, R LE weakness, decreased R knee rom, and pain with deficits in functional activity performance. she would benefit from continued skilled PT to address her objective/functional deficits and progress towards a return to her prior level functional activity performance/quality of life. Plan of Care Interventions Electrical Stimulation,Gait Training,Hot Pack/Cold Pack,Manual Therapy,Neuro Re-education,Patient/ Caregiver Education,Therapeutic Activities, Therapeutic Exercise PT Services Indicated Yes Treatment Frequency and 3x weekly for 12 visits Duration These treatments will address the objective and functional deficits as defined above. The patient will be advanced safely and appropriately in order for the patient to progress towards his/her prior level of function. Additional exercises will be introduced and as well as a comprehensive home exercise program upon discharge, if needed, ?to ensure carryover of functional gains achieved in the clinic. This treatment plan has been reviewed and agreement upon by the patient.
--- NOTE | 2025-02-22 07:42 | OPREHPOC ---
Outpatient Therapy Plan of Care This is a Multidisciplinary Plan of Care that may contain components documented by all disciplines (PT, OT, and ST.) PT Problem 1 PT Problem #1 Knowledge Deficit PT Goal 1 Goal / Goal Update 1. independent and compliant with HEP Target Visit 6 Progress Met PT Problem 2 PT Problem #2 Pain PT Goal 1 Goal / Goal Update 1. decrease pain at worst to 2/10 or less in the R knee. Target Visit 18 Progress Not Met PT Problem 3 PT Problem #3 Impaired Range of Motion PT Goal 1 Goal / Goal Update 1. 0-125 degrees or better active R knee mobility Target Visit 18 Progress Partially Met PT Problem 4 PT Problem #4 Impaired Strength PT Goal 1 Goal / Goal Update 1. 5/5 R hip flex 2. 5/5 R knee strength 3. 5/5 R ankle DF. met Target Visit 18 Progress Partially Met PT Problem 5 PT Problem #5 Impaired Functional Mobility PT Goal 1 Goal / Goal Update 1. LEFS to display 40% or less functional deficits . met - new goal for 20% or less functional deficits 02/16/25. 2. patient to return to normal ambulation mechanics without an AD 3. patient to stand for 2 hours without increased pain 4. patient to ambulate up and down steps with reciprocal mechanics. partially met Target Visit 18
--- NOTE | 2025-02-22 07:45 | PTOPREEVAL ---
Assessment and note entered by JT File, PT Evaluation Information Assessment Status Re-evaluation ICD-10 Condition Codes (PT) Pain in right knee M25.561 Onset 12/19/24 Subjective Information patient reports she has had an update from her MD since her last re-evaluation. she is full WB on the R LE, and is back to work. she reports she is working shortened hours to 8 hr days. she reports the knee still feels unsteady at times. she reports she found out over that standing and walking on hills is still tough, and returning to work has been more troublesome and fatiguing than she expected. she reports the knee will stay somewhat locked on her a bit when she gets up initially from prolonged sitting. Reported Pain Level Pain Score 0: Self Report Assessment PT Clinical Summary mrs. ruiz presents to skilled PT for her 12th skilled PT visit today. she displays improved rom, improved strength, and improved WB/ambulation. however, she is still lacking full strength, full rom, normal ambulation mechanics, and the endurance to stand and ambulate all day. she is also still having a fair amount of pain and locking in the knee. continued skilled PT is still indicated at this time to further improve her objective/functional deficits and return to full prior level functional activity performance/ quality of life. Plan of Care Interventions Electrical Stimulation,Gait Training,Hot Pack/Cold Pack,Manual Therapy,Neuro Re-education,Patient/ Caregiver Education,Therapeutic Activities, Therapeutic Exercise PT Services Indicated Yes Treatment Frequency and continue skilled PT 2x weekly for 6 more visits ( Duration 18 total) These treatments will address the objective and functional deficits as defined above. The patient will be advanced safely and appropriately in order for the patient to progress towards his/her prior level of function. Additional exercises will be introduced and as well as a comprehensive home exercise program upon discharge, if needed, ?to ensure carryover of functional gains achieved in the clinic. This treatment plan has been reviewed and agreement upon by the patient.
--- NOTE | 2025-03-04 18:11 | PCPTNOTE ---
Supervised treatment by Traci Cuello PT student, reviewed documentation and is correct. Maci Bowers, PT
--- NOTE | 2025-03-10 16:33 | PCPTNOTE ---
Patient called & cancelled scheduled appointment this date due to not having a sitter. -Ann Lott, PT
--- NOTE | 2025-03-17 17:36 | PCPTNOTE ---
No call no show today. Pt called, but did not answer. VM left for pt.
== END 2025-04-14 23:59 | disposition home or self-care (01) ==
LOC: CHSPT 09:56
DX: M25.561 Pain in right knee (principal)
CPT/HCPCS: 97014; 97110; 97112; 97161; 97530; G0283